=== PATIENT | male | born 1955 | race Caucasian/White ===

== ENCOUNTER 2016-07-23 15:21 | Emergency (ER) | payer SELFPAY ==
[~2016-07-23] VITALS: Ht 180.3 cm; Wt 75.0 kg
[~2016-07-23 15:21] MED LIST: AMIO200T PO; ASPI81CH CHEW; CARD2TAB PO; CEFT500T3 PO; ERGO1CAP30 PO; FERR325T PO; FOLI1TAB4 PO; FURO1TAB62 PO; HYDR-3366 PO; LISI10TA3 PO; LORA-392 PO; METO-309 PO; OYST250T4 PO; PRAV40TA PO; SENN1TAB PO; VITA100T2 PO; ZITH250T PO
[2016-07-23 15:29] VITALS: BP 158/97; PULSE 87; RESP 18; TEMP 97.7; O2SAT 94
--- NOTE | 2016-07-23 15:52 | PD ---
HPI Chief Complaint: Chest Pain Time Seen by Provider: 15:36 Travel History International Travel<30 days: No Contact w/Intl Traveler<30days: No Traveled to known affect area: No History of Present Illness HPI The patient is a 61-year-old male who presents emergency department for sternal and right sided rib pain after a fall. The patient states he fell Monday night, struck the right aspect of his chest wall. The patient has complained of pain located along the right sternal border and over the anterior aspect of the right rib cage since Monday night. The pain is worse with movement, coughing, and deep breaths. Patient states the pain is reproducible with palpation. He denies any chest pain or shortness of breath. The patient does have a history of previous CABG it was performed in February 2016. The patient has not been taking his medications, states he cannot afford all his medications for his CD and PVD. The patient does continue to smoke and drinks alcohol on the weekends. 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) Headaches: No Hiatal Hernia: No Hypertension: Yes Immune Disorder: No Implanted Vascular Access Dvce: Yes Musculoskeletal: Yes Neurologic: Yes Psychiatric: No Reproductive: No Respiratory: Yes Immunizations Current: Yes Migraines: No Seizures: No Sleep Apnea: No Thyroid Disease: No Ulcer: No Past Surgical History Body Medical Devices: LEFT RENAL STENT Cardiac Surgery: Yes (cabg x 3 vessels) Coronary Artery Bypass Graft: Yes Genitourinary Surgery: Yes (L RENAL STENT 2000) Neurologic Surgery: No Thoracic Surgery: Yes (l carotid Femoral bypass R and L 06/2015 dr Nunn) Other Surgery: Yes (pad R leg VEIN STRIPPING pvd surgery) Social History Alcohol Use: Yes (3 beers today) Tobacco Use: Yes (04/13 ppd) Substance Use: No (30 YEARS AGO) Allergies-Medications (Allergen,Severity, Reaction): Coded Allergies: No Known Allergies (Unverified , 12/13/16) Reported Meds & Prescriptions Reported Meds & Active Scripts Active Lopressor (Metoprolol Tartrate) 50 Mg Tab 50 Mg PO Q12HR 30 Days Lisinopril 10 Mg Tab 10 Mg PO DAILY Ferrous Sulfate 325 Mg Tab 325 Mg PO DAILY Ergocalciferol 50,000 Unit Cap 50,000 Units PO Q7D Lasix (Furosemide) 20 Mg Tab 20 Mg PO DAILY Aspirin 81 Mg Chew 81 Mg CHEW DAILY Folate (Folic Acid) 1 Mg Tab 1 Mg PO DAILY Cardura (Doxazosin Mesylate) 2 Mg Tab 2 Mg PO DAILY Amiodarone (Amiodarone HCl) 200 Mg Tab 200 Mg PO Q12HR Oyster Shell Calcium/Vitamin D (Calcium Carbonate-Cholecalciferol) 250-125 Mg- Unit Tab 250 Mg PO TID 30 Days Vitamin B-1 (Thiamine HCl) 100 Mg Tab 100 Mg PO DAILY 30 Days Pravachol (Pravastatin) 40 Mg Tab 40 Mg PO HS 30 Days Review of Systems Except as stated in HPI: all other systems reviewed are Neg General / Constitutional: No: Fever HENT: No: Headaches, Lightheadedness, Neck Pain Cardiovascular: Positive: Chest Pain or Discomfort (right sided chest pain and sternal pain after a fall) Respiratory: No: Cough, Shortness of Breath Gastrointestinal: No: Nausea, Vomiting, Abdominal Pain Musculoskeletal: No: Weakness Neurologic: No: Dizziness Physical Exam Narrative GENERAL: Awake, alert, 61-year-old male who appears his stated age and is in no acute respiratory distress. SKIN: Focused skin assessment warm/dry. HEAD: Atraumatic. Normocephalic. EYES: Pupils equal and round. No scleral icterus. No injection or drainage. ENT: No nasal bleeding or discharge. Mucous membranes pink and moist. NECK: Trachea midline. No JVD. CARDIOVASCULAR: Regular rate and rhythm. No murmur appreciated. Well-healed midline sternal scar. Tenderness along the lateral right aspect of the sternum and over the anterior right chest wall. Pain elicited with palpation as well as rotation and active extension of the shoulder and right upper extremity against resistance. RESPIRATORY: No accessory muscle use. Clear to auscultation. Breath sounds equal bilaterally. GASTROINTESTINAL: Abdomen soft, non-tender, nondistended. No rebound tenderness. MUSCULOSKELETAL: No obvious deformities. No clubbing. No cyanosis. No edema. NEUROLOGICAL: Awake and alert. No obvious cranial nerve deficits. Motor grossly within normal limits. Normal speech. PSYCHIATRIC: Appropriate mood and affect; insight and judgment normal. Data Data Last Documented VS Vital Signs Date Time Temp Pulse Resp B/P Pulse Ox O2 Delivery O2 Flow Rate FiO2 07/23/16 15:29 97.7 87 18 158/97 94 Orders Chest, Pa & Lat (07/23/16 ) Acetamin-Hydrocod 325-5 Mg ([place] 5-325 (07/23/16 16:00) [facility] Medical Decision Making Medical Screen Exam Complete: Yes Emergency Medical Condition: Yes Medical Record Reviewed: Yes Interpretation(s) EKG reveals normal sinus rhythm with a rate 88. Q wave noted in lead 3. Chest x-ray reveals minimal basal atelectasis or scarring. No acute findings compared with June 2015. Previous median sternotomy. Differential Diagnosis Differential diagnosis includes sternal fracture, rib fracture, rib contusion, pneumothorax, hemothorax, chest wall pain. Narrative Course Two-view chest x-ray was ordered to evaluate the sternum and lung maher. The patient was administered [place] 5 mg/325 mg orally. X-rays unremarkable, no obvious rib fractures, pneumothorax, hemothorax, or dehiscence of the previous sternotomy. The patient is stable for outpatient follow-up. He is advised to take Tylenol and or Motrin as needed for pain. Return if symptoms worsen or progress. Diagnosis Primary Impression: Chest wall pain Patient Instructions: General Instructions Additional Instructions: Tylenol and or Motrin as needed for pain. Activity as tolerated. Follow-up with her primary physician. Med/Other Pt SpecificInfo: No Change to Meds Disposition: 01 DISCHARGE HOME Condition: Stable Troy Newman MD Jul 23, 2016 15:51
[2016-07-23] MEDS ORDERED: ACETAMINOPHEN/HYDROcodone 325 MG/5 MG TAB PO ONE (16:00)
--- NOTE | 2016-07-23 16:31 | RADHPO ---
EXAM DATE/TIME: 07/23/2016 16:01 [facility] COMPARISON: CHEST PA & LAT, June 16, 2015, 18:15. INDICATIONS : Right side chest and rib pain for four days post fall. MEDICAL HISTORY : Hypertension. SURGICAL HISTORY : CABG. Right shoulder. ENCOUNTER: Initial ACUITY: 4 - 6 days PAIN SCORE: 9/10 LOCATION: Right chest FINDINGS: PA and lateral views of the chest demonstrate plate and screw fixation distal clavicle. Mild basilar atelectasis or scarring. Mildly tortuous aorta. Previous median sternotomy. CONCLUSION: 1. Minimal basilar atelectasis or scarring. No acute findings compared with June 2015. Evelio Camejo MD on July 23, 2016 at 16:29 Board Certified Radiologist. This report was verified electronically.
--- NOTE | 2016-07-24 14:02 | EKG ---
Date Performed: 07/23/2016 Time Performed: 15:23:54 PTAGE: 61 years EKG: Sinus rhythm Poor R wave progression across the precordium which may be normal variant Since previous tracing, no significant change noted BorderlineECG PREVIOUS TRACING : 03/22/2016 19.14 DOCTOR: Darrel Cuellar Interpretating Date/Time 07/24/2016 14:00:53
== END 2016-07-23 17:10 | disposition home or self-care (01) ==
LOC: PHED 15:21
DX: R07.89 Other chest pain (principal); R07.81 Pleurodynia; R94.31 Abnormal electrocardiogram [ECG] [EKG]; I10 Essential (primary) hypertension; E78.00 Pure hypercholesterolemia, unspecified; W19.XXXA Unspecified fall, initial encounter; Z72.0 Tobacco use; Z87.39 Personal history of other diseases of the musculoskeletal system and connective tissue; Z87.09 Personal history of other diseases of the respiratory system; Z86.79 Personal history of other diseases of the circulatory system; Z87.19 Personal history of other diseases of the digestive system; Z87.448 Personal history of other diseases of urinary system; Z86.69 Personal history of other diseases of the nervous system and sense organs
CPT/HCPCS: 71020; 93005; 99283

== ENCOUNTER 2016-08-09 20:50 | Observation (INO) | payer SELFPAY ==
[~2016-08-09] VITALS: Ht 180.3 cm; Wt 70.0 kg
[~2016-08-09 20:50] MED LIST changes: -CEFT500T3 PO; -HYDR-3366 PO; -LORA-392 PO; -SENN1TAB PO; -ZITH250T PO
[2016-08-09 20:53] VITALS: BP 188/116; PULSE 85; RESP 20; TEMP 97.6
[2016-08-09 21:07] VITALS: BP 180/110; PULSE 75; RESP 22; O2SAT 97; O2SAT 98
--- NOTE | 2016-08-09 21:08 | PD ---
HPI Chief Complaint: Chest Pain Time Seen by Provider: 21:05 Travel History International Travel<30 days: No Contact w/Intl Traveler<30days: No Traveled to known affect area: No History of Present Illness HPI Patient comes in for evaluation of chest pain that he woke with this morning. Patient denies anything making it better or worse. Patient has been sharp stabbing like in nature substernally radiates to the right. Patient denies any nausea, vomiting, worsening shortness of breath, diaphoresis, trauma, back pain , numbness or tingling anywhere. Patient states he is suppose to be taking multiple medications but does not take any of them secondary to not being able to afford them. Patient denies taking anything for this states someone else called ambulance for him. Patient did receive 4 baby aspirin and nitroglycerin en route by EMS with minimal relief of symptoms. Patient reports pain feels different than the chest wall pain that he had seen here for 2 weeks ago. 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) Headaches: No Hiatal Hernia: No Hypertension: Yes Immune Disorder: No Implanted Vascular Access Dvce: Yes Musculoskeletal: Yes Neurologic: Yes Psychiatric: No Reproductive: No Respiratory: Yes Immunizations Current: Yes Migraines: No Seizures: No Sleep Apnea: No Thyroid Disease: No Ulcer: No Past Surgical History Body Medical Devices: LEFT RENAL STENT Cardiac Surgery: Yes (cabg x 3 vessels) Coronary Artery Bypass Graft: Yes Genitourinary Surgery: Yes (L RENAL STENT 2000) Neurologic Surgery: No Thoracic Surgery: Yes (l carotid Femoral bypass R and L 06/2015 dr Nunn) Other Surgery: Yes (pad R leg VEIN STRIPPING pvd surgery) Social History Alcohol Use: Yes (3 beers today) Tobacco Use: Yes (04/13 ppd) Substance Use: No (30 YEARS AGO) Allergies-Medications (Allergen,Severity, Reaction): Coded Allergies: No Known Allergies (Unverified , 03/22/16) Reported Meds & Prescriptions Reported Meds & Active Scripts Active Lopressor (Metoprolol Tartrate) 50 Mg Tab 50 Mg PO Q12HR 30 Days Lisinopril 10 Mg Tab 10 Mg PO DAILY Ferrous Sulfate 325 Mg Tab 325 Mg PO DAILY Ergocalciferol 50,000 Unit Cap 50,000 Units PO Q7D Lasix (Furosemide) 20 Mg Tab 20 Mg PO DAILY Aspirin 81 Mg Chew 81 Mg CHEW DAILY Folate (Folic Acid) 1 Mg Tab 1 Mg PO DAILY Cardura (Doxazosin Mesylate) 2 Mg Tab 2 Mg PO DAILY Amiodarone (Amiodarone HCl) 200 Mg Tab 200 Mg PO Q12HR Oyster Shell Calcium/Vitamin D (Calcium Carbonate-Cholecalciferol) 250-125 Mg- Unit Tab 250 Mg PO TID 30 Days Vitamin B-1 (Thiamine HCl) 100 Mg Tab 100 Mg PO DAILY 30 Days Pravachol (Pravastatin) 40 Mg Tab 40 Mg PO HS 30 Days Review of Systems Except as stated in HPI: all other systems reviewed are Neg Physical Exam Narrative GENERAL: Well-developed, well nourished, in no acute distress, and non-ill appearing. SKIN: Focused skin assessment warm and dry. HEAD: Atraumatic. Normocephalic. EYES: Pupils equal and round. EOMI. No scleral icterus. No injection or drainage. ENT: No nasal bleeding or discharge. Mucous membranes pink and moist. NECK: Trachea midline. Supple. No nuclear rigidity. CARDIOVASCULAR: Regular rate and rhythm. No murmur appreciated. RESPIRATORY: No accessory muscle use. No respiratory distress. Clear to auscultation. Breath sounds equal bilaterally. Patient reports to palpation throughout anterior chest wall GASTROINTESTINAL: Abdomen soft, non-tender, nondistended. Hepatic and splenic margins not palpable. No pulsatile mass. MUSCULOSKELETAL: No obvious deformities. No clubbing. No cyanosis. No edema. Full range of motion. NEUROLOGICAL: Awake and alert. No obvious cranial nerve deficits. Motor grossly within normal limits. Normal speech. PSYCHIATRIC: Appropriate mood and affect; insight and judgment normal. Data Data Last Documented VS Vital Signs Date Time Temp Pulse Resp B/P Pulse Ox O2 Delivery O2 Flow Rate FiO2 08/09/16 22:36 75 16 162/98 94 08/09/16 21:07 Room Air 08/09/16 20:53 97.6 Orders Electrocardiogram (08/09/16 21:03) Basic Metabolic Panel (Bmp) (08/09/16 21:03) Ckmb (Isoenzyme) Profile (08/09/16 21:03) Complete Blood Count With Diff (08/09/16 21:03) Magnesium (Mg) (08/09/16 21:03) Prothrombin Time / Inr (Pt) (08/09/16 21:03) Act Partial Throm Time (Ptt) (08/09/16 21:03) Troponin I (08/09/16 21:03) Chest, Single Ap (08/09/16 21:03) Ecg Monitoring (08/09/16 21:03) Bilateral Bp Monitoring (08/09/16 21:03) Iv Access Insert/Monitor (08/09/16 21:03) Oximetry (08/09/16 21:03) Oxygen Administration (08/09/16 21:) Nitroglycerin 2% Oint (Nitroglycerin 2% (08/09/16 21:15) Sodium Chloride 0.9% Flush (Ns Flush) (08/09/16 21:15) Alcohol (Ethanol) (08/09/16 21:13) Clonidine (Catapres) (08/09/16 22:15) Place In Observation (08/09/16 ) Vital Signs (Adult) Q4H (08/09/16 22:48) Activity Oob With Assistance (08/09/16 22:48) Operating Room Tech / Telemetry .CONTINUOUS (08/09/16 22:48) Diet Heart Healthy (08/10/16 Breakfast) Basic Metabolic Panel (Bmp) (08/10/16 06:00) Complete Blood Count With Diff (08/10/16 06:00) Creatine Kinase (Cpk) (08/10/16 03:15) Creatine Kinase (Cpk) (08/10/16 09:15) Troponin I (08/10/16 03:15) Troponin I (08/10/16 09:15) Electrocardiogram (08/10/16 03:15) Electrocardiogram (08/10/16 09:15) Case Management Consult (08/09/16 22:48) Naloxone Inj (Narcan Inj) (08/09/16 23:00) Thiamine (Vit B1) (Vitamin B1) (08/09/16 23:00) Thiamine (Vit B1) (Vitamin B1) (08/10/16 09:00) Alcohol Withdrawal Asmt-Ciwa Q4HX18 (08/09/16 22:50) ^ Seizure Precautions (08/09/16 22:50) Sodium Chloride 0.9% Flush (Ns Flush) (08/09/16 23:00) Sodium Chloride 0.9% Flush (Ns Flush) (08/10/16 09:00) Consult Cm-Etoh Abuse Dc Plan (08/09/16 ) Flumazenil Inj (Romazicon Inj) (08/09/16 23:00) Lorazepam (Ativan) (08/09/16 23:00) Lorazepam Inj (Ativan Inj) (08/09/16 23:00) Lorazepam (Ativan) (08/09/16 23:00) Lorazepam Inj (Ativan Inj) (08/09/16 23:00) Lorazepam Inj (Ativan Inj) (08/09/16 23:00) Lorazepam Inj (Ativan Inj) (08/09/16 23:00) Admit Order (Ed Use Only) (08/09/16 22:54) Labs Laboratory Tests Test 08/09/16 21:20 White Blood Count 5.9 TH/MM3 Red Blood Count 4.12 MIL/MM3 Hemoglobin 15.0 GM/DL Hematocrit 43.3 % Mean Corpuscular Volume 105.2 FL Mean Corpuscular Hemoglobin 36.4 PG Mean Corpuscular Hemoglobin 34.6 % Concent Red Cell Distribution Width 14.4 % Platelet Count 143 TH/MM3 Mean Platelet Volume 7.7 FL Neutrophils (%) (Auto) 52.3 % Lymphocytes (%) (Auto) 35.8 % Monocytes (%) (Auto) 9.6 % Eosinophils (%) (Auto) 1.6 % Basophils (%) (Auto) 0.7 % Neutrophils # (Auto) 3.1 TH/MM3 Lymphocytes # (Auto) 2.1 TH/MM3 Monocytes # (Auto) 0.6 TH/MM3 Eosinophils # (Auto) 0.1 TH/MM3 Basophils # (Auto) 0.0 TH/MM3 CBC Comment DIFF FINAL Differential Comment Prothrombin Time 9.9 SEC Prothromb Time International 0.9 RATIO Ratio Activated Partial 28.2 SEC Thromboplast Time Sodium Level 140 MEQ/L Potassium Level 4.4 MEQ/L Chloride Level 101 MEQ/L Carbon Dioxide Level 28.0 MEQ/L Anion Gap 11 MEQ/L Blood Urea Nitrogen 7 MG/DL Creatinine 0.76 MG/DL Estimat Glomerular Filtration 105 ML/MIN Rate Random Glucose 103 MG/DL Calcium Level 8.5 MG/DL Magnesium Level 2.3 MG/DL Total Creatine Kinase 66 U/L Troponin I 0.02 NG/ML Ethyl Alcohol Level 370 MG/DL MDM Medical Decision Making Medical Screen Exam Complete: Yes Emergency Medical Condition: Yes Medical Record Reviewed: Yes Interpretation(s) EKG reviewed by Dr. Mckinney shows sinus showed ventricular 75. No STEMI. Differential Diagnosis Angina, acute coronary syndrome, alcohol intoxication, pneumonia, electrolyte abnormality, other Narrative Course Patient's medical records reviewed showing patient had a CABG February of last year performed here. Patient was seen and examined. Initial laboratory and radiological studies were obtained and reviewed. Discussed patient with Dr. Mckinney, who recommends having the patient placed in observation for chest pain rule out acute coronary syndrome. Discussed all findings and plan care of patient, who is agreeable for admission. All questions were answered. Patient remained stable throughout ER course. Physician Communication Physician Communication [phone] Williamson, who is agreeable to admit patient. Diagnosis Primary Impression: Chest pain Qualified Code: R07.9 - Chest pain, unspecified type Additional Impressions: Alcohol intoxication Qualified Code: F10.120 - Alcohol intoxication, uncomplicated Noncompliance with medication regimen Admitting Information Admitting Physician Requests: Observation Condition: Stable Kyree Matthews August 09, 2016 21:08
[2016-08-09] MEDS ORDERED: SODIUM CHLORIDE 0.9% FLUSH 10 ML FLUSH IVF PRN (21:15)
[2016-08-09] MEDS ORDERED: NITROGLYCERIN 2% OINT 1 GM PACKET TOP ONE (21:15)
[2016-08-09 21:41] LABS: AUTOMATED NEUTROPHIL # 3.1 TH/MM3 (1.8-7.7); BASOPHIL % 0.7 % (0.0-2.0); EOSINOPHIL # 0.1 TH/MM3 (0-0.4); EOSINOPHIL % 1.6 % (0.0-4.0); HEMATOCRIT 43.3 % (39.0-51.0); HEMO FLAGS DIFF FINAL; LYMPH % 35.8 % (9.0-44.0); LYMPHOCYTE # 2.1 TH/MM3 (1.0-4.8); MEAN CELL VOLUME 105.2 FL (80.0-100.0); MEAN CORPUSCULAR HEMOGLOBIN 36.4 PG (27.0-34.0); MEAN CORPUSCULAR HGB CONC 34.6 % (32.0-36.0); MONO % 9.6 % (0.0-8.0); NEUT % 52.3 % (16.0-70.0); PLATELET COUNT 143 TH/MM3 (150-450); RED BLOOD COUNT 4.12 MIL/MM3 (4.50-5.90); RED CELL DISTRIBUTION WIDTH 14.4 % (11.6-17.2); WHITE BLOOD COUNT 5.9 TH/MM3 (4.0-11.0)
[2016-08-09 21:55] LABS: MAGNESIUM 2.3 MG/DL (1.5-2.5); POTASSIUM 4.4 MEQ/L (3.5-5.1)
[2016-08-09 22:03] LABS: APTT (PATIENT) 28.2 SEC (24.3-30.1); INTERNATIONAL NORMALIZED RATIO 0.9 RATIO; PROTHROMBIN TIME - PATIENT 9.9 SEC (9.8-11.6)
--- NOTE | 2016-08-09 22:09 | RADRPT ---
EXAM DATE/TIME: 08/09/2016 21:26 [facility] COMPARISON: CHEST SINGLE AP, March 22, 2016, 20:43. INDICATIONS : Chest pain. MEDICAL HISTORY : Hypertension. Congestive heart failure. SURGICAL HISTORY : CABG. Right shoulder surgery. ENCOUNTER: Initial ACUITY: 3 days PAIN SCORE: 10/10 LOCATION: Bilateral chest FINDINGS: A single view of the chest demonstrates the lungs to be symmetrically aerated without evidence of mas s, infiltrate or effusion. The patient is status post sternotomy. The cardiomediastinal contours are unremarkable. There is no the plate at the lateral right clavicle. CONCLUSION: No acute disease. Hany Pérez MD on August 09, 2016 at 22:07 Board Certified Radiologist. This report was verified electronically.
[2016-08-09] MEDS ORDERED: cloNIDine HCL 0.1 MG TAB PO ONE (22:15)
[2016-08-09 22:36] VITALS: BP 162/98; PULSE 75; RESP 16; O2SAT 94
[2016-08-09] MEDS ORDERED: THIAMINE HCL 100 MG TAB PO ONE (23:00)
[2016-08-09] MEDS ORDERED: LORazepam 2 MG/ML VIAL IV PUSH PRN ×4 (23:00)
[2016-08-09] MEDS ORDERED: FLUMAZENIL 0.5 MG/5 ML VIAL IV PUSH PRN (23:00)
[2016-08-09] MEDS ORDERED: SODIUM CHLORIDE 0.9% FLUSH 10 ML FLUSH IV FLUSH PRN ×2 (23:00)
[2016-08-09] MEDS ORDERED: NALOXONE HCL 0.4 MG/ML AMP IV PRN (23:00)
[2016-08-09] MEDS ORDERED: LORazepam 1 MG TAB PO PRN (23:00)
[2016-08-09] MEDS ORDERED: LORazepam 2 MG TAB PO PRN (23:00)
--- NOTE | 2016-08-09 23:40 | HHI.HP ---
[facility] Service [facility] Primary Care Physician No Primary Care Physician Admission Diagnosis chest pain, alcohol intoxication Diagnoses: (1) Chest pain (2) Red stool (3) Tobacco abuse (4) Alcohol abuse Chief Complaint: chest pain Travel History International Travel<30 Days: No Contact w/Intl Traveler <30 Da: No Traveled to Known Affected Are: No History of Present Illness Mr. Carbajal is a 61 year-old male with a history of hypertension, severe peripheral vascular disease, coronary artery disease status post CABG 3 2015, alcohol abuse, hyperlipidemia, and tobacco abuse who presented to the emergency room on 08/09/2016 for evaluation of severe chest pain. The patient is seen in the ER. He states he has been having severe chest pain accompanied by shortness of breath and lightheadedness for about 4-5 days but it got significantly worse today. He felt like he was going to and even called his brother whom he has not spoken with for 4-5 years to tell him that he thinks he is dying and to say goodbye. He reports orthopnea and states he uses "as many pillows as I can get" to sleep. He says he was seen at [facility] about a week ago after falling at home and experiencing chest pain after striking his postsurgical sternum upon falling ; records indicate this visit was on 07/23/2016. He states that he has had pain in his chest ever since that fall. He also reports feeling intermittently warm and cold with nausea, intermittent red stool, and abdominal pain. He denies any vomiting or hemoptysis. He admits that he has not been taking his blood pressure medications. Denies diabetes mellitus; liver/kidney problems; problems with blood clots such as DVT, PE, or CVA; cancers Reports that he has been off medications since March. . Review of Systems Except as stated in HPI: all other systems reviewed are Neg Past Family Social History Past Medical History Severe peripheral vascular disease Coronary artery disease Hypertension Hyperlipidemia Alcohol abuse Tobacco abuse . Past Surgical History CABG x 3 03/01/2016 Aorto bifemoral bypass Left carotid endarterectomy and bovine patch angioplasty Left renal stent Right clavicle surgery . Reported Medications says he's been off meds Reported Meds & Active Scripts Active Lopressor (Metoprolol Tartrate) 50 Mg Tab 50 Mg PO Q12HR 30 Days Lisinopril 10 Mg Tab 10 Mg PO DAILY Ferrous Sulfate 325 Mg Tab 325 Mg PO DAILY Ergocalciferol 50,000 Unit Cap 50,000 Units PO Q7D Lasix (Furosemide) 20 Mg Tab 20 Mg PO DAILY Aspirin 81 Mg Chew 81 Mg CHEW DAILY Folate (Folic Acid) 1 Mg Tab 1 Mg PO DAILY Cardura (Doxazosin Mesylate) 2 Mg Tab 2 Mg PO DAILY Amiodarone (Amiodarone HCl) 200 Mg Tab 200 Mg PO Q12HR Oyster Shell Calcium/Vitamin D (Calcium Carbonate-Cholecalciferol) 250-125 Mg- Unit Tab 250 Mg PO TID 30 Days Vitamin B-1 (Thiamine HCl) 100 Mg Tab 100 Mg PO DAILY 30 Days Pravachol (Pravastatin) 40 Mg Tab 40 Mg PO HS 30 Days . Allergies: Coded Allergies: No Known Allergies (Unverified , 08/26/16) Active Ordered Medications Current Medications Nitroglycerin (Nitroglycerin 2% Oint) 1 inch ONCE ONCE TOP Last administered on 08/09/16 22:04; Start 08/09/16 at 21:15; Stop 08/09/16 at 21:16; Status DC Sodium Chloride (NS Flush) 2 ml UNSCH PRN IVF FLUSH AFTER USING IV ACCESS; Start 08/09/16 at 21:15; Stop 08/09/16 at 22:52; Status DC Clonidine (Catapres) 0.1 mg ONCE ONCE PO Last administered on 08/09/16 22:36; Start 08/09/16 at 22:15; Stop 08/09/16 at 22:16; Status DC Sodium Chloride (NS Flush) 2 ml UNSCH PRN IV FLUSH FLUSH AFTER USING IV ACCESS ; Start 08/09/16 at 23:00; Status UNV Sodium Chloride (NS Flush) 2 ml BID IV FLUSH ; Start 08/10/16 at 09:00; Status UNV Naloxone HCl (Narcan Inj) 0.4 mg UNSCH PRN IV SEE LABEL COMMENTS; Start at 23:00 Thiamine HCl (Vitamin B1) 100 mg ONCE ONCE PO ; Start 08/09/16 at 23:00; Stop at 23:01; Status DC Thiamine HCl (Vitamin B1) 100 mg DAILY PO ; Start 08/10/16 at 09:00 Sodium Chloride (NS Flush) 2 ml UNSCH PRN IV FLUSH FLUSH AFTER USING IV ACCESS ; Start 08/09/16 at 23:00 Sodium Chloride (NS Flush) 2 ml BID IV FLUSH ; Start 08/10/16 at 09:00 Flumazenil (Romazicon Inj) 0.2 mg Q1M PRN IV PUSH SEE LABEL COMMENTS; Start 08/09/16 at 23:00 Lorazepam (Ativan) 1 mg Q4H PRN PO CIWA 8 - 10; Start 08/09/16 at 23:00 Lorazepam (Ativan Inj) 1 mg Q4H PRN IV PUSH CIWA 8 - 10; Start 08/09/16 at 23:00 Lorazepam (Ativan) 2 mg Q2H PRN PO CIWA 11-14; Start 08/09/16 at 23:00 Lorazepam (Ativan Inj) 2 mg Q2H PRN IV PUSH CIWA 11-14; Start 08/09/16 at 23:00 Lorazepam (Ativan Inj) 2 mg Q1H PRN IV PUSH CIWA 15-20; Start 08/09/16 at 23:00 Lorazepam (Ativan Inj) 2 mg Q15M PRN IV PUSH CIWA > 20; Start 08/09/16 at 23:00 . Family History Brother with arthritis All family members with hypertension . Social History Tobacco: smokes ETOH: drinks alcohol once a weekend Illicit drugs: rare marijuana use . Physical Exam Vital Signs Vital Signs Date Time Temp Pulse Resp B/P Pulse Ox O2 Delivery O2 Flow Rate FiO2 08/09/16 22:36 75 16 162/98 94 08/09/16 21:07 98 Room Air 08/09/16 21:07 98 Room Air 08/09/16 21:07 75 22 180/110 97 Room Air 08/09/16 20:58 98 Room Air 08/09/16 20:53 97.6 85 20 188/116 Physical Exam GENERAL: This is a thin, chronically ill-appearing male patient, who appears older than stated age. SKIN: Cool and dry. HEAD: Atraumatic. Normocephalic. EYES: No scleral icterus. No injection or drainage. ENT: Nose without bleeding, purulent drainage. NECK: Trachea midline. No JVD or lymphadenopathy. CARDIOVASCULAR: Regular rate and rhythm without murmurs, gallops, or rubs. RESPIRATORY: Clear to auscultation. Breath sounds equal bilaterally. No wheezes , rales, or rhonchi. GASTROINTESTINAL: Abdomen soft, non-tender, nondistended. No guarding. MUSCULOSKELETAL: Extremities without clubbing, cyanosis, or edema. No calf tenderness. NEUROLOGICAL: Awake and alert. Motor and sensory grossly within normal limits. Normal speech. . Laboratory Laboratory Tests Test 08/09/16 21:20 White Blood Count 5.9 Red Blood Count 4.12 Hemoglobin 15.0 Hematocrit 43.3 Mean Corpuscular Volume 105.2 Mean Corpuscular Hemoglobin 36.4 Mean Corpuscular Hemoglobin 34.6 Concent Red Cell Distribution Width 14.4 Platelet Count 143 Mean Platelet Volume 7.7 Neutrophils (%) (Auto) 52.3 Lymphocytes (%) (Auto) 35.8 Monocytes (%) (Auto) 9.6 Eosinophils (%) (Auto) 1.6 Basophils (%) (Auto) 0.7 Neutrophils # (Auto) 3.1 Lymphocytes # (Auto) 2.1 Monocytes # (Auto) 0.6 Eosinophils # (Auto) 0.1 Basophils # (Auto) 0.0 CBC Comment DIFF FINAL Differential Comment Prothrombin Time 9.9 Prothromb Time International 0.9 Ratio Activated Partial 28.2 Thromboplast Time Sodium Level 140 Potassium Level 4.4 Chloride Level 101 Carbon Dioxide Level 28.0 Anion Gap 11 Blood Urea Nitrogen 7 Creatinine 0.76 Estimat Glomerular Filtration 105 Rate Random Glucose 103 Calcium Level 8.5 Magnesium Level 2.3 Total Creatine Kinase 66 Troponin I 0.02 Ethyl Alcohol Level 370 Result Diagram: 08/09/16211908/09/162119 Imaging Last Impressions Chest X-Ray 08/09/162102 Signed Impressions: Service Date/Time: Tuesday, August 09, 2016 21:26 - CONCLUSION: No acute disease. Hany Pérez MD . Assessment and Plan Problem List: (1) Chest pain ICD Code: R07.9 Status: Acute (2) Red stool ICD Code: R19.5 Status: Acute (3) Alcohol abuse ICD Code: F10.10 Status: Chronic (4) Tobacco abuse ICD Code: Z72.0 Status: Chronic Assessment and Plan Chest pain - Serial cardiac enzymes and EKGs to rule out ACS - CXR - negative for acute cardiopulmonary disease - CT pulmonary angiogram to r/o PE - Continuous cardiac telemetry to monitor for cardiac arrhythmias - Heart healthy diet Possible blood in stool - Check stool Hemoccult History of alcohol abuse and concern for alcohol withdrawal - ETOH on admission is 370 - WA protocol ordered - Seizure precautions - Thiamine 100 mg p.o. daily Tobacco Abuse: cessation recommended DVT prophylaxis - SCDs - chemoprophylaxis contraindicated until stool Hemoccult testing resulted Written by Jeannie Tavrea, acting as scribe for Dr. Williamson on 08/09/16 at 23:38. .This note was transcribed by scribe [Jeannie Tavera]. I, Dr. Nano Williamson personally performed the history, physical exam, and medical decision making; and confirmed the accuracy of the information in the transcribed note. Authenticated by Dr. Nano Williamson on 08/09/16 at 23:38. Discussed Condition With ER physician and patient . Problem Qualifiers (1) Chest pain: Qualified Code: R07.9 - Chest pain, unspecified type Jeannie Tavera August 09, 2016 23:40 Nano Williamson MD Sep 19, 2016 11:52
[2016-08-10] VITALS (13 sets, daily range): BP systolic 170–197; BP diastolic 82–101; PULSE 58–81; RESP 18–21; TEMP 97.7–99; O2SAT 94–98
[2016-08-10] MEDS ORDERED: IOHEXOL 350 MG/ML 10 ML VIAL (for RAD DIAG) IV ONE (01:44)
--- NOTE | 2016-08-10 02:00 | RADRPT ---
EXAM DATE/TIME: 08/10/2016 01:40 [facility] COMPARISON: CT PULMONARY ANGIOGRAM, March 22, 2016, 21:29. INDICATIONS : Chest pain with shortness of breath. IV CONTRAST: 74 cc Omnipaque 350 (iohexol) IV RADIATION DOSE: 23.38 CTDIvol (mGy) MEDICAL HISTORY : Cardiovascular disease. Hypertension. Cirrhosis.DVT Diabetes SURGICAL HISTORY : CABG Carotid endarterectomy. ENCOUNTER: Initial ACUITY: 1 day PAIN SCALE: 5/10 LOCATION: Bilateral chest TECHNIQUE: Volumetric scanning of the chest was performed using a pulmonary embolism protocol MIP images were re constructed. Using automated exposure control and adjustment of the mA and/or kV according to patien t size, radiation dose was kept as low as reasonably achievable to obtain optimal diagnostic quality images. FINDINGS: There is subsegmental atelectasis in the right base. No pulmonary nodules are identified. No pleural effusions are identified.. Examination of the mediastinum demonstrates no abnormally enlarged lymph n odes by CT criteria. No axillary or hilar abnormalities are identified. Coronary artery calcification s are present. The visualized upper abdomen demonstrates no abnormality. Examination of the pulmonary vasculature demonstrates good filling of the main, lobar and segmental b ranches. There are no filling defects to suggest pulmonary embolism. Multiplanar reconstructions are also unremarkable. CONCLUSION: 1. No evidence of pulmonary embolism. Josiah Benavides MD on August 10, 2016 at 1:56 Board Certified Radiologist. This report was verified electronically.
[2016-08-10 04:07] LABS: AUTOMATED NEUTROPHIL # 2.9 TH/MM3 (1.8-7.7); BASOPHIL % 0.7 % (0.0-2.0); EOSINOPHIL # 0.1 TH/MM3 (0-0.4); EOSINOPHIL % 1.5 % (0.0-4.0); HEMATOCRIT 39.1 % (39.0-51.0); HEMO FLAGS DIFF FINAL; LYMPH % 37.1 % (9.0-44.0); LYMPHOCYTE # 2.1 TH/MM3 (1.0-4.8); MEAN CELL VOLUME 105.2 FL (80.0-100.0); MEAN CORPUSCULAR HEMOGLOBIN 36.6 PG (27.0-34.0); MEAN CORPUSCULAR HGB CONC 34.8 % (32.0-36.0); NEUT % 50.7 % (16.0-70.0); PLATELET COUNT 128 TH/MM3 (150-450); RED BLOOD COUNT 3.72 MIL/MM3 (4.50-5.90); RED CELL DISTRIBUTION WIDTH 14.1 % (11.6-17.2); WHITE BLOOD COUNT 5.6 TH/MM3 (4.0-11.0)
[2016-08-10 04:21] LABS: BICARBONATE 26.7 MEQ/L (21.0-32.0)
--- NOTE | 2016-08-10 08:32 | EKG ---
Date Performed: 08/10/2016 Time Performed: 04:21:07 PTAGE: 61 years EKG: Sinus rhythm MARKED LEFT AXIS DEVIATION ABNORMAL ECG PREVIOUS TRACING : 08/09/2016 20.55 DOCTOR: Alejandro Bates Interpretating Date/Time 08/10/2016 08:31:41
--- NOTE | 2016-08-10 08:45 | EKG ---
Date Performed: 08/09/2016 Time Performed: 20:55:39 PTAGE: 61 years EKG: Sinus rhythm NORMAL ECG PREVIOUS TRACING : 07/23/2016 15.23 DOCTOR: Alejandro Bates Interpretating Date/Time 08/10/2016 08:42:59
--- NOTE | 2016-08-10 08:49 | HHI.PR ---
Subjective Remarks Follow chest pain. Pt seen and examined today. Patient states his chest pain is constant and has been going on since his Cabg in 02/2016. He states the pain ranges from dull to sharp and does radiate to his left upper are, with associated dizziness, sob and nausea. He has been off his medications since March because he was unable to get to his follow up appointment due to financial difficulties. He also states he does fall a lot due to numbness in his left outer foot from a pervious arterial bypass in that leg. Objective Vitals Vital Signs Date Time Temp Pulse Resp B/P Pulse Ox O2 Delivery O2 Flow Rate FiO2 08/10/16 08:08 98.0 78 21 189/101 98 08/10/16 05:42 70 08/10/16 04:25 98.3 77 18 175/88 94 08/10/16 01:03 97.7 69 18 171/82 95 08/10/16 00:13 85 16 176/89 95 08/09/16 22:36 75 16 162/98 94 08/09/16 21:07 98 Room Air 08/09/16 21:07 98 Room Air 08/09/16 21:07 75 22 180/110 97 Room Air 08/09/16 20:58 98 Room Air 08/09/16 20:53 97.6 85 20 188/116 Result Diagram: 08/10/16 0332 08/10/[address] Angiography 08/10/16 0000 Signed Impressions: Service Date/Time: Wednesday, August 10, 2016 01:40 - CONCLUSION: 1. No evidence of pulmonary embolism. Josiah Benavides MD Chest X-Ray 08/09/162102 Signed Impressions: Service Date/Time: Tuesday, August 09, 2016 21:26 - CONCLUSION: No acute disease. Hany Pérez MD Objective Remarks GENERAL: well nourished patient in no active distress SKIN: Warm and dry. HEAD: Atraumatic. Normocephalic. EYES: Pupils equal and round. No scleral icterus. No injection or drainage. ENT: No nasal bleeding or discharge. Mucous membranes pink and moist. NECK: Trachea midline. No JVD. CARDIOVASCULAR: Regular rate and rhythm. No mummers or gallops. mid sternal incisional chest pain with palpation RESPIRATORY: No accessory muscle use. Clear to auscultation. Breath sounds equal bilaterally. GASTROINTESTINAL: Abdomen soft, non-tender, nondistended. Hepatic and splenic margins not palpable. MUSCULOSKELETAL: Extremities without clubbing, cyanosis, or edema. No obvious deformities. NEUROLOGICAL: Awake and alert Motor grossly within normal limits. Normal speech. PSYCHIATRIC: Appropriate mood and affect; insight and judgment normal. Medications and IVs Current Medications Medications (Trade) Dose Ordered Sig/Barbra Route Start Time Stop Time Status Last Admin (Narcan Inj) 0.4 mg UNSCH PRN IV 08/09/16 23:00 (Vitamin B1) 100 mg DAILY PO 08/10/16 09:00 (NS Flush) 2 ml UNSCH PRN IV FLUSH 08/09/16 23:00 (NS Flush) 2 ml BID IV FLUSH 08/10/16 09:00 (Romazicon Inj) 0.2 mg Q1M PRN IV PUSH 08/09/16 23:00 (Ativan) 1 mg Q4H PRN PO 08/09/16 23:00 (Ativan Inj) 1 mg Q4H PRN IV PUSH 08/09/16 23:00 (Ativan) 2 mg Q2H PRN PO 08/09/16 23:00 (Ativan Inj) 2 mg Q2H PRN IV PUSH 08/09/16 23:00 (Ativan Inj) 2 mg Q1H PRN IV PUSH 08/09/16 23:00 (Ativan Inj) 2 mg Q15M PRN IV PUSH 08/09/16 23:00 (Aspirin Chew) 81 mg DAILY CHEW 08/10/16 09:00 (Ferrous Sulfate) 325 mg DAILY PO 08/10/16 09:00 (Folate) 1 mg DAILY PO 08/10/16 09:00 (Lasix) 20 mg DAILY PO 08/10/16 09:00 (Prinivil) 10 mg DAILY PO 08/10/16 09:00 (Lopressor) 50 mg Q12HR PO 08/10/16 09:00 (Pravachol) 40 mg HS PO 08/10/16 21:00 (Flu (Quadrivalent) Vaccine Inj) 0.5 ml ONCE ONCE IM 08/11/16 10:00 08/11/16 10:01 Urinary Catheter: No Vascular Central Line Catheter: No A/P Problem List: (1) Chest pain ICD Code: R07.9 Status: Acute (2) Red stool ICD Code: R19.5 Status: Acute (3) Alcohol abuse ICD Code: F10.10 Status: Chronic (4) Tobacco abuse ICD Code: Z72.0 Status: Chronic Assessment and Plan Chest pain, atypical, suspected due to recent fall, and non compliance of medications. Labs: Trop .02 x 2 Images: CXR - negative for acute cardiopulmonary disease, CT pulmonary angiogram to r/o PE - 3rd troponin pending - Continuous cardiac telemetry to monitor for cardiac arrhythmias - Heart healthy diet -Npo at lunch for possible stress test -Case management for assistance with out patient clinic for medications and follow up. Patient has been non compliant with follow up medications and appointments due to financial difficulties. Unsteady gait, likely related to numbness in left outer foot. -PT eval and treat Possible blood in stool - Awaiting Hemoccult History of alcohol abuse and concern for alcohol withdrawal Labs: ETOH on admission is 370 - Cont CIWA protocol - Seizure precautions - Thiamine 100 mg p.o. daily Tobacco Abuse: cessation recommended DVT prophylaxis - SCDs - Hold chemical until Hemoccult stool results Discharge Planning Pending cardiac work up Problem Qualifiers (1) Chest pain: Qualified Code: R07.9 - Chest pain, unspecified type Nikole Moon August 10, 2016 08:49
[2016-08-10] MEDS ORDERED: SODIUM CHLORIDE 0.9% FLUSH 10 ML FLUSH IV FLUSH SCH (09:00)
[2016-08-10] MEDS ORDERED: LISINOPRIL 10 MG TAB PO SCH (09:00)
[2016-08-10] MEDS: METOPROLOL TARTRATE 50 MG TAB PO SCH ×2 (09:06→20:58)
[2016-08-10] MEDS: THIAMINE HCL 100 MG TAB PO SCH (09:06)
[2016-08-10] MEDS: FERROUS SULFATE 325 MG (65 MG ELEMENTAL IRON) TAB PO SCH (09:06)
[2016-08-10] MEDS: ASPIRIN 81 MG CHEW TAB CHEW SCH (09:06)
[2016-08-10] MEDS: SODIUM CHLORIDE 0.9% FLUSH 10 ML FLUSH IV FLUSH SCH ×2 (09:07→20:57)
[2016-08-10] MEDS: FOLIC ACID 1 MG TAB PO SCH (09:07)
[2016-08-10] MEDS: FUROSEMIDE 20 MG TAB PO SCH (09:07)
[2016-08-10 11:14] LABS: CREATINE KINASE 54 U/L (39-308)
[2016-08-10] MEDS: cloNIDine HCL 0.1 MG TAB PO PRN ×3 (12:04→23:48)
[2016-08-10] MEDS ORDERED: REGADENOSON INJ 0.4 MG/5 ML SYR ONE (14:50)
[2016-08-10] MEDS ORDERED: AMINOPHYLLINE INJ 250 MG/10 ML VIAL ONE (15:09)
--- NOTE | 2016-08-10 16:08 | RADRPT ---
EXAM DATE/TIME: 08/10/2016 14:09 [facility] COMPARISON: MYOCARDIAL PERF PHARM SPECT, GATED W/EF, June 10, 2015, 12:45. INDICATIONS : Substernal chest pain radiating to right chest. Angina. DOSE: 25.7 mCi Tc99m Myoview at stress. 8.7 mCi Tc99m Myoview at rest. 0.4 mg Lexiscan STRESS SYMPTOMS: Abdominal pain and dyspnea. MEDICATIONS: 1.) 100 mg Aminophylline IV EJECTION FRACTION: 58% MEDICAL HISTORY : Hypertension. Hypercholesterolemia. Asthma. SURGICAL HISTORY : CABG Left carotid femoral bypass. Left renal stent ENCOUNTER: Initial ACUITY: 1 day PAIN SCALE: 2/10 LOCATION: TECHNIQUE: The patient underwent pharmacologic stress with infusion of prescribed dose. Continuous ECG tracing was monitored during stress. Gated SPECT imaging was performed after stress and conventional SPECT i maging was performed at rest. The examination was performed on a SPECT/CT scanner, both attenuation and non-corrected datasets were reviewed. FINDINGS: DISTRIBUTION: The maximum perfused segment at stress is in the septal wall. PERFUSION STUDY: The pattern of perfusion at stress is within normal limits. GATED STUDY: There is intact wall motion and thickening without hypokinetic or dyskinetic segments. CONCLUSION: 1. No reversible perfusion defect to indicate stress-induced myocardial ischemia is identified. RISK CATEGORY: Low (<1% Annual Mortality Rate) Geoff Marshall MD on August 10, 2016 at 16:05 Board Certified Radiologist. This report was verified electronically.
[2016-08-10] MEDS ORDERED: LISINOPRIL 5 MG TAB PO ONE (16:15)
[2016-08-10] MEDS ORDERED: ACETAMINOPHEN 325 MG TAB PO PRN (17:15)
[2016-08-10] MEDS: LISINOPRIL 10 MG TAB PO SCH (20:58)
[2016-08-10] MEDS ORDERED: PRAVASTATIN SOD 40 MG TAB PO SCH (21:00)
[2016-08-11 02:46] VITALS: BP 180/92; PULSE 60; RESP 18; TEMP 98.6; O2SAT 96
[2016-08-11] MEDS ORDERED: LORazepam 2 MG/ML VIAL IV PUSH ONE (04:15)
[2016-08-11] MEDS ORDERED: chlordiazePOXIDE 25 MG CAP PO ONE (04:15)
[2016-08-11 06:43] VITALS: BP 201/86; PULSE 56; RESP 18; TEMP 97.9; O2SAT 95
[2016-08-11] MEDS ORDERED: hydrALAZINE HCL 10 MG TAB PO ONE (07:00)
[2016-08-11 07:21] VITALS: BP 194/95; PULSE 96; RESP 20; TEMP 98.4; O2SAT 97
[2016-08-11] MEDS: SODIUM CHLORIDE 0.9% FLUSH 10 ML FLUSH IV FLUSH SCH (09:29)
[2016-08-11] MEDS: LISINOPRIL 10 MG TAB PO SCH (09:30)
[2016-08-11] MEDS: ASPIRIN 81 MG CHEW TAB CHEW SCH (09:30)
[2016-08-11] MEDS: chlordiazePOXIDE 25 MG CAP PO SCH ×2 (09:30→14:25)
[2016-08-11] MEDS: FUROSEMIDE 20 MG TAB PO SCH (09:30)
[2016-08-11] MEDS: THIAMINE HCL 100 MG TAB PO SCH (09:30)
[2016-08-11] MEDS: FOLIC ACID 1 MG TAB PO SCH (09:30)
[2016-08-11] MEDS: METOPROLOL TARTRATE 50 MG TAB PO SCH (09:30)
[2016-08-11] MEDS: FERROUS SULFATE 325 MG (65 MG ELEMENTAL IRON) TAB PO SCH (09:30)
[2016-08-11] MEDS ORDERED: NIFEdipine 60 MG SUSTAINED RELEASE TAB PO SCH (09:45)
[2016-08-11] MEDS ORDERED: INFLUENZA VIRUS VACCINE (QUADRIVALENT) 0.5 ML SYR IM ONE (10:00)
--- NOTE | 2016-08-11 10:01 | HHI.PR ---
Subjective Remarks Follow up chest pain. Patient states he is just wanting to get some sleep, no tremors noted, just restless. Denies any chest pain, just discomfort when scar is palpated. Denies any nausea or vomiting, was able to tolerated dinner last night. Objective Vitals Vital Signs Date Time Temp Pulse Resp B/P Pulse Ox O2 Delivery O2 Flow Rate FiO2 08/11/16 07:21 98.4 96 20 194/95 97 08/11/16 06:43 97.9 56 18 201/86 95 08/11/16 02:46 98.6 60 18 180/92 96 08/10/16 23:37 98.6 58 18 96 08/10/16 21:00 66 08/10/16 20:19 99.0 61 18 183/87 96 08/10/16 17:05 170/90 08/10/16 15:56 98.4 69 18 189/90 95 08/10/16 15:28 61 08/10/16 11:43 98.4 74 18 197/93 97 08/10/16 10:20 81 Result Diagram: 08/10/16 0332 08/10/16 0332 Imaging Last Impressions Myocardial Perfusion Scan Nuc Med 08/10/16 0000 Signed Impressions: Service Date/Time: Wednesday, August 10, 2016 14:09 - CONCLUSION: 1. No reversible perfusion defect to indicate stress-induced myocardial ischemia is identified. RISK CATEGORY: Low (<1%% Annual Mortality Rate) Geoff Marshall MD CT Angiography 08/10/16 0000 Signed Impressions: Service Date/Time: Wednesday, August 10, 2016 01:40 - CONCLUSION: 1. No evidence of pulmonary embolism. Josiah Benavides MD Chest X-Ray 08/09/162102 Signed Impressions: Service Date/Time: Tuesday, August 09, 2016 21:26 - CONCLUSION: No acute disease. Hany Pérez MD Objective Remarks GENERAL: well nourished patient in no active distress SKIN: Warm and dry. HEAD: Atraumatic. Normocephalic. EYES: Pupils equal and round. No scleral icterus. No injection or drainage. ENT: No nasal bleeding or discharge. Mucous membranes pink and moist. NECK: Trachea midline. No JVD. CARDIOVASCULAR: Regular rate and rhythm. No mummers or gallops. mid sternal incisional chest pain with palpation RESPIRATORY: No accessory muscle use. Clear to auscultation. Breath sounds equal bilaterally. GASTROINTESTINAL: Abdomen soft, non-tender, nondistended. Hepatic and splenic margins not palpable. MUSCULOSKELETAL: Extremities without clubbing, cyanosis, or edema. No obvious deformities. NEUROLOGICAL: Awake and alert Motor grossly within normal limits. Normal speech. PSYCHIATRIC: Appropriate mood and affect; insight and judgment normal. Medications and IVs Current Medications Medications (Trade) Dose Ordered Sig/Barbra Route Start Time Stop Time Status Last Admin (Narcan Inj) 0.4 mg UNSCH PRN IV 08/09/16 23:00 (Vitamin B1) 100 mg DAILY PO 08/10/16 09:00 08/11/16 09:30 (NS Flush) 2 ml UNSCH PRN IV FLUSH 08/09/16 23:00 (NS Flush) 2 ml BID IV FLUSH 08/10/16 09:00 08/11/16 09:29 (Romazicon Inj) 0.2 mg Q1M PRN IV PUSH 08/09/16 23:00 (Ativan) 1 mg Q4H PRN PO 08/09/16 23:00 08/10/16 11:30 (Ativan Inj) 1 mg Q4H PRN IV PUSH 08/09/16 23:00 (Ativan) 2 mg Q2H PRN PO 08/09/16 23:00 08/10/16 23:53 (Ativan Inj) 2 mg Q2H PRN IV PUSH 08/09/16 23:00 (Ativan Inj) 2 mg Q1H PRN IV PUSH 08/09/16 23:00 (Ativan Inj) 2 mg Q15M PRN IV PUSH 08/09/16 23:00 (Aspirin Chew) 81 mg DAILY CHEW 08/10/16 09:00 08/11/16 09:30 (Ferrous Sulfate) 325 mg DAILY PO 08/10/16 09:00 08/11/16 09:30 (Folate) 1 mg DAILY PO 08/10/16 09:00 08/11/16 09:30 (Lasix) 20 mg DAILY PO 08/10/16 09:00 08/11/16 09:30 (Lopressor) 50 mg Q12HR PO 08/10/16 09:00 08/11/16 09:30 (Pravachol) 40 mg HS PO 08/10/16 21:00 08/10/16 20:58 (Flu (Quadrivalent) Vaccine Inj) 0.5 ml ONCE ONCE IM 08/11/16 10:00 08/11/16 10:01 (Catapres) 0.1 mg Q6H PRN PO 08/10/16 12:00 08/10/16 23:48 (Prinivil) 20 mg BID PO 08/10/16 21:00 08/11/16 09:30 (Tylenol) 650 mg Q4H PRN PO 08/10/16 17:15 (Librium) 25 mg TID PO 08/11/16 09:00 08/11/16 09:30 (Procardia Xl) 60 mg DAILY PO 08/11/16 09:45 A/P Problem List: (1) Chest pain ICD Code: R07.9 Status: Acute (2) Hematochezia ICD Code: K92.1 Status: Acute (3) HTN (hypertension) ICD Code: I10 Status: Chronic (4) Alcohol abuse ICD Code: F10.10 Status: Chronic (5) Tobacco abuse ICD Code: Z72.0 Status: Chronic Assessment and Plan Chest pain, atypical, suspected due to recent fall, and non compliance of medications, resolved Labs: Trop .02 x 3 Images: CXR - negative for acute cardiopulmonary disease, CT pulmonary angiogram to r/o PE Stress test: neg; No reversible perfusion defect to indicate stress-induced myocardial ischemia is identified. - Continuous cardiac telemetry to monitor for cardiac arrhythmias - Heart healthy diet -Case management for assistance with out patient clinic for medications and follow up. Patient has been non compliant with follow up medications and appointments due to financial difficulties. Unsteady gait, likely related to numbness in left outer foot. -PT daily Hematochezia, patient states he has seen blood Hgb stable - Awaiting Hemoccult, patient has had no BM, unable to obtain sample, recommended follow up outpatient GI HTN, currently unstable -Lisinopril increased to 20mg BID -Add procardia 60mg daily -Cont Metoprolol 50mg BID -Clonidine prn History of alcohol abuse and concern for alcohol withdrawal Labs: ETOH on admission is 370 - Cont WA protocol - Seizure precautions - Thiamine 100 mg p.o. daily -Librium will not be given at discharge because patient does not want to quit drinking Tobacco Abuse: cessation recommended DVT prophylaxis - SCDs - Hold chemical until Hemoccult stool results Discharge patient to home Condition on discharge: Stable Heart Healthy Diet as tolerated Ad Traci activity Rx written: Procardia 60mg daily, lisinopril 20 bid, lasix 20mg daily, metoprolol 50mg bid, pravastatin 40mh hs, Ferrous sulfate 325mg daily Follow-up with primary care physician at outpatient clinic, and GI Avoid alcohol Discharge Planning Once BP under control Problem Qualifiers (1) Chest pain: Qualified Code: R07.9 - Chest pain, unspecified type Nikole Moon August 11, 2016 10:01 Riaz Costa MD August 12, 2016 08:21
[2016-08-11 11:44] LABS: HEMATOCRIT 44.5 % (39.0-51.0); MEAN CELL VOLUME 105.1 FL (80.0-100.0); MEAN CORPUSCULAR HEMOGLOBIN 36.4 PG (27.0-34.0); MEAN CORPUSCULAR HGB CONC 34.7 % (32.0-36.0); PLATELET COUNT 144 TH/MM3 (150-450); RED BLOOD COUNT 4.23 MIL/MM3 (4.50-5.90); REVIEW FLAG FINAL; WHITE BLOOD COUNT 7.3 TH/MM3 (4.0-11.0)
[2016-08-11 11:53] VITALS: BP 135/82; PULSE 87; RESP 21; TEMP 98.4; O2SAT 97
[2016-08-11 12:06] LABS: BICARBONATE 31.6 MEQ/L (21.0-32.0); POTASSIUM 3.5 MEQ/L (3.5-5.1)
[2016-08-11] MEDS ORDERED: NIFE60TA8 PO (14:24)
[2016-08-11] MEDS ORDERED: FERR325T PO (14:24)
[2016-08-11] MEDS ORDERED: LISI10TA3 PO (14:24)
[2016-08-11] MEDS ORDERED: METO-309 PO (14:24)
[2016-08-11] MEDS ORDERED: FURO1TAB62 PO (14:24)
[2016-08-11] MEDS ORDERED: PRAV40TA PO (14:24)
--- NOTE | 2016-08-11 15:04 | HHI.DCPOC ---
Discharge Care Plan Diagnosis: (1) HTN (hypertension) (2) Chest wall pain (3) ETOH abuse Goals to Promote Your Health * To prevent worsening of your condition and complications * To maintain your health at the optimal level Directions to Meet Your Goals Take your medications as prescribed Follow your dietary instruction Follow activity as directed Keep your appointments as scheduled Take your immunizations and boosters as scheduled If your symptoms worsen call your PCP, if no PCP go to Urgent Care Center or Emergency Room Smoking is Dangerous to Your Health. Avoid second hand smoke Call the 24-hour hour crisis hotline for domestic abuse at Nikole Moon August 11, 2016 15:04
[2016-08-11 15:29] VITALS: PULSE 48
[2016-08-11 15:44] VITALS: BP 128/73; PULSE 56
--- NOTE | 2016-08-11 18:29 | EKG ---
Date Performed: 08/10/2016 Time Performed: 09:22:14 PTAGE: 61 years EKG: Sinus rhythm NORMAL ECG Compared to prior tracing no significant change PREVIOUS TRACING : 08/10/2016 04.21 DOCTOR: Josiah Hightower Interpretating Date/Time 08/11/2016 18:26:36
== END 2016-08-11 17:21 | disposition home or self-care (01) ==
LOC: NEPE 20:50 → NEDA 22:55 → NEPHCDU 08-10 00:25
PROVIDERS: ADMIT Internal Medicine; ATTEND Internal Medicine
DX: R07.89 Other chest pain (principal); R26.81 Unsteadiness on feet; K92.1 Melena; I11.0 Hypertensive heart disease with heart failure; I50.9 Heart failure, unspecified; I25.10 Atherosclerotic heart disease of native coronary artery without angina pectoris; F10.10 Alcohol abuse, uncomplicated; E11.51 Type 2 diabetes mellitus with diabetic peripheral angiopathy without gangrene; E78.5 Hyperlipidemia, unspecified; F17.200 Nicotine dependence, unspecified, uncomplicated; J45.909 Unspecified asthma, uncomplicated; M19.90 Unspecified osteoarthritis, unspecified site; E78.00 Pure hypercholesterolemia, unspecified; Z86.73 Personal history of transient ischemic attack (TIA), and cerebral infarction without residual deficits; Z79.82 Long term (current) use of aspirin; Z95.1 Presence of aortocoronary bypass graft; Z86.718 Personal history of other venous thrombosis and embolism
CPT/HCPCS: 71010; 71275; 78452; 80048; 80307; 82550; 83735; 84484; 85025; 85027; 85610; 85730; 93005; 93017; 97161; 97530; 99285; A9502; G0378; G8987; G8988; J0280; J2060; J2785; Q9967

== ENCOUNTER 2016-08-26 22:11 | Emergency (ER) | payer SELFPAY ==
[~2016-08-26] VITALS: Ht 172.7 cm; Wt 75.0 kg
[~2016-08-26 22:11] MED LIST changes: -AMIO200T PO; -CARD2TAB PO; +NIFE60TA8 PO
[2016-08-26] MEDS ORDERED: SODIUM CHLORIDE 0.9% FLUSH 10 ML FLUSH IVF PRN (22:30)
[2016-08-26] MEDS ORDERED: ASPIRIN 81 MG CHEW TAB PO ONE (22:30)
[2016-08-26 22:40] VITALS: BP 200/100; PULSE 79; RESP 18; TEMP 98.3; O2SAT 97
[2016-08-26 22:43] VITALS: RESP 18; O2SAT 97
[2016-08-26 23:00] VITALS: BP_SYST 200; BP_SYST 201; BP_DIAS 100; BP_DIAS 96
--- NOTE | 2016-08-26 23:00 | RADHPO ---
EXAM DATE/TIME: 08/26/2016 22:32 [facility] COMPARISON: CHEST SINGLE AP, August 09, 2016, 21:26. INDICATIONS : Chest pain. MEDICAL HISTORY : Cardiovascular disease. Hypertension. Cirrhosis.DVT Diabetes SURGICAL HISTORY : CABG. Carotid endarterectomy, ORIF right clavicle ENCOUNTER: Initial ACUITY: 1 day PAIN SCORE: 10/10 LOCATION: Bilateral chest FINDINGS: PA and lateral views of the chest demonstrate the lungs to be symmetrically aerated without evidence of mass, infiltrate or effusion. The cardiomediastinal contours are unremarkable. Osseous structure s are intact. Previous median sternotomy. CONCLUSION: No evidence of acute cardiopulmonary disease. Hany Holley MD on August 26, 2016 at 22:59 Board Certified Radiologist. This report was verified electronically.
[2016-08-26 23:04] LABS: AUTOMATED NEUTROPHIL # 4.1 TH/MM3 (1.8-7.7); BASOPHIL # 0.1 TH/MM3 (0-0.2); BASOPHIL % 0.9 % (0.0-2.0); EOSINOPHIL # 0.1 TH/MM3 (0-0.4); EOSINOPHIL % 1.5 % (0.0-4.0); HEMATOCRIT 41.1 % (39.0-51.0); HEMO FLAGS DIFF FINAL; LYMPH % 35.8 % (9.0-44.0); LYMPHOCYTE # 2.7 TH/MM3 (1.0-4.8); MEAN CORPUSCULAR HGB CONC 35.3 % (32.0-36.0); MONO % 7.5 % (0.0-8.0); NEUT % 54.3 % (16.0-70.0); PLATELET COUNT 139 TH/MM3 (150-450); RED BLOOD COUNT 3.92 MIL/MM3 (4.50-5.90); RED CELL DISTRIBUTION WIDTH 13.4 % (11.6-17.2); WHITE BLOOD COUNT 7.6 TH/MM3 (4.0-11.0)
--- NOTE | 2016-08-26 23:04 | PD ---
HPI Chief Complaint: Pain: Acute or Chronic Time Seen by Provider: 22:24 Travel History International Travel<30 days: No Contact w/Intl Traveler<30days: No Traveled to known affect area: No History of Present Illness HPI The patient is a 61-year-old male who has been drinking beer heavily tonight. The patient complains of pain in every bone in his body now. Specifically, he complains of chest pain. 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) Headaches: No Hiatal Hernia: No Hypertension: Yes Immune Disorder: No Implanted Vascular Access Dvce: Yes Musculoskeletal: Yes Neurologic: Yes Psychiatric: No Reproductive: No Respiratory: Yes Immunizations Current: Yes Migraines: No Seizures: No Sleep Apnea: No Thyroid Disease: No Triglycerides - High: Yes Ulcer: No Tetanus Vaccination: < 5 Years Influenza Vaccination: Yes Past Surgical History Body Medical Devices: LEFT RENAL STENT Cardiac Surgery: Yes (cabg x 3 vessels) Coronary Artery Bypass Graft: Yes (x3) Genitourinary Surgery: Yes (L RENAL STENT 2000) Neurologic Surgery: No Thoracic Surgery: Yes (l carotid Femoral bypass R and L 06/2015 dr Nunn) Other Surgery: Yes (BLE arterial bybass, Carotid surgery) Social History Alcohol Use: Yes Tobacco Use: Yes Substance Use: No Allergies-Medications (Allergen,Severity, Reaction): Coded Allergies: No Known Allergies (Unverified , 08/26/16) Reported Meds & Prescriptions Reported Meds & Active Scripts Active Nifedipine ER 24 HR (Nifedipine) 60 Mg Tab 60 Mg PO DAILY Lisinopril 10 Mg Tab 20 Mg PO BID Lopressor (Metoprolol Tartrate) 50 Mg Tab 50 Mg PO Q12HR Ferrous Sulfate 325 Mg Tab 325 Mg PO DAILY Lasix (Furosemide) 20 Mg Tab 20 Mg PO DAILY Pravachol (Pravastatin) 40 Mg Tab 40 Mg PO HS Ergocalciferol 50,000 Unit Cap 50,000 Units PO Q7D Aspirin 81 Mg Chew 81 Mg CHEW DAILY Folate (Folic Acid) 1 Mg Tab 1 Mg PO DAILY Oyster Shell Calcium/Vitamin D (Calcium Carbonate-Cholecalciferol) 250-125 Mg- Unit Tab 250 Mg PO TID 30 Days Vitamin B-1 (Thiamine HCl) 100 Mg Tab 100 Mg PO DAILY 30 Days Review of Systems ROS Limitations: Intoxication, Uncooperative Except as stated in HPI: all other systems reviewed are Neg Physical Exam Exam Limitations: Intoxication, Uncooperative Narrative GENERAL: The patient smells of beer and appears clinically intoxicated. His vital signs show blood pressure 200/100 but otherwise normal. SKIN: Focused skin assessment warm/dry. HEAD: Atraumatic. Normocephalic. EYES: Pupils equal and round. No scleral icterus. No injection or drainage. ENT: No nasal bleeding or discharge. Mucous membranes pink and moist. NECK: Trachea midline. No JVD. CARDIOVASCULAR: Regular rate and rhythm. No murmur appreciated. I can completely reproduce the patient's pain by pressing on the chest wall. RESPIRATORY: No accessory muscle use. Clear to auscultation. Breath sounds equal bilaterally. GASTROINTESTINAL: Abdomen soft, non-tender, nondistended. Hepatic and splenic margins not palpable. MUSCULOSKELETAL: No obvious deformities. No clubbing. No cyanosis. No edema. NEUROLOGICAL: Awake and alert. No obvious cranial nerve deficits. Motor grossly within normal limits. Normal speech. PSYCHIATRIC: Appropriate mood and affect; insight and judgment normal. Data Data Last Documented VS Vital Signs Date Time Temp Pulse Resp B/P Pulse Ox O2 Delivery O2 Flow Rate FiO2 08/26/16 23:30 84 18 136/80 98 Room Air 08/26/16 22:40 98.3 Orders Electrocardiogram (08/26/16 22:24) B-Type Natriuretic Peptide (08/26/16 22:24) Complete Blood Count With Diff (08/26/16 22:24) Comprehensive Metabolic Panel (08/26/16 22:24) Magnesium (Mg) (08/26/16 22:24) Prothrombin Time / Inr (Pt) (08/26/16 22:24) Act Partial Throm Time (Ptt) (08/26/16 22:24) Troponin I (08/26/16 22:24) Ecg Monitoring (08/26/16 22:24) Bilateral Bp Monitoring (08/26/16 22:24) Iv Access Insert/Monitor (08/26/16 22:24) Oximetry (08/26/16 22:24) Oxygen Administration (08/26/16 22:24) Aspirin Chew (Aspirin Chew) (08/26/16 22:30) Sodium Chloride 0.9% Flush (Ns Flush) (08/26/16 22:30) Nitroglycerin Sl (Nitrostat Sl) (08/26/16 22:30) Chest, Pa & Lat (08/26/16 22:24) Alcohol (Ethanol) (08/26/16 22:24) Labs Laboratory Tests Test 08/26/16 22:55 White Blood Count 7.6 TH/MM3 Red Blood Count 3.92 MIL/MM3 Hemoglobin 14.5 GM/DL Hematocrit 41.1 % Mean Corpuscular Volume 105.0 FL Mean Corpuscular Hemoglobin 37.0 PG Mean Corpuscular Hemoglobin 35.3 % Concent Red Cell Distribution Width 13.4 % Platelet Count 139 TH/MM3 Mean Platelet Volume 7.8 FL Neutrophils (%) (Auto) 54.3 % Lymphocytes (%) (Auto) 35.8 % Monocytes (%) (Auto) 7.5 % Eosinophils (%) (Auto) 1.5 % Basophils (%) (Auto) 0.9 % Neutrophils # (Auto) 4.1 TH/MM3 Lymphocytes # (Auto) 2.7 TH/MM3 Monocytes # (Auto) 0.6 TH/MM3 Eosinophils # (Auto) 0.1 TH/MM3 Basophils # (Auto) 0.1 TH/MM3 CBC Comment DIFF FINAL Differential Comment Prothrombin Time 9.8 SEC Prothromb Time International 0.9 RATIO Ratio Activated Partial 28.7 SEC Thromboplast Time Sodium Level 136 MEQ/L Potassium Level 4.2 MEQ/L Chloride Level 100 MEQ/L Carbon Dioxide Level 27.7 MEQ/L Anion Gap 8 MEQ/L Blood Urea Nitrogen 6 MG/DL Creatinine 0.49 MG/DL Estimat Glomerular Filtration 174 ML/MIN Rate Random Glucose 89 MG/DL Calcium Level 8.2 MG/DL Magnesium Level 2.3 MG/DL Total Bilirubin 0.3 MG/DL Aspartate Amino Transf 168 U/L (AST/SGOT) Alanine Aminotransferase 82 U/L (ALT/SGPT) Alkaline Phosphatase 92 U/L Troponin I LESS THAN 0.02 NG/ML B-Type Natriuretic Peptide 38 PG/ML Total Protein 7.5 GM/DL Albumin 3.4 GM/DL Ethyl Alcohol Level 360 MG/DL MDM Medical Decision Making Medical Screen Exam Complete: Yes Emergency Medical Condition: Yes Medical Record Reviewed: Yes Interpretation(s) EKG shows sinus rhythm with a rate of 75 and no acute change. Differential Diagnosis Alcohol intoxication/abuse, Narrative Course The patient was overheard talking to a friend that he was taping the emergency department conversations. He also told his friend he has a lawsuit now. He was informed that this was illegal. The coagulation profile is normal and the complete metabolic profile shows a calcium of 8.2, AST of 168 and ALT of 82 but is otherwise normal. The alcohol level is 360. The CBC shows an MCV of 105 and MCH of 37 which is consistent with chronic alcohol abuse. The patient is cursing and threatening. The patient walks fairly normally and does not appear to be a danger to himself if he signs out AGAINST MEDICAL ADVICE. Diagnosis Primary Impression: Alcohol intoxication Disposition: 07 AGAINST MEDICAL ADVICE Condition: Stable Domingo Fernandez MD August 26, 2016 23:04
[2016-08-26] MEDS: NITROGLYCERIN 0.4 MG SL 25 TABS/BTL SL SCH ×3 (23:09→23:32)
[2016-08-26 23:10] VITALS: BP 200/100; PULSE 75; RESP 18; O2SAT 98
[2016-08-26 23:10] LABS: CHLORIDE 100 MEQ/L (98-107); POTASSIUM 4.2 MEQ/L (3.5-5.1); SODIUM (NA) 136 MEQ/L (136-145)
[2016-08-26 23:14] LABS: ANION GAP 8 MEQ/L (5-15); BICARBONATE 27.7 MEQ/L (21.0-32.0); BLOOD UREA NITROGEN 6 MG/DL (7-18); MAGNESIUM 2.3 MG/DL (1.5-2.5)
[2016-08-26 23:15] LABS: APTT (PATIENT) 28.7 SEC (24.3-30.1); INTERNATIONAL NORMALIZED RATIO 0.9 RATIO; PROTHROMBIN TIME - PATIENT 9.8 SEC (9.8-11.6)
[2016-08-26 23:16] LABS: ALT (GPT) 82 U/L (12-78); AST (GOT) 168 U/L (15-37)
[2016-08-26 23:17] LABS: GLOMERULAR FILTRATION RATE 174 ML/MIN (>89)
[2016-08-26 23:18] LABS: TOTAL BILIRUBIN ADULT 0.3 MG/DL (0.2-1.0)
[2016-08-26 23:19] LABS: ALKALINE PHOSPHATASE 92 U/L (45-117)
[2016-08-26 23:20] VITALS: BP 177/100; PULSE 78; RESP 18; O2SAT 98
[2016-08-26 23:30] VITALS: BP 136/80; PULSE 84; RESP 18; O2SAT 98
--- NOTE | 2016-08-27 00:52 | PD ---
HPI Chief Complaint: Pain: Acute or Chronic Time Seen by Provider: 22:24 Travel History International Travel<30 days: No Contact w/Intl Traveler<30days: No Traveled to known affect area: No History of Present Illness HPI The police came and found the patient to have 19 video's on his cell phone taking pictures inside of myself at the desk. The police erased all his video' s. The patient left AMA. 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) Headaches: No Hiatal Hernia: No Hypertension: Yes Immune Disorder: No Implanted Vascular Access Dvce: Yes Musculoskeletal: Yes Neurologic: Yes Psychiatric: No Reproductive: No Respiratory: Yes Immunizations Current: Yes Migraines: No Seizures: No Sleep Apnea: No Thyroid Disease: No Triglycerides - High: Yes Ulcer: No Tetanus Vaccination: < 5 Years Influenza Vaccination: Yes Past Surgical History Body Medical Devices: LEFT RENAL STENT Cardiac Surgery: Yes (cabg x 3 vessels) Coronary Artery Bypass Graft: Yes (x3) Genitourinary Surgery: Yes (L RENAL STENT 2000) Neurologic Surgery: No Thoracic Surgery: Yes (l carotid Femoral bypass R and L 06/2015 dr Nunn) Other Surgery: Yes (BLE arterial bybass, Carotid surgery) Social History Alcohol Use: Yes Tobacco Use: Yes Substance Use: No Allergies-Medications (Allergen,Severity, Reaction): Coded Allergies: No Known Allergies (Unverified , 08/26/16) Reported Meds & Prescriptions Reported Meds & Active Scripts Active Nifedipine ER 24 HR (Nifedipine) 60 Mg Tab 60 Mg PO DAILY Lisinopril 10 Mg Tab 20 Mg PO BID Lopressor (Metoprolol Tartrate) 50 Mg Tab 50 Mg PO Q12HR Ferrous Sulfate 325 Mg Tab 325 Mg PO DAILY Lasix (Furosemide) 20 Mg Tab 20 Mg PO DAILY Pravachol (Pravastatin) 40 Mg Tab 40 Mg PO HS Ergocalciferol 50,000 Unit Cap 50,000 Units PO Q7D Aspirin 81 Mg Chew 81 Mg CHEW DAILY Folate (Folic Acid) 1 Mg Tab 1 Mg PO DAILY Oyster Shell Calcium/Vitamin D (Calcium Carbonate-Cholecalciferol) 250-125 Mg- Unit Tab 250 Mg PO TID 30 Days Vitamin B-1 (Thiamine HCl) 100 Mg Tab 100 Mg PO DAILY 30 Days Review of Systems Except as stated in HPI: all other systems reviewed are Neg Physical Exam Narrative GENERAL: The patient is alert, intoxicated appearing, smells of beer, threatening and uncooperative. His blood pressure is 200/100 but the rest the vital signs are normal. SKIN: Focused skin assessment warm/dry. HEAD: Atraumatic. Normocephalic. EYES: Pupils equal and round. No scleral icterus. No injection or drainage. ENT: No nasal bleeding or discharge. Mucous membranes pink and moist. NECK: Trachea midline. No JVD. CARDIOVASCULAR: Regular rate and rhythm. No murmur appreciated. RESPIRATORY: No accessory muscle use. Clear to auscultation. Breath sounds equal bilaterally. GASTROINTESTINAL: Abdomen soft, non-tender, nondistended. Hepatic and splenic margins not palpable. MUSCULOSKELETAL: No obvious deformities. No clubbing. No cyanosis. No edema. NEUROLOGICAL: Awake and alert. No obvious cranial nerve deficits. Motor grossly within normal limits. Normal speech. PSYCHIATRIC: The patient appears intoxicated with alcohol; insight and judgment fair. Data Data Last Documented VS Vital Signs Date Time Temp Pulse Resp B/P Pulse Ox O2 Delivery O2 Flow Rate FiO2 08/26/16 23:30 84 18 136/80 98 Room Air 08/26/16 22:40 98.3 Orders Electrocardiogram (08/26/16 22:24) B-Type Natriuretic Peptide (08/26/16 22:24) Complete Blood Count With Diff (08/26/16 22:24) Comprehensive Metabolic Panel (08/26/16 22:24) Magnesium (Mg) (08/26/16 22:24) Prothrombin Time / Inr (Pt) (08/26/16 22:24) Act Partial Throm Time (Ptt) (08/26/16 22:24) Troponin I (08/26/16 22:24) Ecg Monitoring (08/26/16 22:24) Bilateral Bp Monitoring (08/26/16 22:24) Iv Access Insert/Monitor (08/26/16 22:24) Oximetry (08/26/16 22:24) Oxygen Administration (08/26/16 22:24) Aspirin Chew (Aspirin Chew) (08/26/16 22:30) Sodium Chloride 0.9% Flush (Ns Flush) (08/26/16 22:30) Nitroglycerin Sl (Nitrostat Sl) (08/26/16 22:30) Chest, Pa & Lat (08/26/16 22:24) Alcohol (Ethanol) (08/26/16 22:24) Labs Laboratory Tests Test 08/26/16 22:55 White Blood Count 7.6 TH/MM3 Red Blood Count 3.92 MIL/MM3 Hemoglobin 14.5 GM/DL Hematocrit 41.1 % Mean Corpuscular Volume 105.0 FL Mean Corpuscular Hemoglobin 37.0 PG Mean Corpuscular Hemoglobin 35.3 % Concent Red Cell Distribution Width 13.4 % Platelet Count 139 TH/MM3 Mean Platelet Volume 7.8 FL Neutrophils (%) (Auto) 54.3 % Lymphocytes (%) (Auto) 35.8 % Monocytes (%) (Auto) 7.5 % Eosinophils (%) (Auto) 1.5 % Basophils (%) (Auto) 0.9 % Neutrophils # (Auto) 4.1 TH/MM3 Lymphocytes # (Auto) 2.7 TH/MM3 Monocytes # (Auto) 0.6 TH/MM3 Eosinophils # (Auto) 0.1 TH/MM3 Basophils # (Auto) 0.1 TH/MM3 CBC Comment DIFF FINAL Differential Comment Prothrombin Time 9.8 SEC Prothromb Time International 0.9 RATIO Ratio Activated Partial 28.7 SEC Thromboplast Time Sodium Level 136 MEQ/L Potassium Level 4.2 MEQ/L Chloride Level 100 MEQ/L Carbon Dioxide Level 27.7 MEQ/L Anion Gap 8 MEQ/L Blood Urea Nitrogen 6 MG/DL Creatinine 0.49 MG/DL Estimat Glomerular Filtration 174 ML/MIN Rate Random Glucose 89 MG/DL Calcium Level 8.2 MG/DL Magnesium Level 2.3 MG/DL Total Bilirubin 0.3 MG/DL Aspartate Amino Transf 168 U/L (AST/SGOT) Alanine Aminotransferase 82 U/L (ALT/SGPT) Alkaline Phosphatase 92 U/L Troponin I LESS THAN 0.02 NG/ML B-Type Natriuretic Peptide 38 PG/ML Total Protein 7.5 GM/DL Albumin 3.4 GM/DL Ethyl Alcohol Level 360 MG/DL [facility] Medical Decision Making Medical Screen Exam Complete: Yes Emergency Medical Condition: Yes Medical Record Reviewed: Yes Differential Diagnosis Alcohol intoxication, chronic alcohol abuse, other substances abuse, malingering to obtain pain/insulin days a pain medication Narrative Course The patient has alcohol intoxication/abuse. 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 The patient left AGAINST MEDICAL ADVICE. He walked extremely well and should be safe for his one-mile home walk. Diagnosis Primary Impression: Alcohol intoxication Additional Instructions: The patient was told to discontinue alcohol. He simply cursed me. Disposition: AGAINST MEDICAL ADVICE Condition: Stable Domingo Fernandez MD August 27, 2016 00:52
--- NOTE | 2016-08-27 16:07 | EKG ---
Date Performed: 08/26/2016 Time Performed: 22:10:42 PTAGE: 61 years EKG: Sinus rhythm . Poor R wave progression - probable normal variant Borderline ECG PREVIOUS TRACING 08/10/2016 @ 09.22.14 Compared to prior tracing no significant change DOCTOR: Zulay Baer Interpretating Date/Time 08/27/2016 16:32:27
== END 2016-08-27 00:35 | disposition left against medical advice (07) ==
LOC: PHED 22:11
DX: F10.129 Alcohol abuse with intoxication, unspecified (principal); R07.9 Chest pain, unspecified; M79.1 Myalgia; R94.31 Abnormal electrocardiogram [ECG] [EKG]; R46.89 Other symptoms and signs involving appearance and behavior; E11.9 Type 2 diabetes mellitus without complications; I10 Essential (primary) hypertension; E78.1 Pure hyperglyceridemia; E78.00 Pure hypercholesterolemia, unspecified; Z72.0 Tobacco use; Z53.29 Procedure and treatment not carried out because of patient's decision for other reasons; Z87.39 Personal history of other diseases of the musculoskeletal system and connective tissue; Z87.09 Personal history of other diseases of the respiratory system; Z86.59 Personal history of other mental and behavioral disorders; Z86.79 Personal history of other diseases of the circulatory system; Z86.718 Personal history of other venous thrombosis and embolism; Z87.19 Personal history of other diseases of the digestive system; Z87.448 Personal history of other diseases of urinary system
CPT/HCPCS: 71020; 80053; 80307; 83735; 83880; 84484; 85025; 85610; 85730; 93005

== ENCOUNTER 2017-06-04 14:11 | Emergency (ER) | payer SELFPAY ==
[~2017-06-04] VITALS: Ht 180.3 cm; Wt 73.6 kg
[~2017-06-04 14:11] MED LIST changes: +AMLO5TAB2 PO; +ASPI-516 CHEW; -ASPI81CH CHEW; +CEPH500T PO; +CLIN300C5 PO; -ERGO1CAP30 PO; -FERR325T PO; -FOLI1TAB4 PO; -FURO1TAB62 PO; +HYDR-3516 PO; +LACTCHW3 CHEW; -OYST250T4 PO; +SILV1CRE20 TOPICAL; -VITA100T2 PO
[2017-06-04 14:16] VITALS: BP_SYST 161; BP_DIAS 11; BP_DIAS 111; PULSE 100; RESP 18; TEMP 98.1; O2SAT 97
--- NOTE | 2017-06-04 16:00 | RADRPT ---
EXAM DATE/TIME: 06/04/2017 15:27 [facility] COMPARISON: SHOULDER RIGHT COMPLETE (>2VWS), February 28, 2016, 22:20. INDICATIONS : Tripped with an extendion cord and landed on right shoulder. MEDICAL HISTORY : Cardiovascular disease. Hypertension. Cirrhosis.DVT Diabetes SURGICAL HISTORY : CABG. Carotid endarterectomy, ORIF right clavicle ENCOUNTER: Initial ACUITY: 3 weeks PAIN SCORE: 5/10 LOCATION: Right upper extremity top of shoulder FINDINGS: Multiple view examination of the right shoulder demonstrates no evidence of fracture or dislocation. There is evidence of previous internal fixation involving the clavicle. The hardware is intact. No si gnificant change compared to the prior examination. CONCLUSION: No acute fracture or joint dislocation. Stable exam compared to the prior study. Emiliano Oshea MD on June 04, 2017 at 15:58 Board Certified Radiologist. This report was verified electronically.
[2017-06-04] MEDS ORDERED: IBUPROFEN 800 MG TAB PO ONE (16:15)
--- NOTE | 2017-06-04 16:15 | PD ---
HPI Chief Complaint: Musculoskeletal Complaint Time Seen by Provider: 14:51 Travel History International Travel<30 days: No Contact w/Intl Traveler<30days: No Traveled to known affect area: No History of Present Illness HPI 61-year-old male here with right shoulder pain after trip and fall 3 weeks ago. He denies paresthesias or weakness of the extremity. He has pain in the right shoulder which is worse with movement and slightly relieved with rest. Symptom severity is mild to moderate. 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) Headaches: No Hiatal Hernia: No Hypertension: Yes Immune Disorder: No Implanted Vascular Access Dvce: Yes Musculoskeletal: Yes Neurologic: Yes Psychiatric: No Reproductive: No Respiratory: Yes Immunizations Current: Yes Migraines: No Seizures: No Sleep Apnea: No Thyroid Disease: No Triglycerides - High: Yes Ulcer: No Influenza Vaccination: No Past Surgical History Body Medical Devices: LEFT RENAL STENT Cardiac Surgery: Yes (cabg x 3 vessels) Coronary Artery Bypass Graft: Yes (x3) Ear Surgery: No Eye Surgery: No Genitourinary Surgery: Yes (L RENAL STENT 2000) Neurologic Surgery: No Thoracic Surgery: Yes (l carotid, Femoral bypass R and L 06/2015 dr Nunn) Other Surgery: Yes (BLE arterial bybass, Carotid surgery) Social History Alcohol Use: Yes (OCC) Tobacco Use: Yes (OCC) Substance Use: No Allergies-Medications (Allergen,Severity, Reaction): Coded Allergies: No Known Allergies (Unverified Adverse Reaction, Unknown, 06/04/17) Reported Meds & Prescriptions Reported Meds & Active Scripts Active Review of Systems Except as stated in HPI: all other systems reviewed are Neg General / Constitutional: No: Fever Eyes: No: Visual changes HENT: No: Headaches Cardiovascular: No: Chest Pain or Discomfort Respiratory: No: Shortness of Breath Gastrointestinal: No: Abdominal Pain Genitourinary: No: Dysuria Physical Exam Narrative GENERAL: Alert and well-appearing 61-year-old male. No distress. SKIN: Warm and dry. HEAD: Normocephalic. EYES: No injection or drainage. NECK: Supple CARDIOVASCULAR: Regular rate and rhythm without murmurs, gallops, or rubs. RESPIRATORY: Breath sounds equal bilaterally. No accessory muscle use. GASTROINTESTINAL: Abdomen soft, non-tender, nondistended. MUSCULOSKELETAL: No cyanosis, or edema. Right upper extremity: +TTP right lateral shoulder. No deformity. Patient has limited external rotation and extension of the shoulder due to pain. 2+ distal pulses. Normal sensation. Brisk cap refill. BACK: Nontender without obvious deformity. No CVA tenderness. Data Data Last Documented VS Vital Signs Date Time Temp Pulse Resp B/P (MAP) Pulse Ox O2 Delivery O2 Flow Rate FiO2 06/04/17 14:16 98.1 100 18 161/111 (128) 97 Orders Orders Shoulder, Complete (>2vws) (06/04/17 ) Ibuprofen (Motrin) (06/04/17 16:15) Ed Discharge Order (06/04/17 16:15) MDM Medical Decision Making Medical Screen Exam Complete: Yes Emergency Medical Condition: Yes Differential Diagnosis Shoulder fracture, clavicle fracture, rotator cuff injury Narrative Course 61-year-old male here with right shoulder pain after trip and fall 3 weeks ago. He denies paresthesias or weakness of the extremity. The extremity is neurovascular intact. X-ray is negative for fracture. Diagnosis Primary Impression: Shoulder pain Qualified Codes: M25.511 - Pain in right shoulder Referrals: Primary Care Physician Additional Instructions: Tylenol and ibuprofen as needed for pain. Scripts No Active Prescriptions or Reported Meds Disposition: 01 DISCHARGE HOME Condition: Stable MaryJanet PINO Jun 04, 2017 16:15
== END 2017-06-04 16:27 | disposition home or self-care (01) ==
LOC: PHEFT 14:11
DX: M25.511 Pain in right shoulder (principal); M19.90 Unspecified osteoarthritis, unspecified site; J45.909 Unspecified asthma, uncomplicated; F41.9 Anxiety disorder, unspecified; I11.0 Hypertensive heart disease with heart failure; I50.9 Heart failure, unspecified; J44.9 Chronic obstructive pulmonary disease, unspecified; I25.10 Atherosclerotic heart disease of native coronary artery without angina pectoris; Z72.0 Tobacco use
CPT/HCPCS: 73030; 99283

== ENCOUNTER 2017-06-08 21:40 | Inpatient (IN) | payer SELFPAY ==
[~2017-06-08] VITALS: Ht 177.8 cm; Wt 74.7 kg
[2017-06-08 21:43] VITALS: BP 200/97; PULSE 85; RESP 18; TEMP 98.6; O2SAT 100
--- NOTE | 2017-06-08 21:52 | PD ---
HPI Chief Complaint: Fall Time Seen by Provider: 21:42 Travel History International Travel<30 days: No Contact w/Intl Traveler<30days: No Traveled to known affect area: No History of Present Illness HPI 61-year-old male complains of right knee pain. Patient states that he found this evening. Patient denies loss of consciousness. Patient denied headache or neck pain. Patient denies any chest pain or shortness of breath. Patient denies abdominal pain. Patient complained of severe pain localized to the right knee. Patient denies any pain radiation. Patient states that the pain is worse with movement of the right knee joint. On a scale of 1-10 the pain is a 10. Patient admits alcohol consumption today. Patient has a history of alcohol abuse. PFSH Past Medical History Arthritis: Yes Asthma: Yes Autoimmune Disease: No Anxiety: Yes Depression: No Heart Rhythm Problems: No Cancer: No Cardiac Catheterization: Yes Cardiovascular Problems: Yes High Cholesterol: Yes Chest Pain: Yes Congestive Heart Failure: Yes COPD: Yes Cerebrovascular Accident: Yes Coronary Artery Disease: Yes Diabetes: Yes Diminished Hearing: No Deep Vein Thrombosis: Yes Endocrine: No Gastrointestinal Disorders: Yes GERD: No Genitourinary: Yes (LEFT RENAL STENTS, CYSTS ON KIDNEY) Headaches: No Hiatal Hernia: No Hypertension: Yes Immune Disorder: No Implanted Vascular Access Dvce: Yes Musculoskeletal: Yes Neurologic: Yes Psychiatric: No Reproductive: No Respiratory: Yes Immunizations Current: Yes Migraines: No Seizures: No Sleep Apnea: No Thyroid Disease: No Triglycerides - High: Yes Ulcer: No Past Surgical History Body Medical Devices: LEFT RENAL STENT Cardiac Surgery: Yes (cabg x 3 vessels) Coronary Artery Bypass Graft: Yes (x3) Ear Surgery: No Eye Surgery: No Genitourinary Surgery: Yes (L RENAL STENT 2000) Neurologic Surgery: No Thoracic Surgery: Yes (l carotid, Femoral bypass R and L 06/2015 dr Nunn) Other Surgery: Yes (BLE arterial bybass, Carotid surgery) Social History Alcohol Use: Yes (OCC) Tobacco Use: Yes (OCC) Substance Use: No Allergies-Medications (Allergen,Severity, Reaction): Coded Allergies: No Known Allergies (Unverified Adverse Reaction, Unknown, 06/08/17) Reported Meds & Prescriptions Reported Meds & Active Scripts Active No Active Prescriptions or Reported Medications Review of Systems General / Constitutional: No: Fever Eyes: No: Visual changes HENT: No: Headaches Cardiovascular: No: Chest Pain or Discomfort Respiratory: No: Shortness of Breath Gastrointestinal: No: Abdominal Pain Genitourinary: No: Dysuria Musculoskeletal: Positive: Pain Skin: No Rash Neurologic: No: Weakness Psychiatric: No: Depression Endocrine: No: Polydipsia Hematologic/Lymphatic: No: Easy Bruising Physical Exam Narrative GENERAL: Well-nourished, well-developed patient. SKIN: Focused skin assessment warm/dry. HEAD: Normocephalic. EYES: No scleral icterus. No injection or drainage. NECK: Supple, trachea midline. No JVD or lymphadenopathy. CARDIOVASCULAR: Regular rate and rhythm without murmurs, gallops, or rubs. RESPIRATORY: Breath sounds equal bilaterally. No accessory muscle use. GASTROINTESTINAL: Abdomen soft, non-tender, nondistended. MUSCULOSKELETAL: No cyanosis, or edema. BACK: Nontender without obvious deformity. No CVA tenderness. Patient has diffuse soft tissue swelling with effusion at the right knee joint. Limited range of motion of the right knee joint secondary to pain. Right knee joint stable. Data Data Last Documented VS Vital Signs Date Time Temp Pulse Resp B/P (MAP) Pulse Ox O2 Delivery O2 Flow Rate FiO2 06/08/17 21:43 98.6 85 18 200/97 (131) 100 Orders Orders Knee, Complete (4vws) (06/08/17 21:47) Ct Knee W/O Contrast (06/08/17 ) Electrocardiogram (06/08/17 23:12) Complete Blood Count With Diff (06/08/17 23:12) Comprehensive Metabolic Panel (06/08/17 23:12) Prothrombin Time / Inr (Pt) (06/08/17 23:12) Act Partial Throm Time (Ptt) (06/08/17 23:12) Urinalysis - C+S If Indicated (06/08/17 23:12) Chest, Single Ap (06/08/17 23:12) Iv Access Insert/Monitor (06/08/17 23:12) Ecg Monitoring (06/08/17 23:12) Oximetry (06/08/17 23:12) Alcohol (Ethanol) (06/08/17 23:12) Splint Or Brace Apply/Monitor (06/08/17 23:12) MDM Medical Decision Making Medical Screen Exam Complete: Yes Emergency Medical Condition: Yes Interpretation(s) Last Impressions Knee X-Ray 06/08/17 2147 Signed Impressions: Service Date/Time: June 22:15 - CONCLUSION: Fractures of the lateral tibial metaphysis and proximal fibula. Rock Wells MD Differential Diagnosis Differential diagnosis including sprain, fracture, dislocation. Narrative Course 61-year-old male with right knee injury. Normal saline solution 1 25 cc an hour. Right knee immobilizer. Diagnosis Primary Impression: Fracture of right tibia and fibula Qualified Codes: S82.201A - Unspecified fracture of shaft of right tibia, initial encounter for closed fracture; S82.401A - Unspecified fracture of shaft of right fibula, initial encounter for closed fracture Admitting Information Admitting Physician Requests: Admit Scripts No Active Prescriptions or Reported Meds Eladio Crowley MD Jun 08, 2017 21:52
--- NOTE | 2017-06-08 23:08 | RADRPT ---
EXAM DATE/TIME: 06/08/2017 22:15 [facility] COMPARISON: No previous studies available for comparison. INDICATIONS : Pain post fall. MEDICAL HISTORY : None. SURGICAL HISTORY : None. ENCOUNTER: Initial ACUITY: 1 day PAIN SCORE: 10/10 LOCATION: Right Knee. FINDINGS: There is a comminuted fracture of the lateral tibial metaphysis which appears to extend intra-articul ar near the tibial spine. There is mild cortical displacement laterally. There is also a nondisplac ed fracture of the proximal metaphysis of the fibula. There is distention of the suprapatellar versu s characteristic of effusion. Possible fat fluid level in the effusion. The distal tibia and patell a appear intact. Vascular calcification in the distal thigh and popliteal region. CONCLUSION: Fractures of the lateral tibial metaphysis and proximal fibula. Rock Wells MD on June 08, 2017 at 23:04 Board Certified Radiologist. This report was verified electronically.
--- NOTE | 2017-06-08 23:39 | HHI.HP ---
[facility] Service [facility] Primary Care Physician No Primary Care Physician Admission Diagnosis Diagnoses: Chief Complaint: right knee pain Travel History International Travel<30 Days: No Contact w/Intl Traveler <30 Da: No Traveled to Known Affected Are: No History of Present Illness 61-year-old male with a history of CAD, PVD, hypertension, hyperlipidemia, COPD and hep C presented to the ED with complaints of Right knee pain. He states today he was at his niece's house when he was walking down some steps and fell, landing on his right knee. He does admit to drinking 3 16oz beers today. He describes the pain as a throbbing, 10/10, worse with movement, better without movement with no associated symptoms. Denies any Loc, or hitting his head. Denies any chest pain, shortness of breath , fever or chills Past Family Social History Past Medical History Coronary artery disease Peripheral vascular disease Hypertension Hyperlipidemia Questionable COPD Hepatitis C antibody positive 09/01/15 Past Surgical History CABG x 3 03/01/16 Aorto bifemoral bypass, aortic endarterectomy, and left and right common femoral and deep femoral endarterectomy 06/12/15 Left carotid endarterectomy and bovine patch angioplasty 06/08/15 Left renal stents Right clavicle surgery Reported Medications Reported Meds & Active Scripts Active No Active Prescriptions or Reported Medications Allergies: Coded Allergies: No Known Allergies (Unverified Adverse Reaction, Unknown, 06/08/17) Active Ordered Medications Current Medications Medications (Trade) Dose Ordered Sig/Barbra Route Start Time Stop Time Status Last Admin (NS Flush) 2 ml UNSCH PRN IV FLUSH 06/08/17 23:45 (NS Flush) 2 ml BID IV FLUSH 06/09/17 09:00 (Tylenol) 650 mg Q4H PRN PO 06/08/17 23:45 (Zofran Inj) 4 mg Q6H PRN IVP 06/08/17 23:45 06/09/17 00:06 (Narcan Inj) 0.4 mg UNSCH PRN IV PUSH 06/08/17 23:45 Sodium Chloride 1,000 ml @ 125 mls/hr Q8H IV 06/08/17 23:45 06/09/17 00:05 Thiamine HCl 100 mg/Sodium Chloride 101 ml @ 101 mls/hr ONCE ONCE IV 06/08/17 23:45 06/09/17 00:44 06/09/17 00:06 (Morphine Inj) 4 mg Q3H PRN IV PUSH 06/09/17 00:00 06/09/17 00:07 (Morphine Inj) 2 mg Q3H PRN IV PUSH 06/09/17 00:00 Family History Father of IN at age 67 Social History Tobacco use: Cigars occasionally Alcohol use: 3 16 oz beers daily on the weekends Physical Exam Vital Signs Vital Signs Date Time Temp Pulse Resp B/P (MAP) Pulse Ox O2 Delivery O2 Flow Rate FiO2 06/08/17 21:43 98.6 85 18 200/97 (131) 100 Physical Exam GENERAL: This is a well-nourished, well-developed patient, who appears in pain SKIN: Right knee is edematous HEAD: Atraumatic. Normocephalic. EYES: Pupils equal round and reactive. ENT: Nose without bleeding, purulent drainage or septal hematoma. Airway patent. NECK: Trachea midline. No JVD or lymphadenopathy. Supple, nontender, no meningeal signs. CARDIOVASCULAR: Regular rate and rhythm without murmurs, gallops, or rubs. RESPIRATORY: Clear to auscultation. Breath sounds equal bilaterally. No wheezes , rales, or rhonchi. GASTROINTESTINAL: Abdomen soft, non-tender, nondistended. MUSCULOSKELETAL: Right knee tender and edematous. No calf tenderness. ROM limited to right knee. NEUROLOGICAL: Awake and alert. Motor and sensory grossly within normal limits. Normal speech. Imaging Last Impressions Chest X-Ray 06/08/17 2312 Signed Impressions: Service Date/Time: June 23:34 - CONCLUSION: The lungs are clear. Rock Wells MD Knee X-Ray 06/08/173 Signed Impressions: Service Date/Time: June 22:15 - CONCLUSION: Fractures of the lateral tibial metaphysis and proximal fibula. Rock Wells MD Lower Extremity CT 06/08/17 0000 Signed Impressions: Service Date/Time: June 23:28 - CONCLUSION: Comminuted intra-articular fractures of the lateral tibial plateau and comminuted fractures of the proximal fibula. Rock Wells MD Caprini VTE Risk Assessment Caprini VTE Risk Assessment: No/Low Risk (score <= 1) Caprini Risk Assessment Model Point Value = 1 Point Value = 2 Point Value = 3 Point Value = 5 Age 41-60 Minor surgery BMI > 25 kg/m2 Swollen legs Varicose veins or History of unexplained or recurrent spontaneous Oral contraceptives or hormone replacement Sepsis (< 1 month) Serious lung disease, including pneumonia (< 1 month) Abnormal pulmonary function Acute myocardial infarction Congestive heart failure (< 1 month) History of inflammatory bowel disease Medical patient at bed rest Age 61-74 Arthroscopic surgery Major open surgery (> 45 min) Laparoscopic surgery (> 45 min) Malignancy Confined to bed (> 72 hours) Immobilizing plaster cast Central venous access Age >= 75 History of VTE Family history of VTE Factor V Leiden Prothrombin [id number] Lupus anticoagulant Anticardiolipin antibodies Elevated serum homocysteine Heparin-induced thrombocytopenia Other congenital or acquired thrombophilia Stroke (< 1 month) Elective arthroplasty Hip, pelvis, or leg fracture Acute spinal cord injury (< 1 month) Prophylaxis Regimen Total Risk Factor Score Risk Level Prophylaxis Regimen 0-1 Low Early ambulation 2 Moderate Order ONE of the following: *Sequential Compression Device (SCD) *Heparin 5000 units SQ BID 3-4 Higher Order ONE of the following medications: *Heparin 5000 units SQ TID *Enoxaparin/Lovenox 40 mg SQ daily (WT < 150 kg, CrCl > 30 mL/min) *Enoxaparin/Lovenox 30 mg SQ daily (WT < 150 kg, CrCl > 10-29 mL/min) *Enoxaparin/Lovenox 30 mg SQ BID (WT < 150 kg, CrCl > 30 mL/min) AND/OR *Sequential Compression Device (SCD) 5 or more Highest Order ONE of the following medications: *Heparin 5000 units SQ TID (Preferred with Epidurals) *Enoxaparin/Lovenox 40 mg SQ daily (WT < 150 kg, CrCl > 30 mL/min) *Enoxaparin/Lovenox 30 mg SQ daily (WT < 150 kg, CrCl > 10-29 mL/min) *Enoxaparin/Lovenox 30 mg SQ BID (WT < 150 kg, CrCl > 30 mL/min) AND *Sequential Compression Device (SCD) Assessment and Plan Problem List: (1) Fracture of right tibia and fibula ICD Code: S82.201A - Unspecified fracture of shaft of right tibia, initial encounter for closed fracture; S82.401A - Unspecified fracture of shaft of right fibula, initial encounter for closed fracture Status: Acute (2) Alcohol abuse ICD Code: F10.10 - Alcohol abuse, uncomplicated Status: Chronic (3) Hypertension ICD Code: I10 - Essential (primary) hypertension Status: Chronic Assessment and Plan 61-year-old male with a history of CAD, PVD, hypertension, hyperlipidemia, COPD and hep C presented to the ED with complaints of Right knee pain. Fracture right tibia and fibula Knee x-ray reviewed and shows fracture of the lateral tibial metaphysis and proximal fibula -Consult orthopedics -Nothing by mouth -Pain management with IV morphine Hypertension, chronic, currently not on any medications due to lack of insurance and money -Start amlodipine 10 mg daily -Clonidine when necessary -Consult case management for assistance Alcohol abuse, chronic -CIWA protocol -Thiamine by mouth -Seizure and withdrawal precautions -Encouraged to quit DVT prophylaxis: SCDs Discussed Condition With Patient, ED physician and RN Physician Certification 2 Midnight Certification Type: Admission for Inpatient Services Order for Inpatient Services The services are ordered in accordance with Medicare regulations or non- Medicare payer requirements, as applicable. In the case of services not specified as inpatient-only, they are appropriately provided as inpatient services in accordance with the 2-midnight benchmark. Estimated LOS (days): 2 days is the estimated time the patient will need to remain in the hospital, assuming treatment plan goals are met and no additional complications. Post-Hospital Plan: Home Problem Qualifiers (1) Fracture of right tibia and fibula: Qualified Codes: S82.201A - Unspecified fracture of shaft of right tibia, initial encounter for closed fracture; S82.401A - Unspecified fracture of shaft of right fibula, initial encounter for closed fracture (2) Hypertension: Qualified Codes: I10 - Essential (primary) hypertension Nikole Moon Jun 08, 2017 23:39
[2017-06-08] MEDS ORDERED: SODIUM CHLORIDE 0.9% FLUSH 10 ML FLUSH IV FLUSH PRN (23:45)
[2017-06-08] MEDS ORDERED: ACETAMINOPHEN 325 MG TAB PO PRN (23:45)
[2017-06-08] MEDS ORDERED: NALOXONE HCL 0.4 MG/ML AMP IV PUSH PRN (23:45)
[2017-06-08] MEDS ORDERED: THIAMINE INJ 100 MG in SODIUM CHLORIDE 0.9% INJ 100 ML IV ONE (23:45)
[2017-06-08] MEDS ORDERED: ONDANSETRON HCL 4 MG/2 ML VIAL IVP PRN (23:45)
--- NOTE | 2017-06-08 23:47 | RADRPT ---
EXAM DATE/TIME: 06/08/2017 23:28 [facility] COMPARISON: No previous studies available for comparison. INDICATIONS : Trauma, fall. Pain. RADIATION DOSE: 7.29 CTDIvol (mGy) MEDICAL HISTORY : None SURGICAL HISTORY : Femoral bypass. ENCOUNTER: Initial ACUITY: 1 day PAIN SCALE: 10/10 LOCATION: Right knee TECHNIQUE: Volumetric scanning of the knee was performed. Using automated exposure control and adjustment of th e mA and/or kV according to patient size, radiation dose was kept as low as reasonably achievable to obtain optimal diagnostic quality images. DICOM format image data is available electronically for re view and comparison. FINDINGS: There is a comminuted fracture of the lateral tibial metaphysis with multiple fracture lines extendin g intra-articular. The largest fracture line travels obliquely from the lateral metaphyseal cortex i n between the tibial spines. There is an impacted fragment located laterally below the articular cor steven. There is also a comminuted fracture of the proximal fibula with separation between the largest fragments measuring up to 7 mm. There is evidence of hemarthrosis with a fat fluid level in the supr apatellar bursa. The distal femur and patella are intact. Chronic corticated ossification is presen t lateral to the distal femoral metaphysis. CONCLUSION: Comminuted intra-articular fractures of the lateral tibial plateau and comminuted fractures of the pr oximal fibula. Rock Wells MD on June 08, 2017 at 23:43 Board Certified Radiologist. This report was verified electronically.
--- NOTE | 2017-06-08 23:48 | RADRPT ---
EXAM DATE/TIME: 06/08/2017 23:34 [facility] COMPARISON: CHEST SINGLE AP, August 09, 2016, 21:26. INDICATIONS : Evaluate for pnemothorax, pneumonia, or communicable diseases. MEDICAL HISTORY : Cardiovascular disease. Hypertension. Cirrhosis.DVT. Diabetes. SURGICAL HISTORY : CABG. Rt clavicle ORIF. Carotid endarterectomy. ENCOUNTER: Initial ACUITY: 1 day PAIN SCORE: 0/10 LOCATION: chest FINDINGS: A single view of the chest demonstrates the lungs to be symmetrically aerated without evidence of mas s, infiltrate or effusion. The cardiomediastinal contours are unremarkable. Osseous structures are intact. Evidence of prior median sternotomy. Lateral clavicular plate. CONCLUSION: The lungs are clear. Rock Wells MD on June 08, 2017 at 23:46 Board Certified Radiologist. This report was verified electronically.
[2017-06-09] VITALS (19 sets, daily range): BP systolic 153–219; BP diastolic 79–114; PULSE 67–98; RESP 17–21; TEMP 97.5–99.5; O2SAT 94–100
[2017-06-09] MEDS: SODIUM CHLOR 0.9% 1000 ML INJ 1,000 ML IV SCH ×4 (00:05→23:45)
[2017-06-09] MEDS: MORPHINE SULFATE 4 MG/ML INJ IV PUSH PRN ×8 (00:07→20:42)
[2017-06-09 00:54] LABS: BILIRUBIN, URINE NEG (NEG); BLOOD, URINE NEG (NEG); GLUCOSE,URINE NEG (NEG); KETONE, URINE NEG (NEG); NITRITE,URINE NEG (NEG); PH, URINE 5.5 (5.0-8.5); URINE COLOR LIGHT-YELLOW (YELLW/STRAW); URINE LEUKOCYTE ESTERASE NEG (NEG)
[2017-06-09] MEDS ORDERED: LORazepam 2 MG TAB PO PRN (01:00)
[2017-06-09] MEDS ORDERED: LORazepam 1 MG TAB PO PRN (01:00)
[2017-06-09] MEDS ORDERED: FLUMAZENIL 0.5 MG/5 ML VIAL IV PUSH PRN (01:00)
[2017-06-09] MEDS ORDERED: LORazepam 2 MG/ML VIAL IV PUSH PRN ×4 (01:00)
[2017-06-09] MEDS ORDERED: SODIUM CHLORIDE 0.9% FLUSH 10 ML FLUSH IV FLUSH PRN (01:00)
[2017-06-09 01:01] LABS: PROTHROMBIN TIME - PATIENT 9.8 SEC (9.8-11.6)
[2017-06-09 01:05] LABS: ALT (GPT) 83 U/L (12-78)
[2017-06-09 01:07] LABS: ALKALINE PHOSPHATASE 84 U/L (45-117); TOTAL BILIRUBIN ADULT 0.7 MG/DL (0.2-1.0); TOTAL PROTEIN 8.2 GM/DL (6.4-8.2)
[2017-06-09 01:12] LABS: ALBUMIN 3.8 GM/DL (3.4-5.0); AST (GOT) 102 U/L (15-37); BICARBONATE 21.3 MEQ/L (21.0-32.0); BLOOD UREA NITROGEN 6 MG/DL (7-18); CALCIUM 9.2 MG/DL (8.5-10.1); CHLORIDE 101 MEQ/L (98-107); GLOMERULAR FILTRATION RATE 99 ML/MIN (>89); GLUCOSE,RANDOM 83 MG/DL (74-106); SODIUM (NA) 137 MEQ/L (136-145)
[2017-06-09 01:13] LABS: AUTOMATED NEUTROPHIL # 5.9 TH/MM3 (1.8-7.7); BASOPHIL # 0.1 TH/MM3 (0-0.2); EOSINOPHIL # 0.1 TH/MM3 (0-0.4); EOSINOPHIL % 0.6 % (0.0-4.0); HEMATOCRIT 43.8 % (39.0-51.0); HEMOGLOBIN 15.5 GM/DL (13.0-17.0); LYMPH % 27.3 % (9.0-44.0); LYMPHOCYTE # 2.5 TH/MM3 (1.0-4.8); MEAN CORPUSCULAR HEMOGLOBIN 36.8 PG (27.0-34.0); MEAN CORPUSCULAR HGB CONC 35.4 % (32.0-36.0); MEAN PLATELET VOLUME 8.3 FL (7.0-11.0); MONO % 6.8 % (0.0-8.0); MONOCYTE # 0.6 TH/MM3 (0-0.9); NEUT % 64.3 % (16.0-70.0); PLATELET COUNT 232 TH/MM3 (150-450); RED BLOOD COUNT 4.22 MIL/MM3 (4.50-5.90); RED CELL DISTRIBUTION WIDTH 14.6 % (11.6-17.2); WHITE BLOOD COUNT 9.2 TH/MM3 (4.0-11.0)
[2017-06-09] MEDS: cloNIDine HCL 0.1 MG TAB PO PRN ×3 (02:01→15:01)
[2017-06-09] MEDS ORDERED: METOPROLOL TARTRATE 25 MG TAB PO PRN (03:30)
[2017-06-09] MEDS ORDERED: SODIUM CHLORID 0.9% 500 ML IV PRN (03:30)
[2017-06-09] MEDS ORDERED: POVIDONE IODINE 5% (ANTISEPSIS KIT) 4 APPLICATIONS EACH NARE PRN (03:30)
[2017-06-09] MEDS ORDERED: CHLORHEXIDINE GLUCONATE 2 % 1 PACK (2 CLOTHS) TOPICAL PRN (03:30)
[2017-06-09] MEDS ORDERED: LACTATED RINGER'S 1000 ML IV PRN (03:30)
[2017-06-09 07:34] LABS: AUTOMATED NEUTROPHIL # 5.3 TH/MM3 (1.8-7.7); BASOPHIL # 0.1 TH/MM3 (0-0.2); BASOPHIL % 0.6 % (0.0-2.0); EOSINOPHIL # 0.1 TH/MM3 (0-0.4); HEMOGLOBIN 14.2 GM/DL (13.0-17.0); LYMPH % 25.9 % (9.0-44.0); LYMPHOCYTE # 2.2 TH/MM3 (1.0-4.8); MEAN CELL VOLUME 104.6 FL (80.0-100.0); MEAN CORPUSCULAR HEMOGLOBIN 37.2 PG (27.0-34.0); MEAN CORPUSCULAR HGB CONC 35.5 % (32.0-36.0); MEAN PLATELET VOLUME 7.7 FL (7.0-11.0); MONO % 10.3 % (0.0-8.0); MONOCYTE # 0.9 TH/MM3 (0-0.9); NEUT % 62.2 % (16.0-70.0); PLATELET COUNT 199 TH/MM3 (150-450); RED BLOOD COUNT 3.82 MIL/MM3 (4.50-5.90); RED CELL DISTRIBUTION WIDTH 14.6 % (11.6-17.2); WHITE BLOOD COUNT 8.5 TH/MM3 (4.0-11.0)
[2017-06-09 08:13] LABS: BICARBONATE 22.4 MEQ/L (21.0-32.0); CALCIUM 8.4 MG/DL (8.5-10.1); CREATININE 0.67 MG/DL (0.60-1.30)
[2017-06-09] MEDS: SODIUM CHLORIDE 0.9% FLUSH 10 ML FLUSH IV FLUSH SCH ×2 (08:34→20:54)
[2017-06-09] MEDS: THIAMINE HCL 100 MG TAB PO SCH (08:35)
[2017-06-09] MEDS ORDERED: SODIUM CHLORIDE 0.9% FLUSH 10 ML FLUSH IV FLUSH SCH (09:00)
--- NOTE | 2017-06-09 09:00 | EKG ---
Date Performed: 06/09/2017 Time Performed: 00:17:15 PTAGE: 61 years EKG: Sinus rhythm POSSIBLE LEFT ATRIAL ENLARGEMENT NONSPECIFIC T-WAVE ABNORMALITY BORDERLINE ECG PREVIOUS TRACING : 10/21/2016 13.40 Since the prior tracing, there has been no significant cameron DOCTOR: Zulay Baer Interpretating Date/Time 06/09/2017 08:59:12
[2017-06-09] MEDS ORDERED: METOPROLOL TARTRATE 25 MG TAB PO ONE (16:45)
--- NOTE | 2017-06-09 17:08 | HHI.PR ---
Subjective Remarks c/o R knee pain. Denies cp/sob Objective Vitals Vital Signs Date Time Temp Pulse Resp B/P (MAP) Pulse Ox O2 Delivery O2 Flow Rate FiO2 06/09/17 16:24 77 06/09/17 16:00 99.5 98 17 212/114 (146) 94 06/09/17 15:43 80 06/09/17 14:02 82 06/09/17 13:08 86 06/09/17 12:00 98.5 80 17 199/99 (132) 95 06/09/17 09:55 77 06/09/17 08:00 98.1 86 17 202/97 (132) 94 06/09/17 07:49 91 06/09/17 03:10 97.5 85 18 166/92 (116) 97 06/09/17 03:01 06/09/17 02:58 18 06/09/17 02:46 86 18 153/83 (106) 99 Room Air 06/09/17 01:58 78 206/99 (134) 06/09/17 01:31 81 200/93 (128) 06/09/17 01:16 86 21 205/100 (135) 100 Room Air 06/09/17 00:03 82 18 219/98 (138) 100 Room Air 06/08/17 21:43 98.6 85 18 200/97 (131) 100 I/O 06/08/17 06/08/17 06/08/17 06/09/17 06/09/17 06/09/17 07:00 15:00 23:00 07:00 15:00 23:00 Intake Total 850 ml Output Total 1700 ml Balance -850 ml Intake Oral 0 ml IV Total 850 ml Output Urine Total 1700 ml # Bowel Movements 0 Result Diagram: 06/09/17 0715 06/09/17 0715 Imaging Last Impressions Chest X-Ray 06/08/17 2312 Signed Impressions: Service Date/Time: June 23:34 - CONCLUSION: The lungs are clear. Rock Wells MD Knee X-Ray 06/08/172146 Signed Impressions: Service Date/Time: June 22:15 - CONCLUSION: Fractures of the lateral tibial metaphysis and proximal fibula. Rock Wells MD Lower Extremity CT 06/08/17 0000 Signed Impressions: Service Date/Time: June 23:28 - CONCLUSION: Comminuted intra-articular fractures of the lateral tibial plateau and comminuted fractures of the proximal fibula. Rock Wells MD Objective Remarks GENERAL: This is a well-nourished, well-developed patient, who appears in pain SKIN: Right knee is edematous HEAD: Atraumatic. Normocephalic. EYES: Pupils equal round and reactive. ENT: Nose without bleeding, purulent drainage or septal hematoma. Airway patent. NECK: Trachea midline. No JVD or lymphadenopathy. Supple, nontender, no meningeal signs. CARDIOVASCULAR: Regular rate and rhythm without murmurs, gallops, or rubs. RESPIRATORY: Clear to auscultation. Breath sounds equal bilaterally. No wheezes , rales, or rhonchi. GASTROINTESTINAL: Abdomen soft, non-tender, nondistended. MUSCULOSKELETAL: Right knee tender and edematous. No calf tenderness. ROM limited to right knee. NEUROLOGICAL: Awake and alert. Motor and sensory grossly within normal limits. Normal speech. Medications and IVs Current Medications Medications (Trade) Dose Ordered Sig/Barbra Route Start Time Stop Time Status Last Admin (Tylenol) 650 mg Q4H PRN PO 06/08/17 23:45 (Zofran Inj) 4 mg Q6H PRN IVP 06/08/17 23:45 06/09/17 00:06 (Narcan Inj) 0.4 mg UNSCH PRN IV PUSH 06/08/17 23:45 Sodium Chloride 1,000 ml @ 125 mls/hr Q8H IV 06/08/17 23:45 06/09/17 13:22 (Morphine Inj) 4 mg Q3H PRN IV PUSH 06/09/17 00:00 06/09/17 16:43 (Morphine Inj) 2 mg Q3H PRN IV PUSH 06/09/17 00:00 (Norvasc) 10 mg DAILY PO 06/09/17 01:00 06/09/17 08:35 (Catapres) 0.1 mg Q6H PRN PO 06/09/17 01:00 06/09/17 15:01 (NS Flush) 2 ml UNSCH PRN IV FLUSH 06/09/17 01:00 06/09/17 14:52 (NS Flush) 2 ml BID IV FLUSH 06/09/17 09:00 (Vitamin B1) 100 mg DAILY PO 06/09/17 09:00 06/09/17 08:35 (Romazicon Inj) 0.2 mg Q1M PRN IV PUSH 06/09/17 01:00 (Ativan) 1 mg Q4H PRN PO 06/09/17 01:00 (Ativan Inj) 1 mg Q4H PRN IV PUSH 06/09/17 01:00 (Ativan) 2 mg Q2H PRN PO 06/09/17 01:00 (Ativan Inj) 2 mg Q2H PRN IV PUSH 06/09/17 01:00 (Ativan Inj) 2 mg Q1H PRN IV PUSH 06/09/17 01:00 (Ativan Inj) 2 mg Q15M PRN IV PUSH 06/09/17 01:00 Lactated Ringer's 1,000 ml @ 30 mls/hr Q24H PRN IV 06/09/17 03:30 06/12/17 03:29 Sodium Chloride 500 ml @ 30 mls/hr [id number] PRN IV 06/09/17 03:30 06/12/17 03:29 (Lopressor) 25 mg WHITE KID BUFFER PRN PO 06/09/17 03:30 06/12/17 03:29 (Betadine 5% Antisepsis Kit) 1 applic WHITE KID BUFFER PRN EACH NARE 06/09/17 03:30 06/12/17 03:29 (Chlorhexidine 2% Cloth) 3 pack WHITE KID BUFFER PRN TOPICAL 06/09/17 03:30 06/12/17 03:29 (Flu (Quadrivalent) Vaccine Inj) 0.5 ml ONCE ONCE IM 06/10/17 10:00 06/10/17 10:01 (Lopressor) 25 mg Q12HR PO 06/09/17 21:00 (Vasotec Inj) 1.25 mg Q6H PRN IV PUSH 06/09/17 16:45 A/P Problem List: (1) Fracture of right tibia and fibula ICD Code: S82.201A - Unspecified fracture of shaft of right tibia, initial encounter for closed fracture; S82.401A - Unspecified fracture of shaft of right fibula, initial encounter for closed fracture Status: Acute (2) Alcohol abuse ICD Code: F10.10 - Alcohol abuse, uncomplicated Status: Chronic (3) Hypertension ICD Code: I10 - Essential (primary) hypertension Status: Chronic Assessment and Plan 61-year-old male with a history of CAD, PVD, hypertension, hyperlipidemia, COPD and hep C presented to the ED with complaints of Right knee pain. Fracture right tibia and fibula Knee x-ray reviewed and shows fracture of the lateral tibial metaphysis and proximal fibula -Consult orthopedics -Nothing by mouth -Pain management with IV morphine Hypertension, chronic, currently not on any medications due to lack of insurance and money -Start amlodipine 10 mg daily -Clonidine when necessary -Consult case management for assistance 3/2 Patient severely elevated and uncontrolled. Add metoprolol 25 mg Q 12 hrs, add clonidine and Vasotec as needed. Monitor vital signs. Alcohol abuse/withdrawal -CIWA protocol -Thiamine by mouth -Seizure and withdrawal precautions -Encouraged to quit 3/2 Patient has hand tremors, uncontrolled bp likely due to etoh withdrawal. DVT prophylaxis: SCDs Problem Qualifiers (1) Fracture of right tibia and fibula: Qualified Codes: S82.201A - Unspecified fracture of shaft of right tibia, initial encounter for closed fracture; S82.401A - Unspecified fracture of shaft of right fibula, initial encounter for closed fracture (2) Hypertension: Qualified Codes: I10 - Essential (primary) hypertension Jaren Gage MD Jun 09, 2017 17:08
--- NOTE | 2017-06-09 20:34 | MB ---
cc: Riaz John MD DATE OF CONSULT: REASON FOR CONSULTATION: Right tibial plateau fracture. HISTORY: This patient is a 61-year-old male, past history of heart disease, peripheral vascular disease, hypertension, hyperlipidemia, COPD, hepatitis C, who presents to [facility] Emergency Room with chief complaints of right knee pain. He was walking down some steps. He tripped and fell landing on the right knee. He developed the onset of severe pain in regard to the right knee after his fall, was unable to stand or ambulate. He does drink alcohol on a daily basis and did have elevated blood alcohol level upon arrival to the [facility] Emergency Room. He complains of a throbbing pain, which is moderate to severe and worse with any movement. He denies loss of consciousness, denies hitting his head, denies chest pain or shortness of breath. Orthopedic service has been consulted for further evaluation and management. He has been admitted to the medical service. PAST HISTORY: Heart disease, peripheral vascular disease, hypertension, hyperlipidemia, COPD, hepatitis C. SURGERIES: He has had a CABG x 302/2016. He has had aortobifemoral bypass, aortic endarterectomy, left and right common femoral and deep femoral endarterectomy, left carotid endarterectomy, left renal stent, right clavicle fracture surgery. He takes no medications. HE HAS NO KNOWN DRUG ALLERGIES. FAMILY HISTORY: Father of heart disease at 67. SOCIAL HISTORY: He does smoke cigars and drinks on a daily basis, beer. REVIEW OF SYSTEMS: Negative for 10 systems other than HPI. PHYSICAL EXAMINATION: Temperature 98, pulse 85, respiration 18, blood pressure 200/97. Patient is a well-nourished male, awake, alert, lying in bed. He appears in no acute distress upon examination currently. HEENT: Normocephalic, atraumatic. Pupils equal, round and reactive to light. Extraocular muscle intact. NECK: Supple. LUNGS: Clear. HEART: Regular rate and rhythm. ABDOMEN: Soft, nontender. His right knee does have swelling and also swelling of his leg. His compartments are soft. Brisk capillary refill. Sensation intact. He can flex his toes distally. He has no significant pain on passive stretch of his toes. He does have brisk capillary refill distally. X-ray of the right knee shows a comminuted tibial plateau fracture with lateral translation of the lateral cortex. IMPRESSION: A 61-year-old male, status post fall down a flight of stairs, right tibial plateau fracture with some translation seen on x-ray. He has multiple past medical history including heart disease, peripheral vascular disease, chronic obstructive pulmonary disease, hepatitis C. PLAN: I discussed the diagnosis with the patient and treatment options. We spoke about the option of nonoperative treatment with strict immobilization and nonweightbearing status. We spoke about the option of surgery with surgical open reduction and internal fixation. Risks of surgery were discussed, which include but are not limited to anesthesia, bleeding, infection, damage to nerves and blood vessels, blood clots, embolism. Patient has asked appropriate questions. These have been answered. At this point, the patient is in favor of proceeding with surgical intervention. We will maintain his leg immobilized and also will place an ice machine on his leg to help decrease some of the inflammation and swelling. We will schedule surgery accordingly. MD WING Rush/PRAMOD , 04:19 PM , 08:34 PM
[2017-06-09] MEDS: METOPROLOL TARTRATE 25 MG TAB PO SCH (20:53)
[2017-06-10] VITALS (8 sets, daily range): BP systolic 117–196; BP diastolic 58–97; PULSE 57–108; RESP 15–17; TEMP 97.2–99.5; O2SAT 95–98
[2017-06-10] MEDS: MORPHINE SULFATE 4 MG/ML INJ IV PUSH PRN ×5 (00:25→21:00)
[2017-06-10] MEDS: SODIUM CHLOR 0.9% 1000 ML INJ 1,000 ML IV SCH ×2 (03:31→14:47)
[2017-06-10] MEDS: ENALAPRILAT 1.25 MG/ML VIAL IV PUSH PRN ×2 (04:51→13:17)
[2017-06-10] MEDS: METOPROLOL TARTRATE 25 MG TAB PO SCH ×2 (09:01→21:01)
[2017-06-10] MEDS: SODIUM CHLORIDE 0.9% FLUSH 10 ML FLUSH IV FLUSH SCH ×2 (09:01→21:01)
[2017-06-10] MEDS: THIAMINE HCL 100 MG TAB PO SCH (09:01)
[2017-06-10] MEDS ORDERED: XARE10TA PO (09:51)
[2017-06-10] MEDS ORDERED: PERC5TAB12 PO (09:51)
[2017-06-10] MEDS ORDERED: INFLUENZA VIRUS VACCINE (QUADRIVALENT) 0.5 ML SYR IM ONE (10:00)
--- NOTE | 2017-06-10 12:44 | HHI.PR ---
Subjective Remarks The patient denies any hallucinations. Pain control. Patient denies fevers or chills. BP is still severely elevated. Objective Vitals Vital Signs Date Time Temp Pulse Resp B/P (MAP) Pulse Ox O2 Delivery O2 Flow Rate FiO2 06/10/17 12:00 97.2 70 17 187/95 (125) 97 06/10/17 08:00 97.6 68 17 194/91 (125) 96 06/10/17 05:52 158/74 (102) 06/10/17 04:05 97.7 63 17 189/89 (122) 95 06/10/17 01:15 97.8 68 17 196/97 (130) 96 06/09/17 19:40 98.5 75 18 184/79 (114) 97 06/09/17 19:00 67 06/09/17 18:30 85 06/09/17 17:57 72 06/09/17 16:24 77 06/09/17 16:00 99.5 98 17 212/114 (146) 94 06/09/17 15:43 80 06/09/17 14:02 82 06/09/17 13:08 86 I/O 06/09/17 06/09/17 06/09/17 06/10/17 06/10/17 06/10/17 07:00 15:00 23:00 07:00 15:00 23:00 Intake Total 850 ml 640 ml Output Total 1700 ml 850 ml Balance -850 ml -210 ml Intake Oral 0 ml 640 ml IV Total 850 ml Output Urine Total 1700 ml 850 ml # Bowel Movements 0 0 Result Diagram: 06/09/17 0715 06/09/17 0715 Imaging Last Impressions Chest X-Ray 06/08/17 2312 Signed Impressions: Service Date/Time: June 23:34 - CONCLUSION: The lungs are clear. Rock Wells MD Knee X-Ray 06/08/177 Signed Impressions: Service Date/Time: June 22:15 - CONCLUSION: Fractures of the lateral tibial metaphysis and proximal fibula. Rock Wells MD Lower Extremity CT 06/08/17 0000 Signed Impressions: Service Date/Time: June 23:28 - CONCLUSION: Comminuted intra-articular fractures of the lateral tibial plateau and comminuted fractures of the proximal fibula. Rock Wells MD Objective Remarks GENERAL: This is a well-nourished, well-developed patient, who appears in pain SKIN: Right knee is edematous HEAD: Atraumatic. Normocephalic. EYES: Pupils equal round and reactive. ENT: Nose without bleeding, purulent drainage or septal hematoma. Airway patent. NECK: Trachea midline. No JVD or lymphadenopathy. Supple, nontender, no meningeal signs. CARDIOVASCULAR: Regular rate and rhythm without murmurs, gallops, or rubs. RESPIRATORY: Clear to auscultation. Breath sounds equal bilaterally. No wheezes , rales, or rhonchi. GASTROINTESTINAL: Abdomen soft, non-tender, nondistended. MUSCULOSKELETAL: Right knee tender and edematous. No calf tenderness. ROM limited to right knee. NEUROLOGICAL: Awake and alert. Motor and sensory grossly within normal limits. Normal speech. Medications and IVs Current Medications Medications (Trade) Dose Ordered Sig/Barbra Route Start Time Stop Time Status Last Admin (Tylenol) 650 mg Q4H PRN PO 06/08/17 23:45 (Zofran Inj) 4 mg Q6H PRN IVP 06/08/17 23:45 06/09/17 00:06 (Narcan Inj) 0.4 mg UNSCH PRN IV PUSH 06/08/17 23:45 Sodium Chloride 1,000 ml @ 125 mls/hr Q8H IV 06/08/17 23:45 06/10/17 03:31 (Morphine Inj) 4 mg Q3H PRN IV PUSH 06/09/17 00:00 06/10/17 09:06 (Morphine Inj) 2 mg Q3H PRN IV PUSH 06/09/17 00:00 (Norvasc) 10 mg DAILY PO 06/09/17 01:00 06/10/17 09:01 (Catapres) 0.1 mg Q6H PRN PO 06/09/17 01:00 06/09/17 15:01 (NS Flush) 2 ml UNSCH PRN IV FLUSH 06/09/17 01:00 06/09/17 14:52 (NS Flush) 2 ml BID IV FLUSH 06/09/17 09:00 06/09/17 20:54 (Vitamin B1) 100 mg DAILY PO 06/09/17 09:00 06/10/17 09:01 (Romazicon Inj) 0.2 mg Q1M PRN IV PUSH 06/09/17 01:00 (Ativan) 1 mg Q4H PRN PO 06/09/17 01:00 (Ativan Inj) 1 mg Q4H PRN IV PUSH 06/09/17 01:00 (Ativan) 2 mg Q2H PRN PO 06/09/17 01:00 (Ativan Inj) 2 mg Q2H PRN IV PUSH 06/09/17 01:00 (Ativan Inj) 2 mg Q1H PRN IV PUSH 06/09/17 01:00 (Ativan Inj) 2 mg Q15M PRN IV PUSH 06/09/17 01:00 Lactated Ringer's 1,000 ml @ 30 mls/hr Q24H PRN IV 06/09/17 03:30 06/12/17 03:29 Sodium Chloride 500 ml @ 30 mls/hr [id number] PRN IV 06/09/17 03:30 06/12/17 03:29 (Lopressor) 25 mg ANGLESMITH HELPER PRN PO 06/09/17 03:30 06/12/17 03:29 (Betadine 5% Antisepsis Kit) 1 applic ANGLESMITH HELPER PRN EACH NARE 06/09/17 03:30 06/12/17 03:29 (Chlorhexidine 2% Cloth) 3 pack ANGLESMITH HELPER PRN TOPICAL 06/09/17 03:30 06/12/17 03:29 (Lopressor) 25 mg Q12HR PO 06/09/17 21:00 06/10/17 09:01 (Vasotec Inj) 1.25 mg Q6H PRN IV PUSH 06/09/17 16:45 06/10/17 04:51 (Cardura) 2 mg DAILY PO 06/10/17 10:00 A/P Problem List: (1) Fracture of right tibia and fibula ICD Code: S82.201A - Unspecified fracture of shaft of right tibia, initial encounter for closed fracture; S82.401A - Unspecified fracture of shaft of right fibula, initial encounter for closed fracture Status: Acute (2) Alcohol abuse ICD Code: F10.10 - Alcohol abuse, uncomplicated Status: Chronic (3) Hypertension ICD Code: I10 - Essential (primary) hypertension Status: Chronic Assessment and Plan 61-year-old male with a history of CAD, PVD, hypertension, hyperlipidemia, COPD and hep C presented to the ED with complaints of Right knee pain. Fracture right tibia and fibula Knee x-ray reviewed and shows fracture of the lateral tibial metaphysis and proximal fibula -Consult orthopedics -Nothing by mouth -Pain management with IV morphine 3/3 for OR today. Hypertension, chronic, currently not on any medications due to lack of insurance and money -Start amlodipine 10 mg daily -Clonidine when necessary -Consult case management for assistance 3/2 Patient severely elevated and uncontrolled. Add metoprolol 25 mg Q 12 hrs, add clonidine and Vasotec as needed. Monitor vital signs. 3/3 patient still with severely elevated blood pressure with a systolic blood pressure in the 170s-180s. Continue metoprolol at same dose, continue amlodipine 10 mg p.o. daily, start Cardura 2 mg p.o. daily. Continue clonidine and Vasotec as needed. Continue to monitor vital signs. Alcohol abuse/withdrawal -CIWA protocol -Thiamine by mouth -Seizure and withdrawal precautions -Encouraged to quit 3/2 Patient has hand tremors, uncontrolled bp likely due to etoh withdrawal. 3/3 alcohol withdrawal better controlled. Continue CIWA protocol. DVT prophylaxis: SCDs Discharge Planning For OR today. Continue to monitor the medical floor. Problem Qualifiers (1) Fracture of right tibia and fibula: Qualified Codes: S82.201A - Unspecified fracture of shaft of right tibia, initial encounter for closed fracture; S82.401A - Unspecified fracture of shaft of right fibula, initial encounter for closed fracture (2) Hypertension: Qualified Codes: I10 - Essential (primary) hypertension Jaren Gage MD Jun 10, 2017 12:44
[2017-06-10] MEDS: DOXAZOSIN MESYLATE 2 MG TAB PO SCH (13:15)
[2017-06-10] MEDS: MORPHINE SULFATE 2 MG/ML INJ IV PUSH PRN ×2 (13:23→17:43)
--- NOTE | 2017-06-10 18:04 | PD.ORT.PN ---
Subjective Subjective Remarks pain improved. leg swelling. no CP/SOB Objective Vitals Vital Signs Date Time Temp Pulse Resp B/P (MAP) Pulse Ox O2 Delivery O2 Flow Rate FiO2 06/10/17 15:58 99.0 70 17 127/65 (85) 96 06/10/17 12:00 97.2 70 17 187/95 (125) 97 06/10/17 08:00 97.6 68 17 194/91 (125) 96 06/10/17 05:52 158/74 (102) 06/10/17 04:05 97.7 63 17 189/89 (122) 95 06/10/17 01:15 97.8 68 17 196/97 (130) 96 06/09/17 19:40 98.5 75 18 184/79 (114) 97 06/09/17 19:00 67 06/09/17 18:30 85 I/O 06/09/17 06/09/17 06/09/17 06/10/17 06/10/17 06/10/17 07:00 15:00 23:00 07:00 15:00 23:00 Intake Total 850 ml 640 ml 0 ml Output Total 1700 ml 850 ml Balance -850 ml -210 ml 0 ml Intake Oral 0 ml 640 ml 0 ml IV Total 850 ml Output Urine Total 1700 ml 850 ml # Voids 4 # Bowel Movements 0 0 0 Result Diagram: 06/09/17 0715 06/09/17 0715 Objective Remarks [id number] RLE: swelling ankle, leg, knee, grossly nvi, +EHL/FHL soft compartments, CKS Assessment & Plan Assessment and Plan right plateau fx keep elevated NPO OR potentially tonight Nic Ritter Jr., MD Jun 10, 2017 18:04
[2017-06-11] VITALS: BP 118/60; PULSE 74; RESP 16; TEMP 96.6; O2SAT 96
[2017-06-11] MEDS: MORPHINE SULFATE 4 MG/ML INJ IV PUSH PRN ×2 (00:35→05:49)
[2017-06-11] MEDS: SODIUM CHLOR 0.9% 1000 ML INJ 1,000 ML IV SCH ×2 (00:36→15:45)
[2017-06-11 04:00] VITALS: BP 111/63; PULSE 69; RESP 15; TEMP 98.1; O2SAT 96
[2017-06-11] MEDS ORDERED: VANCOMYCIN HCL 1000 MG VIAL ONE (07:48)
[2017-06-11] MEDS ORDERED: GENTAMICIN SULFATE 80 MG/2 ML VIAL ONE (07:49)
[2017-06-11 08:00] VITALS: BP 178/92; PULSE 74; RESP 18; TEMP 97; O2SAT 97
[2017-06-11] MEDS ORDERED: ACETAMINOPHEN 1000 MG/100 ML 100 ML IV ONE (08:43)
[2017-06-11] MEDS: THIAMINE HCL 100 MG TAB PO SCH (08:44)
[2017-06-11] MEDS: METOPROLOL TARTRATE 25 MG TAB PO SCH ×2 (08:44→20:51)
[2017-06-11] MEDS: SODIUM CHLORIDE 0.9% FLUSH 10 ML FLUSH IV FLUSH SCH ×2 (08:46→20:52)
[2017-06-11] MEDS: DOXAZOSIN MESYLATE 2 MG TAB PO SCH (08:46)
[2017-06-11] MEDS ORDERED: ceFAZolin INJ 1,000 MG VIAL IV ONE ×2 (09:54→12:00)
[2017-06-11] MEDS ORDERED: BISACODYL 10 MG SUPP RECTAL PRN (10:00)
[2017-06-11] MEDS ORDERED: ENOXAPARIN SODIUM 30 MG/0.3 ML SYRINGE SQ SCH (10:00)
[2017-06-11] MEDS ORDERED: MORPHINE SULFATE 8 MG/ML INJ IV PUSH PRN (10:00)
[2017-06-11] MEDS ORDERED: LACTULOSE SYRUP 20 GM/30 ML CUP PO PRN (10:00)
[2017-06-11] MEDS ORDERED: SENNOSIDES 8.6 MG TAB PO PRN (10:00)
[2017-06-11] MEDS ORDERED: Post-op Orders (for Pharmacy) XX ONE (10:00)
[2017-06-11] MEDS ORDERED: MAGNESIUM HYDROXIDE SUSP 30 ML CUP PO PRN (10:00)
[2017-06-11] MEDS ORDERED: PROMETHAZINE HCL 25 MG TAB PO PRN (10:00)
[2017-06-11] MEDS ORDERED: SODIUM CHLORIDE 0.9% FLUSH 10 ML FLUSH IV FLUSH PRN (10:00)
[2017-06-11] MEDS: KETOROLAC TROMETHAMINE 30 MG/ML (IVP) VIAL IVP SCH ×2 (10:30→16:30)
--- NOTE | 2017-06-11 11:11 | RADRPT ---
EXAM DATE/TIME: 06/11/2017 10:38 [facility] COMPARISON: No previous studies available for comparison. INDICATIONS : Right tibia fracture. Post ORIF. MEDICAL HISTORY : Cardiovascular disease. Hypertension. Cirrhosis.DVT. Diabetes. SURGICAL HISTORY : CABG. Rt clavicle ORIF. Carotid endarterectomy. ENCOUNTER: Initial ACUITY: 1 day PAIN SCORE: Non-responsive. LOCATION: Right knee. FINDINGS: Plate with screws bridging plateau fracture. Alignment anatomic. CONCLUSION: Normal alignment. Patricio Marshall MD FACR on June 11, 2017 at 11:10 Board Certified Radiologist. This report was verified electronically.
[2017-06-11] MEDS ORDERED: DO NOT ADM ANY ANTICOAGULANT DRUGS PRN (11:14)
[2017-06-11] MEDS ORDERED: *ONDANSETRON 4 MG VIAL PERIprocedural Use ONLY ONE (11:18)
[2017-06-11] MEDS ORDERED: MIDAZOLAM HCL 2 MG/2 ML VIAL ONE (11:18)
[2017-06-11] MEDS ORDERED: *MEPERIDINE 25 MG INJ VIAL PERIprocedural Use ONLY ONE (11:18)
[2017-06-11] MEDS ORDERED: *LABETALOL HCL 100 MG/20 ML VIAL PERIprocedural Use ONLY ONE (11:31)
[2017-06-11] MEDS ORDERED: *ENALAPRILAT 1.25 MG/ML VIAL PERIprocedural Use ONLY ONE (11:37)
[2017-06-11] MEDS ORDERED: NEOSTIGMINE 5 MG/5 ML SYRINGE IV PUSH ONE (12:00)
[2017-06-11] MEDS ORDERED: GLYCOPYRROLATE 1 MG/5 ML SYRINGE IV PUSH ONE (12:00)
[2017-06-11] MEDS ORDERED: PROPOFOL 200 MG/20 ML AMP IV ONE (12:00)
[2017-06-11] MEDS ORDERED: ePHEDrine/NS 25 MG/5 ML SYRINGE IV ONE (12:00)
[2017-06-11] MEDS ORDERED: KETOROLAC TROMETHAMINE 30 MG/ML (IVP) VIAL IV PUSH ONE (12:00)
[2017-06-11] MEDS ORDERED: LACTATED RINGER'S 1000 ML INJ 1,000 ML IV ONE (12:00)
[2017-06-11] MEDS ORDERED: PHENYLEPH/NS 1000 MCG/10 ML SYR IV ONE (12:00)
[2017-06-11] MEDS ORDERED: SUCCINYLCHOLINE CHLORIDE 200 MG/10 ML VIAL IV ONE (12:00)
[2017-06-11] MEDS ORDERED: ROCURONIUM INJ 50 MG/5 ML SYRINGE IV PUSH ONE (12:00)
[2017-06-11] MEDS ORDERED: ONDANSETRON HCL 4 MG/2 ML VIAL IV ONE (12:00)
[2017-06-11] MEDS ORDERED: LIDOCAINE HCL 1% PF 5 ML SYRINGE OTHER ONE (12:00)
[2017-06-11] MEDS ORDERED: DEXAMETHASONE SOD PHOS 4 MG/ML VIAL IV ONE (12:00)
[2017-06-11 12:15] VITALS: BP 147/67; PULSE 60; RESP 18; TEMP 96.3; O2SAT 93
[2017-06-11] MEDS: MORPHINE SULFATE 2 MG/ML INJ IV PUSH PRN (13:26)
--- NOTE | 2017-06-11 14:23 | HHI.PR ---
Subjective Remarks c/o right knee pain sp ORIF R tib plateau fracture today. Denies cp/sob Tremors much improved Denies fevers or chills Objective Vitals Vital Signs Date Time Temp Pulse Resp B/P (MAP) Pulse Ox O2 Delivery O2 Flow Rate FiO2 06/11/17 12:15 96.3 60 18 147/67 (93) 93 06/11/17 11:45 97.8 67 12 167/69 (101) 97 Nasal Cannula 2 06/11/17 11:30 74 14 190/86 (120) 97 Nasal Cannula 2 06/11/17 11:15 79 20 168/76 (106) 97 Nasal Cannula 2 06/11/17 11:12 97.7 92 17 179/84 (115) 98 Nasal Cannula 2 06/11/17 08:00 97.0 74 18 178/92 (120) 97 06/11/17 04:00 98.1 69 15 111/63 (79) 96 06/11/17 00:00 96.6 74 16 118/60 (79) 96 06/10/17 20:00 97.2 65 16 174/77 (109) 97 06/10/17 16:00 64 06/10/17 15:58 99.0 70 17 127/65 (85) 96 I/O 06/10/17 06/10/17 06/10/17 06/11/17 06/11/17 06/11/17 07:00 15:00 23:00 07:00 15:00 23:00 Intake Total 640 ml 0 ml 576 ml 700 ml 1200 ml Output Total 850 ml 550 ml Balance -210 ml 0 ml 576 ml 700 ml 650 ml Intake Oral 640 ml 0 ml 700 ml IV Total 576 ml 1200 ml Output Urine Total 850 ml 500 ml Estimated Blood Loss 50 ml # Voids 4 1 # Bowel Movements 0 0 Result Diagram: 06/09/17 0715 06/09/17 0715 Imaging Last Impressions Knee X-Ray 06/11/17 0000 Signed Impressions: Service Date/Time: Sunday, June 11, 2017 10:38 - CONCLUSION: Normal alignment. Patricio Marshall MD FACR Chest X-Ray 06/08/17 2312 Signed Impressions: Service Date/Time: June 23:34 - CONCLUSION: The lungs are clear. Rock Wells MD Lower Extremity CT 06/08/17 0000 Signed Impressions: Service Date/Time: June 23:28 - CONCLUSION: Comminuted intra-articular fractures of the lateral tibial plateau and comminuted fractures of the proximal fibula. Rock Wells MD Objective Remarks GENERAL: This is a well-nourished, well-developed patient, who appears in pain SKIN: Right knee is edematous HEAD: Atraumatic. Normocephalic. EYES: Pupils equal round and reactive. ENT: Nose without bleeding, purulent drainage or septal hematoma. Airway patent. NECK: Trachea midline. No JVD or lymphadenopathy. Supple, nontender, no meningeal signs. CARDIOVASCULAR: Regular rate and rhythm without murmurs, gallops, or rubs. RESPIRATORY: Clear to auscultation. Breath sounds equal bilaterally. No wheezes , rales, or rhonchi. GASTROINTESTINAL: Abdomen soft, non-tender, nondistended. MUSCULOSKELETAL: Right knee tender and edematous. No calf tenderness. ROM limited to right knee. NEUROLOGICAL: Awake and alert. Motor and sensory grossly within normal limits. Normal speech. Medications and IVs Current Medications Medications (Trade) Dose Ordered Sig/Barbra Route Start Time Stop Time Status Last Admin (Tylenol) 650 mg Q4H PRN PO 06/08/17 23:45 (Zofran Inj) 4 mg Q6H PRN IVP 06/08/17 23:45 06/09/17 00:06 (Narcan Inj) 0.4 mg UNSCH PRN IV PUSH 06/08/17 23:45 Sodium Chloride 1,000 ml @ 125 mls/hr Q8H IV 06/08/17 23:45 06/11/17 00:36 (Morphine Inj) 2 mg Q3H PRN IV PUSH 06/09/17 00:00 06/11/17 13:26 (Norvasc) 10 mg DAILY PO 06/09/17 01:00 06/11/17 08:43 (Catapres) 0.1 mg Q6H PRN PO 06/09/17 01:00 06/09/17 15:01 (Vitamin B1) 100 mg DAILY PO 06/09/17 09:00 06/11/17 08:44 (Romazicon Inj) 0.2 mg Q1M PRN IV PUSH 06/09/17 01:00 (Ativan) 1 mg Q4H PRN PO 06/09/17 01:00 (Ativan Inj) 1 mg Q4H PRN IV PUSH 06/09/17 01:00 (Ativan) 2 mg Q2H PRN PO 06/09/17 01:00 (Ativan Inj) 2 mg Q2H PRN IV PUSH 06/09/17 01:00 (Ativan Inj) 2 mg Q1H PRN IV PUSH 06/09/17 01:00 (Ativan Inj) 2 mg Q15M PRN IV PUSH 06/09/17 01:00 Lactated Ringer's 1,000 ml @ 30 mls/hr Q24H PRN IV 06/09/17 03:30 06/12/17 03:29 Sodium Chloride 500 ml @ 30 mls/hr [id number] PRN IV 06/09/17 03:30 06/12/17 03:29 (Lopressor) 25 mg MACHINE II COREMAKER PRN PO 06/09/17 03:30 06/12/17 03:29 (Betadine 5% Antisepsis Kit) 1 applic MACHINE II COREMAKER PRN EACH NARE 06/09/17 03:30 06/12/17 03:29 (Chlorhexidine 2% Cloth) 3 pack MACHINE II COREMAKER PRN TOPICAL 06/09/17 03:30 06/12/17 03:29 (Lopressor) 25 mg Q12HR PO 06/09/17 21:00 06/11/17 08:44 (Vasotec Inj) 1.25 mg Q6H PRN IV PUSH 06/09/17 16:45 06/10/17 13:17 (Cardura) 2 mg DAILY PO 06/10/17 10:00 06/11/17 08:46 (NS Flush) 2 ml UNSCH PRN IV FLUSH 06/11/17 10:00 (NS Flush) 2 ml BID IV FLUSH 06/11/17 21:00 Cefazolin Sodium 1000 mg/Sodium Chloride 100 ml @ 200 mls/hr Q6H IV 06/11/17 16:00 06/12/17 04:29 (Morphine Inj) 5 mg Q3H PRN IV PUSH 06/11/17 10:00 (Percocet 5-325 Mg) 1 tab Q4H PRN PO 06/11/17 10:00 (Percocet 5-325 Mg) 2 tab Q4H PRN PO 06/11/17 10:00 (Toradol Inj) 15 mg Q6H IVP 06/11/17 10:30 06/13/17 04:31 (Phenergan) 25 mg Q4H PRN PO 06/11/17 10:00 (Ambien) 5 mg HS PRN PO 06/11/17 21:00 (Vi-Colace) 1 tab BID PO 06/11/17 21:00 (Milk Of Magnesia Liq) 30 ml Q12H PRN PO 06/11/17 10:00 (Senokot) 17.2 mg Q12H PRN PO 06/11/17 10:00 (Dulcolax Supp) 10 mg DAILY PRN RECTAL 06/11/17 10:00 (Lactulose Liq) 30 ml DAILY PRN PO 06/11/17 10:00 Miscellaneous Information ALL NURSING DEPARTME... UNSCH PRN .XX 06/11/17 11:14 06/12/17 11:13 (Lovenox Inj) 30 mg Q12H SQ 06/11/17 23:00 Urinary Catheter: No Vascular Central Line Catheter: No A/P Problem List: (1) Fracture of right tibia and fibula ICD Code: S82.201A - Unspecified fracture of shaft of right tibia, initial encounter for closed fracture; S82.401A - Unspecified fracture of shaft of right fibula, initial encounter for closed fracture Status: Acute (2) Alcohol abuse ICD Code: F10.10 - Alcohol abuse, uncomplicated Status: Chronic (3) Hypertension ICD Code: I10 - Essential (primary) hypertension Status: Chronic Assessment and Plan 61-year-old male with a history of CAD, PVD, hypertension, hyperlipidemia, COPD and hep C presented to the ED with complaints of Right knee pain. Fracture right tibia and fibula Knee x-ray reviewed and shows fracture of the lateral tibial metaphysis and proximal fibula Orthopedics following. 3/ status post ORIF of the right tibial plateau fracture. Pain control with Morphine IV. DC toradol. Hypertension, chronic, currently not on any medications due to lack of insurance and money -Start amlodipine 10 mg daily -Clonidine when necessary -Consult case management for assistance 3/2 Patient severely elevated and uncontrolled. Add metoprolol 25 mg Q 12 hrs, add clonidine and Vasotec as needed. Monitor vital signs. 3/3 patient still with severely elevated blood pressure with a systolic blood pressure in the 170s-180s. Continue metoprolol at same dose, continue amlodipine 10 mg p.o. daily, start Cardura 2 mg p.o. daily. Continue clonidine and Vasotec as needed. Continue to monitor vital signs. 3/4 blood pressure improving. Continue amlodipine 10 mg p.o. daily, Cardura 2 mg p.o. daily, metoprolol 25 mg p.o. every 12 hours. Continue clonidine and Vasotec as needed. Continue to monitor vital signs. Alcohol abuse/withdrawal -CIWA protocol -Thiamine by mouth -Seizure and withdrawal precautions -Encouraged to quit 3/2 Patient has hand tremors, uncontrolled bp likely due to etoh withdrawal. 3/3 alcohol withdrawal better controlled. Continue CIWA protocol. 3/4 resolved. Continue CIWA protocol. DVT prophylaxis: SCDs Discharge Planning DC pending orthopedic surgery clearance. Problem Qualifiers (1) Fracture of right tibia and fibula: Qualified Codes: S82.201A - Unspecified fracture of shaft of right tibia, initial encounter for closed fracture; S82.401A - Unspecified fracture of shaft of right fibula, initial encounter for closed fracture (2) Hypertension: Qualified Codes: I10 - Essential (primary) hypertension Jaren Gage MD Jun 11, 2017 14:23
[2017-06-11 16:00] VITALS: BP 147/74; PULSE 94; RESP 18; TEMP 96.5; O2SAT 97
[2017-06-11] MEDS: oxyCODONE/ACETAMINOPHEN 5 MG/325 MG TAB PO PRN ×2 (17:08→20:51)
[2017-06-11 20:00] VITALS: BP 152/82; PULSE 72; RESP 16; TEMP 96.5; O2SAT 96
[2017-06-11] MEDS: DOCUSATE SODIUM 50 MG/SENNA 8.6 MG TAB PO SCH (20:51)
[2017-06-11] MEDS ORDERED: ZOLPIDEM TARTRATE 5 MG TAB PO PRN (21:00)
[2017-06-11] MEDS: ENOXAPARIN SODIUM 30 MG/0.3 ML SYRINGE SQ SCH (23:59)
[2017-06-12] VITALS (7 sets, daily range): BP systolic 121–181; BP diastolic 63–86; PULSE 67–82; RESP 15–18; TEMP 96.2–98; O2SAT 92–97
[2017-06-12] MEDS: SODIUM CHLOR 0.9% 1000 ML INJ 1,000 ML IV SCH (00:02)
[2017-06-12] MEDS: oxyCODONE/ACETAMINOPHEN 5 MG/325 MG TAB PO PRN ×5 (00:46→22:30)
[2017-06-12] MEDS: KETOROLAC TROMETHAMINE 30 MG/ML (IVP) VIAL IVP SCH ×5 (05:00→20:36)
[2017-06-12] MEDS: SODIUM CHLORIDE 0.9% FLUSH 10 ML FLUSH IV FLUSH SCH ×2 (09:00→20:36)
[2017-06-12] MEDS: DOCUSATE SODIUM 50 MG/SENNA 8.6 MG TAB PO SCH ×2 (09:18→20:35)
[2017-06-12] MEDS: THIAMINE HCL 100 MG TAB PO SCH (09:18)
[2017-06-12] MEDS: METOPROLOL TARTRATE 25 MG TAB PO SCH ×3 (09:18→20:35)
[2017-06-12] MEDS: DOXAZOSIN MESYLATE 2 MG TAB PO SCH (09:18)
[2017-06-12 09:35] LABS: HEMATOCRIT 34.9 % (39.0-51.0); HEMOGLOBIN 12.1 GM/DL (13.0-17.0); MEAN CELL VOLUME 106.6 FL (80.0-100.0); MEAN CORPUSCULAR HEMOGLOBIN 37.1 PG (27.0-34.0); MEAN CORPUSCULAR HGB CONC 34.8 % (32.0-36.0); MEAN PLATELET VOLUME 8.5 FL (7.0-11.0); PLATELET COUNT 139 TH/MM3 (150-450); RED BLOOD COUNT 3.27 MIL/MM3 (4.50-5.90); RED CELL DISTRIBUTION WIDTH 14.1 % (11.6-17.2); WHITE BLOOD COUNT 9.8 TH/MM3 (4.0-11.0)
[2017-06-12 10:18] LABS: BICARBONATE 24.6 MEQ/L (21.0-32.0); CREATININE 0.72 MG/DL (0.60-1.30); MAGNESIUM 1.5 MG/DL (1.5-2.5); PHOSPHORUS 2.6 MG/DL (2.5-4.9)
--- NOTE | 2017-06-12 12:41 | HHI.PR ---
Subjective Remarks minimal pain - right knee no complains of diarrhea Objective Vitals Vital Signs Date Time Temp Pulse Resp B/P (MAP) Pulse Ox O2 Delivery O2 Flow Rate FiO2 06/12/17 12:00 98.0 74 17 177/74 (108) 94 06/12/17 08:00 96.2 73 15 181/86 (117) 97 06/12/17 00:00 96.7 67 16 155/77 (103) 92 06/11/17 20:00 96.5 72 16 152/82 (105) 96 06/11/17 16:00 96.5 94 18 147/74 (98) 97 I/O 06/11/17 06/11/17 06/11/17 06/12/17 06/12/17 06/12/17 07:00 15:00 23:00 07:00 15:00 23:00 Intake Total 700 ml 1680 ml 1200 ml Output Total 825 ml 900 ml 500 ml Balance 700 ml 855 ml 300 ml -500 ml Intake Oral 700 ml 480 ml 1200 ml IV Total 1200 ml Output Urine Total 775 ml 900 ml 500 ml Estimated Blood Loss 50 ml # Voids 1 # Bowel Movements 0 Result Diagram: 06/12/17 0900 06/12/17 0900 Imaging Last Impressions Knee X-Ray 06/11/17 0000 Signed Impressions: Service Date/Time: Sunday, June 11, 2017 10:38 - CONCLUSION: Normal alignment. Patricio Marshall MD FACR Chest X-Ray 06/08/17 2312 Signed Impressions: Service Date/Time: June 23:34 - CONCLUSION: The lungs are clear. Rock Wells MD Lower Extremity CT 06/08/17 0000 Signed Impressions: Service Date/Time: June 23:28 - CONCLUSION: Comminuted intra-articular fractures of the lateral tibial plateau and comminuted fractures of the proximal fibula. Rock Wells MD Objective Remarks awake and alert, oriented x 3, speech clear no acute distress anicteric lungs- no rales, no wheezes regular rhythm abdomen soft, nontender RLE- knee- post op elastic dressing in place, brace in place, moves toes freely LLE - no edema Procedures 06/11- ORIF right tibial fracture A/P Problem List: (1) Fracture of right tibia and fibula ICD Code: S82.201A - Unspecified fracture of shaft of right tibia, initial encounter for closed fracture; S82.401A - Unspecified fracture of shaft of right fibula, initial encounter for closed fracture Status: Acute (2) Alcohol abuse ICD Code: F10.10 - Alcohol abuse, uncomplicated Status: Chronic (3) Hypertension ICD Code: I10 - Essential (primary) hypertension Status: Chronic Assessment and Plan 61-year-old male with a history of CAD, PVD, hypertension, hyperlipidemia, COPD and hep C presented to the ED with complaints of Right knee pain. S/P ORIF right tibial fracture 3/4 -Orthopedics ff. PT daily - pain meds prn Hypertension, chronic. Uncontrolled on admission not on any medications due to lack of insurance and money- History of CAD S/P CABG -Amlodipine 10 mg daily. Metoprolol 25 mg po bid- increase to q 8 - CArdura 2 mg daily -Clonidine when necessary -Consult case management for assistance - continue to monitor and adjust Alcohol abuse/withdrawal -CIWA protocol -Thiamine by mouth -Seizure and withdrawal precautions -Encouraged to quit 3/2 Patient has hand tremors, uncontrolled bp likely due to etoh withdrawal. 3/3 alcohol withdrawal better controlled. Continue CIWA protocol. 3/4 resolved. Continue CIWA protocol. COPD. Smoker- cigar daily - counselled DC planning CM consult- home with home health care Problem Qualifiers (1) Fracture of right tibia and fibula: Qualified Codes: S82.201A - Unspecified fracture of shaft of right tibia, initial encounter for closed fracture; S82.401A - Unspecified fracture of shaft of right fibula, initial encounter for closed fracture (2) Hypertension: Qualified Codes: I10 - Essential (primary) hypertension Altagracia Martinez MD Jun 12, 2017 12:41
[2017-06-12] MEDS: ENOXAPARIN SODIUM 30 MG/0.3 ML SYRINGE SQ SCH ×2 (13:48→22:27)
[2017-06-13] VITALS (10 sets, daily range): BP systolic 115–187; BP diastolic 58–85; PULSE 65–85; RESP 18; TEMP 96.7–98.6; O2SAT 96–98
[2017-06-13] MEDS: cloNIDine HCL 0.1 MG TAB PO PRN (00:25)
[2017-06-13] MEDS: ENALAPRILAT 1.25 MG/ML VIAL IV PUSH PRN (05:37)
[2017-06-13] MEDS: oxyCODONE/ACETAMINOPHEN 5 MG/325 MG TAB PO PRN ×3 (05:37→19:49)
[2017-06-13] MEDS: METOPROLOL TARTRATE 25 MG TAB PO SCH ×3 (05:38→20:49)
[2017-06-13] MEDS: KETOROLAC TROMETHAMINE 30 MG/ML (IVP) VIAL IVP SCH (05:38)
--- NOTE | 2017-06-13 09:36 | PD.OP ---
cc: Nic Ritter Jr., MD Operative Report Date of Surgery: Jun 11, 2017 Preoperative Diagnosis: RIGHT lateral plateau fracture Postoperative Diagnosis: same Procedure: open reduction and fixation RIGHT tibia lateral plateau Anesthesia: Gen. Surgeon: Nic Ritter Saas Architect(s): ODETTE Rivero Resident Surgeon: none Operation and Findings: COLORED LEATHER SETTER: ODETTE Rivero The surgical procedure was assisted by my Advanced Registered Nurse Practitioner. My RE ETCHER presence was necessary throughout this case for the manipulation and positioning of the surgical extremity. My RE ETCHER was assisting me throughout the duration of this procedure. The skill set of an Advance Registered Nurse Practitioner was medically necessary to complete this procedure. During the surgical case, the surgical oncologist was working at the back table and the Advance Registered Nurse Practitioner was directly assisting me. ANESTHESIA: GETA EBL: 100 cc INDICATION FOR PROCEDURE: This a healthy male who sustained an injury to the right lower extremity. His extremity was neurovascular intact, had a large knee effusion and his compartments were firm. Careful examination of the xrays and CT revealed a lateral tibial plateau fracture that shows some articular comminution in the plateau and articular depression. This injury requires ORIF, however in order to allow the soft tissue to recover and be amenable to surgery , the procedure was delayed until the soft tissue swelling had decreased. I discussed with him at length the potential for substantial perioperative risks involving wound healing complications, infection, nonunion, implant-related complications, primarily as well as perioperative complications from anesthesia, blood loss, need for transfusion, infection, neurovascular injury, DVT and PE. The patient expressed verbal understanding and agreed with my recommendations. DESCRIPTION OF PROCEDURE: The operative site was marked and the planned procedure confirmed with the patient awake prior to administration of anesthesia. The Right lower extremity was prepped with Cloraprep and draped in the usual sterile manner. The limb was exsanguinated with Esmarch bandage and pneumatic tourniquet was inflated to 300 mmHg. Again, before making the incision , a timeout was done to verify the patients name, side, consent and the procedure with all members of the surgical team. With patient supine and his right knee flexed on a triangle, a 8cm lateral incision was made, through which we performed a lateral approach to the proximal tibia through. We carried the dissection to the level of the fascia of the IT band then subperiosteal dissection to elevate the proximal aspect of the tibialis anterior. Care was taken not to injure the common perineal nerve. There was significant comminution of lateral plateau. There was one large fragment of the lateral plateau which we rotated out of the fracture site in order to reveal the extent of articular impaction. We then elevated the impacted articular cartilage and the overlying lateral meniscus. A submeniscal arthrotomy was not performed. We used a large clamp to obtain compression at the articular surface then we used k-wires and guide pins to provisionally maintain our reduction. AP and lateral xrays were taken to ultrasonic hand solderer our reduction. Once we were satisfied that we had restored the articular surface and the condyles were aligned with each other appropriately, subchondral lag screws were used, then we secured an L-shape plate, as a buttress plate and distally to the medial shaft. Once we were satisfied with our plate position and reduction, we filled the proximal holes with subchondral locking screws to support the articular surface and placed cortical screws in the shaft. The final x-rays, AP and lateral, were checked to ensure that all implants were safely placed and that the alignment was good. The wound was copiously irrigated. The wounds were closed with 0-vicryl in the fascia, 2-0 vicryl in the subcutaneous tissue and radha in the skin. During closure, care was taken to cover the fascia over the hardware. The patients compartments were soft and the skin was closed without much tension. A sterile dressing was applied. The patient left the operating room with good pulses in the foot and stable vital signs. Nic Ritter Jr., MD Jun 13, 2017 09:36
[2017-06-13] MEDS: THIAMINE HCL 100 MG TAB PO SCH (11:31)
[2017-06-13] MEDS: DOXAZOSIN MESYLATE 2 MG TAB PO SCH (11:31)
[2017-06-13] MEDS: DOCUSATE SODIUM 50 MG/SENNA 8.6 MG TAB PO SCH ×2 (11:31→19:49)
[2017-06-13] MEDS: ENOXAPARIN SODIUM 30 MG/0.3 ML SYRINGE SQ SCH ×2 (11:33→22:57)
[2017-06-13] MEDS: SODIUM CHLORIDE 0.9% FLUSH 10 ML FLUSH IV FLUSH SCH ×2 (11:34→19:50)
--- NOTE | 2017-06-13 13:40 | HHI.PR ---
Subjective Remarks pain controlled up and ambulating with walker Objective Vitals Vital Signs Date Time Temp Pulse Resp B/P (MAP) Pulse Ox O2 Delivery O2 Flow Rate FiO2 06/13/17 11:39 98.1 72 18 126/66 (86) 97 06/13/17 07:37 98.6 76 18 136/75 (95) 97 06/13/17 05:18 97.0 78 18 187/85 (119) 96 06/13/17 04:04 66 06/13/17 00:03 96.7 68 18 166/78 (107) 96 06/13/17 00:03 65 06/12/17 22:12 97 06/12/17 20:44 77 06/12/17 20:10 97.8 77 18 162/78 (106) 97 06/12/17 16:00 96.3 82 16 121/63 (82) 97 I/O 06/12/17 06/12/17 06/12/17 06/13/17 06/13/17 06/13/17 06:59 14:59 22:59 06:59 14:59 22:59 Intake Total 860 ml 360 ml 480 ml Output Total 500 ml 1700 ml 1500 ml Balance -500 ml -840 ml 360 ml -1020 ml Intake Oral 860 ml 360 ml 480 ml Output Urine Total 500 ml 1700 ml 1500 ml # Voids 2 # Bowel Movements 0 0 0 Result Diagram: 06/12/17 0900 06/12/17 0900 Imaging Last Impressions Knee X-Ray 06/11/17 0000 Signed Impressions: Service Date/Time: Sunday, June 11, 2017 10:38 - CONCLUSION: Normal alignment. Patricio Marshall MD FACR Chest X-Ray 06/08/17 2312 Signed Impressions: Service Date/Time: June 23:34 - CONCLUSION: The lungs are clear. Rock Wells MD Lower Extremity CT 06/08/17 0000 Signed Impressions: Service Date/Time: June 23:28 - CONCLUSION: Comminuted intra-articular fractures of the lateral tibial plateau and comminuted fractures of the proximal fibula. Rock Wells MD Objective Remarks awake and alert, oriented x 3, speech clear no acute distress anicteric lungs- no rales, no wheezes regular rhythm abdomen soft, nontender RLE- knee- post op elastic dressing in place, brace in place, moves toes freely LLE - no edema Procedures 3/4- ORIF right tibial fracture A/P Problem List: (1) Fracture of right tibia and fibula ICD Code: S82.201A - Unspecified fracture of shaft of right tibia, initial encounter for closed fracture; S82.401A - Unspecified fracture of shaft of right fibula, initial encounter for closed fracture Status: Acute (2) Alcohol abuse ICD Code: F10.10 - Alcohol abuse, uncomplicated Status: Chronic (3) Hypertension ICD Code: I10 - Essential (primary) hypertension Status: Chronic Assessment and Plan 61-year-old male with a history of CAD, PVD, hypertension, hyperlipidemia, COPD and hep C presented to the ED with complaints of Right knee pain. S/P ORIF right tibial fracture 3/4 -Orthopedics ff. PT daily - pain meds prn Hypertension, chronic. improved History of CAD S/P CABG -Amlodipine 10 mg daily. Metoprolol 25 mg po q 8 - CArdura 2 mg daily -Clonidine when necessary -Consult case management for assistance - continue to monitor and adjust Alcohol abuse/withdrawal -CIWA protocol -Thiamine by mouth -Seizure and withdrawal precautions -Encouraged to quit 3/2 Patient has hand tremors, uncontrolled bp likely due to etoh withdrawal. 3/3 alcohol withdrawal better controlled. Continue CIWA protocol. 3/4 resolved. Continue CIWA protocol. COPD. Smoker- cigar daily - counselled DC planning CM consult- home with home health care Problem Qualifiers (1) Fracture of right tibia and fibula: Qualified Codes: S82.201A - Unspecified fracture of shaft of right tibia, initial encounter for closed fracture; S82.401A - Unspecified fracture of shaft of right fibula, initial encounter for closed fracture (2) Hypertension: Qualified Codes: I10 - Essential (primary) hypertension Altagracia Martinez MD Jun 13, 2017 13:40
[2017-06-13] MEDS ORDERED: AMLO10 PO (13:45)
[2017-06-13] MEDS ORDERED: METO25TA3 PO (13:45)
[2017-06-13] MEDS ORDERED: CARD2TAB PO (13:45)
--- NOTE | 2017-06-13 20:12 | PD.ORT.PN ---
Subjective Subjective Remarks pain improved. no CP/SOB Objective Vitals Vital Signs Date Time Temp Pulse Resp B/P (MAP) Pulse Ox O2 Delivery O2 Flow Rate FiO2 06/13/17 17:21 98 21 06/13/17 15:48 97.4 85 18 115/58 (77) 98 06/13/17 11:39 98.1 72 18 126/66 (86) 97 06/13/17 07:37 98.6 76 18 136/75 (95) 97 06/13/17 05:18 97.0 78 18 187/85 (119) 96 06/13/17 04:04 66 06/13/17 00:03 96.7 68 18 166/78 (107) 96 06/13/17 00:03 65 06/12/17 22:12 97 06/12/17 20:44 77 I/O 06/12/17 06/12/17 06/12/17 06/13/17 06/13/17 06/13/17 07:00 15:00 23:00 07:00 15:00 23:00 Intake Total 860 ml 360 ml 480 ml 720 ml Output Total 500 ml 1700 ml 1500 ml Balance -500 ml -840 ml 360 ml -1020 ml 720 ml Intake Oral 860 ml 360 ml 480 ml 720 ml Output Urine Total 500 ml 1700 ml 1500 ml # Voids 2 2 # Bowel Movements 0 0 0 1 Result Diagram: 06/12/17 0900 06/12/17 0900 Objective Remarks [id number] RLE: swelling ankle, leg, knee, grossly nvi, +EHL/FHL soft compartments, CKS Assessment & Plan Assessment and Plan POD 2- right plateau orif doing well with PT lovenox, SCD NWB RLE. CKS CKS for 2 weeks then start passive ROM dressing change qday starting today Nic Ritter Jr., MD Jun 13, 2017 20:12
--- NOTE | 2017-06-13 20:15 | PD.ORT.PN ---
Subjective Subjective Remarks pain improved. no CP/SOB Objective Vitals Vital Signs Date Time Temp Pulse Resp B/P (MAP) Pulse Ox O2 Delivery O2 Flow Rate FiO2 06/13/17 17:21 98 21 06/13/17 15:48 97.4 85 18 115/58 (77) 98 06/13/17 11:39 98.1 72 18 126/66 (86) 97 06/13/17 07:37 98.6 76 18 136/75 (95) 97 06/13/17 05:18 97.0 78 18 187/85 (119) 96 06/13/17 04:04 66 06/13/17 00:03 96.7 68 18 166/78 (107) 96 06/13/17 00:03 65 06/12/17 22:12 97 06/12/17 20:44 77 I/O 06/12/17 06/12/17 06/12/17 06/13/17 06/13/17 06/13/17 07:00 15:00 23:00 07:00 15:00 23:00 Intake Total 860 ml 360 ml 480 ml 720 ml Output Total 500 ml 1700 ml 1500 ml Balance -500 ml -840 ml 360 ml -1020 ml 720 ml Intake Oral 860 ml 360 ml 480 ml 720 ml Output Urine Total 500 ml 1700 ml 1500 ml # Voids 2 2 # Bowel Movements 0 0 0 1 Result Diagram: 06/12/17 0900 06/12/17 0900 Objective Remarks [id number] RLE: swelling ankle, leg, knee, grossly nvi, +EHL/FHL soft compartments, CKS Assessment & Plan Assessment and Plan POD 1- right plateau orif Doing well lovenox, SCD NWB RLE. CKS CKS for 2 weeks then start passive ROM dressing change qday starting today placement issues DATE OF SERVICE: June Nic Ritter Jr., MD Jun 13, 2017 20:15
[2017-06-13] MEDS ORDERED: POTASSIUM CHLORIDE 20 MEQ CONTROLLED RELEASE TAB PO ONE (22:45)
[2017-06-14] VITALS (9 sets, daily range): BP systolic 133–192; BP diastolic 65–94; PULSE 58–85; RESP 16–18; TEMP 96.1–97.9; O2SAT 96–99
[2017-06-14] MEDS: oxyCODONE/ACETAMINOPHEN 5 MG/325 MG TAB PO PRN ×5 (00:20→20:09)
[2017-06-14] MEDS: ENALAPRILAT 1.25 MG/ML VIAL IV PUSH PRN (04:12)
[2017-06-14] MEDS: METOPROLOL TARTRATE 25 MG TAB PO SCH ×3 (05:29→22:50)
[2017-06-14] MEDS: THIAMINE HCL 100 MG TAB PO SCH (08:58)
[2017-06-14] MEDS: DOXAZOSIN MESYLATE 2 MG TAB PO SCH (08:58)
[2017-06-14] MEDS: DOCUSATE SODIUM 50 MG/SENNA 8.6 MG TAB PO SCH ×2 (08:58→20:09)
[2017-06-14] MEDS: SODIUM CHLORIDE 0.9% FLUSH 10 ML FLUSH IV FLUSH SCH ×2 (09:01→20:09)
[2017-06-14 09:46] LABS: BICARBONATE 30.8 MEQ/L (21.0-32.0); CALCIUM 8.2 MG/DL (8.5-10.1); CREATININE 0.7 MG/DL (0.60-1.30)
[2017-06-14] MEDS ORDERED: POTASSIUM CHLORIDE 10 MEQ CONTROLLED RELEASE TAB PO ONE (11:40)
[2017-06-14] MEDS: ENOXAPARIN SODIUM 30 MG/0.3 ML SYRINGE SQ SCH ×2 (12:10→22:50)
[2017-06-14] MEDS: ENALAPRIL MALEATE 5 MG TAB PO SCH (12:10)
--- NOTE | 2017-06-14 13:25 | HHI.PR ---
Subjective Remarks doing well pain controlled Objective Vitals Vital Signs Date Time Temp Pulse Resp B/P (MAP) Pulse Ox O2 Delivery O2 Flow Rate FiO2 06/14/17 12:00 96.1 85 18 133/68 (89) 97 06/14/17 09:59 18 06/14/17 07:28 97.9 58 18 140/67 (91) 98 06/14/17 05:35 154/81 (105) 06/14/17 05:26 21 06/14/17 04:10 97.8 80 18 192/94 (126) 97 06/14/17 04:00 80 06/14/17 00:00 79 06/13/17 23:38 97.9 79 18 147/77 (100) 98 06/13/17 20:16 97.7 77 18 150/75 (100) 98 06/13/17 20:00 71 06/13/17 17:21 98 21 06/13/17 15:48 97.4 85 18 115/58 (77) 98 I/O 06/13/17 06/13/17 06/13/17 06/14/17 06/14/17 06/14/17 07:00 15:00 23:00 07:00 15:00 23:00 Intake Total 480 ml 720 ml 480 ml 720 ml Output Total 1500 ml 1275 ml Balance -1020 ml 720 ml 480 ml -555 ml Intake Oral 480 ml 720 ml 480 ml 720 ml Output Urine Total 1500 ml 1275 ml # Voids 2 2 # Bowel Movements 0 1 1 0 Result Diagram: 06/12/17 0900 06/14/17 0836 Imaging Last Impressions Knee X-Ray 06/11/17 0000 Signed Impressions: Service Date/Time: Sunday, June 11, 2017 10:38 - CONCLUSION: Normal alignment. Patricio Marshall MD FACR Chest X-Ray 06/08/17 0962 Signed Impressions: Service Date/Time: June 23:34 - CONCLUSION: The lungs are clear. Rock Wells MD Lower Extremity CT 06/08/17 0000 Signed Impressions: Service Date/Time: June 23:28 - CONCLUSION: Comminuted intra-articular fractures of the lateral tibial plateau and comminuted fractures of the proximal fibula. Rock Wells MD Objective Remarks awake and alert, oriented x 3, speech clear no acute distress anicteric lungs- no rales, no wheezes regular rhythm abdomen soft, nontender RLE- knee- post op elastic dressing in place, brace in place, moves toes freely LLE - no edema Procedures 3/4- ORIF right tibial fracture A/P Problem List: (1) Fracture of right tibia and fibula ICD Code: S82.201A - Unspecified fracture of shaft of right tibia, initial encounter for closed fracture; S82.401A - Unspecified fracture of shaft of right fibula, initial encounter for closed fracture Status: Acute (2) Alcohol abuse ICD Code: F10.10 - Alcohol abuse, uncomplicated Status: Chronic (3) Hypertension ICD Code: I10 - Essential (primary) hypertension Status: Chronic Assessment and Plan 61-year-old male with a history of CAD, PVD, hypertension, hyperlipidemia, COPD and hep C presented to the ED with complaints of Right knee pain. S/P ORIF right tibial fracture 3/4 -Orthopedics ff. PT daily - pain meds prn Hypertension, chronic. improved History of CAD S/P CABG -Amlodipine 10 mg daily. Metoprolol 25 mg po q 8. Add Enalapril - CArdura 2 mg daily -Clonidine when necessary -Consult case management for assistance - continue to monitor and adjust Alcohol abuse/withdrawal -CIWA protocol -Thiamine by mouth -Seizure and withdrawal precautions -Encouraged to quit 3/2 Patient has hand tremors, uncontrolled bp likely due to etoh withdrawal. 3/3 alcohol withdrawal better controlled. Continue CIWA protocol. 3/4 resolved. Continue CIWA protocol. COPD. Smoker- cigar daily - counselled Hypokalemia- replace and ff DC planning CM consult- home with home health care Problem Qualifiers (1) Fracture of right tibia and fibula: Qualified Codes: S82.201A - Unspecified fracture of shaft of right tibia, initial encounter for closed fracture; S82.401A - Unspecified fracture of shaft of right fibula, initial encounter for closed fracture (2) Hypertension: Qualified Codes: I10 - Essential (primary) hypertension Altagracia Martinez MD Jun 14, 2017 13:25
[2017-06-14] MEDS: cloNIDine HCL 0.1 MG TAB PO PRN (20:08)
[2017-06-15] MEDS: oxyCODONE/ACETAMINOPHEN 5 MG/325 MG TAB PO PRN ×4 (00:14→14:28)
[2017-06-15] MEDS: cloNIDine HCL 0.1 MG TAB PO PRN (04:27)
[2017-06-15 04:45] VITALS: BP 192/90; PULSE 78; RESP 18; TEMP 96.7; O2SAT 98
[2017-06-15] MEDS: METOPROLOL TARTRATE 25 MG TAB PO SCH ×2 (06:20→14:22)
[2017-06-15 07:38] VITALS: BP 168/83; PULSE 61; RESP 18; TEMP 96; O2SAT 96
--- NOTE | 2017-06-15 08:09 | HHI.PR ---
Subjective Remarks very motivated with more therapy pain controlled on po prn pain meds + BM voiding well no chest pain or shortness of breath Objective Vitals Vital Signs Date Time Temp Pulse Resp B/P (MAP) Pulse Ox O2 Delivery O2 Flow Rate FiO2 06/15/17 07:38 96.0 61 18 168/83 (111) 96 06/15/17 04:45 96.7 78 18 192/90 (124) 98 06/14/17 23:40 97.6 74 18 182/77 (112) 99 06/14/17 19:40 97.7 76 16 179/78 (111) 99 06/14/17 16:00 97.4 84 18 137/65 (89) 96 06/14/17 15:27 18 06/14/17 12:00 96.1 85 18 133/68 (89) 97 I/O 06/14/17 06/14/17 06/14/17 06/15/17 06/15/17 06/15/17 07:00 15:00 23:00 07:00 15:00 23:00 Intake Total 720 ml 960 ml 480 ml 480 ml Output Total 1275 ml 1000 ml Balance -555 ml 960 ml 480 ml -520 ml Intake Oral 720 ml 960 ml 480 ml 480 ml Output Urine Total 1275 ml 1000 ml # Voids 4 3 # Bowel Movements 0 1 1 0 Result Diagram: 06/12/17 0900 06/14/17 0836 Imaging Last Impressions Knee X-Ray 06/11/17 0000 Signed Impressions: Service Date/Time: Sunday, June 11, 2017 10:38 - CONCLUSION: Normal alignment. Patricio Marshall MD FACR Chest X-Ray 06/08/17 2312 Signed Impressions: Service Date/Time: June 23:34 - CONCLUSION: The lungs are clear. Rock Wells MD Lower Extremity CT 06/08/17 0000 Signed Impressions: Service Date/Time: June 23:28 - CONCLUSION: Comminuted intra-articular fractures of the lateral tibial plateau and comminuted fractures of the proximal fibula. Rock Wells MD Objective Remarks awake and alert, oriented x 3, speech clear no acute distress anicteric lungs- no rales, no wheezes regular rhythm abdomen soft, nontender RLE- knee- post op elastic dressing in place, brace in place, moves toes freely LLE - no edema Procedures 3/4- ORIF right tibial fracture A/P Problem List: (1) Fracture of right tibia and fibula ICD Code: S82.201A - Unspecified fracture of shaft of right tibia, initial encounter for closed fracture; S82.401A - Unspecified fracture of shaft of right fibula, initial encounter for closed fracture Status: Acute (2) Alcohol abuse ICD Code: F10.10 - Alcohol abuse, uncomplicated Status: Chronic (3) Hypertension ICD Code: I10 - Essential (primary) hypertension Status: Chronic Assessment and Plan 61-year-old male with a history of CAD, PVD, hypertension, hyperlipidemia, COPD and hep C presented to the ED with complaints of Right knee pain. S/P ORIF right tibial fracture 3/4 -Orthopedics ff. PT daily - pain meds prn Hypertension, some elevated readings History of CAD S/P CABG -Amlodipine 10 mg daily. Metoprolol 25 mg po q 8. - Added Enalapril 5 mg daily - CArdura 2 mg daily - consider increasing BB dose for BP control -Clonidine when necessary -Consult case management for assistance - continue to monitor and adjust Alcohol abuse/withdrawal- resolved COPD. Smoker- cigar daily - counselled Hypokalemia- corrected DC planning CM consult- home with home health care and for DME needs Problem Qualifiers (1) Fracture of right tibia and fibula: Qualified Codes: S82.201A - Unspecified fracture of shaft of right tibia, initial encounter for closed fracture; S82.401A - Unspecified fracture of shaft of right fibula, initial encounter for closed fracture (2) Hypertension: Qualified Codes: I10 - Essential (primary) hypertension Altagracia Martinez MD Jun 15, 2017 08:09
[2017-06-15 08:38] LABS: BICARBONATE 27.8 MEQ/L (21.0-32.0); CALCIUM 8.9 MG/DL (8.5-10.1); CREATININE 0.69 MG/DL (0.60-1.30)
[2017-06-15] MEDS: DOCUSATE SODIUM 50 MG/SENNA 8.6 MG TAB PO SCH (09:00)
[2017-06-15] MEDS: THIAMINE HCL 100 MG TAB PO SCH (09:13)
[2017-06-15] MEDS: DOXAZOSIN MESYLATE 2 MG TAB PO SCH (09:14)
[2017-06-15] MEDS: ENALAPRIL MALEATE 5 MG TAB PO SCH (09:14)
[2017-06-15] MEDS: SODIUM CHLORIDE 0.9% FLUSH 10 ML FLUSH IV FLUSH SCH (09:21)
[2017-06-15 11:44] VITALS: BP 109/60; PULSE 64; RESP 18; TEMP 96; O2SAT 98
[2017-06-15] MEDS: ENOXAPARIN SODIUM 30 MG/0.3 ML SYRINGE SQ SCH (11:59)
[2017-06-15 14:11] VITALS: BP 137/79
[2017-06-15] MEDS ORDERED: ENAL5TAB PO (15:19)
[2017-06-15 16:00] VITALS: BP 124/64; PULSE 74; RESP 18; TEMP 97.1; O2SAT 97
--- NOTE | 2017-06-15 16:40 | HHI.DS ---
Discharge Summary Admission Date Jun 08, 2017 at 23:41 Discharge Date: Jun 15, 2017 Admitting Diagnosis (1) Fracture of right tibia and fibula ICD Code: S82.201A - Unspecified fracture of shaft of right tibia, initial encounter for closed fracture; S82.401A - Unspecified fracture of shaft of right fibula, initial encounter for closed fracture Status: Acute (2) Alcohol abuse ICD Code: F10.10 - Alcohol abuse, uncomplicated Diagnosis: Secondary Status: Chronic (3) Hypertension ICD Code: I10 - Essential (primary) hypertension Diagnosis: Secondary Status: Chronic Procedures 06/11- ORIF right tibial fracture Brief History - From Admission 61-year-old male with a history of CAD, PVD, hypertension, hyperlipidemia, COPD and hep C presented to the ED with complaints of Right knee pain. He states today he was at his niece's house when he was walking down some steps and fell, landing on his right knee. He does admit to drinking 3 16oz beers today. He describes the pain as a throbbing, 10/10, worse with movement, better without movement with no associated symptoms. Denies any Loc, or hitting his head. Denies any chest pain, shortness of breath , fever or chills CBC/BMP: 06/12/17 0900 06/15/17 0650 Significant Findings Laboratory Tests Test 06/13/17 19:32 06/14/17 08:36 06/15/17 06:50 Calcium Level 8.2 MG/DL (8.5-10.1) Potassium Level 3.4 MEQ/L (3.5-5.1) Imaging Last Impressions Knee X-Ray 06/11/17 0000 Signed Impressions: Service Date/Time: Sunday, June 11, 2017 10:38 - CONCLUSION: Normal alignment. Patricio Marshall MD FACR Chest X-Ray 06/08/17 8392 Signed Impressions: Service Date/Time: June 23:34 - CONCLUSION: The lungs are clear. Rock Wells MD Lower Extremity CT 06/08/17 0000 Signed Impressions: Service Date/Time: June 23:28 - CONCLUSION: Comminuted intra-articular fractures of the lateral tibial plateau and comminuted fractures of the proximal fibula. Rock Wells MD PE at Discharge awake and alert, oriented x 3, speech clear no acute distress anicteric lungs- no rales, no wheezes regular rhythm abdomen soft, nontender RLE- knee- post op elastic dressing in place, brace in place, moves toes freely LLE - no edema Pt update on day of discharge comfortable pain controlled advise ff up/set up with a PCP good support Hospital Course 61-year-old male with a history of CAD, PVD, hypertension, hyperlipidemia, COPD and hep C presented to the ED with complaints of Right knee pain. S/P ORIF right tibial fracture 3 -Orthopedics ff. PT daily - pain meds prn Hypertension, some elevated readings History of CAD S/P CABG -Amlodipine 10 mg daily. Metoprolol 25 mg po q 8. - Added Enalapril 5 mg daily - CArdura 2 mg daily - consider increasing BB dose for BP control -Clonidine when necessary -Consult case management for assistance - continue to monitor and adjust Alcohol abuse/withdrawal- resolved- motivated COPD. Smoker- cigar daily - counselled Hypokalemia- corrected DC planning CM consult- home with home health care and for DME needs Pt Condition on Discharge: Stable Discharge Disposition: Discharge Home Discharge Time: > 30 minutes Discharge Instructions DIET: Follow Instructions for: Heart Healthy Diet Speech Therapy-Diet Recommends: Regular Activities you can perform: Non Weight Bearing Other Activity Instructions: non weightbearing right LE for 8 weeks Follow up Referrals: Orthopedics - 2 Weeks @ [facility] with Nic Ritter Jr., MD PCP Follow-up - 3-5 Days with OP clinic New Medications: Oxycodone-Acetaminophen (Percocet) 5-325 mg Tab 1 TAB PO Q4H PRN for PAIN, #60 TAB 0 Refills Rivaroxaban (Xarelto) 10 Mg Tab 10 MG PO DAILY for Blood Clot Prevention, #30 TAB 0 Refills Amlodipine (Norvasc) 10 Mg Tab 10 MG PO DAILY for HTN for 30 Days, #30 TAB Doxazosin (Cardura) 2 Mg Tab 2 MG PO DAILY for HTN for 30 Days, #30 TAB Enalapril (Enalapril) 5 Mg Tab 5 MG PO DAILY for HTN for 30 Days, #30 TAB Metoprolol Tartrate (Metoprolol Tartrate) 25 Mg Tab 25 MG PO Q8HR for HTN for 30 Days, TAB Altagracia Martinez MD Jun 15, 2017 16:40
--- NOTE | 2017-06-15 18:08 | PD.ORT.PN ---
Subjective Subjective Remarks no CP/SOB Objective Vitals Vital Signs Date Time Temp Pulse Resp B/P (MAP) Pulse Ox O2 Delivery O2 Flow Rate FiO2 06/15/17 16:00 97.1 74 18 124/64 (84) 97 06/15/17 15:28 18 06/15/17 14:11 137/79 (98) 06/15/17 11:44 96.0 64 18 109/60 (76) 98 06/15/17 10:14 18 06/15/17 07:38 96.0 61 18 168/83 (111) 96 06/15/17 04:45 96.7 78 18 192/90 (124) 98 06/14/17 23:40 97.6 74 18 182/77 (112) 99 06/14/17 19:40 97.7 76 16 179/78 (111) 99 I/O 06/14/17 06/14/17 06/14/17 06/15/17 06/15/17 06/15/17 07:00 15:00 23:00 07:00 15:00 23:00 Intake Total 720 ml 960 ml 480 ml 480 ml 960 ml Output Total 1275 ml 1000 ml Balance -555 ml 960 ml 480 ml -520 ml 960 ml Intake Oral 720 ml 960 ml 480 ml 480 ml 960 ml Output Urine Total 1275 ml 1000 ml # Voids 4 3 4 # Bowel Movements 0 1 1 0 0 Result Diagram: 06/12/17 0900 06/15/17 0650 Objective Remarks [email or web address] RLE: swelling ankle, leg, knee, grossly nvi, +EHL/FHL soft compartments, CKS Assessment & Plan Assessment and Plan POD 4- right plateau orif Doing well lovenox, SCD NWB RLE until 5/4 dressing change qday starting today possible retirement placement issues dc sutures/radha, CKS 06/21 then start ROM ortho stable Nic Ritter Jr., MD Jun 15, 2017 18:08
== END 2017-06-15 18:13 | disposition home or self-care (01) | DRG 493 ==
LOC: NEPD 21:40 → NEDA 23:41 → N06B 06-09 03:07
PROVIDERS: ADMIT Internal Medicine; ATTEND Internal Medicine
PROC: 0QSG04Z Reposition Right Tibia with Internal Fixation Device, Open Approach (ICD-10-PCS; principal; 2017-06-11 09:14)
DX: S82.141A Displaced bicondylar fracture of right tibia, initial encounter for closed fracture (principal); S82.831A Other fracture of upper and lower end of right fibula, initial encounter for closed fracture; W10.9XXA Fall (on) (from) unspecified stairs and steps, initial encounter; F10.239 Alcohol dependence with withdrawal, unspecified; Y90.8 Blood alcohol level of 240 mg/100 ml or more; I10 Essential (primary) hypertension; J44.9 Chronic obstructive pulmonary disease, unspecified; I25.10 Atherosclerotic heart disease of native coronary artery without angina pectoris; Z95.1 Presence of aortocoronary bypass graft; E78.5 Hyperlipidemia, unspecified; B19.20 Unspecified viral hepatitis C without hepatic coma; F17.290 Nicotine dependence, other tobacco product, uncomplicated; I73.9 Peripheral vascular disease, unspecified; E87.6 Hypokalemia; Z23 Encounter for immunization
CPT/HCPCS: 71045; 73560; 73564; 73700; 76000; 80048; 80053; 80307; 81001; 83735; 84100; 84132; 85025; 85027; 85610; 85730; 90686; 93005; 94150; C1713; J0131; J0330; J0690; J1100; J1580; J1650; J1885; J2175; J2250; J2270; J2370; J2405; J2710; J3010; J3370; J3411; J7030; J7120; L1830; Q2038

== ENCOUNTER 2017-06-29 17:42 | Inpatient (IN) | payer SELFPAY ==
[~2017-06-29] VITALS: Ht 180.3 cm; Wt 71.5 kg
[~2017-06-29 17:42] MED LIST changes: +AMLO10 PO; -AMLO5TAB2 PO; -ASPI-516 CHEW; +CARD2TAB PO; -CEPH500T PO; -CLIN300C5 PO; +ENAL5TAB PO; -HYDR-3516 PO; -LACTCHW3 CHEW; -LISI10TA3 PO; -METO-309 PO; +METO25TA3 PO; -NIFE60TA8 PO; +PERC5TAB12 PO; -PRAV40TA PO; -SILV1CRE20 TOPICAL; +XARE10TA PO
[2017-06-29 18:09] VITALS: BP 177/84; PULSE 112; RESP 18; TEMP 98.4; O2SAT 98
[2017-06-29 22:49] VITALS: BP 199/108; PULSE 102; RESP 18; TEMP 98.9; O2SAT 99
--- NOTE | 2017-06-29 23:03 | PD ---
HPI Chief Complaint: Skin Problem Time Seen by Provider: 22:39 Travel History International Travel<30 days: No Contact w/Intl Traveler<30days: No Traveled to known affect area: No History of Present Illness HPI 61-year-old male complains of redness swelling and discharge from the right leg. Patient status post open reduction internal fixation right tibial plateau fracture on June 11, 2017. Patient's surgeon was Dr. Ritter. Patient was discharge on the hospital June 15, 2017. Patient was given instruction to follow-up with orthopedist in 2 weeks after discharge. Patient has not follow- up with orthopedist so far. Patient states that somebody fell on his right leg about 11 days ago. Patient states that was lying on the ground when that person fell on his right leg. Patient states that he has increasing had a small amount of bleeding and increasing pain in right leg since then. Patient started having increasing discharge and foul-smelling and redness on the right legs the past 4 days. Patient denies any fever chills. PFSH Past Medical History Arthritis: Yes Asthma: No Autoimmune Disease: No Anxiety: No Depression: No Heart Rhythm Problems: No Cancer: No Cardiac Catheterization: Yes Cardiovascular Problems: Yes High Cholesterol: Yes Chest Pain: Yes Congestive Heart Failure: Yes COPD: Yes Cerebrovascular Accident: Yes Coronary Artery Disease: Yes Diabetes: No Diminished Hearing: No Deep Vein Thrombosis: Yes Endocrine: No Gastrointestinal Disorders: Yes GERD: No Genitourinary: Yes (LEFT RENAL STENTS, CYSTS ON KIDNEY) Headaches: No Hiatal Hernia: No Hypertension: Yes Immune Disorder: No Implanted Vascular Access Dvce: Yes Kidney Stones: Yes Musculoskeletal: Yes Neurologic: Yes Psychiatric: No Reproductive: No Respiratory: Yes Immunizations Current: Yes Migraines: No Renal Failure: No Seizures: No Sleep Apnea: No Thyroid Disease: No Triglycerides - High: Yes Ulcer: No ?: Not Past Surgical History Abdominal Surgery: No Body Medical Devices: LEFT RENAL STENT Cardiac Surgery: Yes (l carotid, Femoral bypass R and L 06/2015 dr Nunn) Coronary Artery Bypass Graft: Yes (x3) Ear Surgery: No Endocrine Surgery: No Eye Surgery: No Genitourinary Surgery: Yes (L RENAL STENT 2000) Gynecologic Surgery: No Neurologic Surgery: No Oral Surgery: No Thoracic Surgery: Yes (l carotid, Femoral bypass R and L 06/2015 dr Jezarvik) Other Surgery: Yes (BLE arterial bybass, Carotid surgery) Social History Alcohol Use: Yes (1-2 times/week) Tobacco Use: Yes (2-3 cigars/day) Substance Use: No Allergies-Medications (Allergen,Severity, Reaction): Coded Allergies: No Known Allergies (Verified Adverse Reaction, Unknown, 06/29/17) Reported Meds & Prescriptions Reported Meds & Active Scripts Active Enalapril (Enalapril Maleate) 5 Mg Tab 5 Mg PO DAILY 30 Days Norvasc (Amlodipine Besylate) 10 Mg Tab 10 Mg PO DAILY 30 Days Metoprolol Tartrate 25 Mg Tab 25 Mg PO Q8HR 30 Days Cardura (Doxazosin Mesylate) 2 Mg Tab 2 Mg PO DAILY 30 Days Xarelto (Rivaroxaban) 10 Mg Tab 10 Mg PO DAILY Percocet (Oxycodone-Acetaminophen) 5-325 mg Tab 1 Tab PO Q4H PRN Review of Systems General / Constitutional: No: Fever Eyes: No: Visual changes HENT: No: Headaches Cardiovascular: No: Chest Pain or Discomfort Respiratory: No: Shortness of Breath Gastrointestinal: No: Abdominal Pain Genitourinary: No: Dysuria Musculoskeletal: Positive: Edema, Pain Skin: No Rash Neurologic: No: Weakness Psychiatric: No: Depression Endocrine: No: Polydipsia Hematologic/Lymphatic: No: Easy Bruising Physical Exam Narrative GENERAL: Well-nourished, well-developed patient. SKIN: Focused skin assessment warm/dry. HEAD: Normocephalic. EYES: No scleral icterus. No injection or drainage. NECK: Supple, trachea midline. No JVD or lymphadenopathy. CARDIOVASCULAR: Regular rate and rhythm without murmurs, gallops, or rubs. RESPIRATORY: Breath sounds equal bilaterally. No accessory muscle use. GASTROINTESTINAL: Abdomen soft, non-tender, nondistended. MUSCULOSKELETAL: No cyanosis, or edema. BACK: Nontender without obvious deformity. No CVA tenderness. Patient has surgical wound on anterior lateral aspect of leg involving distal right thigh, anterior aspect the right knee and anterior aspect of right tibia. Redness swelling discharge noted Associated with the wound. Aroldo in place. No induration noted. Foul-smelling discharge noted. Data Data Last Documented VS Vital Signs Date Time Temp Pulse Resp B/P (MAP) Pulse Ox O2 Delivery O2 Flow Rate FiO2 06/29/17 22:49 98.9 102 18 199/108 (138) 99 Room Air Orders Orders Complete Blood Count With Diff (06/29/17 22:59) Comprehensive Metabolic Panel (06/29/17 22:59) Prothrombin Time / Inr (Pt) (06/29/17 22:59) Act Partial Throm Time (Ptt) (06/29/17 22:59) Blood Culture (06/29/17 22:59) Wound Culture And Gram Stain (06/29/17 22:59) Iv Access Insert/Monitor (06/29/17 22:59) Ecg Monitoring (06/29/17 22:59) Oximetry (06/29/17 22:59) Knee, Ltd (1 Or 2vws) (06/29/17 23:02) Vancomycin Inj (Vancomycin Inj) (06/29/17 23:30) Piperacil-Tazo 3.375 Gm Premix (Zosyn 3. (06/30/17 00:15) Labs Laboratory Tests Test 06/29/17 23:10 White Blood Count 14.6 TH/MM3 Red Blood Count 3.97 MIL/MM3 Hemoglobin 14.1 GM/DL Hematocrit 41.4 % Mean Corpuscular Volume 104.3 FL Mean Corpuscular Hemoglobin 35.6 PG Mean Corpuscular Hemoglobin Concent 34.1 % Red Cell Distribution Width 13.0 % Platelet Count 339 TH/MM3 Mean Platelet Volume 7.8 FL Neutrophils (%) (Auto) 81.0 % Lymphocytes (%) (Auto) 9.7 % Monocytes (%) (Auto) 7.7 % Eosinophils (%) (Auto) 0.4 % Basophils (%) (Auto) 1.2 % Neutrophils # (Auto) 11.8 TH/MM3 Lymphocytes # (Auto) 1.4 TH/MM3 Monocytes # (Auto) 1.1 TH/MM3 Eosinophils # (Auto) 0.1 TH/MM3 Basophils # (Auto) 0.2 TH/MM3 CBC Comment DIFF FINAL Differential Comment Prothrombin Time 9.9 SEC Prothromb Time International Ratio 1.0 RATIO Activated Partial Thromboplast Time 28.3 SEC Blood Urea Nitrogen 8 MG/DL Creatinine 0.72 MG/DL Random Glucose 100 MG/DL Total Protein 8.9 GM/DL Albumin 3.5 GM/DL Calcium Level 9.5 MG/DL Alkaline Phosphatase 86 U/L Aspartate Amino Transf (AST/SGOT) 25 U/L Alanine Aminotransferase (ALT/SGPT) 21 U/L Total Bilirubin 0.9 MG/DL Sodium Level 130 MEQ/L Potassium Level 3.5 MEQ/L Chloride Level 94 MEQ/L Carbon Dioxide Level 27.2 MEQ/L Anion Gap 9 MEQ/L Estimat Glomerular Filtration Rate 112 ML/MIN MDM Medical Decision Making Medical Screen Exam Complete: Yes Emergency Medical Condition: Yes Differential Diagnosis Differential diagnosis including cellulitis, abscess. Narrative Course 61-year-old male with wound infection on the surgical wound of the right leg. Patient status post open reduction internal fixation right tibial plateau fracture. Normal saline solution 1 25 cc an hour. Vancomycin 1 g IV. Zosyn 3.375 g IV. Procedures Procedure Narrative Staple removal right leg using staple remover. Dressing applied. Diagnosis Primary Impression: Cellulitis of right leg Additional Impression: Status post fracture of right tibia Admitting Information Admitting Physician Requests: Admit Eladio Crowley MD Jun 29, 2017 23:03
[2017-06-29 23:21] LABS: AUTOMATED NEUTROPHIL # 11.8 TH/MM3 (1.8-7.7); BASOPHIL # 0.2 TH/MM3 (0-0.2); BASOPHIL % 1.2 % (0.0-2.0); EOSINOPHIL # 0.1 TH/MM3 (0-0.4); EOSINOPHIL % 0.4 % (0.0-4.0); HEMATOCRIT 41.4 % (39.0-51.0); HEMOGLOBIN 14.1 GM/DL (13.0-17.0); LYMPH % 9.7 % (9.0-44.0); LYMPHOCYTE # 1.4 TH/MM3 (1.0-4.8); MEAN CELL VOLUME 104.3 FL (80.0-100.0); MEAN CORPUSCULAR HEMOGLOBIN 35.6 PG (27.0-34.0); MEAN CORPUSCULAR HGB CONC 34.1 % (32.0-36.0); MEAN PLATELET VOLUME 7.8 FL (7.0-11.0); MONO % 7.7 % (0.0-8.0); MONOCYTE # 1.1 TH/MM3 (0-0.9); PLATELET COUNT 339 TH/MM3 (150-450); RED BLOOD COUNT 3.97 MIL/MM3 (4.50-5.90); WHITE BLOOD COUNT 14.6 TH/MM3 (4.0-11.0)
[2017-06-29 23:26] LABS: CHLORIDE 94 MEQ/L (98-107); SODIUM (NA) 130 MEQ/L (136-145)
--- NOTE | 2017-06-29 23:27 | RADRPT ---
EXAM DATE/TIME: 06/29/2017 23:12 [facility] COMPARISON: KNEE RIGHT LTD (1 OR 2 VWS), June 11, 2017, 10:38. INDICATIONS : Right knee pain post ORIF 2 weeks ago MEDICAL HISTORY : Cardiovascular disease. Hypertension. Cirrhosis.DVT. Diabetes SURGICAL HISTORY : CABG. Rt clavicle ORIF. Carotid endarterectomy. Right proximal tibia ORIF. ENCOUNTER: Initial ACUITY: 2 days PAIN SCORE: 10/10 LOCATION: Right proximal tibia FINDINGS: Postoperative changes are again noted status post open reduction internal fixation with screw-plate f ixation device along the proximal tibia. The fracture fragments remain in near-anatomic alignment. Th ere is mild osteopenia. The proximal fibular fracture is unchanged in appearance. The patella and dis venkat femur remain intact in appearance. There are vascular calcifications and mild osteopenia. CONCLUSION: Stable appearance status post open rigid internal fixation. Rivas Ledesma MD on June 29, 2017 at 23:24 Board Certified Radiologist. This report was verified electronically.
[2017-06-29 23:30] LABS: ALBUMIN 3.5 GM/DL (3.4-5.0); BICARBONATE 27.2 MEQ/L (21.0-32.0); BLOOD UREA NITROGEN 8 MG/DL (7-18); CALCIUM 9.5 MG/DL (8.5-10.1); GLUCOSE,RANDOM 100 MG/DL (74-106)
[2017-06-29] MEDS ORDERED: VANCOMYCIN INJ 1,000 MG in SODIUM CHLOR 0.9% 250 ML INJ 250 ML IV ONE (23:30)
[2017-06-29 23:32] LABS: PROTHROMBIN TIME - PATIENT 9.9 SEC (9.8-11.6)
[2017-06-29 23:33] LABS: ALT (GPT) 21 U/L (12-78); AST (GOT) 25 U/L (15-37); CREATININE 0.72 MG/DL (0.60-1.30); GLOMERULAR FILTRATION RATE 112 ML/MIN (>89)
[2017-06-29 23:35] LABS: TOTAL BILIRUBIN ADULT 0.9 MG/DL (0.2-1.0); TOTAL PROTEIN 8.9 GM/DL (6.4-8.2)
[2017-06-29 23:36] LABS: ALKALINE PHOSPHATASE 86 U/L (45-117)
[2017-06-30] VITALS (9 sets, daily range): BP systolic 125–199; BP diastolic 67–100; PULSE 74–102; RESP 14–20; TEMP 99.3–100.7; O2SAT 96–99
[2017-06-30] MEDS ORDERED: PIPERACIL-TAZO 3.375 GM PREMIX 50 ML IV ONE (00:15)
[2017-06-30] MEDS ORDERED: NALOXONE HCL 0.4 MG/ML AMP IV PUSH PRN (01:00)
[2017-06-30] MEDS ORDERED: Vancomycin Consult Pharmacy 1 EA OTHER SCH (01:00)
[2017-06-30] MEDS: MORPHINE SULFATE 2 MG/ML SYRINGE IV PUSH PRN ×6 (01:22→20:11)
[2017-06-30] MEDS: PIPERACIL-TAZO 4.5 GM PREMIX 100 ML IV SCH ×3 (08:18→20:29)
[2017-06-30] MEDS: SODIUM CHLORIDE 0.9% FLUSH 10 ML FLUSH IV FLUSH SCH ×2 (08:19→20:11)
[2017-06-30] MEDS: VANCOMYCIN INJ 1,250 MG in SODIUM CHLOR 0.9% 250 ML INJ 250 ML IV SCH (12:25)
--- NOTE | 2017-06-30 14:01 | HHI.HP ---
[facility] Service [facility] Primary Care Physician No Primary Care Physician Admission Diagnosis Right leg cellulitis. Status post open reduction internal fixation Diagnoses: (1) Status post fracture of right tibia Diagnosis: Principal Chief Complaint: Right knee pain status post Travel History International Travel<30 Days: No Contact w/Intl Traveler <30 Da: No Traveled to Known Affected Are: No Sepsis Criteria SIRS Criteria (2 or more): WBC > 29324, < 4000 or > 10% bands History of Present Illness Written by Leann Fink, acting as scribe for Dr. Sun on 06/30/17 at 13:50. This is a 61-year-old male patient with a known medical history of PAD, CAD and tobacco abuse who presented to the ED with complaints of right lower extremity pain and possible infection. He states he broke his right knee on June 08 and underwent left open rigid internal fixation on June 11 and then injured it and states it "got infected" shortly after. Does admit to unbearable right knee pain for roughly the past week. Denies any fever or chills. Denies any recent chest pain, shortness of breath, headache, abdominal pain, nausea, vomiting, diarrhea or dysuria. Does admit to good appetite. Denies following with a PCP. Leukocytosis upon presentation. Wound growing Staphylococcus aureus. Blood cultures ordered. Knee x-ray showing stable appearance. Review of Systems Constitutional: DENIES: Fever, Chills Eyes: DENIES: Blurred vision, Diplopia Respiratory: DENIES: Cough, Shortness of breath Cardiovascular: DENIES: Chest pain, Palpitations Gastrointestinal: DENIES: Abdominal pain, Black stools, Bloody stools, Constipation, Diarrhea, Nausea, Vomiting Musculoskeletal: COMPLAINS OF: Joint pain (rigth knee/leg) Neurologic: DENIES: Abnormal gait Psychiatric: DENIES: Anxiety Except as stated in HPI: all other systems reviewed are Neg Past Family Social History Past Medical History Coronary artery disease. Past Surgical History Arterial bypass in both legs 2016 Left carotid endarterectomy Triple bypass 2016 Right steel plate in shoulder Right clavicle repair Reported Medications Active Enalapril (Enalapril Maleate) 5 Mg Tab 5 Mg PO DAILY 30 Days Norvasc (Amlodipine Besylate) 10 Mg Tab 10 Mg PO DAILY 30 Days Metoprolol Tartrate 25 Mg Tab 25 Mg PO Q8HR 30 Days Cardura (Doxazosin Mesylate) 2 Mg Tab 2 Mg PO DAILY 30 Days Xarelto (Rivaroxaban) 10 Mg Tab 10 Mg PO DAILY Allergies: Coded Allergies: No Known Allergies (Verified Adverse Reaction, Unknown, 06/29/17) Active Ordered Medications Current Medications Medications (Trade) Dose Ordered Sig/Barbra Route Start Time Stop Time Status Last Admin (NS Flush) 2 ml UNSCH PRN IV FLUSH 06/30/17 01:00 (NS Flush) 2 ml BID IV FLUSH 06/30/17 09:00 06/30/17 08:19 (Narcan Inj) 0.4 mg UNSCH PRN IV PUSH 06/30/17 01:00 Pharmacy Profile Note 0 ml @ 0 mls/hr UNSCH OTHER 06/30/17 01:00 Piperacillin Sod/ Tazobactam Sod 100 ml @ 200 mls/hr Q6H IV 06/30/17 08:00 06/30/17 08:18 (Morphine Inj) 2 mg Q3H PRN IV PUSH 06/30/17 01:00 06/30/17 12:26 Vancomycin HCl 1250 mg/Sodium Chloride 262.5 ml @ 250 mls/hr Q12H IV 06/30/17 12:00 06/30/17 12:25 Miscellaneous Information SPECIFIC LAB TO BE DRAWN:VANCOMYCIN TROUGH DATE TO... ONCE ONCE .XX 07/01/17 11:45 07/01/17 11:46 Family History Father from an [place], age of 68. Mother from Alzheimer disease. Social History Admits to smoking 2 cigars a day. Used to smoke 1 ppd for 50 years. Physical Exam Vital Signs Vital Signs Date Time Temp Pulse Resp B/P (MAP) Pulse Ox O2 Delivery O2 Flow Rate FiO2 06/30/17 11:03 88 16 183/98 (126) 97 06/30/17 09:47 87 16 06/30/17 09:20 88 16 173/100 (124) 98 Room Air 06/30/17 09:05 16 06/30/17 08:00 91 16 199/83 (121) 98 Room Air 06/30/17 07:10 84 16 06/30/17 06:00 74 16 177/87 (117) 99 Room Air 06/30/17 05:01 89 16 197/100 (132) 99 Room Air 06/30/17 01:29 97 16 192/99 (130) 99 Room Air 06/29/17 22:49 98.9 102 18 199/108 (138) 99 Room Air 06/29/17 18:09 98.4 112 18 177/84 (115) 98 Physical Exam GENERAL: This is a well-nourished, well-developed patient, in no apparent distress. SKIN: No rashes, ecchymoses or lesions. Warm and dry. HEENT: Atraumatic. Normocephalic. Pupils equal round and reactive. Extraocular motions intact. No scleral icterus. No injection or drainage. Nose without bleeding, purulent drainage or septal hematoma. Throat without erythema, tonsillar hypertrophy or exudate. Uvula midline. Airway patent. NECK: Trachea midline. No JVD or lymphadenopathy. Supple, nontender, no meningeal signs. CARDIOVASCULAR: Regular rate and rhythm without murmurs, gallops, or rubs. RESPIRATORY: Clear to auscultation. Breath sounds equal bilaterally. No wheezes , rales, or rhonchi. GASTROINTESTINAL: Abdomen soft, non-tender, nondistended. No hepato-splenomegaly , or palpable masses. No guarding. MUSCULOSKELETAL: Extremities without clubbing, cyanosis. Right lower extremity edema 1+. No numbness or tingling. Sensation intact. NEUROLOGICAL: Awake and alert. Cranial nerves II through XII intact. Motor and sensory grossly within normal limits. Five out of 5 muscle strength in all muscle groups. Normal speech. Laboratory Laboratory Tests Test 06/29/17 23:10 White Blood Count 14.6 Red Blood Count 3.97 Hemoglobin 14.1 Hematocrit 41.4 Mean Corpuscular Volume 104.3 Mean Corpuscular Hemoglobin 35.6 Mean Corpuscular Hemoglobin Concent 34.1 Red Cell Distribution Width 13.0 Platelet Count 339 Mean Platelet Volume 7.8 Neutrophils (%) (Auto) 81.0 Lymphocytes (%) (Auto) 9.7 Monocytes (%) (Auto) 7.7 Eosinophils (%) (Auto) 0.4 Basophils (%) (Auto) 1.2 Neutrophils # (Auto) 11.8 Lymphocytes # (Auto) 1.4 Monocytes # (Auto) 1.1 Eosinophils # (Auto) 0.1 Basophils # (Auto) 0.2 CBC Comment DIFF FINAL Differential Comment Prothrombin Time 9.9 Prothromb Time International Ratio 1.0 Activated Partial Thromboplast Time 28.3 Blood Urea Nitrogen 8 Creatinine 0.72 Random Glucose 100 Total Protein 8.9 Albumin 3.5 Calcium Level 9.5 Alkaline Phosphatase 86 Aspartate Amino Transf (AST/SGOT) 25 Alanine Aminotransferase (ALT/SGPT) 21 Total Bilirubin 0.9 Sodium Level 130 Potassium Level 3.5 Chloride Level 94 Carbon Dioxide Level 27.2 Anion Gap 9 Estimat Glomerular Filtration Rate 112 Date/Time Source Procedure Growth Status 06/29/17 23:30 Blood Peripheral Aerobic Blood Culture Pending Received 06/29/17 23:30 Blood Peripheral Anaerobic Blood Culture Pending Received 06/29/17 23:00 Wound Leg Gram Stain - Final Resulted 06/29/17 23:00 Wound Leg Wound Culture Pending Resulted Result Diagram: 06/29/17230906/29/172309 Imaging Last Impressions Knee X-Ray 06/29/172301 Signed Impressions: Service Date/Time: June 23:12 - CONCLUSION: Stable appearance status post open rigid internal fixation. Rivas Ledesma MD Septic Shock Reassessment Septic shock perfusion: reassessment completed Caprini VTE Risk Assessment Caprini VTE Risk Assessment: No/Low Risk (score <= 1) Caprini Risk Assessment Model Point Value = 1 Point Value = 2 Point Value = 3 Point Value = 5 Age 41-60 Minor surgery BMI > 25 kg/m2 Swollen legs Varicose veins or History of unexplained or recurrent spontaneous Oral contraceptives or hormone replacement Sepsis (< 1 month) Serious lung disease, including pneumonia (< 1 month) Abnormal pulmonary function Acute myocardial infarction Congestive heart failure (< 1 month) History of inflammatory bowel disease Medical patient at bed rest Age 61-74 Arthroscopic surgery Major open surgery (> 45 min) Laparoscopic surgery (> 45 min) Malignancy Confined to bed (> 72 hours) Immobilizing plaster cast Central venous access Age >= 75 History of VTE Family history of VTE Factor V Leiden Prothrombin [id number] Lupus anticoagulant Anticardiolipin antibodies Elevated serum homocysteine Heparin-induced thrombocytopenia Other congenital or acquired thrombophilia Stroke (< 1 month) Elective arthroplasty Hip, pelvis, or leg fracture Acute spinal cord injury (< 1 month) Prophylaxis Regimen Total Risk Factor Score Risk Level Prophylaxis Regimen 0-1 Low Early ambulation 2 Moderate Order ONE of the following: *Sequential Compression Device (SCD) *Heparin 5000 units SQ BID 3-4 Higher Order ONE of the following medications: *Heparin 5000 units SQ TID *Enoxaparin/Lovenox 40 mg SQ daily (WT < 150 kg, CrCl > 30 mL/min) *Enoxaparin/Lovenox 30 mg SQ daily (WT < 150 kg, CrCl > 10-29 mL/min) *Enoxaparin/Lovenox 30 mg SQ BID (WT < 150 kg, CrCl > 30 mL/min) AND/OR *Sequential Compression Device (SCD) 5 or more Highest Order ONE of the following medications: *Heparin 5000 units SQ TID (Preferred with Epidurals) *Enoxaparin/Lovenox 40 mg SQ daily (WT < 150 kg, CrCl > 30 mL/min) *Enoxaparin/Lovenox 30 mg SQ daily (WT < 150 kg, CrCl > 10-29 mL/min) *Enoxaparin/Lovenox 30 mg SQ BID (WT < 150 kg, CrCl > 30 mL/min) AND *Sequential Compression Device (SCD) Assessment and Plan Assessment and Plan This is a 61-year-old male patient with a known medical history of PAD, CAD and tobacco abuse who presented to the ED with complaints of right lower extremity pain and possible infection postoperatively. He states he broke his right knee on June 08 and underwent left knee surgery on June 11 and then injured it and states it "got infected" shortly after. Cellulitis of right leg status post fracture of right tibia - Right knee x-ray reviewed showing stable appearance status post open rigid internal fixation. - Wound culture showing Staphylococcus aureus. Will await sensitivity and MAC. Started on vancomycin and Zosyn IV. Continue to monitor for infection. Patient has leukocytosis, follow CBC. - Consult placed to orthopedic surgeon for postop infection, appreciate input recommendations. Hypertension: May be secondary to pain. Will start amlodipine and enalapril and metoprolol. Monitor BP trends. DVT prophylaxis: SCDs. This note was transcribed by ODETTE Almanza. I, Dr. July Sun personally performed the history, physical exam, and medical decision making; and confirmed the accuracy of the information in the transcribed note. Authenticated by Dr. July Sun on 06/30/17 at 13:50. Leann Fink Jun 30, 2017 14:01 July Sun MD Jun 30, 2017 14:46
[2017-06-30] MEDS ORDERED: ENALAPRILAT 2.5 MG/2 ML VIAL IV PUSH PRN (16:15)
[2017-06-30] MEDS: METOPROLOL TARTRATE 25 MG TAB PO SCH ×2 (17:41→20:10)
[2017-06-30] MEDS: DOXAZOSIN MESYLATE 2 MG TAB PO SCH (17:42)
[2017-06-30] MEDS: ENALAPRIL MALEATE 5 MG TAB PO SCH (17:42)
[2017-06-30] MEDS: RIVAROXABAN 10 MG TAB PO SCH (17:48)
--- NOTE | 2017-06-30 19:51 | PD.CONS ---
cc: Nic Ritter Jr., MD HPI Service Orthopedic Surgeons Consult Requested By Primary Care Physician No Primary Care Physician Admission Diagnosis Right leg cellulitis. Status post open reduction internal fixation Diagnoses: (1) Status post fracture of right tibia Diagnosis: Principal Chief Complaint: right leg cellulitis History of Present Illness This is a 61-year-old male patient with a known medical history of PAD, CAD and tobacco abuse who presented to the ED with complaints of right lower extremity pain and swelling. He is status post right tibia open reduction internal fixation earlier this month. He has missed his postoperative outpatient visit. He presented with worsening pain and swelling in the right leg with some drainage. He reports having his roommate fell on his right knee while asleep. -Denies any head injuries. Denies loss of consciousness. -Currently is alert, pain localized at right leg, patient's is 5 out of 10, exacerbated by WB, touch, relieved at rest and with IV pain medicine, pain is sharp nonradiating, not associated with any paresthesia and numbness to the extremity.Denies any fever or chills. Denies any recent chest pain, shortness of breath, headache, abdominal pain, nausea, vomiting, diarrhea or dysuria. Does admit to good appetite. Denies following with a PCP. Leukocytosis upon presentation. superficial Wound growing Staphylococcus aureus. Blood cultures ordered. Knee x-ray showing stable appearance. ROS - General Review of Systems Constitutional: DENIES: Fever, Chills Eyes: DENIES: Blurred vision, Diplopia Respiratory: DENIES: Cough, Shortness of breath Cardiovascular: DENIES: Chest pain, Palpitations Gastrointestinal: DENIES: Abdominal pain, Black stools, Bloody stools, Constipation, Diarrhea, Nausea, Vomiting Musculoskeletal: COMPLAINS OF: Joint pain (rigth knee/leg) Neurologic: DENIES: Abnormal gait Psychiatric: DENIES: Anxiety Except as stated in HPI: all other systems reviewed are Neg PFSH Past Family Social History Past Medical History Coronary artery disease. Past Surgical History Arterial bypass in both legs 2016 Left carotid endarterectomy Triple bypass 2016 Right steel plate in shoulder Right clavicle repair Reported Medications Active Enalapril (Enalapril Maleate) 5 Mg Tab 5 Mg PO DAILY 30 Days Norvasc (Amlodipine Besylate) 10 Mg Tab 10 Mg PO DAILY 30 Days Metoprolol Tartrate 25 Mg Tab 25 Mg PO Q8HR 30 Days Cardura (Doxazosin Mesylate) 2 Mg Tab 2 Mg PO DAILY 30 Days Xarelto (Rivaroxaban) 10 Mg Tab 10 Mg PO DAILY Allergies: Coded Allergies: No Known Allergies (Verified Adverse Reaction, Unknown, 06/29/17) Review of Systems Constitutional: DENIES: Diaphoretic episodes, Fatigue, Fever, Weight gain, Weight loss, Chills, Dizziness, Change in appetite, Night Sweats Endocrine: DENIES: Heat/cold intolerance, Polydipsia, Polyuria, Polyphagia Eyes: DENIES: Blurred vision, Diplopia, Eye inflammation, Eye pain, Vision loss , Photosensitivity, Double Vision Ears, nose, mouth, throat: DENIES: Tinnitus, Hearing loss, Vertigo, Nasal discharge, Oral lesions, Throat pain, Hoarseness, Ear Pain, Running Nose, Epistaxis, Sinus Pain, Toothache, Odynophagia Respiratory: DENIES: Apneas, Cough, Snoring, Wheezing, Hemoptysis, Sputum production, Shortness of breath Past Family Social History Past Medical History Coronary artery disease. Past Surgical History Arterial bypass in both legs 2016 Left carotid endarterectomy Triple bypass 2016 Right steel plate in shoulder Right clavicle repair Allergies: Coded Allergies: No Known Allergies (Verified Adverse Reaction, Unknown, 06/29/17) Active Ordered Medications Current Medications Medications (Trade) Dose Ordered Sig/Barbra Route Start Time Stop Time Status Last Admin (NS Flush) 2 ml UNSCH PRN IV FLUSH 06/30/17 01:00 (NS Flush) 2 ml BID IV FLUSH 06/30/17 09:00 06/30/17 08:19 (Narcan Inj) 0.4 mg UNSCH PRN IV PUSH 06/30/17 01:00 Pharmacy Profile Note 0 ml @ 0 mls/hr UNSCH OTHER 06/30/17 01:00 Piperacillin Sod/ Tazobactam Sod 100 ml @ 200 mls/hr Q6H IV 06/30/17 08:00 06/30/17 14:13 (Morphine Inj) 2 mg Q3H PRN IV PUSH 06/30/17 01:00 3/23/18 15:45 Vancomycin HCl 1250 mg/Sodium Chloride 262.5 ml @ 250 mls/hr Q12H IV 06/30/17 12:00 06/30/17 12:25 Miscellaneous Information SPECIFIC LAB TO BE DRAWN:VANCOMYCIN TROUGH DATE TO... ONCE ONCE .XX 07/01/17 11:45 07/01/17 11:46 (Flu (Quadrivalent) Vaccine Inj) 0.5 ml ONCE ONCE IM 07/01/17 10:00 07/01/17 10:01 (Norvasc) 10 mg DAILY PO 06/30/17 16:15 06/30/17 17:42 (Cardura) 2 mg DAILY PO 06/30/17 16:15 06/30/17 17:42 (Vasotec) 5 mg DAILY PO 06/30/17 16:15 06/30/17 17:42 (Lopressor) 25 mg Q8HR PO 06/30/17 16:15 06/30/17 17:41 (Xarelto) 10 mg DAILY PO 06/30/17 16:15 06/30/17 17:48 (Vasotec Inj) 2.5 mg Q6H PRN IV PUSH 06/30/17 16:15 Reported Meds & Active Scripts Active Enalapril (Enalapril Maleate) 5 Mg Tab 5 Mg PO DAILY 30 Days Norvasc (Amlodipine Besylate) 10 Mg Tab 10 Mg PO DAILY 30 Days Metoprolol Tartrate 25 Mg Tab 25 Mg PO Q8HR 30 Days Cardura (Doxazosin Mesylate) 2 Mg Tab 2 Mg PO DAILY 30 Days Xarelto (Rivaroxaban) 10 Mg Tab 10 Mg PO DAILY Family History Father from an [place], age of 68. Mother from Alzheimer disease. Social History Admits to smoking 2 cigars a day. Used to smoke 1 ppd for 50 years. Physical Exam Vital Signs Vital Signs Date Time Temp Pulse Resp B/P (MAP) Pulse Ox O2 Delivery O2 Flow Rate FiO2 06/30/17 16:10 100.7 90 14 150/81 (104) 96 06/30/17 12:30 99.3 102 17 171/83 (112) 96 06/30/17 11:03 88 16 183/98 (126) 97 06/30/17 09:47 87 16 06/30/17 09:20 88 16 173/100 (124) 98 Room Air 3/23/18 09:05 16 06/30/17 08:00 91 16 199/83 (121) 98 Room Air 06/30/17 07:10 84 16 06/30/17 06:00 74 16 177/87 (117) 99 Room Air 06/30/17 05:01 89 16 197/100 (132) 99 Room Air 06/30/17 01:29 97 16 192/99 (130) 99 Room Air 06/29/17 22:49 98.9 102 18 199/108 (138) 99 Room Air Physical Exam Alert awake and oriented -3. No acute distress. Pulmonary: Normal respiratory effort. Right lower extremity: Neurovascularly intact, normal and painless passive range of motion of the right knee. Right proximal tibial plateau wound healing well with small areas of patchy erythema and small serous drainage. No fluctuance or olya pus. +EHL/FHL, + PT/DP pulses. Supple compartments. Negative Homans sign. Left lower extremity: neurovascularly intact Laboratory Laboratory Tests Test 06/29/17 23:10 White Blood Count 14.6 Red Blood Count 3.97 Hemoglobin 14.1 Hematocrit 41.4 Mean Corpuscular Volume 104.3 Mean Corpuscular Hemoglobin 35.6 Mean Corpuscular Hemoglobin Concent 34.1 Red Cell Distribution Width 13.0 Platelet Count 339 Mean Platelet Volume 7.8 Neutrophils (%) (Auto) 81.0 Lymphocytes (%) (Auto) 9.7 Monocytes (%) (Auto) 7.7 Eosinophils (%) (Auto) 0.4 Basophils (%) (Auto) 1.2 Neutrophils # (Auto) 11.8 Lymphocytes # (Auto) 1.4 Monocytes # (Auto) 1.1 Eosinophils # (Auto) 0.1 Basophils # (Auto) 0.2 CBC Comment DIFF FINAL Differential Comment Prothrombin Time 9.9 Prothromb Time International Ratio 1.0 Activated Partial Thromboplast Time 28.3 Blood Urea Nitrogen 8 Creatinine 0.72 Random Glucose 100 Total Protein 8.9 Albumin 3.5 Calcium Level 9.5 Alkaline Phosphatase 86 Aspartate Amino Transf (AST/SGOT) 25 Alanine Aminotransferase (ALT/SGPT) 21 Total Bilirubin 0.9 Sodium Level 130 Potassium Level 3.5 Chloride Level 94 Carbon Dioxide Level 27.2 Anion Gap 9 Estimat Glomerular Filtration Rate 112 Date/Time Source Procedure Growth Status 06/29/17 23:30 Blood Peripheral Aerobic Blood Culture Pending Received 06/29/17 23:30 Blood Peripheral Anaerobic Blood Culture Pending Received 06/29/17 23:00 Wound Leg Gram Stain - Final Resulted 06/29/17 23:00 Wound Culture - Preliminary Staphylococcus Aureus Resulted Result Diagram: 06/29/17 2310 06/29/17 2310 Imaging Last 72 hours Impressions Knee X-Ray 06/29/172 Signed Impressions: Service Date/Time: June 23:12 - CONCLUSION: Stable appearance status post open rigid internal fixation. Rivas Ledesma MD Assessment & Plan Assessment and Plan 61-year-old male with poor hygiene and history of homelessness. Presented to the emergency department after missing his follow-up visit. He is status post right plateau open reduction internal fixation June 13, 2017. He presented with increased pain and swelling in the right leg with some drainage from the wound. X-ray examination reveal fixation is stable with hardware that is in place and intact. He is grossly neurovascularly intact. There is mild drainage from the wound with surrounding erythema with no fluctuance. I recommended continued dressing changes daily with IV antibiotics to treat cellulitis. superficial skin cultures + for staph. I will see him and follow his clinical progress next week. Nic Ritter Jr., MD Jun 30, 2017 19:51
[2017-07-01] VITALS: BP 139/73; PULSE 79; RESP 20; TEMP 99.7; O2SAT 97
[2017-07-01] MEDS: VANCOMYCIN INJ 1,250 MG in SODIUM CHLOR 0.9% 250 ML INJ 250 ML IV SCH ×3 (00:03→23:27)
[2017-07-01] MEDS: SODIUM CHLORIDE 0.9% FLUSH 10 ML FLUSH IV FLUSH PRN (00:04)
[2017-07-01] MEDS: MORPHINE SULFATE 2 MG/ML SYRINGE IV PUSH PRN ×6 (00:04→20:57)
[2017-07-01] MEDS: PIPERACIL-TAZO 4.5 GM PREMIX 100 ML IV SCH ×4 (01:19→19:51)
[2017-07-01] MEDS: METOPROLOL TARTRATE 25 MG TAB PO SCH ×3 (03:54→20:56)
--- NOTE | 2017-07-01 07:40 | HHI.PR ---
Subjective Remarks Patient in nad. Says no fever or chills overnight. No n/v/d/c. Pain is fairly controlled. Redness and erythema not much imprpved. Objective Vitals Vital Signs Date Time Temp Pulse Resp B/P (MAP) Pulse Ox O2 Delivery O2 Flow Rate FiO2 07/01/17 04:55 18 07/01/17 00:00 99.7 79 20 139/73 (95) 97 06/30/17 20:00 99.3 78 20 125/67 (86) 96 06/30/17 16:10 100.7 90 14 150/81 (104) 96 06/30/17 12:30 99.3 102 17 171/83 (112) 96 06/30/17 11:03 88 16 183/98 (126) 97 06/30/17 09:47 87 16 06/30/17 09:20 88 16 173/100 (124) 98 Room Air 06/30/17 08:00 91 16 199/83 (121) 98 Room Air I/O 06/30/17 06/30/17 06/30/17 07/01/17 07/01/17 07/01/17 07:00 15:00 23:00 07:00 15:00 23:00 Intake Total 950 ml 662 ml 240 ml Output Total 800 ml 300 ml 700 ml Balance 150 ml 362 ml -460 ml Intake Oral 650 ml 200 ml 240 ml IV Total 300 ml 462 ml Output Urine Total 800 ml 300 ml 700 ml # Voids 2 Result Diagram: 06/29/17230906/29/172309 Imaging Last Impressions Knee X-Ray 06/29/172301 Signed Impressions: Service Date/Time: June 23:12 - CONCLUSION: Stable appearance status post open rigid internal fixation. Rivas Ledesma MD Objective Remarks GENERAL: This is a well-nourished, well-developed patient, in no apparent distress. CARDIOVASCULAR: Regular rate and rhythm without murmurs, gallops, or rubs. RESPIRATORY: Clear to auscultation. Breath sounds equal bilaterally. No wheezes , rales, or rhonchi. GASTROINTESTINAL: Abdomen soft, non-tender, nondistended. No hepato-splenomegaly , or palpable masses. No guarding. MUSCULOSKELETAL: Extremities without clubbing, cyanosis. Right lower extremity edema 1+. No numbness or tingling. Sensation intact. NEUROLOGICAL: Awake and alert. Cranial nerves II through XII intact. Motor and sensory grossly within normal limits. Five out of 5 muscle strength in all muscle groups. Normal speech. A/P Problem List: (1) Status post fracture of right tibia ICD Code: Z87.81 - Personal history of (healed) traumatic fracture Status: Acute Assessment and Plan This is a 61-year-old male patient with a known medical history of PAD, CAD and tobacco abuse who presented to the ED with complaints of right lower extremity pain and possible infection postoperatively. He states he broke his right knee on June 08 and underwent left knee surgery on June 11 and then injured it and states it "got infected" shortly after. Cellulitis of right leg status post fracture of right tibia Bacteremia Positive blood cx 05/14 . Repeat blood cx. Consult ID for further eval and management - Right knee x-ray reviewed showing stable appearance status post open rigid internal fixation. - Wound culture showing Staphylococcus aureus. Will await sensitivity and MAC. Started on vancomycin and Zosyn IV. Continue to monitor for infection. Patient has leukocytosis, follow CBC. - Consult placed to orthopedic surgeon for postop infection, appreciate input recommendations. Continue IV abx Hypertension: May be secondary to pain. Will start amlodipine and enalapril and metoprolol. Monitor BP trends. DVT prophylaxis: SCDs. DC when improved , now with bacteremia , ID consulted July Sun MD Jul 01, 2017 07:40
[2017-07-01 07:45] LABS: AUTOMATED NEUTROPHIL # 6.8 TH/MM3 (1.8-7.7); BASOPHIL % 0.4 % (0.0-2.0); EOSINOPHIL # 0.1 TH/MM3 (0-0.4); EOSINOPHIL % 1.1 % (0.0-4.0); HEMATOCRIT 34.8 % (39.0-51.0); HEMOGLOBIN 12.2 GM/DL (13.0-17.0); LYMPH % 15.1 % (9.0-44.0); LYMPHOCYTE # 1.4 TH/MM3 (1.0-4.8); MEAN CELL VOLUME 104.7 FL (80.0-100.0); MEAN CORPUSCULAR HEMOGLOBIN 36.8 PG (27.0-34.0); MEAN CORPUSCULAR HGB CONC 35.1 % (32.0-36.0); MONO % 12.7 % (0.0-8.0); MONOCYTE # 1.2 TH/MM3 (0-0.9); NEUT % 70.7 % (16.0-70.0); PLATELET COUNT 271 TH/MM3 (150-450); RED BLOOD COUNT 3.33 MIL/MM3 (4.50-5.90); RED CELL DISTRIBUTION WIDTH 13.1 % (11.6-17.2); WHITE BLOOD COUNT 9.5 TH/MM3 (4.0-11.0)
[2017-07-01 08:00] VITALS: BP 124/61; PULSE 85; RESP 14; TEMP 99; O2SAT 95
[2017-07-01 08:05] LABS: BICARBONATE 28.1 MEQ/L (21.0-32.0); CALCIUM 8.5 MG/DL (8.5-10.1); CREATININE 0.66 MG/DL (0.60-1.30)
[2017-07-01] MEDS: SODIUM CHLORIDE 0.9% FLUSH 10 ML FLUSH IV FLUSH SCH ×2 (09:52→19:56)
[2017-07-01] MEDS: RIVAROXABAN 10 MG TAB PO SCH (09:54)
[2017-07-01] MEDS: ENALAPRIL MALEATE 5 MG TAB PO SCH (09:54)
[2017-07-01] MEDS: DOXAZOSIN MESYLATE 2 MG TAB PO SCH (09:54)
[2017-07-01] MEDS ORDERED: INFLUENZA VIRUS VACCINE (QUADRIVALENT) 0.5 ML SYR IM ONE (10:00)
[2017-07-01] MEDS ORDERED: PHARMACY ORDERED LAB ONE (11:45)
[2017-07-01 12:00] VITALS: BP 137/63; PULSE 84; RESP 16; TEMP 97.7; O2SAT 98
[2017-07-01 16:00] VITALS: BP 156/77; PULSE 88; RESP 16; TEMP 97.8; O2SAT 95
[2017-07-01 20:00] VITALS: BP 137/65; PULSE 72; RESP 20; TEMP 96.9; O2SAT 96
[2017-07-02] VITALS: BP 167/80; PULSE 71; RESP 20; TEMP 97.3; O2SAT 95
[2017-07-02] MEDS: MORPHINE SULFATE 2 MG/ML SYRINGE IV PUSH PRN ×7 (00:50→23:57)
[2017-07-02] MEDS: PIPERACIL-TAZO 4.5 GM PREMIX 100 ML IV SCH ×2 (00:50→09:40)
[2017-07-02] MEDS: METOPROLOL TARTRATE 25 MG TAB PO SCH ×3 (06:00→20:39)
[2017-07-02 07:32] LABS: AUTOMATED NEUTROPHIL # 5.1 TH/MM3 (1.8-7.7); BASOPHIL # 0.1 TH/MM3 (0-0.2); BASOPHIL % 0.9 % (0.0-2.0); EOSINOPHIL # 0.1 TH/MM3 (0-0.4); EOSINOPHIL % 1.8 % (0.0-4.0); HEMATOCRIT 35.9 % (39.0-51.0); HEMOGLOBIN 11.9 GM/DL (13.0-17.0); LYMPHOCYTE # 1.7 TH/MM3 (1.0-4.8); MEAN CORPUSCULAR HEMOGLOBIN 34.8 PG (27.0-34.0); MEAN CORPUSCULAR HGB CONC 33.2 % (32.0-36.0); MEAN PLATELET VOLUME 8.4 FL (7.0-11.0); MONO % 12.3 % (0.0-8.0); PLATELET COUNT 252 TH/MM3 (150-450); RED BLOOD COUNT 3.42 MIL/MM3 (4.50-5.90); RED CELL DISTRIBUTION WIDTH 12.7 % (11.6-17.2)
[2017-07-02 07:41] LABS: CALCIUM 8.6 MG/DL (8.5-10.1)
[2017-07-02 07:42] LABS: BICARBONATE 26.4 MEQ/L (21.0-32.0)
[2017-07-02 07:45] LABS: CREATININE 0.61 MG/DL (0.60-1.30)
[2017-07-02 07:50] VITALS: BP 166/83; PULSE 75; RESP 20; TEMP 98.5; O2SAT 97
[2017-07-02] MEDS ORDERED: POTASSIUM CHLORIDE 10 MEQ CONTROLLED RELEASE TAB PO ONE (09:00)
--- NOTE | 2017-07-02 09:00 | HHI.PR ---
Subjective Remarks Patient is in bed he still has some pain in his right knee, no fever chills overnight. Swelling and redness improved but not much. No nausea or vomiting no diarrhea or constipation. Feels very tired. Eating fairly well. Objective Vitals Vital Signs Date Time Temp Pulse Resp B/P (MAP) Pulse Ox O2 Delivery O2 Flow Rate FiO2 07/02/17 00:00 97.3 71 20 167/80 (109) 95 07/01/17 20:00 96.9 72 20 137/65 (89) 96 07/01/17 16:00 97.8 88 16 156/77 (103) 95 07/01/17 12:00 97.7 84 16 137/63 (87) 98 I/O 07/01/17 07/01/17 07/01/17 07/02/17 07/02/17 07/02/17 07:00 15:00 23:00 07:00 15:00 23:00 Intake Total 240 ml 1304.5 ml 200 ml 1082.5 ml Output Total 700 ml 1250 ml Balance -460 ml 1304.5 ml 200 ml -167.5 ml Intake Oral 240 ml 942 ml 720 ml IV Total 362.5 ml 200 ml 362.5 ml Output Urine Total 700 ml 1250 ml # Voids 3 # Bowel Movements 1 Result Diagram: 07/02/1730 07/02/17629 Imaging Last Impressions Knee X-Ray 06/29/172301 Signed Impressions: Service Date/Time: June 23:12 - CONCLUSION: Stable appearance status post open rigid internal fixation. Rivas Ledesma MD Objective Remarks GENERAL: This is a well-nourished, well-developed patient, in no apparent distress. CARDIOVASCULAR: Regular rate and rhythm without murmurs, gallops, or rubs. RESPIRATORY: Clear to auscultation. Breath sounds equal bilaterally. No wheezes , rales, or rhonchi. GASTROINTESTINAL: Abdomen soft, non-tender, nondistended. No hepato-splenomegaly , or palpable masses. No guarding. MUSCULOSKELETAL: Extremities without clubbing, cyanosis. Right lower extremity edema 1+. No numbness or tingling. Sensation intact. NEUROLOGICAL: Awake and alert. Cranial nerves II through XII intact. Motor and sensory grossly within normal limits. Five out of 5 muscle strength in all muscle groups. Normal speech. A/P Problem List: (1) Status post fracture of right tibia ICD Code: Z87.81 - Personal history of (healed) traumatic fracture Status: Acute Assessment and Plan This is a 61-year-old male patient with a known medical history of PAD, CAD and tobacco abuse who presented to the ED with complaints of right lower extremity pain and possible infection postoperatively. He states he broke his right knee on June 08 and underwent left knee surgery on June 11 and then injured it and states it "got infected" shortly after. Cellulitis of right leg status post fracture of right tibia Bacteremia staph aureus and staph epi Positive blood cx 05/14 . Repeat blood cx. Consult ID for further eval and management. Discussed with Dr. Urias infectious disease specialist. Will change antibiotics to cefazolin 2 g every 8 hours. Infectious disease will come tomorrow 07/03/17. Please place a consult for tomorrow for infectious disease. - Right knee x-ray reviewed showing stable appearance status post open rigid internal fixation. - Wound culture showing Staphylococcus aureus. Will await sensitivity and MAC. Started on vancomycin and Zosyn IV. Continue to monitor for infection. Patient has leukocytosis, follow CBC. - Consult placed to orthopedic surgeon for postop infection, appreciate input recommendations. Continue IV abx Hypertension: May be secondary to pain. Will start amlodipine and enalapril and metoprolol. Monitor BP trends. DVT prophylaxis: SCDs. DC when improved, now with bacteremia, discussed with infectious disease, change antibiotics to cefazolin. Please consult for infection as tomorrow is . July Sun MD Jul 02, 2017 09:00
[2017-07-02] MEDS: ENALAPRIL MALEATE 5 MG TAB PO SCH (09:39)
[2017-07-02] MEDS: RIVAROXABAN 10 MG TAB PO SCH (09:39)
[2017-07-02] MEDS: DOXAZOSIN MESYLATE 2 MG TAB PO SCH (09:39)
[2017-07-02] MEDS: SODIUM CHLORIDE 0.9% FLUSH 10 ML FLUSH IV FLUSH SCH ×2 (09:40→20:39)
[2017-07-02] MEDS ORDERED: PHARMACY ORDERED LAB ONE (11:45)
[2017-07-02 11:50] VITALS: BP 134/71; PULSE 75; RESP 20; TEMP 96.8; O2SAT 97
[2017-07-02] MEDS ORDERED: ceFAZolin 2 GM PREMIX 50 ML IV SCH (12:00)
[2017-07-02] MEDS: ceFAZolin 2 GM PREMIX 50 ML IV SCH ×2 (13:34→20:39)
[2017-07-02 15:50] VITALS: BP 161/80; PULSE 77; RESP 20; TEMP 97.1; O2SAT 95
[2017-07-02] MEDS: ENALAPRILAT 2.5 MG/2 ML VIAL IV PUSH PRN (18:26)
[2017-07-02 20:00] VITALS: BP 134/74; PULSE 75; RESP 18; TEMP 98; O2SAT 97
[2017-07-03] MEDS: MORPHINE SULFATE 2 MG/ML SYRINGE IV PUSH PRN ×3 (03:20→10:45)
[2017-07-03 04:00] VITALS: PULSE 80; RESP 16; TEMP 97.1; O2SAT 98
[2017-07-03] MEDS: ceFAZolin 2 GM PREMIX 50 ML IV SCH ×3 (05:13→22:06)
[2017-07-03] MEDS: METOPROLOL TARTRATE 25 MG TAB PO SCH ×3 (06:47→22:06)
[2017-07-03 08:00] VITALS: BP 172/94; PULSE 68; TEMP 98.2; O2SAT 97
[2017-07-03] MEDS: DOXAZOSIN MESYLATE 2 MG TAB PO SCH (08:39)
[2017-07-03] MEDS: ENALAPRIL MALEATE 5 MG TAB PO SCH (08:39)
[2017-07-03] MEDS: RIVAROXABAN 10 MG TAB PO SCH (08:40)
[2017-07-03] MEDS: SODIUM CHLORIDE 0.9% FLUSH 10 ML FLUSH IV FLUSH SCH ×2 (08:52→22:07)
[2017-07-03 12:00] VITALS: BP 139/90; PULSE 76; RESP 16; TEMP 97.9; O2SAT 98
[2017-07-03] MEDS ORDERED: CLINDAMYCIN 300 MG/NS PREMIX 50 ML IV SCH (13:00)
--- NOTE | 2017-07-03 13:03 | HHI.PR ---
Subjective Remarks Patient seen and examined today for follow-up on postop wound infection due to noncompliance. Patient resting comfortably. States that the leg is still having significant drainage. Still having pain 7/10 on a pain scale. Patient denies any new complaints. Patient remains afebrile Objective Vital Signs Date Time Temp Pulse Resp B/P (MAP) Pulse Ox O2 Delivery O2 Flow Rate FiO2 07/03/17 12:00 97.9 76 16 139/90 (106) 98 07/03/17 08:00 98.2 68 172/94 (120) 97 07/03/17 06:53 18 07/03/17 04:00 97.1 80 16 98 07/02/17 20:00 98.0 75 18 134/74 (94) 97 07/02/17 15:50 97.1 77 20 161/80 (107) 95 I/O 07/02/17 07/02/17 07/02/17 07/03/17 07/03/17 07/03/17 07:00 15:00 23:00 07:00 15:00 23:00 Intake Total 1082.5 ml 200 ml 1481 ml Output Total 1250 ml 850 ml Balance -167.5 ml 200 ml 631 ml Intake Oral 720 ml 1481 ml IV Total 362.5 ml 200 ml Output Urine Total 1250 ml 850 ml # Bowel Movements 0 Result Diagram: 07/02/17 0630 07/02/17 0630 Other Results GENERAL: Well-developed, well-nourished, in no acute distress. alert and orientated HEENT: Head is normocephalic without any lesions or masses noted. Facial features are symmetric. Eyes: Extraocular muscles are intact. Conjunctivae were clear. NECK: Supple without any masses. Trachea midline no deviation. No JVD, CARDIAC: Regular rhythm, regular rate. S1/S2 are heard. No murmurs gallops or rubs. LUNGS: Clear to auscultation bilaterally. No wheeze, rhonchi or rales. No use of accessory muscles on inspiration or expiration. ABDOMEN: Soft, nontender. Nondistended. Bowel sounds heard in all 4 quadrants. No organomegaly or masses. Negative rebound, negative guarding EXTREMITIES: No edema, pulses are equal bilaterally. No cyanosis or clubbing NEUROLOGY: Mood and affect appear appropriate. Cranial nerves II through XII grossly intact. Moving all extremities, speech is clear SKIN: Right leg does have bandage on it lateral and distal to the tibia tuberosity. There is serosanguineous drainage. Wet eschar. Surgical site appears to be approximated. A/P Assessment and Plan Cellulitis of the right lower extremity, Right knee x-ray reviewed showing stable appearance status post open rigid internal fixation. Postsurgical wound infection secondary to noncompliance Consult placed to orthopedic surgeon for postop infection Wound culture with staph aureus Patient continued on cefazolin which is sensitive Continue wound care Continue pain control Bacteremic Blood cultures +3/4 with multiple bacteria staph epidermidis, pleomorphic gram positive rods, Follow-up blood cultures are negative for 2 days Patient on cefazolin and, will start clindamycin 300 mg IV every 6 hours Infectious disease consulted for recommendations Hypertension Lopressor, Vasotec as needed DVT prevention Sequential compression devices Xarelto Discharge Planning Discharge planning 24-48 hours depending on infectious disease recommendations for antibiotics. Luciano Fernandez Jul 03, 2017 13:03
[2017-07-03] MEDS: traMADol HCL 50 MG TAB PO PRN ×2 (13:35→19:17)
[2017-07-03 16:00] VITALS: BP 149/89; PULSE 69; RESP 17; TEMP 97.8; O2SAT 96
--- NOTE | 2017-07-03 18:18 | HHI.PR ---
Addendum to Inpatient Note Additional Information Pt seen fulln note to follow Diane Urias MD Jul 03, 2017 18:18
--- NOTE | 2017-07-03 18:19 | PD.ID.CON ---
History of Present Illness Service ID Consult Requested By Dr Leung Reason for Consult bacteremia Primary Care Physician No Primary Care Physician Diagnoses: History of Present Illness 61 yo male sp ORIF R tib/fib fx on june 11 presented with worseing swelling redness pain and drainage ans separation of incision Denies fecver, chills No anbibiotics prior to admission Inthe hospital started on BSA (broad spectrum abx): zosun, vanco MSSA fro R LE wound Blood clx growing corynobacterium in one set and Staph epi in another repeat BC negative Review of Systems Except as stated in HPI: all other systems reviewed are Neg Past Family Social History Allergies: Coded Allergies: No Known Allergies (Verified Adverse Reaction, Unknown, 06/29/17) Past Medical History CAD Past Surgical History CABG ORIF RLE Active Ordered Medications Medications where reviewed in EMR Antibiotics Include: ancef clindamycin Family History [facility] Social History tobacco + 1ppd + ETOH no IVDU Physical Exam Vital Signs Vital Signs Date Time Temp Pulse Resp B/P (MAP) Pulse Ox O2 Delivery O2 Flow Rate FiO2 07/03/17 16:00 97.8 69 17 149/89 (109) 96 07/03/17 12:00 97.9 76 16 139/90 (106) 98 07/03/17 08:00 98.2 68 172/94 (120) 97 07/03/17 06:53 18 07/03/17 04:00 97.1 80 16 98 07/02/17 20:00 98.0 75 18 134/74 (94) 97 Physical Exam CONSTITUTIONAL/GENERAL: This is an adequately nourished patient, in no apparent distress. TUBES/LINES/DRAINS: SKIN: No jaundice, rashes, or lesions. Ecchymoses on upper extremities. No wounds seen anteriorly. Skin temperature appropriate. Not diaphoretic. HEAD: Atraumatic. Normocephalic. EYES: Pupils equal and round and reactive. Extraocular motions intact. No scleral icterus. No injection or drainage. Fundi not examined. ENT: Hearing grossly normal. Nose without bleeding or purulent drainage. Throat without visible erythema, exudates, masses, or lesions. NECK: Trachea midline. Supple, nontender. No palpable thyroid enlargement or nodularity. CARDIOVASCULAR: Regular rate and rhythm without murmurs, gallops, or rubs. No JVD. Peripheral pulses symmetric. RESPIRATORY/CHEST: Symmetric, unlabored respirations. Clear to auscultation. Breath sounds equal bilaterally. No wheezes, rales, or rhonchi. GASTROINTESTINAL: Abdomen soft, non-tender, nondistended. No hepato-splenomegaly , or palpable masses. No guarding. Bowel sounds present. MUSCULOSKELETAL: Extremities without clubbing, cyanosis, or edema. No joint tenderness or effusion noted. No calf tenderness. No mottling or clubbing. Incision R downs partially dehisce, there is serous drainag and erythema '+ tender to palpation LYMPHATICS: No palpable cervical or supraclavicular adenopathy. NEUROLOGICAL: Awake and alert. Motor and sensory grossly within normal limits. Follows commands. Cognitively sharp. Moves all extremities. PSYCHIATRIC: No obvious anxiety/depression. no apparent hallucinations or other psychotic thought process. Laboratory Date/Time Source Procedure Growth Status 07/01/17 15:32 Blood Peripheral Aerobic Blood Culture - Preliminary NO GROWTH IN 2 DAYS Resulted 07/01/17 15:32 Blood Peripheral Anaerobic Blood Culture - Preliminary NO GROWTH IN 2 DAYS Resulted 06/29/17 23:00 Wound Leg Gram Stain - Final Complete 06/29/17 23:00 Wound Culture - Final Staphylococcus Aureus Complete Result Diagram: 07/02/17 0630 07/02/17 0630 Imaging Last Impressions Knee X-Ray 06/29/172 Signed Impressions: Service Date/Time: June 23:12 - CONCLUSION: Stable appearance status post open rigid internal fixation. 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
[2017-07-03 20:00] VITALS: BP 180/98; PULSE 74; RESP 20; TEMP 96.7; O2SAT 97
[2017-07-04] VITALS: BP 153/88; PULSE 65; RESP 18; TEMP 98; O2SAT 96
[2017-07-04] MEDS: traMADol HCL 50 MG TAB PO PRN ×4 (01:14→23:27)
[2017-07-04] MEDS: ceFAZolin 2 GM PREMIX 50 ML IV SCH ×3 (05:20→21:51)
[2017-07-04] MEDS: METOPROLOL TARTRATE 25 MG TAB PO SCH ×3 (05:20→21:51)
[2017-07-04 07:46] LABS: AUTOMATED NEUTROPHIL # 4.2 TH/MM3 (1.8-7.7); BASOPHIL % 0.4 % (0.0-2.0); EOSINOPHIL # 0.2 TH/MM3 (0-0.4); EOSINOPHIL % 2.2 % (0.0-4.0); HEMATOCRIT 37.2 % (39.0-51.0); HEMOGLOBIN 12.2 GM/DL (13.0-17.0); LYMPH % 22.5 % (9.0-44.0); LYMPHOCYTE # 1.5 TH/MM3 (1.0-4.8); MEAN CELL VOLUME 103.6 FL (80.0-100.0); MEAN CORPUSCULAR HEMOGLOBIN 34.1 PG (27.0-34.0); MEAN CORPUSCULAR HGB CONC 32.9 % (32.0-36.0); MEAN PLATELET VOLUME 7.5 FL (7.0-11.0); MONO % 13.3 % (0.0-8.0); MONOCYTE # 0.9 TH/MM3 (0-0.9); NEUT % 61.6 % (16.0-70.0); PLATELET COUNT 291 TH/MM3 (150-450); RED BLOOD COUNT 3.59 MIL/MM3 (4.50-5.90); RED CELL DISTRIBUTION WIDTH 12.6 % (11.6-17.2); WHITE BLOOD COUNT 6.8 TH/MM3 (4.0-11.0)
[2017-07-04] MEDS: ENALAPRIL MALEATE 5 MG TAB PO SCH (07:57)
[2017-07-04] MEDS: RIVAROXABAN 10 MG TAB PO SCH (07:57)
[2017-07-04] MEDS: DOXAZOSIN MESYLATE 2 MG TAB PO SCH (07:57)
[2017-07-04 08:00] VITALS: BP 180/94; PULSE 70; RESP 16; TEMP 96.7; O2SAT 97
[2017-07-04 08:02] LABS: CHLORIDE 101 MEQ/L (98-107); SODIUM (NA) 137 MEQ/L (136-145)
[2017-07-04 08:06] LABS: CALCIUM 9.2 MG/DL (8.5-10.1)
[2017-07-04 08:07] LABS: ALBUMIN 2.8 GM/DL (3.4-5.0); BICARBONATE 29.5 MEQ/L (21.0-32.0); BLOOD UREA NITROGEN 8 MG/DL (7-18); GLUCOSE,RANDOM 84 MG/DL (74-106)
[2017-07-04 08:10] LABS: ALT (GPT) 48 U/L (12-78); AST (GOT) 72 U/L (15-37); CREATININE 0.64 MG/DL (0.60-1.30); GLOMERULAR FILTRATION RATE 128 ML/MIN (>89)
[2017-07-04 08:12] LABS: TOTAL BILIRUBIN ADULT 0.5 MG/DL (0.2-1.0); TOTAL PROTEIN 7.6 GM/DL (6.4-8.2)
[2017-07-04 08:13] LABS: ALKALINE PHOSPHATASE 61 U/L (45-117)
--- NOTE | 2017-07-04 08:49 | HHI.PR ---
Subjective Remarks Patient seen and examined today for follow-up on postop wound infection. Patient resting comfortably in bed. Does not indicate any worsening pain. He states that the wound is still draining. Discussed with infectious disease yesterday that further studies will need to be performed to rule out infected hardware. Vital signs are stable, afebrile. Objective Vitals Vital Signs Date Time Temp Pulse Resp B/P (MAP) Pulse Ox O2 Delivery O2 Flow Rate FiO2 07/04/17 08:00 96.7 70 16 180/94 (122) 97 07/04/17 00:00 98.0 65 18 153/88 (109) 96 07/03/17 20:00 96.7 74 20 180/98 (125) 97 07/03/17 16:00 97.8 69 17 149/89 (109) 96 07/03/17 12:00 97.9 76 16 139/90 (106) 98 I/O 07/03/17 07/03/17 07/03/17 07/04/17 07/04/17 07/04/17 07:00 15:00 23:00 07:00 15:00 23:00 Intake Total 150 ml 1010 ml 415 ml Output Total 900 ml 1300 ml Balance 150 ml 110 ml -885 ml Intake Oral 960 ml 365 ml IV Total 150 ml 50 ml 50 ml Output Urine Total 900 ml 1300 ml # Bowel Movements 1 0 Result Diagram: 07/04/1718 07/04/17 0718 Objective Remarks GENERAL: Well-developed, well-nourished, in no acute distress. alert and orientated HEENT: Head is normocephalic without any lesions or masses noted. Facial features are symmetric. Eyes: Extraocular muscles are intact. Conjunctivae were clear. NECK: Supple without any masses. Trachea midline no deviation. No JVD, CARDIAC: Regular rhythm, regular rate. S1/S2 are heard. No murmurs gallops or rubs. LUNGS: Clear to auscultation bilaterally. No wheeze, rhonchi or rales. No use of accessory muscles on inspiration or expiration. ABDOMEN: Soft, nontender. Nondistended. Bowel sounds heard in all 4 quadrants. No organomegaly or masses. Negative rebound, negative guarding EXTREMITIES: No edema, pulses are equal bilaterally. No cyanosis or clubbing NEUROLOGY: Mood and affect appear appropriate. Cranial nerves II through XII grossly intact. Moving all extremities, speech is clear SKIN: Right leg does have bandage on it lateral and distal to the tibia tuberosity. There is serosanguineous drainage. Wet eschar. Surgical site appears to be approximated. Urinary Catheter: No Vascular Central Line Catheter: No A/P Assessment and Plan Cellulitis of the right lower extremity, Right knee x-ray reviewed showing stable appearance status post open rigid internal fixation. Postsurgical wound infection secondary to noncompliance Consult placed to orthopedic surgeon for postop infection Wound culture with staph aureus Patient continued on cefazolin which is sensitive Continue wound care Continue pain control Infectious disease recommending further imaging studies, CT with IV contrast , if negative will need to pursue WBC scan CT scan with IV contrast was unremarkable for any abnormality or signs of infection with hardware Awaiting WBC scan Bacteremic Blood cultures +3/4 with multiple bacteria staph epidermidis, staph coag negative, Corynebacterium, Follow-up blood cultures are negative for 2 days Infectious disease consulted for recommendations, Discussed with infectious disease who indicated that blood cultures are with contamination Hypertension Lopressor 25 mg every 8 hours, Amlodipine 10 mg daily Start lisinopril 10 mg daily Vasotec as needed DVT prevention Sequential compression devices Luciano Garcia Jul 04, 2017 08:49
[2017-07-04] MEDS: SODIUM CHLORIDE 0.9% FLUSH 10 ML FLUSH IV FLUSH SCH ×2 (09:00→21:51)
[2017-07-04] MEDS: LISINOPRIL 10 MG TAB PO SCH (09:00)
[2017-07-04] MEDS ORDERED: IOHEXOL 350 MG/ML 10 ML VIAL (for RAD DIAG) IVCONTRAST ONE (10:28)
--- NOTE | 2017-07-04 10:58 | RADRPT ---
EXAM DATE/TIME: 07/04/2017 09:42 [facility] COMPARISON: No previous studies available for comparison. INDICATIONS : Right knee pain. Post op wound infection. Evaluate for hardware infection. IV CONTRAST: 90 cc Omnipaque 350 (iohexol) IV RADIATION DOSE: 8.65 CTDIvol (mGy) MEDICAL HISTORY : Cardiovascular disease. Deep venous thrombosis. Hypertension.Diabetes. SURGICAL HISTORY : Carotid endarterectomy. CABGRight Tibia ORIF. Bilateral femoral bypass. ENCOUNTER: Initial ACUITY: 2 weeks PAIN SCALE: 7/10 LOCATION: Right lower extremity TECHNIQUE: Volumetric scanning of the knee was performed. Using automated exposure control and adjustment of th e mA and/or kV according to patient size, radiation dose was kept as low as reasonably achievable to obtain optimal diagnostic quality images. DICOM format image data is available electronically for re view and comparison. FINDINGS: BONES: A comminuted fracture involving the lateral tibial plateau is again noted. The fracture extends into the central articulating surface of the tibial plateau. An extra medullary plate with fixation screws has been placed for stabilization. There are no destructive bone changes the patella and distal femu r are intact. Comminuted fracture of the fibular head is noted. JOINTS: Small joint effusion is identified within the suprapatellar bursa. SOFT TISSUES: Soft tissue swelling is identified along the lateral aspect of the knee extending into the proximal c assisted. There are no discrete extra-articular loculated fluid collections. Muscles, tendons and neurovas cular structures are grossly unremarkable. CONCLUSION: 1. Small joint effusion and lateral knee soft tissue swelling. 2. Status post ORIF of a comminuted lateral tibial plateau fracture 3. No evidence of destructive bone lesions or extra articular fluid collections. 4. Postop wound infection and hardware infection cannot be excluded based on the above findings. Mina Dockery MD on July 04, 2017 at 10:47 Board Certified Radiologist. This report was verified electronically.
[2017-07-04 12:00] VITALS: BP 138/78; PULSE 78; RESP 16; TEMP 98.6; O2SAT 97
[2017-07-04 17:00] VITALS: BP 134/77; PULSE 64; RESP 16; TEMP 97.9; O2SAT 95
[2017-07-04 20:00] VITALS: BP 166/79; PULSE 69; RESP 20; TEMP 97.7; O2SAT 97
[2017-07-05] VITALS: BP 162/79; PULSE 64; RESP 20; TEMP 97.9; O2SAT 97
[2017-07-05] MEDS: ceFAZolin 2 GM PREMIX 50 ML IV SCH ×3 (05:46→22:09)
[2017-07-05] MEDS: traMADol HCL 50 MG TAB PO PRN ×4 (05:46→23:16)
[2017-07-05] MEDS: METOPROLOL TARTRATE 25 MG TAB PO SCH ×3 (05:46→22:09)
[2017-07-05 08:00] VITALS: BP 155/90; PULSE 59; RESP 15; TEMP 97.1; O2SAT 97
[2017-07-05] MEDS: ENALAPRIL MALEATE 5 MG TAB PO SCH (08:48)
[2017-07-05] MEDS: LISINOPRIL 10 MG TAB PO SCH (08:48)
[2017-07-05] MEDS: RIVAROXABAN 10 MG TAB PO SCH (08:48)
[2017-07-05] MEDS: DOXAZOSIN MESYLATE 2 MG TAB PO SCH (08:48)
[2017-07-05] MEDS: SODIUM CHLORIDE 0.9% FLUSH 10 ML FLUSH IV FLUSH SCH ×2 (08:50→22:09)
--- NOTE | 2017-07-05 09:59 | HHI.PR ---
Subjective Remarks Patient seen and examined today for follow-up on postop wound infection. Patient resting carefully. States that his knee is very stiff and difficult to move. Patient is undergoing WBC scan at this time. Patient remains afebrile Objective Vitals Vital Signs Date Time Temp Pulse Resp B/P (MAP) Pulse Ox O2 Delivery O2 Flow Rate FiO2 07/05/17 08:00 97.1 59 15 155/90 (111) 97 07/05/17 00:00 97.9 64 20 162/79 (106) 97 07/04/17 20:00 97.7 69 20 166/79 (108) 97 07/04/17 17:00 97.9 64 16 134/77 (96) 95 07/04/17 12:00 98.6 78 16 138/78 (98) 97 I/O 07/04/17 07/04/17 07/04/17 07/05/17 07/05/17 07/05/17 06:59 14:59 22:59 06:59 14:59 22:59 Intake Total 415 ml 530 ml 530 ml Output Total 1300 ml 400 ml 200 ml 1150 ml Balance -885 ml -400 ml 330 ml -620 ml Intake Oral 365 ml 480 ml 480 ml IV Total 50 ml 50 ml 50 ml Output Urine Total 1300 ml 400 ml 200 ml 1150 ml # Bowel Movements 0 Result Diagram: 07/04/1718 07/04/17717 Objective Remarks GENERAL: Well-developed, well-nourished, in no acute distress. alert and orientated HEENT: Head is normocephalic without any lesions or masses noted. Facial features are symmetric. Eyes: Extraocular muscles are intact. Conjunctivae were clear. NECK: Supple without any masses. Trachea midline no deviation. No JVD, CARDIAC: Regular rhythm, regular rate. S1/S2 are heard. No murmurs gallops or rubs. LUNGS: Clear to auscultation bilaterally. No wheeze, rhonchi or rales. No use of accessory muscles on inspiration or expiration. ABDOMEN: Soft, nontender. Nondistended. Bowel sounds heard in all 4 quadrants. No organomegaly or masses. Negative rebound, negative guarding EXTREMITIES: No edema, pulses are equal bilaterally. No cyanosis or clubbing NEUROLOGY: Mood and affect appear appropriate. Cranial nerves II through XII grossly intact. Moving all extremities, speech is clear SKIN: Right leg does have bandage on it lateral and distal to the tibia tuberosity. There is serosanguineous drainage. Wet eschar. Surgical site appears to be approximated. Urinary Catheter: No Vascular Central Line Catheter: No A/P Assessment and Plan Cellulitis of the right lower extremity, Right knee x-ray reviewed showing stable appearance status post open rigid internal fixation. Postsurgical wound infection secondary to noncompliance Consult placed to orthopedic surgeon for postop infection Wound culture with staph aureus Patient continued on cefazolin which is sensitive Continue wound care Continue pain control Infectious disease recommending further imaging studies, CT with IV contrast , if negative will need to pursue WBC scan CT scan with IV contrast was unremarkable for any abnormality or signs of infection with hardware Sedimentation rate and C-reactive protein are both elevated WBC scan does indicate accumulation in the soft tissues directly adjacent to the hardware along the top of the right tibia Reconsulted orthopedics for further recommendations Bacteremic Blood cultures +3/4 with multiple bacteria staph epidermidis, staph coag negative, Corynebacterium, contamination per infectious disease Follow-up blood cultures are negative for 3 days Infectious disease consulted for recommendations, Discussed with infectious disease who indicated that blood cultures are with contamination Hypertension Lopressor 25 mg every 8 hours, Amlodipine 10 mg daily Lisinopril 10 mg daily Vasotec as needed DVT prevention Sequential compression devices Luciano Garcia Jul 05, 2017 09:59
--- NOTE | 2017-07-05 11:59 | RADRPT ---
EXAM DATE/TIME: 07/04/2017 14:31 [facility] COMPARISON: No previous studies available for comparison. INDICATIONS : Post operation infection in right leg. DOSE: 20.1 mCi Tc99m Ceretec labeled white blood cells IV PLANAR IMAGIN min, 3 hrs, 20 hrs SPECT IMAGIN hrs, 20 hrs IMAGNG: SPECT/CT imaging with fusion was performed. RADIATION DOSE: 5.74 CTDIvol (mGy) MEDICAL HISTORY : Cardiovascular disease. SURGICAL HISTORY : CABG Right leg surgery. ENCOUNTER: Initial ACUITY: 1 week PAIN SCALE: 4/10 LOCATION: Right Leg. TECHNIQUE: Following the in vitro labeling of autologous white cells and reinjection, whole body scan was perfor med at the specified times. Imaging was performed at specified times in sagittal, axial and coronal planes. Attenuation correction was performed with computed tomography and both the attenuation corre ction and non-attenuation corrected data sets were reviewed. FINDINGS: Today's examination there is some mild increased tracer activity in the soft tissues which appears to be adjacent to the hardware along the top of the right tibia. There does not appear to be any defini te localization into the bone. The rest of the white cell scan is unremarkable. CONCLUSION: Mild tracer accumulation in the soft tissues directly adjacent to the hardware along the top of the r ight tibia. Emiliano Oshea MD on July 05, 2017 at 11:55 Board Certified Radiologist. This report was verified electronically.
[2017-07-05 12:00] VITALS: BP 100/64; PULSE 73; RESP 16; TEMP 96.3; O2SAT 96
[2017-07-05 16:00] VITALS: BP 134/81; PULSE 62; RESP 15; TEMP 96.7; O2SAT 98
[2017-07-05 20:00] VITALS: BP 138/76; PULSE 67; RESP 20; TEMP 96.6; O2SAT 98
[2017-07-06] VITALS: BP 145/77; PULSE 59; RESP 16; TEMP 98.1; O2SAT 94
[2017-07-06] MEDS: ceFAZolin 2 GM PREMIX 50 ML IV SCH ×2 (05:45→20:15)
[2017-07-06] MEDS: METOPROLOL TARTRATE 25 MG TAB PO SCH ×2 (05:46→20:15)
[2017-07-06] MEDS: traMADol HCL 50 MG TAB PO PRN ×2 (05:46→20:04)
--- NOTE | 2017-07-06 07:44 | HHI.PR ---
Subjective Remarks Patient seen and examined today for follow-up on postop wound infection. Patient is doing well. I was told today by charge nurse that orthopedic is transferring the patient the main hospital for surgery today at noon. Vital signs are stable, patient remains afebrile Objective Vitals Vital Signs Date Time Temp Pulse Resp B/P (MAP) Pulse Ox O2 Delivery O2 Flow Rate FiO2 07/06/17 00:00 98.1 59 16 145/77 (99) 94 07/05/17 20:00 96.6 67 20 138/76 (96) 98 07/05/17 16:00 96.7 62 15 134/81 (98) 98 07/05/17 12:00 96.3 73 16 100/64 (76) 96 07/05/17 08:00 97.1 59 15 155/90 (111) 97 I/O 07/05/17 07/05/17 07/05/17 07/06/17 07/06/17 07/06/17 07:00 15:00 23:00 07:00 15:00 23:00 Intake Total 530 ml 2235 ml 480 ml Output Total 1150 ml 200 ml 2050 ml Balance -620 ml 2035 ml -1570 ml Intake Oral 480 ml 2235 ml 480 ml IV Total 50 ml Output Urine Total 1150 ml 200 ml 2050 ml # Voids 2 # Bowel Movements 0 Result Diagram: 07/04/1771707/04/17717 Objective Remarks GENERAL: Well-developed, well-nourished, in no acute distress. alert and orientated HEENT: Head is normocephalic without any lesions or masses noted. Facial features are symmetric. Eyes: Extraocular muscles are intact. Conjunctivae were clear. NECK: Supple without any masses. Trachea midline no deviation. No JVD, CARDIAC: Regular rhythm, regular rate. S1/S2 are heard. No murmurs gallops or rubs. LUNGS: Clear to auscultation bilaterally. No wheeze, rhonchi or rales. No use of accessory muscles on inspiration or expiration. ABDOMEN: Soft, nontender. Nondistended. Bowel sounds heard in all 4 quadrants. No organomegaly or masses. Negative rebound, negative guarding EXTREMITIES: No edema, pulses are equal bilaterally. No cyanosis or clubbing NEUROLOGY: Mood and affect appear appropriate. Cranial nerves II through XII grossly intact. Moving all extremities, speech is clear SKIN: Right leg does have bandage on it lateral and distal to the tibia tuberosity. There is serosanguineous drainage. Wet eschar. Surgical site appears to be approximated. Urinary Catheter: No Vascular Central Line Catheter: No A/P Assessment and Plan Cellulitis of the right lower extremity, Right knee x-ray reviewed showing stable appearance status post open rigid internal fixation. Postsurgical wound infection secondary to noncompliance Consult placed to orthopedic surgeon for postop infection Wound culture with staph aureus Patient continued on cefazolin which is sensitive Continue wound care Continue pain control Infectious disease recommending further imaging studies, CT with IV contrast , if negative will need to pursue WBC scan CT scan with IV contrast was unremarkable for any abnormality or signs of infection with hardware Sedimentation rate and C-reactive protein are both elevated WBC scan does indicate accumulation in the soft tissues directly adjacent to the hardware along the top of the right tibia Reconsulted orthopedics for further recommendations, plans for transfer to OR for surgery today Will get CBC, BMP, PT, PTT, EKG for preop studies Hold Xarelmohamud today, resume when cleared by orthopedist Bacteremic Blood cultures +3/4 with multiple bacteria staph epidermidis, staph coag negative, Corynebacterium, contamination per infectious disease Follow-up blood cultures are negative for 4 days Infectious disease consulted for recommendations, Discussed with infectious disease who indicated that blood cultures are with contamination Hypertension Lopressor 25 mg every 8 hours, Amlodipine 10 mg daily Lisinopril 10 mg daily Vasotec as needed DVT prevention Sequential compression devices Luciano Garcia Jul 06, 2017 07:44
[2017-07-06 08:00] VITALS: BP 137/76; PULSE 66; RESP 16; TEMP 96.1; O2SAT 91
[2017-07-06] MEDS: DOXAZOSIN MESYLATE 2 MG TAB PO SCH (08:01)
[2017-07-06] MEDS: LISINOPRIL 10 MG TAB PO SCH (08:02)
[2017-07-06] MEDS: ENALAPRIL MALEATE 5 MG TAB PO SCH (08:02)
[2017-07-06] MEDS: SODIUM CHLORIDE 0.9% FLUSH 10 ML FLUSH IV FLUSH SCH (08:03)
[2017-07-06 08:10] LABS: AUTOMATED NEUTROPHIL # 4.9 TH/MM3 (1.8-7.7); BASOPHIL # 0.1 TH/MM3 (0-0.2); BASOPHIL % 1.2 % (0.0-2.0); EOSINOPHIL # 0.2 TH/MM3 (0-0.4); EOSINOPHIL % 2.8 % (0.0-4.0); HEMATOCRIT 37.9 % (39.0-51.0); HEMOGLOBIN 13.1 GM/DL (13.0-17.0); LYMPH % 19.6 % (9.0-44.0); LYMPHOCYTE # 1.5 TH/MM3 (1.0-4.8); MEAN CELL VOLUME 103.8 FL (80.0-100.0); MEAN CORPUSCULAR HEMOGLOBIN 35.8 PG (27.0-34.0); MEAN CORPUSCULAR HGB CONC 34.5 % (32.0-36.0); MEAN PLATELET VOLUME 7.6 FL (7.0-11.0); MONOCYTE # 0.8 TH/MM3 (0-0.9); NEUT % 65.4 % (16.0-70.0); PLATELET COUNT 294 TH/MM3 (150-450); RED BLOOD COUNT 3.65 MIL/MM3 (4.50-5.90); RED CELL DISTRIBUTION WIDTH 12.9 % (11.6-17.2); WHITE BLOOD COUNT 7.5 TH/MM3 (4.0-11.0)
[2017-07-06 08:25] LABS: CALCIUM 9.1 MG/DL (8.5-10.1)
[2017-07-06 08:26] LABS: BICARBONATE 28.1 MEQ/L (21.0-32.0)
[2017-07-06 08:27] LABS: PROTHROMBIN TIME - PATIENT 10.4 SEC (9.8-11.6)
[2017-07-06 08:29] LABS: CREATININE 0.77 MG/DL (0.60-1.30)
--- NOTE | 2017-07-06 13:39 | EKG ---
Date Performed: 07/06/2017 Time Performed: 08:00:52 PTAGE: 61 years EKG: SINUS BRADYCARDIA WITH FIRST DEGREE AV BLOCK ABNORMAL ECG Compared to PREVIOUS TRACING , the NM interval is slightly longer. ST abnormality has resolved. PREVI OUS TRACIN06/09/2017 00.17 DOCTOR: Blake Kaufman Interpretating Date/Time 07/06/2017 13:38:04
[2017-07-06] MEDS ORDERED: GENTAMICIN SULFATE 80 MG/2 ML VIAL ONE (14:55)
[2017-07-06 18:45] VITALS: PULSE 70
[2017-07-06] MEDS ORDERED: *morphine SULFATE 8 MG/ML PERIprocedure ONLY ONE (19:04)
[2017-07-06] MEDS: ENALAPRILAT 2.5 MG/2 ML VIAL IV PUSH PRN (19:58)
[2017-07-06] MEDS ORDERED: MORPHINE SULFATE 8 MG/ML INJ IV PUSH ONE (20:00)
[2017-07-06 20:10] VITALS: BP 135/66; PULSE 68; RESP 20; TEMP 96.2; O2SAT 97
[2017-07-06] MEDS ORDERED: MORPHINE SULFATE 8 MG/ML INJ IV PUSH PRN (20:15)
[2017-07-06] MEDS: VANCOMYCIN 1,000 MG/NS 250 ML IV SCH ×2 (20:30)
--- NOTE | 2017-07-06 21:09 | PD.ORT.PN ---
Subjective Subjective Remarks no fever/chills. pain controlled. Objective Vitals Vital Signs Date Time Temp Pulse Resp B/P (MAP) Pulse Ox O2 Delivery O2 Flow Rate FiO2 07/06/17 20:29 70 16 175/81 (112) 95 07/06/17 18:45 97 Room Air 07/06/17 18:45 98.8 70 25 160/76 (104) 96 07/06/17 18:45 70 07/06/17 08:00 96.1 66 16 137/76 (96) 91 07/06/17 00:00 98.1 59 16 145/77 (99) 94 I/O 07/05/17 07/05/17 07/05/17 07/06/17 07/06/17 07/06/17 07:00 15:00 23:00 07:00 15:00 23:00 Intake Total 530 ml 2235 ml 480 ml 2 ml Output Total 1150 ml 200 ml 2050 ml Balance -620 ml 2035 ml -1570 ml 2 ml Intake Oral 480 ml 2235 ml 480 ml IV Total 50 ml 2 ml Output Urine Total 1150 ml 200 ml 2050 ml # Voids 2 # Bowel Movements 0 Result Diagram: 07/06/17 0800 07/06/17 0800 Other Results Laboratory Tests Test 07/06/17 08:00 Prothromb Time International Ratio 1.0 RATIO Prothrombin Time 10.4 SEC (9.8-11.6) Objective Remarks AAOx3. NAD RLE: persistent mild-moderate drainage from right tibia superolateral wound. serosanguinous and cloudy. a few small areas of dehiscence. passive ROM tolerated but knee is stiff in general with AROM. soft compartments. neg homans. +EHL/FHL Assessment & Plan Assessment and Plan 61-year-old male with poor hygiene and history of homelessness. Presented to the emergency department after missing all his oupatient follow-up visits. He is status post right plateau open reduction internal fixation on June 13, 2017. Currently afebrile, normal WBC. Persistent wound drainage with + cultures and WBC scan suggestive of wound/ hardware infection without osteo. -OR for wound I&D -NPO -iv abx -NWB -plan for ID consult postop for filler leaf cutter long iv abx via picc line Nic Ritter Jr., MD Jul 06, 2017 21:09
[2017-07-07] VITALS: BP 161/78; PULSE 69; RESP 20; TEMP 97.1; O2SAT 96
[2017-07-07] MEDS: traMADol HCL 50 MG TAB PO PRN ×2 (02:00→16:39)
[2017-07-07] MEDS ORDERED: MORPHINE SULFATE 4 MG/ML INJ IV PUSH PRN (02:15)
[2017-07-07] MEDS: ceFAZolin 2 GM PREMIX 50 ML IV SCH (05:00)
[2017-07-07] MEDS: METOPROLOL TARTRATE 25 MG TAB PO SCH ×3 (06:00→22:17)
[2017-07-07] MEDS: MORPHINE SULFATE 8 MG/ML INJ IV PUSH PRN ×4 (06:00→22:16)
[2017-07-07 08:00] VITALS: BP 135/73; PULSE 60; RESP 20; TEMP 97.6; O2SAT 95
[2017-07-07] MEDS: LISINOPRIL 10 MG TAB PO SCH (08:05)
[2017-07-07] MEDS: ENALAPRIL MALEATE 5 MG TAB PO SCH (08:05)
[2017-07-07] MEDS: SODIUM CHLORIDE 0.9% FLUSH 10 ML FLUSH IV FLUSH SCH ×3 (08:07→21:00)
--- NOTE | 2017-07-07 08:10 | PD.ORT.PN ---
Subjective Subjective Remarks s/p right tibial plateau fx with infection Objective Vitals Vital Signs Date Time Temp Pulse Resp B/P (MAP) Pulse Ox O2 Delivery O2 Flow Rate FiO2 07/07/17 00:00 97.1 69 20 161/78 (105) 96 07/06/17 21:00 97.7 71 18 141/98 (112) 98 07/06/17 20:29 70 16 175/81 (112) 95 07/06/17 20:10 96.2 68 20 135/66 (89) 97 07/06/17 18:45 97 Room Air 07/06/17 18:45 98.8 70 25 160/76 (104) 96 07/06/17 18:45 70 I/O 07/06/17 07/06/17 07/06/17 07/07/17 07/07/17 07/07/17 07:00 15:00 23:00 07:00 15:00 23:00 Intake Total 480 ml 2 ml 240 ml Output Total 2050 ml Balance -1570 ml 2 ml 240 ml Intake Oral 480 ml 240 ml IV Total 2 ml Output Urine Total 2050 ml # Bowel Movements 0 1 Result Diagram: 07/06/17 0800 07/06/17 0800 Objective Remarks AAOx3. NAD RLE: persistent mild-moderate drainage from right tibia superolateral wound. serosanguinous and cloudy. a few small areas of dehiscence. passive ROM tolerated but knee is stiff in general with AROM. soft compartments. neg homans. +EHL/FHL Assessment & Plan Assessment and Plan 1) Right Tibial Plateau Fx s/p ORIF by Dr Ritter with wound dehiscence and infection -NPO -OR today with Aaron Chavez/Service Desk Agent АННА Jul 07, 2017 08:10
[2017-07-07] MEDS: VANCOMYCIN 1,000 MG/NS 250 ML IV SCH ×2 (08:30)
[2017-07-07] MEDS: DOXAZOSIN MESYLATE 2 MG TAB PO SCH (09:00)
[2017-07-07] MEDS ORDERED: TOBRAMYCIN 1200 MG VIAL (for ortho/sterile core) OTHER ONE (09:12)
[2017-07-07] MEDS ORDERED: GENTAMICIN SULFATE 80 MG/2 ML VIAL ONE (09:12)
[2017-07-07] MEDS ORDERED: ceFAZolin INJ 1,000 MG VIAL ONE (09:12)
[2017-07-07] MEDS ORDERED: VANCOMYCIN HCL 1000 MG VIAL ONE ×2 (09:12→10:00)
[2017-07-07] MEDS: LACTATED RINGER'S 1000 ML INJ 1,000 ML IV SCH ×2 (10:15→22:17)
--- NOTE | 2017-07-07 10:21 | PD.OP ---
cc: Jordan Talbot MD Operative Report Date of Surgery: Jul 07, 2017 Preoperative Diagnosis: Right proximal tibia wound infection Postoperative Diagnosis: Procedure: Irrigation and debridement of right proximal tibia, placement of antibiotic beads, application wound VAC dressing Anesthesia: Gen. Surgeon: Jordan Talbot [employer] Application Developer(s): KOURTNEY Rawls PA-C The surgical procedure was assisted by my physician community program assistant. My P.A. presence was necessary throughout this case for the manipulation and positioning of the surgical extremity. My P.A. was assisting me throughout the duration of this procedure. The skill set of a physician community program assistant was medically necessary to complete this procedure. During the surgical case the surgical training specialist was working at the back table and the physician community program assistant was directly assisting me. Operation and Findings: Aubrey is a 61-year-old male who sustained a right tibial plateau fracture treated with open reduction internal fixation by Dr. Ritter approximate 4 weeks ago. He presented to the emergency room approximate 5 days ago with increasing redness and drainage. He has been on IV antibiotics. I was asked by Dr. Ritter to see patient and evaluate for irrigation and debridement. Patient was seen and evaluated and found to have infection of his right leg. Informed consent was obtained and operative site was marked. His brought to operating room. He was given IV sedation and general anesthesia. Right leg was prepped with alcohol followed by Hibiclens and draped usual sterile fashion. The patient and on scheduled IV antibiotics. Procedure began with irrigation and debridement of the tibia. The previous incision was opened. Full-thickness skin was excised. All necrotic tissue was debrided. Cultures were obtained from deep tissue. Curettes were used to debride fascia and tibia. Areas of the iliotibial band were excised. After thorough debridement of the wound, pulsatile lavage was used to thoroughly irrigate soft tissue, hardware, and bone. Overall the wound appeared to be relatively clean at this time. Next attention was turned to antibiotic beads. 5 cc of stimulant bone cement was mixed with 2 g of vancomycin. Small beads were made. Once the beads were set the beads were packed around the hardware and bone. At this point the skin was closed with 3-0 PDS and 3-0 nylon. Next attention was turned towards VAC dressing. A small VAC dressing was placed over the surgical incision and previous wound. The surgical incision was completely covered. An incisional wound VAC was utilized. A VAC dressing was sealed appropriately. Sterile dressings were applied. Patient was transferred to recovery room in stable condition. Needle and sponge counts were correct. Jordan Talbot MD Jul 07, 2017 10:21
[2017-07-07] MEDS ORDERED: *morphine SULFATE 4 MG/ML PERIprocedure ONLY ONE ×2 (10:45→11:32)
[2017-07-07] MEDS ORDERED: MIDAZOLAM HCL 2 MG/2 ML VIAL ONE (10:47)
[2017-07-07] MEDS ORDERED: DO NOT ADM ANY ANTICOAGULANT DRUGS PRN (11:30)
[2017-07-07] MEDS ORDERED: DEXAMETHASONE SOD PHOS 4 MG/ML VIAL IV ONE (12:00)
[2017-07-07] MEDS ORDERED: LIDOCAINE HCL 1% PF 5 ML SYRINGE OTHER ONE (12:00)
[2017-07-07] MEDS ORDERED: PROPOFOL 200 MG/20 ML AMP IV ONE (12:00)
[2017-07-07] MEDS ORDERED: ePHEDrine/NS 25 MG/5 ML SYRINGE IV ONE (12:00)
[2017-07-07] MEDS ORDERED: ONDANSETRON HCL 4 MG/2 ML VIAL IV ONE (12:00)
[2017-07-07] MEDS ORDERED: VANCOMYCIN 1,000 MG/NS 250 ML IV SCH ×2 (12:45)
[2017-07-07 13:16] VITALS: BP 151/69; PULSE 82; RESP 18; TEMP 97.4; O2SAT 96
--- NOTE | 2017-07-07 13:46 | HHI.PR ---
Subjective Remarks Went for surgery. The patient was seen after the surgery today. Says he has a lot of pain at the surgical site. No fever or chills. No nausea or vomiting. No diarrhea constipation. Objective Vitals Vital Signs Date Time Temp Pulse Resp B/P (MAP) Pulse Ox O2 Delivery O2 Flow Rate FiO2 07/07/17 13:16 97.4 82 18 151/69 (96) 96 07/07/17 12:15 97.6 81 16 154/68 (96) 95 Room Air 07/07/17 11:15 77 16 178/88 (118) 94 Room Air 07/07/17 11:00 75 16 176/88 (117) 94 Room Air 07/07/17 10:45 109 16 179/83 (115) 97 Room Air 07/07/17 10:40 97.6 76 16 178/83 (114) 99 07/07/17 08:00 97.6 60 20 135/73 (93) 95 07/07/17 00:00 97.1 69 20 161/78 (105) 96 07/06/17 21:00 97.7 71 18 141/98 (112) 98 07/06/17 20:29 70 16 175/81 (112) 95 07/06/17 20:10 96.2 68 20 135/66 (89) 97 07/06/17 18:45 97 Room Air 07/06/17 18:45 98.8 70 25 160/76 (104) 96 07/06/17 18:45 70 I/O 07/06/17 07/06/17 07/06/17 07/07/17 07/07/17 07/07/17 07:00 15:00 23:00 07:00 15:00 23:00 Intake Total 480 ml 2 ml 240 ml 1532 ml Output Total 2050 ml 420 ml Balance -1570 ml 2 ml 240 ml 1112 ml Intake Oral 480 ml 240 ml 480 ml IV Total 2 ml 252 ml Other 800 ml Output Urine Total 2050 ml 400 ml Estimated Blood Loss 20 ml # Bowel Movements 0 1 Result Diagram: 07/06/17 0800 07/06/17 0800 Imaging Last Impressions Tumor Localization 07/04/17 0000 Signed Impressions: Service Date/Time: Tuesday, July 04, 2017 14:31 - CONCLUSION: Mild tracer accumulation in the soft tissues directly adjacent to the hardware along the top of the right tibia. Emiliano Oshea MD Lower Extremity CT 07/04/17 0000 Signed Impressions: Service Date/Time: Tuesday, July 04, 2017 09:42 - CONCLUSION: 1. Small joint effusion and lateral knee soft tissue swelling. 2. Status post ORIF of a comminuted lateral tibial plateau fracture 3. No evidence of destructive bone lesions or extra articular fluid collections. 4. Postop wound infection and hardware infection cannot be excluded based on the above findings. Mina Dockery MD Knee X-Ray 06/29/172301 Signed Impressions: Service Date/Time: June 23:12 - CONCLUSION: Stable appearance status post open rigid internal fixation. Rivas Ledesma MD Objective Remarks GENERAL: This is a well-nourished, well-developed patient, in no apparent distress. CARDIOVASCULAR: Regular rate and rhythm without murmurs, gallops, or rubs. RESPIRATORY: Clear to auscultation. Breath sounds equal bilaterally. No wheezes , rales, or rhonchi. GASTROINTESTINAL: Abdomen soft, non-tender, nondistended. No hepato-splenomegaly , or palpable masses. No guarding. MUSCULOSKELETAL: Right knee with wound vac, dressing n wrapped. Extremities without clubbing, cyanosis. Right lower extremity edema 1+. No numbness or tingling. Sensation intact. NEUROLOGICAL: Awake and alert. Cranial nerves II through XII intact. Motor and sensory grossly within normal limits. Five out of 5 muscle strength in all muscle groups. Normal speech. Procedures Right proximal tibia wound infection s/p Irrigation and debridement of right proximal tibia, placement of antibiotic beads, application wound VAC dressing on 07/07/[address] Smith A/P Problem List: (1) Status post fracture of right tibia ICD Code: Z87.81 - Personal history of (healed) traumatic fracture Status: Acute Assessment and Plan This is a 61-year-old male patient with a known medical history of PAD, CAD and tobacco abuse who presented to the ED with complaints of right lower extremity pain and possible infection postoperatively. He states he broke his right knee on June 08 and underwent left knee surgery on June 11 and then injured it and states it "got infected" shortly after. Cellulitis of right leg status post fracture of right tibia Right proximal tibia wound infection s/p Irrigation and debridement of right proximal tibia, placement of antibiotic beads, application wound VAC dressing on 07/07/[address] Smith Bacteremia staph aureus and staph epi Positive blood cx 05/14 . Repeat blood cx. Consult ID for further eval and management. Continue antibiotics cefazolin 2 g every 8 hours. - Right knee x-ray reviewed showing stable appearance status post open rigid internal fixation. - Wound culture showing Staphylococcus aureus. Will await sensitivity and MAC. Continue to monitor for infection. - Orthopedic surgeon ff for postop infection, appreciate input recommendations. Continue IV abx Hypertension: May be secondary to pain. Will start amlodipine and enalapril and metoprolol. Monitor BP trends. DVT prophylaxis: SCDs. DC when improved, and cleared by consultants July Sun MD Jul 07, 2017 13:46
[2017-07-07 16:00] VITALS: BP 130/67; PULSE 78; RESP 18; TEMP 97.7; O2SAT 97
[2017-07-07] MEDS: CEFAZOLIN INJ 2,000 MG in SODIUM CHLORIDE 0.9% INJ 100 ML IV SCH (18:12)
[2017-07-07 20:00] VITALS: BP 150/67; PULSE 70; RESP 18; TEMP 97.7; O2SAT 96
[2017-07-08] VITALS: BP 161/78; PULSE 66; RESP 18; TEMP 98.4; O2SAT 95
[2017-07-08] MEDS: traMADol HCL 50 MG TAB PO PRN ×4 (01:08→22:26)
[2017-07-08] MEDS: CEFAZOLIN INJ 2,000 MG in SODIUM CHLORIDE 0.9% INJ 100 ML IV SCH ×3 (01:08→15:55)
[2017-07-08] MEDS: MORPHINE SULFATE 8 MG/ML INJ IV PUSH PRN ×4 (02:50→18:18)
[2017-07-08 04:00] VITALS: BP 195/89; PULSE 74; RESP 18; TEMP 97.8; O2SAT 94
[2017-07-08] MEDS: ENALAPRILAT 2.5 MG/2 ML VIAL IV PUSH PRN (04:57)
[2017-07-08] MEDS: METOPROLOL TARTRATE 25 MG TAB PO SCH ×3 (04:57→20:22)
[2017-07-08] MEDS: LACTATED RINGER'S 1000 ML INJ 1,000 ML IV SCH ×2 (04:57→15:55)
[2017-07-08 08:00] VITALS: BP 188/90; PULSE 67; RESP 18; TEMP 98; O2SAT 97
[2017-07-08 08:18] LABS: BASOPHIL % 0.3 % (0.0-2.0); EOSINOPHIL % 0.5 % (0.0-4.0); HEMATOCRIT 35.4 % (39.0-51.0); HEMOGLOBIN 12.5 GM/DL (13.0-17.0); LYMPH % 17.6 % (9.0-44.0); LYMPHOCYTE # 1.7 TH/MM3 (1.0-4.8); MEAN CELL VOLUME 103.3 FL (80.0-100.0); MEAN CORPUSCULAR HEMOGLOBIN 36.4 PG (27.0-34.0); MEAN CORPUSCULAR HGB CONC 35.2 % (32.0-36.0); MEAN PLATELET VOLUME 8.1 FL (7.0-11.0); MONO % 9.6 % (0.0-8.0); MONOCYTE # 0.9 TH/MM3 (0-0.9); PLATELET COUNT 217 TH/MM3 (150-450); RED BLOOD COUNT 3.43 MIL/MM3 (4.50-5.90); RED CELL DISTRIBUTION WIDTH 13.4 % (11.6-17.2); WHITE BLOOD COUNT 9.7 TH/MM3 (4.0-11.0)
[2017-07-08] MEDS: SODIUM CHLORIDE 0.9% FLUSH 10 ML FLUSH IV FLUSH SCH ×2 (08:21→20:22)
[2017-07-08] MEDS: ENALAPRIL MALEATE 5 MG TAB PO SCH (08:22)
[2017-07-08] MEDS: LISINOPRIL 10 MG TAB PO SCH (08:22)
[2017-07-08 08:38] LABS: BICARBONATE 27.6 MEQ/L (21.0-32.0); CALCIUM 9.1 MG/DL (8.5-10.1); CREATININE 0.7 MG/DL (0.60-1.30)
--- NOTE | 2017-07-08 08:54 | HHI.PR ---
Subjective Remarks in no acute distress. pain is fairly controlled. no fever. no other complaints. Objective Vitals Vital Signs Date Time Temp Pulse Resp B/P (MAP) Pulse Ox O2 Delivery O2 Flow Rate FiO2 07/08/17 04:00 97.8 74 18 195/89 (124) 94 07/08/17 00:00 98.4 66 18 161/78 (105) 95 07/07/17 20:00 97.7 70 18 150/67 (94) 96 07/07/17 16:00 97.7 78 18 130/67 (88) 97 07/07/17 13:16 97.4 82 18 151/69 (96) 96 07/07/17 12:15 97.6 81 16 154/68 (96) 95 Room Air 07/07/17 11:15 77 16 178/88 (118) 94 Room Air 07/07/17 11:00 75 16 176/88 (117) 94 Room Air 07/07/17 10:45 109 16 179/83 (115) 97 Room Air 07/07/17 10:40 97.6 76 16 178/83 (114) 99 I/O 07/07/17 07/07/17 07/07/17 07/08/17 07/08/17 07/08/17 07:00 15:00 23:00 07:00 15:00 23:00 Intake Total 1532 ml 1840 ml 1200 ml Output Total 420 ml 900 ml 2400 ml Balance 1112 ml 940 ml -1200 ml Intake Oral 480 ml 720 ml 480 ml IV Total 252 ml 1120 ml 720 ml Other 800 ml Output Urine Total 400 ml 900 ml 2400 ml Drainage Total 0 ml Estimated Blood Loss 20 ml # Bowel Movements 1 0 Result Diagram: 07/08/17 0718 07/08/17 0757 Imaging Last Impressions Tumor Localization 07/04/17 0000 Signed Impressions: Service Date/Time: Tuesday, July 04, 2017 14:31 - CONCLUSION: Mild tracer accumulation in the soft tissues directly adjacent to the hardware along the top of the right tibia. Emiliano Oshea MD Lower Extremity CT 07/04/17 0000 Signed Impressions: Service Date/Time: Tuesday, July 04, 2017 09:42 - CONCLUSION: 1. Small joint effusion and lateral knee soft tissue swelling. 2. Status post ORIF of a comminuted lateral tibial plateau fracture 3. No evidence of destructive bone lesions or extra articular fluid collections. 4. Postop wound infection and hardware infection cannot be excluded based on the above findings. Mina Dockery MD Knee X-Ray 06/29/17 4658 Signed Impressions: Service Date/Time: June 23:12 - CONCLUSION: Stable appearance status post open rigid internal fixation. Rivas Ledesma MD Objective Remarks GENERAL: This is a well-nourished, well-developed patient, in no apparent distress. CARDIOVASCULAR: Regular rate and regular rhythm without murmurs, gallops, or rubs. RESPIRATORY: Clear to auscultation. Breath sounds equal bilaterally. No wheezes , rales, or rhonchi. GASTROINTESTINAL: Abdomen soft, non-tender, nondistended. Normal, active bowel sounds MUSCULOSKELETAL: right leg/knee covered with clean dressing with wound vac in place. NEURO: Alert & Oriented x4 to person, place, time, situation. Moves all ext x4 Procedures Right proximal tibia wound infection s/p Irrigation and debridement of right proximal tibia, placement of antibiotic beads, application wound VAC dressing on 07/07/[address] Smith Medications and IVs Inpatient Medications Amlodipine Besylate (Norvasc) 10 mg DAILY PO Last administered on 07/08/17at 08: 22; Start 06/30/17 at 16:15 Cefazolin Sodium 2000 mg/Sodium Chloride 120 ml @ 240 mls/hr Q8H IV Last administered on 07/08/17at 08:21; Start 07/07/17 at 17:00 Cefazolin Sodium/ Dextrose 50 ml @ 100 mls/hr Q8H IV Last administered on 07/07at 05:00; Start 07/02/17 at 13:00; Stop 07/07/17 at 17:13; Status DC Clindamycin/ Sodium Chloride 50 ml @ 100 mls/hr Q6H IV Last administered on at 13:34; Start 07/03/17 at 13:00; Stop 07/03/17 at 18:28; Status DC Doxazosin Mesylate (Cardura) 2 mg DAILY PO Last administered on 07/06/17at 08:01 ; Start 06/30/17 at 16:15 Enalapril Maleate (Vasotec) 5 mg DAILY PO Last administered on 07/08/17 08:22 ; Start 06/30/17 at 16:15 Enalaprilat (Vasotec Inj) 2.5 mg Q6H PRN IV PUSH SBP>160, DBP>90 Last administered on 07/08/17at 04:57; Start 07/02/17 at 13:30 Influenza Virus Vaccine (Flu (Quadrivalent) Vaccine Inj) 0.5 ml ONCE ONCE IM ; Start 07/01/17 at 10:00; Stop 07/01/17 at 10:01; Status DC Lactated Ringer's 1,000 ml @ 100 mls/hr Q10H IV Last administered on at 04:57; Start 07/07/17 at 10:15 Lisinopril (Prinivil) 10 mg DAILY PO Last administered on 07/08/17at 08:22; Start 07/04/17 at 09:00 Metoprolol Tartrate (Lopressor) 25 mg Q8HR PO Last administered on 07/08/17at 04 :57; Start 06/30/17 at 16:15 Miscellaneous Information ALL NURSING DEPARTME... UNSCH PRN .XX SEE LABEL COMMENTS; Start 07/07/17 at 11:30; Stop 07/08/17 at 11:29 Morphine Sulfate (Morphine Inj) 5 mg Q4H PRN IV PUSH PAIN SCALE 1 TO 5 Last administered on 07/08/17at 08:23; Start 07/07/17 at 02:15 Naloxone HCl (Narcan Inj) 0.4 mg UNSCH PRN IV PUSH SEE LABEL COMMENTS; Start at 01:00 Pharmacy Profile Note 0 ml @ 0 mls/hr UNSCH OTHER ; Start 06/30/17 at 01:00; Stop 07/02/17 at 11:38; Status DC Piperacillin Sod/ Tazobactam Sod 100 ml @ 200 mls/hr Q6H IV Last administered on 07/02/17at 09:40; Start 06/30/17 at 08:00; Stop 07/02/17 at 11:38; Status DC Potassium Chloride (KCl) 40 meq ONCE ONCE PO Last administered on 07/02/17at 09 :39; Start 07/02/17 at 09:00; Stop 07/02/17 at 09:13; Status DC Rivaroxaban (Xarelto) 10 mg DAILY PO Last administered on 07/05/17at 08:48; Start 06/30/17 at 16:15; Status Future Hold Sodium Chloride (NS Flush) 2 ml BID IV FLUSH Last administered on 07/08/17at 08: 21; Start 06/30/17 at 09:00 Tramadol HCl (Ultram) 50 mg Q6HR PRN PO PAIN SCALE 6 TO 10 Last administered on 07/08/17at 01:08; Start 07/03/17 at 13:00 Vancomycin HCl 1000 mg/Sodium Chloride 250 ml @ 250 mls/hr Q12H IV ; Start at 12:45; Stop 07/07/17 at 13:44; Status DC Vancomycin HCl 1250 mg/Sodium Chloride 262.5 ml @ 250 mls/hr Q12H IV Last administered on 07/01/17at 23:27; Start 06/30/17 at 12:00; Stop 07/02/17 at 11:38 ; Status DC A/P Problem List: (1) Status post fracture of right tibia ICD Code: Z87.81 - Personal history of (healed) traumatic fracture Status: Acute Assessment and Plan Cellulitis of right leg status post fracture of right tibia Right proximal tibia wound infection Bacteremia staph aureus and staph epi s/p Irrigation and debridement of right proximal tibia, placement of antibiotic beads, application wound VAC dressing on 07/07/[address] Smith Positive blood cx 2/4 . Repeated blood cultures negative. ID consulted; continue Ancef. ortho following. Hypertension: May be secondary to pain. continue lisinopril,metoprolol and amlodipine and continue to monitor. DVT prophylaxis: Vika Guzman MD Jul 08, 2017 08:54
[2017-07-08] MEDS: DOXAZOSIN MESYLATE 2 MG TAB PO SCH (09:00)
--- NOTE | 2017-07-08 11:07 | PD.ORT.PN ---
Subjective Subjective Remarks Patient comfortable. Pain controlled. NAD. Objective Vitals Vital Signs Date Time Temp Pulse Resp B/P (MAP) Pulse Ox O2 Delivery O2 Flow Rate FiO2 07/08/17 08:00 98.0 67 18 188/90 (122) 97 07/08/17 04:00 97.8 74 18 195/89 (124) 94 07/08/17 00:00 98.4 66 18 161/78 (105) 95 07/07/17 20:00 97.7 70 18 150/67 (94) 96 07/07/17 16:00 97.7 78 18 130/67 (88) 97 07/07/17 13:16 97.4 82 18 151/69 (96) 96 07/07/17 12:15 97.6 81 16 154/68 (96) 95 Room Air 07/07/17 11:15 77 16 178/88 (118) 94 Room Air I/O 07/07/17 07/07/17 07/07/17 07/08/17 07/08/17 07/08/17 07:00 15:00 23:00 07:00 15:00 23:00 Intake Total 1532 ml 1840 ml 1200 ml 100 ml Output Total 420 ml 900 ml 2400 ml Balance 1112 ml 940 ml -1200 ml 100 ml Intake Oral 480 ml 720 ml 480 ml IV Total 252 ml 1120 ml 720 ml 100 ml Other 800 ml Output Urine Total 400 ml 900 ml 2400 ml Drainage Total 0 ml Estimated Blood Loss 20 ml # Bowel Movements 1 0 Result Diagram: 07/08/17 0718 07/08/17 0757 Objective Remarks Right knee tyler wrap intact wound vac dressing intact calves soft distally motor, neuro, and sensory intact Assessment & Plan Assessment and Plan POD #1 Irrigation and debridement of right proximal tibia, placement of antibiotic beads, application wound VAC dressing Pain management Continue IV abx therapy per ID management Physical therapy - nonweight bearing RLE Do not change wound vac dressing D/C planning Monitor Boogie Medina Jul 08, 2017 11:07
[2017-07-08 12:00] VITALS: BP 141/71; PULSE 73; RESP 17; TEMP 97.9; O2SAT 99
[2017-07-08 16:00] VITALS: BP 155/70; PULSE 66; RESP 17; TEMP 97.5; O2SAT 97
--- NOTE | 2017-07-08 16:14 | HHI.IDPN ---
Subjective Subjective Remarks sp I+D dw Dr Talbot op report reviewed pt is afebile doing OK Antibiotics cefazoline Allergies: Coded Allergies: No Known Allergies (Verified Adverse Reaction, Unknown, 06/29/17) Objective . Vital Signs Date Time Temp Pulse Resp B/P (MAP) Pulse Ox O2 Delivery O2 Flow Rate FiO2 07/08/17 12:00 97.9 73 17 141/71 (94) 99 07/08/17 08:00 98.0 67 18 188/90 (122) 97 07/08/17 04:00 97.8 74 18 195/89 (124) 94 07/08/17 00:00 98.4 66 18 161/78 (105) 95 07/07/17 20:00 97.7 70 18 150/67 (94) 96 07/08/17 07/08/17 07/09/17 15:00 23:00 07:00 Intake Total 100 ml Balance 100 ml IV Total 100 ml . Laboratory Tests Test 07/08/17 07:18 White Blood Count 9.7 TH/MM3 Red Blood Count 3.43 MIL/MM3 Hemoglobin 12.5 GM/DL Hematocrit 35.4 % Mean Corpuscular Volume 103.3 FL Mean Corpuscular Hemoglobin 36.4 PG Mean Corpuscular Hemoglobin Concent 35.2 % Red Cell Distribution Width 13.4 % Platelet Count 217 TH/MM3 Mean Platelet Volume 8.1 FL Neutrophils (%) (Auto) 72.0 % Lymphocytes (%) (Auto) 17.6 % Monocytes (%) (Auto) 9.6 % Eosinophils (%) (Auto) 0.5 % Basophils (%) (Auto) 0.3 % Neutrophils # (Auto) 7.0 TH/MM3 Lymphocytes # (Auto) 1.7 TH/MM3 Monocytes # (Auto) 0.9 TH/MM3 Eosinophils # (Auto) 0.0 TH/MM3 Basophils # (Auto) 0.0 TH/MM3 CBC Comment DIFF FINAL Differential Comment Laboratory Tests Test 07/08/17 07:57 Blood Urea Nitrogen 8 MG/DL Creatinine 0.70 MG/DL Random Glucose 100 MG/DL Calcium Level 9.1 MG/DL Sodium Level 138 MEQ/L Potassium Level 4.0 MEQ/L Chloride Level 104 MEQ/L Carbon Dioxide Level 27.6 MEQ/L Anion Gap 6 MEQ/L Estimat Glomerular Filtration Rate 115 ML/MIN Microbiology Date/Time Source Procedure Growth Status 07/07/17 10:00 Wound Leg Fungal Smear - Final NO FUNGAL ELEMENTS SEEN. Resulted 07/07/17 10:00 Wound Leg Fungal Culture Pending Resulted 07/07/17 10:00 Wound Leg Acid Fast Stain Pending Worksheet 07/07/17 10:00 Wound Leg Mycobacterial Culture Pending Worksheet 07/07/17 10:00 Wound Leg Gram Stain - Final Resulted 07/07/17 10:00 Wound Culture - Preliminary Staphylococcus Species Resulted Imaging Last Impressions Tumor Localization 07/04/17 0000 Signed Impressions: Service Date/Time: Tuesday, July 04, 2017 14:31 - CONCLUSION: Mild tracer accumulation in the soft tissues directly adjacent to the hardware along the top of the right tibia. Emiliano Oshea MD Lower Extremity CT 07/04/17 0000 Signed Impressions: Service Date/Time: Tuesday, July 04, 2017 09:42 - CONCLUSION: 1. Small joint effusion and lateral knee soft tissue swelling. 2. Status post ORIF of a comminuted lateral tibial plateau fracture 3. No evidence of destructive bone lesions or extra articular fluid collections. 4. Postop wound infection and hardware infection cannot be excluded based on the above findings. Mina Dockery MD Knee X-Ray 06/29/17 2302 Signed Impressions: Service Date/Time: June 23:12 - CONCLUSION: Stable appearance status post open rigid internal fixation. Rivas Ledesma MD Physical Exam CONSTITUTIONAL/GENERAL: This is an adequately nourished patient, in no apparent distress. TUBES/LINES/DRAINS: SKIN: No jaundice, rashes, or lesions. Ecchymoses on upper extremities. No wounds seen anteriorly. Skin temperature appropriate. Not diaphoretic. HEAD: Atraumatic. Normocephalic. EYES: Pupils equal and round and reactive. Extraocular motions intact. No scleral icterus. No injection or drainage. Fundi not examined. RESPIRATORY/CHEST: Symmetric, unlabored respirations. GASTROINTESTINAL: Abdomen benign MUSCULOSKELETAL: Extremities without clubbing, cyanosis, or edema. RLE with VAC in place NEUROLOGICAL: Awake and alert. Motor and sensory grossly within normal limits. Follows commands. Cognitively sharp. Moves all extremities. PSYCHIATRIC: No obvious anxiety/depression. no apparent hallucinations or other psychotic thought process. 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
--- NOTE | 2017-07-08 16:16 | HHI.FF ---
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 [] May leave port accessed during therapy. [] May leave peripheral site accessed for duration of therapy. [x] If patient has SOB or respiratory distress, check oxygen saturation. If less than 90% or clinical signs of respiratory distress, administer oxygen at 2 L/min. via nasal cannula and notify physician. [x] Anaphylaxis/Reaction orders: * Stop infusion. * Keep IV line open with saline flush. * Notify physician. * Monitor vital signs every 15 minutes until symptoms resolve. * Check Oxygen saturation; Oxygen at 2 L/min. via nasal cannula if less than 90% or clinical signs of respiratory distress. * Administer diphenhydramine (Benadryl) 25 mg IV STAT, (unless patient has received as pre-med). May repeat once, if necessary. * Solu-Cortef 250 mg IVP over 30-60 seconds, use 100 mg vials for each dissolution. * Epinephrine (1mg/1 ml) 0.3 mg subcutaneously or IVP now with any signs of respiratory distress. * Check with physician for new additional pre-med orders if patient is re- challenged or re-treated. [x] May remove PICC line when treatment complete, after confirming with Physician. [x] If the patient is admitted to the hospital, the ED, or transferred via [facility] , complete transfer form including medication reconciliation order sheet. Laboratory Tests Weekly Labs: CBC w/diff, Creatinine, CRP, LFT's (Hepatic function test), SED Rate Diane Urias MD Jul 08, 2017 16:16
[2017-07-08 20:00] VITALS: BP 148/74; PULSE 64; RESP 20; TEMP 97.6; O2SAT 95
[2017-07-08] MEDS: RIFAMPIN 150 MG CAP PO SCH (20:22)
[2017-07-09] VITALS: BP 148/75; PULSE 56; RESP 20; TEMP 97.6; O2SAT 96
[2017-07-09] MEDS: MORPHINE SULFATE 8 MG/ML INJ IV PUSH PRN ×6 (01:24→21:40)
[2017-07-09] MEDS: CEFAZOLIN INJ 2,000 MG in SODIUM CHLORIDE 0.9% INJ 100 ML IV SCH ×3 (01:25→16:47)
[2017-07-09] MEDS: LACTATED RINGER'S 1000 ML INJ 1,000 ML IV SCH ×3 (02:15→21:37)
[2017-07-09 04:00] VITALS: BP 175/85; PULSE 63; RESP 20; TEMP 97.5; O2SAT 96
[2017-07-09] MEDS: METOPROLOL TARTRATE 25 MG TAB PO SCH ×3 (05:29→21:35)
[2017-07-09 08:00] VITALS: BP 178/84; PULSE 52; RESP 17; TEMP 97.8; O2SAT 97
[2017-07-09] MEDS: LISINOPRIL 10 MG TAB PO SCH (08:19)
[2017-07-09] MEDS: SODIUM CHLORIDE 0.9% FLUSH 10 ML FLUSH IV FLUSH SCH ×2 (08:19→21:00)
[2017-07-09] MEDS: RIFAMPIN 150 MG CAP PO SCH ×2 (08:19→21:36)
[2017-07-09] MEDS: DOXAZOSIN MESYLATE 2 MG TAB PO SCH (08:19)
--- NOTE | 2017-07-09 10:45 | HHI.PR ---
Subjective Remarks in no acute distress. no fever. pain is fairly controlled. d/w the RN. Objective Vitals Vital Signs Date Time Temp Pulse Resp B/P (MAP) Pulse Ox O2 Delivery O2 Flow Rate FiO2 07/09/17 08:00 97.8 52 17 178/84 (115) 97 07/09/17 05:47 20 07/09/17 04:00 97.5 63 20 175/85 (115) 96 07/09/17 00:00 97.6 56 20 148/75 (99) 96 07/09/17 00:00 18 07/08/17 20:00 97.6 64 20 148/74 (98) 95 07/08/17 16:00 97.5 66 17 155/70 (98) 97 07/08/17 12:00 97.9 73 17 141/71 (94) 99 I/O 07/08/17 07/08/17 07/08/17 07/09/17 07/09/17 07/09/17 07:00 15:00 23:00 07:00 15:00 23:00 Intake Total 1200 ml 100 ml 1660 ml 360 ml Output Total 2400 ml 1050 ml 1950 ml Balance -1200 ml 100 ml 610 ml -1590 ml Intake Oral 480 ml 1560 ml 360 ml IV Total 720 ml 100 ml 100 ml Output Urine Total 2400 ml 1050 ml 1950 ml Drainage Total 0 ml 0 ml # Bowel Movements 0 0 Result Diagram: 07/08/17 0718 07/08/17 0757 Imaging Last Impressions Tumor Localization 07/04/17 0000 Signed Impressions: Service Date/Time: Tuesday, July 04, 2017 14:31 - CONCLUSION: Mild tracer accumulation in the soft tissues directly adjacent to the hardware along the top of the right tibia. Emiliano Oshea MD Lower Extremity CT 07/04/17 0000 Signed Impressions: Service Date/Time: Tuesday, July 04, 2017 09:42 - CONCLUSION: 1. Small joint effusion and lateral knee soft tissue swelling. 2. Status post ORIF of a comminuted lateral tibial plateau fracture 3. No evidence of destructive bone lesions or extra articular fluid collections. 4. Postop wound infection and hardware infection cannot be excluded based on the above findings. Mina Dockery MD Knee X-Ray 06/29/17 2645 Signed Impressions: Service Date/Time: June 23:12 - CONCLUSION: Stable appearance status post open rigid internal fixation. Rivas Ledesma MD Objective Remarks GENERAL: This is a well-nourished, well-developed patient, in no apparent distress. CARDIOVASCULAR: Regular rate and regular rhythm without murmurs, gallops, or rubs. RESPIRATORY: Clear to auscultation. Breath sounds equal bilaterally. No wheezes , rales, or rhonchi. GASTROINTESTINAL: Abdomen soft, non-tender, nondistended. Normal, active bowel sounds MUSCULOSKELETAL: right leg/knee covered with clean dressing with wound vac in place. NEURO: Alert & Oriented x4 to person, place, time, situation. Moves all ext x4 Procedures Right proximal tibia wound infection s/p Irrigation and debridement of right proximal tibia, placement of antibiotic beads, application wound VAC dressing on 07/07/[address] Smith Medications and IVs Inpatient Medications Amlodipine Besylate (Norvasc) 10 mg DAILY PO Last administered on 07/09/17at 08: 19; Start 06/30/17 at 16:15 Cefazolin Sodium 2000 mg/Sodium Chloride 120 ml @ 240 mls/hr Q8H IV Last administered on 07/09/17at 08:18; Start 07/07/17 at 17:00 Cefazolin Sodium/ Dextrose 50 ml @ 100 mls/hr Q8H IV Last administered on 07/07at 05:00; Start 07/02/17 at 13:00; Stop 07/07/17 at 17:13; Status DC Clindamycin/ Sodium Chloride 50 ml @ 100 mls/hr Q6H IV Last administered on at 13:34; Start 07/03/17 at 13:00; Stop 07/03/17 at 18:28; Status DC Doxazosin Mesylate (Cardura) 2 mg DAILY PO Last administered on 07/09/17 08:19 ; Start 06/30/17 at 16:15 Enalapril Maleate (Vasotec) 5 mg DAILY PO Last administered on 07/08/17at 08:22 ; Start 06/30/17 at 16:15; Stop 07/08/17 at 08:54; Status DC Enalaprilat (Vasotec Inj) 2.5 mg Q6H PRN IV PUSH SBP>160, DBP>90 Last administered on 07/08/17at 04:57; Start 07/02/17 at 13:30 Influenza Virus Vaccine (Flu (Quadrivalent) Vaccine Inj) 0.5 ml ONCE ONCE IM ; Start 07/01/17 at 10:00; Stop 07/01/17 at 10:01; Status DC Lactated Ringer's 1,000 ml @ 100 mls/hr Q10H IV Last administered on at 15:55; Start 07/07/17 at 10:15 Lisinopril (Prinivil) 10 mg DAILY PO Last administered on 07/09/17at 08:19; Start 07/04/17 at 09:00 Metoprolol Tartrate (Lopressor) 25 mg Q8HR PO Last administered on 07/09/17at 05: 29; Start 06/30/17 at 16:15 Miscellaneous Information ALL NURSING DEPARTME... UNSCH PRN .XX SEE LABEL COMMENTS; Start 07/07/17 at 11:30; Stop 07/08/17 at 11:29; Status DC Morphine Sulfate (Morphine Inj) 5 mg Q4H PRN IV PUSH PAIN SCALE 6-10 Last administered on 07/09/17at 09:31; Start 07/07/17 at 02:15 Naloxone HCl (Narcan Inj) 0.4 mg UNSCH PRN IV PUSH SEE LABEL COMMENTS; Start at 01:00 Pharmacy Profile Note 0 ml @ 0 mls/hr UNSCH OTHER ; Start 06/30/17 at 01:00; Stop 07/02/17 at 11:38; Status DC Piperacillin Sod/ Tazobactam Sod 100 ml @ 200 mls/hr Q6H IV Last administered on 07/02/17at 09:40; Start 06/30/17 at 08:00; Stop 07/02/17 at 11:38; Status DC Potassium Chloride (KCl) 40 meq ONCE ONCE PO Last administered on 07/02/17at 09 :39; Start 07/02/17 at 09:00; Stop 07/02/17 at 09:13; Status DC Rifampin (Rifampin) 300 mg Q12HR PO Last administered on 07/09/17at 08:19; Start 07/08/17 at 21:00 Rivaroxaban (Xarelto) 10 mg DAILY PO Last administered on 07/05/17at 08:48; Start 06/30/17 at 16:15; Status Future Hold Sodium Chloride (NS Flush) 2 ml BID IV FLUSH Last administered on 07/08/17at 08: 21; Start 06/30/17 at 09:00 Tramadol HCl (Ultram) 50 mg Q6HR PRN PO PAIN SCALE 1-5 Last administered on at 22:26; Start 07/03/17 at 13:00 Vancomycin HCl 1000 mg/Sodium Chloride 250 ml @ 250 mls/hr Q12H IV ; Start at 12:45; Stop 07/07/17 at 13:44; Status DC Vancomycin HCl 1250 mg/Sodium Chloride 262.5 ml @ 250 mls/hr Q12H IV Last administered on 07/01/17at 23:27; Start 06/30/17 at 12:00; Stop 07/02/17 at 11:38 ; Status DC A/P Problem List: (1) Status post fracture of right tibia ICD Code: Z87.81 - Personal history of (healed) traumatic fracture Status: Acute Assessment and Plan Cellulitis of right leg status post fracture of right tibia Right proximal tibia wound infection Bacteremia staph aureus and staph epi s/p Irrigation and debridement of right proximal tibia, placement of antibiotic beads, application wound VAC dressing on 07/07/[address] Smith Positive blood cx 2/4 . Repeated blood cultures negative. ID f/u appreciated; recommended that cefazoline + rifampin to be continued until re-admitted for hardware removal and then another 4- 6 weeks of abx post- op ortho following. Hypertension: May be secondary to pain. continue lisinopril,metoprolol and amlodipine and continue to monitor. DVT prophylaxis: SCDs. Discharge Planning when cleared by ID and ortho. Vika Rosario MD Jul 09, 2017 10:45
[2017-07-09 11:42] VITALS: BP 122/63; PULSE 72; RESP 18; TEMP 97.9; O2SAT 96
--- NOTE | 2017-07-09 13:12 | PD.ORT.PN ---
Subjective Subjective Remarks Patient comfortable. Pain controlled. Denies any fevers, chills or sweats. Objective Vitals Vital Signs Date Time Temp Pulse Resp B/P (MAP) Pulse Ox O2 Delivery O2 Flow Rate FiO2 07/09/17 11:42 97.9 72 18 122/63 (82) 96 07/09/17 08:00 97.8 52 17 178/84 (115) 97 07/09/17 05:47 20 07/09/17 04:00 97.5 63 20 175/85 (115) 96 07/09/17 00:00 97.6 56 20 148/75 (99) 96 07/09/17 00:00 18 07/08/17 20:00 97.6 64 20 148/74 (98) 95 07/08/17 16:00 97.5 66 17 155/70 (98) 97 I/O 07/08/17 07/08/17 07/08/17 07/09/17 07/09/17 07/09/17 07:00 15:00 23:00 07:00 15:00 23:00 Intake Total 1200 ml 100 ml 1660 ml 360 ml Output Total 2400 ml 1050 ml 1950 ml Balance -1200 ml 100 ml 610 ml -1590 ml Intake Oral 480 ml 1560 ml 360 ml IV Total 720 ml 100 ml 100 ml Output Urine Total 2400 ml 1050 ml 1950 ml Drainage Total 0 ml 0 ml # Bowel Movements 0 0 Result Diagram: 07/08/17 0718 07/08/17 0757 Objective Remarks Right knee tyler wrap intact wound vac dressing intact calves soft distally motor, neuro, and sensory intact Assessment & Plan Assessment and Plan POD #2 Irrigation and debridement of right proximal tibia, placement of antibiotic beads, application wound VAC dressing Awaiting for PICC line placement Pain management Continue IV abx therapy per ID management Physical therapy - nonweight bearing RLE Do not change wound vac dressing D/C planning SNF vs Home with [facility] Monitor Boogie Medina Jul 09, 2017 13:12
[2017-07-09 16:00] VITALS: BP 146/84; PULSE 61; RESP 18; TEMP 98.2; O2SAT 96
[2017-07-09 20:00] VITALS: BP 142/67; PULSE 63; RESP 20; TEMP 98.3; O2SAT 95
[2017-07-10 00:01] VITALS: BP 151/72; PULSE 61; RESP 18; TEMP 98.4; O2SAT 96
[2017-07-10] MEDS: CEFAZOLIN INJ 2,000 MG in SODIUM CHLORIDE 0.9% INJ 100 ML IV SCH ×3 (02:22→16:10)
[2017-07-10] MEDS: MORPHINE SULFATE 8 MG/ML INJ IV PUSH PRN ×5 (02:22→20:14)
[2017-07-10] MEDS: METOPROLOL TARTRATE 25 MG TAB PO SCH ×3 (05:01→20:17)
[2017-07-10 08:00] VITALS: BP 155/70; PULSE 62; RESP 17; TEMP 97.7; O2SAT 97
[2017-07-10] MEDS: LACTATED RINGER'S 1000 ML INJ 1,000 ML IV SCH ×2 (08:15→17:30)
--- NOTE | 2017-07-10 08:33 | PD.ORT.PN ---
Subjective Subjective Remarks resting comfortably Objective Vitals Vital Signs Date Time Temp Pulse Resp B/P (MAP) Pulse Ox O2 Delivery O2 Flow Rate FiO2 07/10/17 04:40 20 07/10/17 00:01 98.4 61 18 151/72 (98) 96 07/09/17 20:00 98.3 63 20 142/67 (92) 95 07/09/17 16:00 98.2 61 18 146/84 (104) 96 07/09/17 11:42 97.9 72 18 122/63 (82) 96 I/O 07/09/17 07/09/17 07/09/17 07/10/17 07/10/17 07/10/17 07:00 15:00 23:00 07:00 15:00 23:00 Intake Total 360 ml 990 ml 720 ml Output Total 1950 ml 850 ml 2150 ml Balance -1590 ml 140 ml -1430 ml Intake Oral 360 ml 750 ml 720 ml IV Total 240 ml Output Urine Total 1950 ml 850 ml 2150 ml Drainage Total 0 ml 0 ml # Bowel Movements 0 0 Result Diagram: 07/08/17 0718 07/08/17 0757 Objective Remarks Right knee tyler wrap intact wound vac dressing intact calves soft distally motor, neuro, and sensory intact Assessment & Plan Assessment and Plan POD #3 Irrigation and debridement of right proximal tibia, placement of antibiotic beads, application wound VAC dressing Awaiting for PICC line placement Pain management Continue IV abx therapy per ID management Physical therapy - nonweight bearing RLE Do not change wound vac dressing - I will take down dressing tomorrow AM CKS right lower extremity D/C planning SNF vs Home with [facility] Monitor Rivas Donovan Jr. Jul 10, 2017 08:33
[2017-07-10] MEDS: SODIUM CHLORIDE 0.9% FLUSH 10 ML FLUSH IV FLUSH SCH ×2 (09:00→20:15)
[2017-07-10] MEDS: LISINOPRIL 10 MG TAB PO SCH (10:32)
[2017-07-10] MEDS: RIFAMPIN 150 MG CAP PO SCH ×2 (10:32→20:14)
[2017-07-10] MEDS: DOXAZOSIN MESYLATE 2 MG TAB PO SCH (10:32)
[2017-07-10 12:00] VITALS: BP 161/77; PULSE 62; RESP 17; TEMP 98.1; O2SAT 97
--- NOTE | 2017-07-10 12:31 | HHI.PR ---
Subjective Remarks in no acute distress. afebrile. pain seems to be controlled. no new complaints. Objective Vitals Vital Signs Date Time Temp Pulse Resp B/P (MAP) Pulse Ox O2 Delivery O2 Flow Rate FiO2 07/10/17 12:00 98.1 62 17 161/77 (105) 97 07/10/17 08:00 97.7 62 17 155/70 (98) 97 07/10/17 04:40 20 07/10/17 00:01 98.4 61 18 151/72 (98) 96 07/09/17 20:00 98.3 63 20 142/67 (92) 95 07/09/17 16:00 98.2 61 18 146/84 (104) 96 I/O 07/09/17 07/09/17 07/09/17 07/10/17 07/10/17 07/10/17 07:00 15:00 23:00 07:00 15:00 23:00 Intake Total 360 ml 990 ml 720 ml Output Total 1950 ml 850 ml 2150 ml Balance -1590 ml 140 ml -1430 ml Intake Oral 360 ml 750 ml 720 ml IV Total 240 ml Output Urine Total 1950 ml 850 ml 2150 ml Drainage Total 0 ml 0 ml # Bowel Movements 0 0 Result Diagram: 07/08/17 0718 07/08/17 0757 Imaging Last Impressions Tumor Localization 07/04/17 0000 Signed Impressions: Service Date/Time: Tuesday, July 04, 2017 14:31 - CONCLUSION: Mild tracer accumulation in the soft tissues directly adjacent to the hardware along the top of the right tibia. Emiliano Oshea MD Lower Extremity CT 07/04/17 0000 Signed Impressions: Service Date/Time: Tuesday, July 04, 2017 09:42 - CONCLUSION: 1. Small joint effusion and lateral knee soft tissue swelling. 2. Status post ORIF of a comminuted lateral tibial plateau fracture 3. No evidence of destructive bone lesions or extra articular fluid collections. 4. Postop wound infection and hardware infection cannot be excluded based on the above findings. Mina Dockery MD Knee X-Ray 06/29/17 6345 Signed Impressions: Service Date/Time: June 23:12 - CONCLUSION: Stable appearance status post open rigid internal fixation. Rivas Ledesma MD Objective Remarks GENERAL: This is a well-nourished, well-developed patient, in no apparent distress. CARDIOVASCULAR: Regular rate and regular rhythm without murmurs, gallops, or rubs. RESPIRATORY: Clear to auscultation. Breath sounds equal bilaterally. No wheezes , rales, or rhonchi. GASTROINTESTINAL: Abdomen soft, non-tender, nondistended. Normal, active bowel sounds MUSCULOSKELETAL: right leg/knee covered with clean dressing with wound vac in place. NEURO: Alert & Oriented x4 to person, place, time, situation. Moves all ext x4 Procedures Right proximal tibia wound infection s/p Irrigation and debridement of right proximal tibia, placement of antibiotic beads, application wound VAC dressing on 07/07/[address] Smith Medications and IVs Inpatient Medications Amlodipine Besylate (Norvasc) 10 mg DAILY PO Last administered on 07/10/17at 10: 31; Start 06/30/17 at 16:15 Cefazolin Sodium 2000 mg/Sodium Chloride 120 ml @ 240 mls/hr Q8H IV Last administered on 07/10/17at 10:50; Start 07/07/17 at 17:00 Cefazolin Sodium/ Dextrose 50 ml @ 100 mls/hr Q8H IV Last administered on 07/07at 05:00; Start 07/02/17 at 13:00; Stop 07/07/17 at 17:13; Status DC Clindamycin/ Sodium Chloride 50 ml @ 100 mls/hr Q6H IV Last administered on at 13:34; Start 07/03/17 at 13:00; Stop 07/03/17 at 18:28; Status DC Doxazosin Mesylate (Cardura) 2 mg DAILY PO Last administered on 07/10/17at 10:32 ; Start 06/30/17 at 16:15 Enalapril Maleate (Vasotec) 5 mg DAILY PO Last administered on 07/08/17at 08:22 ; Start 06/30/17 at 16:15; Stop 07/08/17 at 08:54; Status DC Enalaprilat (Vasotec Inj) 2.5 mg Q6H PRN IV PUSH SBP>160, DBP>90 Last administered on 07/08/17at 04:57; Start 07/02/17 at 13:30 Influenza Virus Vaccine (Flu (Quadrivalent) Vaccine Inj) 0.5 ml ONCE ONCE IM ; Start 07/01/17 at 10:00; Stop 07/01/17 at 10:01; Status DC Lactated Ringer's 1,000 ml @ 100 mls/hr Q10H IV Last administered on 07/10/17at 08:15; Start 07/07/17 at 10:15 Lisinopril (Prinivil) 10 mg DAILY PO Last administered on 07/10/17at 10:32; Start 07/04/17 at 09:00 Metoprolol Tartrate (Lopressor) 25 mg Q8HR PO Last administered on 07/10/17at 05: 01; Start 06/30/17 at 16:15 Miscellaneous Information ALL NURSING DEPARTME... UNSCH PRN .XX SEE LABEL COMMENTS; Start 07/07/17 at 11:30; Stop 07/08/17 at 11:29; Status DC Morphine Sulfate (Morphine Inj) 5 mg Q4H PRN IV PUSH PAIN SCALE 6-10 Last administered on 07/10/17at 10:51; Start 07/07/17 at 02:15 Naloxone HCl (Narcan Inj) 0.4 mg UNSCH PRN IV PUSH SEE LABEL COMMENTS; Start at 01:00 Pharmacy Profile Note 0 ml @ 0 mls/hr UNSCH OTHER ; Start 06/30/17 at 01:00; Stop 07/02/17 at 11:38; Status DC Piperacillin Sod/ Tazobactam Sod 100 ml @ 200 mls/hr Q6H IV Last administered on 07/02/17at 09:40; Start 06/30/17 at 08:00; Stop 07/02/17 at 11:38; Status DC Potassium Chloride (KCl) 40 meq ONCE ONCE PO Last administered on 07/02/17at 09 :39; Start 07/02/17 at 09:00; Stop 07/02/17 at 09:13; Status DC Rifampin (Rifampin) 300 mg Q12HR PO Last administered on 07/10/17at 10:32; Start 07/08/17 at 21:00 Rivaroxaban (Xarelto) 10 mg DAILY PO Last administered on 07/05/17at 08:48; Start 06/30/17 at 16:15; Status Future Hold Sodium Chloride (NS Flush) 2 ml BID IV FLUSH Last administered on 07/08/17at 08: 21; Start 06/30/17 at 09:00 Tramadol HCl (Ultram) 50 mg Q6HR PRN PO PAIN SCALE 1-5 Last administered on at 22:26; Start 07/03/17 at 13:00 Vancomycin HCl 1000 mg/Sodium Chloride 250 ml @ 250 mls/hr Q12H IV ; Start at 12:45; Stop 07/07/17 at 13:44; Status DC Vancomycin HCl 1250 mg/Sodium Chloride 262.5 ml @ 250 mls/hr Q12H IV Last administered on 07/01/17at 23:27; Start 06/30/17 at 12:00; Stop 07/02/17 at 11:38 ; Status DC A/P Problem List: (1) Status post fracture of right tibia ICD Code: Z87.81 - Personal history of (healed) traumatic fracture Status: Acute Assessment and Plan Cellulitis of right leg status post fracture of right tibia Right proximal tibia wound infection Bacteremia staph aureus and staph epi s/p Irrigation and debridement of right proximal tibia, placement of antibiotic beads, application wound VAC dressing on 07/07/[address] Smith Positive blood cx 05/14 . Repeated blood cultures negative. ID f/u appreciated; recommended that cefazoline + rifampin to be continued until re-admitted for hardware removal and then another 4- 6 weeks of abx post- op ortho following. wound vac management per ortho. Hypertension: May be secondary to pain. continue lisinopril,metoprolol and amlodipine and continue to monitor. DVT prophylaxis: SCDs. Discharge Planning when cleared by ID and ortho. Vika Rosario MD Jul 10, 2017 12:31
[2017-07-10 16:00] VITALS: BP 151/73; PULSE 72; RESP 17; TEMP 97.6; O2SAT 96
--- NOTE | 2017-07-10 17:06 | HHI.IDPN ---
Subjective Subjective Remarks pt is afebile doing OK tolerating abx OK Antibiotics cefazoline + rif Allergies: Coded Allergies: No Known Allergies (Verified Adverse Reaction, Unknown, 06/29/17) Objective . Vital Signs Date Time Temp Pulse Resp B/P (MAP) Pulse Ox O2 Delivery O2 Flow Rate FiO2 07/10/17 16:00 97.6 72 17 151/73 (99) 96 07/10/17 12:00 98.1 62 17 161/77 (105) 97 07/10/17 08:00 97.7 62 17 155/70 (98) 97 07/10/17 04:40 20 07/10/17 00:01 98.4 61 18 151/72 (98) 96 07/09/17 20:00 98.3 63 20 142/67 (92) 95 Imaging Last Impressions Tumor Localization 07/04/17 0000 Signed Impressions: Service Date/Time: Tuesday, July 04, 2017 14:31 - CONCLUSION: Mild tracer accumulation in the soft tissues directly adjacent to the hardware along the top of the right tibia. Emiliano Oshea MD Lower Extremity CT 07/04/17 0000 Signed Impressions: Service Date/Time: Tuesday, July 04, 2017 09:42 - CONCLUSION: 1. Small joint effusion and lateral knee soft tissue swelling. 2. Status post ORIF of a comminuted lateral tibial plateau fracture 3. No evidence of destructive bone lesions or extra articular fluid collections. 4. Postop wound infection and hardware infection cannot be excluded based on the above findings. Mina Dockery MD Knee X-Ray 06/29/17 230 Signed Impressions: Service Date/Time: June 23:12 - CONCLUSION: Stable appearance status post open rigid internal fixation. Rivas Ledesma MD Physical Exam CONSTITUTIONAL/GENERAL: This is an adequately nourished patient, in no apparent distress. TUBES/LINES/DRAINS: SKIN: No jaundice, rashes, or lesions. MUSCULOSKELETAL: Extremities without clubbing, cyanosis, or edema. RLE with VAC in place; no edema/erythma prox or distallly to the dressing NEUROLOGICAL: Awake and alert. PSYCHIATRIC: No obvious anxiety/depression. no apparent hallucinations or other psychotic thought process. 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
[2017-07-10 20:19] VITALS: BP 161/77; PULSE 68; RESP 18; TEMP 98.6; O2SAT 96
[2017-07-11] VITALS: BP 145/75; PULSE 60; RESP 16; TEMP 97.6; O2SAT 98
[2017-07-11] MEDS: MORPHINE SULFATE 8 MG/ML INJ IV PUSH PRN ×3 (00:49→09:59)
[2017-07-11] MEDS: CEFAZOLIN INJ 2,000 MG in SODIUM CHLORIDE 0.9% INJ 100 ML IV SCH ×3 (00:49→17:05)
[2017-07-11] MEDS: LACTATED RINGER'S 1000 ML INJ 1,000 ML IV SCH ×3 (04:15→22:23)
[2017-07-11] MEDS: METOPROLOL TARTRATE 25 MG TAB PO SCH ×3 (06:08→22:21)
[2017-07-11 08:00] VITALS: BP 203/84; PULSE 61; RESP 18; TEMP 98; O2SAT 98
--- NOTE | 2017-07-11 08:22 | PD.ORT.PN ---
Subjective Subjective Remarks resting comfortably Objective Vitals Vital Signs Date Time Temp Pulse Resp B/P (MAP) Pulse Ox O2 Delivery O2 Flow Rate FiO2 07/11/17 08:00 98.0 61 18 203/84 (123) 98 07/11/17 00:00 97.6 60 16 145/75 (98) 98 07/10/17 20:19 98.6 68 18 161/77 (105) 96 07/10/17 16:00 97.6 72 17 151/73 (99) 96 07/10/17 12:00 98.1 62 17 161/77 (105) 97 I/O 07/10/17 07/10/17 07/10/17 07/11/17 07/11/17 07/11/17 07:00 15:00 23:00 07:00 15:00 23:00 Intake Total 720 ml 1200 ml Output Total 2150 ml 900 ml 1850 ml Balance -1430 ml 300 ml -1850 ml Intake Oral 720 ml 1200 ml Output Urine Total 2150 ml 900 ml 1850 ml # Bowel Movements 0 2 Result Diagram: 07/08/17 0718 07/08/17 0757 Objective Remarks Right lower extremity: Shows no pain with hip range of motion. Wound VAC is removed from tibial plateau incision. Incision is well approximated but does have mild continued skin edge necrosis. Drainage from an antibiotic beads are noted. Dressing of Xeroform 4 x 4's ABDs and Bay wrap are applied. He will continue to stay in the immobilizer. Distally intact sensation with active dorsal flexion plantar flexion of foot Assessment & Plan Assessment and Plan POD #4 Irrigation and debridement of right proximal tibia, placement of antibiotic beads, application wound VAC dressing Awaiting for PICC line placement Pain management Continue IV abx therapy per ID management- staph aureus Physical therapy - nonweight bearing RLE Begin daily dressing changes with Xeroform, 4 x 4's, ABDs and Bay wrap CKS right lower extremity We will consider home discharge tomorrow if IV antibiotics are arranged Rivas Donovan Jr. Jul 11, 2017 08:22
[2017-07-11] MEDS: RIFAMPIN 150 MG CAP PO SCH ×2 (08:39→22:21)
[2017-07-11] MEDS: LISINOPRIL 10 MG TAB PO SCH (08:40)
[2017-07-11] MEDS: DOXAZOSIN MESYLATE 2 MG TAB PO SCH (08:40)
[2017-07-11] MEDS: SODIUM CHLORIDE 0.9% FLUSH 10 ML FLUSH IV FLUSH SCH ×2 (08:42→22:24)
--- NOTE | 2017-07-11 11:53 | HHI.PR ---
Subjective Remarks in no acute distress. wound vac has been removed. pain is fairly controlled. no fever. d/w the RN. Objective Vitals Vital Signs Date Time Temp Pulse Resp B/P (MAP) Pulse Ox O2 Delivery O2 Flow Rate FiO2 07/11/17 10:04 18 07/11/17 08:00 98.0 61 18 203/84 (123) 98 07/11/17 00:00 97.6 60 16 145/75 (98) 98 07/10/17 20:19 98.6 68 18 161/77 (105) 96 07/10/17 16:00 97.6 72 17 151/73 (99) 96 07/10/17 12:00 98.1 62 17 161/77 (105) 97 I/O 07/10/17 07/10/17 07/10/17 07/11/17 07/11/17 07/11/17 07:00 15:00 23:00 07:00 15:00 23:00 Intake Total 720 ml 1200 ml Output Total 2150 ml 900 ml 1850 ml Balance -1430 ml 300 ml -1850 ml Intake Oral 720 ml 1200 ml Output Urine Total 2150 ml 900 ml 1850 ml # Bowel Movements 0 2 Result Diagram: 07/08/17 0718 07/08/17 0757 Imaging Last Impressions Tumor Localization 07/04/17 0000 Signed Impressions: Service Date/Time: Tuesday, July 04, 2017 14:31 - CONCLUSION: Mild tracer accumulation in the soft tissues directly adjacent to the hardware along the top of the right tibia. Emiliano Oshea MD Lower Extremity CT 07/04/17 0000 Signed Impressions: Service Date/Time: Tuesday, July 04, 2017 09:42 - CONCLUSION: 1. Small joint effusion and lateral knee soft tissue swelling. 2. Status post ORIF of a comminuted lateral tibial plateau fracture 3. No evidence of destructive bone lesions or extra articular fluid collections. 4. Postop wound infection and hardware infection cannot be excluded based on the above findings. Mina Dockery MD Knee X-Ray 06/29/17 0404 Signed Impressions: Service Date/Time: June 23:12 - CONCLUSION: Stable appearance status post open rigid internal fixation. Rivas Ledesma MD Objective Remarks GENERAL: This is a well-nourished, well-developed patient, in no apparent distress. CARDIOVASCULAR: Regular rate and regular rhythm without murmurs, gallops, or rubs. RESPIRATORY: Clear to auscultation. Breath sounds equal bilaterally. No wheezes , rales, or rhonchi. GASTROINTESTINAL: Abdomen soft, non-tender, nondistended. Normal, active bowel sounds MUSCULOSKELETAL: right leg/knee covered with clean dressing with wound vac in place. NEURO: Alert & Oriented x4 to person, place, time, situation. Moves all ext x4 Procedures Right proximal tibia wound infection s/p Irrigation and debridement of right proximal tibia, placement of antibiotic beads, application wound VAC dressing on 07/07/[address] Smith Medications and IVs Inpatient Medications Amlodipine Besylate (Norvasc) 10 mg DAILY PO Last administered on 07/11/17at 08: 39; Start 06/30/17 at 16:15 Cefazolin Sodium 2000 mg/Sodium Chloride 120 ml @ 240 mls/hr Q8H IV Last administered on 07/11/17at 08:39; Start 07/07/17 at 17:00 Cefazolin Sodium/ Dextrose 50 ml @ 100 mls/hr Q8H IV Last administered on 07/07at 05:00; Start 07/02/17 at 13:00; Stop 07/07/17 at 17:13; Status DC Clindamycin/ Sodium Chloride 50 ml @ 100 mls/hr Q6H IV Last administered on at 13:34; Start 07/03/17 at 13:00; Stop 07/03/17 at 18:28; Status DC Doxazosin Mesylate (Cardura) 2 mg DAILY PO Last administered on 07/11/17at 08:40 ; Start 06/30/17 at 16:15 Enalapril Maleate (Vasotec) 5 mg DAILY PO Last administered on 07/08/17at 08:22 ; Start 06/30/17 at 16:15; Stop 07/08/17 at 08:54; Status DC Enalaprilat (Vasotec Inj) 2.5 mg Q6H PRN IV PUSH SBP>160, DBP>90 Last administered on 07/08/17at 04:57; Start 07/02/17 at 13:30 Influenza Virus Vaccine (Flu (Quadrivalent) Vaccine Inj) 0.5 ml ONCE ONCE IM ; Start 07/01/17 at 10:00; Stop 07/01/17 at 10:01; Status DC Lactated Ringer's 1,000 ml @ 100 mls/hr Q10H IV Last administered on 07/10/17 17:30; Start 07/07/17 at 10:15 Lisinopril (Prinivil) 10 mg DAILY PO Last administered on 07/11/17 08:40; Start 07/04/17 at 09:00 Metoprolol Tartrate (Lopressor) 25 mg Q8HR PO Last administered on 07/11/17 06: 08; Start 06/30/17 at 16:15 Miscellaneous Information ALL NURSING DEPARTME... UNSCH PRN .XX SEE LABEL COMMENTS; Start 07/07/17 at 11:30; Stop 07/08/17 at 11:29; Status DC Morphine Sulfate (Morphine Inj) 5 mg Q4H PRN IV PUSH PAIN SCALE 6-10 Last administered on 07/11/17at 09:59; Start 07/07/17 at 02:15 Naloxone HCl (Narcan Inj) 0.4 mg UNSCH PRN IV PUSH SEE LABEL COMMENTS; Start at 01:00 Pharmacy Profile Note 0 ml @ 0 mls/hr UNSCH OTHER ; Start 06/30/17 at 01:00; Stop 07/02/17 at 11:38; Status DC Piperacillin Sod/ Tazobactam Sod 100 ml @ 200 mls/hr Q6H IV Last administered on 07/02/17at 09:40; Start 06/30/17 at 08:00; Stop 07/02/17 at 11:38; Status DC Potassium Chloride (KCl) 40 meq ONCE ONCE PO Last administered on 07/02/17at 09 :39; Start 07/02/17 at 09:00; Stop 07/02/17 at 09:13; Status DC Rifampin (Rifampin) 300 mg Q12HR PO Last administered on 07/11/17 08:39; Start 07/08/17 at 21:00 Rivaroxaban (Xarelto) 10 mg DAILY PO Last administered on 07/05/17at 08:48; Start 06/30/17 at 16:15; Status Future Hold Sodium Chloride (NS Flush) 2 ml BID IV FLUSH Last administered on 4/2/18at 20: 15; Start 06/30/17 at 09:00 Tramadol HCl (Ultram) 50 mg Q6HR PRN PO PAIN SCALE 1-5 Last administered on at 22:26; Start 07/03/17 at 13:00 Vancomycin HCl 1000 mg/Sodium Chloride 250 ml @ 250 mls/hr Q12H IV ; Start at 12:45; Stop 07/07/17 at 13:44; Status DC Vancomycin HCl 1250 mg/Sodium Chloride 262.5 ml @ 250 mls/hr Q12H IV Last administered on 07/01/17at 23:27; Start 06/30/17 at 12:00; Stop 07/02/17 at 11:38 ; Status DC A/P Problem List: (1) Status post fracture of right tibia ICD Code: Z87.81 - Personal history of (healed) traumatic fracture Status: Acute Assessment and Plan Cellulitis of right leg status post fracture of right tibia Right proximal tibia wound infection Bacteremia staph aureus and staph epi s/p Irrigation and debridement of right proximal tibia, placement of antibiotic beads, application wound VAC dressing on 07/07/[address] Smith Positive blood cx 05/14 . Repeated blood cultures negative. ID f/u appreciated; recommended that cefazoline + rifampin to be continued until re-admitted for hardware removal and then another 4- 6 weeks of abx post- op wound vac has been removed. ortho following. Hypertension: May be secondary to pain. continue lisinopril,metoprolol and amlodipine; will give extra dose of lisinopril today- vasotec prn. will monitor and adjust the regimen as needed. DVT prophylaxis: SCDs. Discharge Planning when cleared by ID and ortho. possibly tomorrow. Vika Rosario MD Jul 11, 2017 11:53
[2017-07-11 12:00] VITALS: BP 125/67; PULSE 73; RESP 16; TEMP 98.2; O2SAT 97
[2017-07-11] MEDS ORDERED: LISINOPRIL 10 MG TAB PO ONE (13:00)
[2017-07-11] MEDS ORDERED: ACETAMINOPHEN/HYDROcodone 325 MG/5 MG TAB PO PRN (13:00)
[2017-07-11] MEDS: ACETAMINOPHEN/HYDROcodone 325 MG/5 MG TAB PO PRN ×3 (13:59→22:22)
[2017-07-11 16:00] VITALS: BP 142/65; PULSE 61; RESP 16; TEMP 98.1; O2SAT 96
[2017-07-11 20:00] VITALS: BP 186/91; PULSE 71; RESP 17; TEMP 97.8; O2SAT 99
[2017-07-12] VITALS (9 sets, daily range): BP systolic 151–205; BP diastolic 73–94; PULSE 61–85; RESP 17–18; TEMP 96.7–98.2; O2SAT 96–97
[2017-07-12] MEDS: CEFAZOLIN INJ 2,000 MG in SODIUM CHLORIDE 0.9% INJ 100 ML IV SCH ×3 (02:02→16:52)
[2017-07-12] MEDS: ENALAPRILAT 1.25 MG/ML VIAL IV PUSH PRN ×2 (02:03→16:20)
[2017-07-12] MEDS: ACETAMINOPHEN/HYDROcodone 325 MG/5 MG TAB PO PRN ×6 (02:09→21:53)
[2017-07-12] MEDS: METOPROLOL TARTRATE 25 MG TAB PO SCH ×3 (06:08→21:52)
[2017-07-12] MEDS ORDERED: PERC5TAB12 PO (07:18)
--- NOTE | 2017-07-12 07:21 | PD.ORT.PN ---
Subjective Subjective Remarks no fever/chills. pain controlled. Objective Vitals Vital Signs Date Time Temp Pulse Resp B/P (MAP) Pulse Ox O2 Delivery O2 Flow Rate FiO2 07/12/17 07:08 18 07/12/17 06:15 75 205/94 (131) 07/12/17 02:45 165/82 (109) 07/12/17 00:00 96.7 61 17 189/86 (120) 97 07/11/17 20:00 97.8 71 17 186/91 (122) 99 07/11/17 16:00 98.1 61 16 142/65 (90) 96 07/11/17 12:00 98.2 73 16 125/67 (86) 97 07/11/17 10:04 18 07/11/17 08:00 98.0 61 18 203/84 (123) 98 I/O 07/11/17 07/11/17 07/11/17 07/12/17 07/12/17 07/12/17 07:00 15:00 23:00 07:00 15:00 23:00 Intake Total 120 ml 900 ml 360 ml Output Total 1850 ml 700 ml 1950 ml Balance -1730 ml 200 ml -1590 ml Intake Oral 900 ml 240 ml IV Total 120 ml 120 ml Output Urine Total 1850 ml 700 ml 1950 ml # Bowel Movements 1 Result Diagram: 07/08/17 0718 07/08/17 0757 Objective Remarks AAOx3. NAD Right lower extremity: Shows no pain with hip range of motion. Incision is well approximated but does have mild continued skin edge necrosis. Drainage from an antibiotic beads are noted and normal. Dressing mildly saturated. CKS. +EHL/FHL , SILT distally, neg homans Assessment & Plan Assessment and Plan POD #5 Irrigation and debridement of right proximal tibia, placement of antibiotic beads, application wound VAC dressing Doing well Pain management Continue IV abx therapy per ID management- staph aureus. dc with iv abx via picc line Physical therapy - nonweight bearing RLE, CKS in place keep at all times Begin daily dressing changes with Xeroform, 4 x 4's, ABDs and Bay wrap ok to dc per ortho standpoint f/u 2 wks, Nic Deleon Jr., MD Jul 12, 2017 07:21
[2017-07-12] MEDS: LISINOPRIL 10 MG TAB PO SCH (07:53)
[2017-07-12] MEDS: RIFAMPIN 150 MG CAP PO SCH ×2 (07:53→20:10)
[2017-07-12] MEDS: DOXAZOSIN MESYLATE 2 MG TAB PO SCH (07:53)
[2017-07-12] MEDS: SODIUM CHLORIDE 0.9% FLUSH 10 ML FLUSH IV FLUSH SCH ×2 (07:53→20:10)
--- NOTE | 2017-07-12 10:17 | HHI.PR ---
Subjective Remarks in no acute distress. but he says that ' he's not feeling good. feels sick with nausea/ weakness'. afebrile. Objective Vitals Vital Signs Date Time Temp Pulse Resp B/P (MAP) Pulse Ox O2 Delivery O2 Flow Rate FiO2 07/12/17 09:45 151/73 (99) 07/12/17 08:00 97.5 85 18 186/90 (122) 96 07/12/17 07:08 18 07/12/17 06:45 182/86 (118) Automatic Cuff 07/12/17 06:15 75 205/94 (131) 07/12/17 02:45 165/82 (109) 07/12/17 00:00 96.7 61 17 189/86 (120) 97 07/11/17 20:00 97.8 71 17 186/91 (122) 99 07/11/17 16:00 98.1 61 16 142/65 (90) 96 07/11/17 12:00 98.2 73 16 125/67 (86) 97 I/O 07/11/17 07/11/17 07/11/17 07/12/17 07/12/17 07/12/17 07:00 15:00 23:00 07:00 15:00 23:00 Intake Total 120 ml 900 ml 360 ml Output Total 1850 ml 700 ml 1950 ml Balance -1730 ml 200 ml -1590 ml Intake Oral 900 ml 240 ml IV Total 120 ml 120 ml Output Urine Total 1850 ml 700 ml 1950 ml # Bowel Movements 1 Result Diagram: 07/08/17 0718 07/08/17 0757 Imaging Last Impressions Tumor Localization 07/04/17 0000 Signed Impressions: Service Date/Time: Tuesday, July 04, 2017 14:31 - CONCLUSION: Mild tracer accumulation in the soft tissues directly adjacent to the hardware along the top of the right tibia. Emiliano Oshea MD Lower Extremity CT 07/04/17 0000 Signed Impressions: Service Date/Time: Tuesday, July 04, 2017 09:42 - CONCLUSION: 1. Small joint effusion and lateral knee soft tissue swelling. 2. Status post ORIF of a comminuted lateral tibial plateau fracture 3. No evidence of destructive bone lesions or extra articular fluid collections. 4. Postop wound infection and hardware infection cannot be excluded based on the above findings. Mina Dockery MD Knee X-Ray 06/29/17 1549 Signed Impressions: Service Date/Time: June 23:12 - CONCLUSION: Stable appearance status post open rigid internal fixation. Rivas Ledesma MD Objective Remarks GENERAL: This is a well-nourished, well-developed patient, in no apparent distress. CARDIOVASCULAR: Regular rate and regular rhythm without murmurs, gallops, or rubs. RESPIRATORY: Clear to auscultation. Breath sounds equal bilaterally. No wheezes , rales, or rhonchi. GASTROINTESTINAL: Abdomen soft, non-tender, nondistended. Normal, active bowel sounds MUSCULOSKELETAL: right leg/knee covered with clean dressing . NEURO: Alert & Oriented x4 to person, place, time, situation. Moves all ext x4 Procedures Right proximal tibia wound infection s/p Irrigation and debridement of right proximal tibia, placement of antibiotic beads, application wound VAC dressing on 07/07/[address] Smith Medications and IVs Inpatient Medications Acetaminophen/ Hydrocodone Bitart (Mathews 5-325 Mg) 2 tab Q4H PRN PO PAIN 6-10 Last administered on 07/12/17 09:52; Start 07/11/17 at 13:00 Amlodipine Besylate (Norvasc) 10 mg DAILY PO Last administered on 07/12/17 07: 53; Start 06/30/17 at 16:15 Cefazolin Sodium 2000 mg/Sodium Chloride 120 ml @ 240 mls/hr Q8H IV Last administered on 07/12/17 08:42; Start 07/07/17 at 17:00 Cefazolin Sodium/ Dextrose 50 ml @ 100 mls/hr Q8H IV Last administered on 07/07at 05:00; Start 07/02/17 at 13:00; Stop 07/07/17 at 17:13; Status DC Clindamycin/ Sodium Chloride 50 ml @ 100 mls/hr Q6H IV Last administered on at 13:34; Start 07/03/17 at 13:00; Stop 07/03/17 at 18:28; Status DC Doxazosin Mesylate (Cardura) 2 mg DAILY PO Last administered on 07/12/17 07:53 ; Start 06/30/17 at 16:15 Enalapril Maleate (Vasotec) 5 mg DAILY PO Last administered on 07/08/17at 08:22 ; Start 06/30/17 at 16:15; Stop 07/08/17 at 08:54; Status DC Enalaprilat (Vasotec Inj) 1.25 mg Q8H PRN IV PUSH SBP> OR = 180, DBP> OR = 100 Last administered on 07/12/17at 02:03; Start 07/11/17 at 13:00 Influenza Virus Vaccine (Flu (Quadrivalent) Vaccine Inj) 0.5 ml ONCE ONCE IM ; Start 07/01/17 at 10:00; Stop 07/01/17 at 10:01; Status DC Lactated Ringer's 1,000 ml @ 100 mls/hr Q10H IV Last administered on 07/11/17at 14:15; Start 07/07/17 at 10:15 Lisinopril (Prinivil) 10 mg ONCE ONCE PO Last administered on 07/11/17at 13:00; Start 07/11/17 at 13:00; Stop 07/11/17 at 13:01; Status DC Metoprolol Tartrate (Lopressor) 25 mg Q8HR PO Last administered on 07/12/17at 06: 08; Start 06/30/17 at 16:15 Miscellaneous Information ALL NURSING DEPARTME... UNSCH PRN .XX SEE LABEL COMMENTS; Start 07/07/17 at 11:30; Stop 07/08/17 at 11:29; Status DC Morphine Sulfate (Morphine Inj) 2 mg Q4H PRN IV PUSH BREAKTHROUGH PAIN; Start 07/11/17 at 14:15 Naloxone HCl (Narcan Inj) 0.4 mg UNSCH PRN IV PUSH SEE LABEL COMMENTS; Start at 01:00 Pharmacy Profile Note 0 ml @ 0 mls/hr UNSCH OTHER ; Start 06/30/17 at 01:00; Stop 07/02/17 at 11:38; Status DC Piperacillin Sod/ Tazobactam Sod 100 ml @ 200 mls/hr Q6H IV Last administered on 07/02/17at 09:40; Start 06/30/17 at 08:00; Stop 07/02/17 at 11:38; Status DC Potassium Chloride (KCl) 40 meq ONCE ONCE PO Last administered on 07/02/17at 09 :39; Start 07/02/17 at 09:00; Stop 07/02/17 at 09:13; Status DC Rifampin (Rifampin) 300 mg Q12HR PO Last administered on 07/12/17at 07:53; Start 07/08/17 at 21:00 Rivaroxaban (Xarelto) 10 mg DAILY PO Last administered on 07/05/17at 08:48; Start 06/30/17 at 16:15; Status Future Hold Sodium Chloride (NS Flush) 2 ml BID IV FLUSH Last administered on 07/11/17at 22: 24; Start 06/30/17 at 09:00 Tramadol HCl (Ultram) 50 mg Q6HR PRN PO PAIN SCALE 1-5 Last administered on at 22:26; Start 07/03/17 at 13:00; Stop 07/11/17 at 11:50; Status DC Vancomycin HCl 1000 mg/Sodium Chloride 250 ml @ 250 mls/hr Q12H IV ; Start at 12:45; Stop 07/07/17 at 13:44; Status DC Vancomycin HCl 1250 mg/Sodium Chloride 262.5 ml @ 250 mls/hr Q12H IV Last administered on 07/01/17at 23:27; Start 06/30/17 at 12:00; Stop 07/02/17 at 11:38 ; Status DC A/P Problem List: (1) Status post fracture of right tibia ICD Code: Z87.81 - Personal history of (healed) traumatic fracture Status: Acute Assessment and Plan Cellulitis of right leg status post fracture of right tibia Right proximal tibia wound infection Bacteremia staph aureus and staph epi s/p Irrigation and debridement of right proximal tibia, placement of antibiotic beads, application wound VAC dressing on 07/07/[address] Smith Positive blood cx 2/ . Repeated blood cultures negative. ID f/u appreciated; recommended that cefazoline + rifampin to be continued until re-admitted for hardware removal and then another 4- 6 weeks of abx post- op wound vac has been removed. ortho following. Hypertension: May be secondary to pain. continue lisinopril,metoprolol and amlodipine; will give one dose of Procardia today if BP remains elevated- vasotec prn. will monitor and adjust the regimen as needed. DVT prophylaxis: SCDs. Discharge Planning cleared by ortho for discharge. case management to work on outpatient IV antibiotic therapy. d/w and case management today. Vika Rosario MD Jul 12, 2017 10:17
[2017-07-12] MEDS: LACTATED RINGER'S 1000 ML INJ 1,000 ML IV SCH ×2 (13:05→20:10)
[2017-07-12] MEDS: SODIUM CHLORIDE 0.9% FLUSH 10 ML FLUSH IV FLUSH PRN (16:21)
[2017-07-13] VITALS: BP 186/82; PULSE 66; RESP 17; TEMP 97.9; O2SAT 100
[2017-07-13] MEDS: CEFAZOLIN INJ 2,000 MG in SODIUM CHLORIDE 0.9% INJ 100 ML IV SCH ×3 (01:19→16:27)
[2017-07-13] MEDS: ACETAMINOPHEN/HYDROcodone 325 MG/5 MG TAB PO PRN ×5 (01:51→20:29)
[2017-07-13] MEDS: ENALAPRILAT 1.25 MG/ML VIAL IV PUSH PRN ×3 (03:34→20:24)
[2017-07-13] MEDS: METOPROLOL TARTRATE 25 MG TAB PO SCH ×3 (05:44→22:06)
[2017-07-13 05:45] VITALS: BP 194/88
[2017-07-13] MEDS: LACTATED RINGER'S 1000 ML INJ 1,000 ML IV SCH (06:15)
[2017-07-13 08:00] VITALS: BP 208/94; PULSE 63; RESP 18; TEMP 98.2; O2SAT 95
[2017-07-13] MEDS: SODIUM CHLORIDE 0.9% FLUSH 10 ML FLUSH IV FLUSH SCH ×2 (09:00→20:24)
[2017-07-13] MEDS: RIFAMPIN 150 MG CAP PO SCH ×2 (09:01→20:24)
[2017-07-13] MEDS: LISINOPRIL 10 MG TAB PO SCH (09:01)
[2017-07-13] MEDS: DOXAZOSIN MESYLATE 2 MG TAB PO SCH (09:07)
--- NOTE | 2017-07-13 10:12 | HHI.PR ---
Subjective Remarks in no acute distress. but he says that ' he's not feeling good with dizziness'. no fever. pain seems to be fairly controlled. Objective Vitals Vital Signs Date Time Temp Pulse Resp B/P (MAP) Pulse Ox O2 Delivery O2 Flow Rate FiO2 07/13/17 08:00 98.2 63 18 208/94 (132) 95 07/13/17 06:44 18 07/13/17 05:45 194/88 (123) 07/13/17 00:00 97.9 66 17 186/82 (116) 100 07/12/17 20:00 98.0 69 17 194/93 (126) 97 07/12/17 16:00 97.9 63 18 183/84 (117) 96 07/12/17 12:00 98.2 81 18 174/94 (120) 96 I/O 07/12/17 07/12/17 07/12/17 07/13/17 07/13/17 07/13/17 07:00 15:00 23:00 07:00 15:00 23:00 Intake Total 360 ml 1840 ml 1360 ml Output Total 1950 ml 1200 ml 1500 ml Balance -1590 ml 640 ml -140 ml Intake Oral 240 ml 720 ml 240 ml IV Total 120 ml 1120 ml 1120 ml Output Urine Total 1950 ml 1200 ml 1500 ml # Bowel Movements 0 Imaging Last Impressions Tumor Localization 07/04/17 0000 Signed Impressions: Service Date/Time: Tuesday, July 04, 2017 14:31 - CONCLUSION: Mild tracer accumulation in the soft tissues directly adjacent to the hardware along the top of the right tibia. Emiliano Oshea MD Lower Extremity CT 07/04/17 0000 Signed Impressions: Service Date/Time: Tuesday, July 04, 2017 09:42 - CONCLUSION: 1. Small joint effusion and lateral knee soft tissue swelling. 2. Status post ORIF of a comminuted lateral tibial plateau fracture 3. No evidence of destructive bone lesions or extra articular fluid collections. 4. Postop wound infection and hardware infection cannot be excluded based on the above findings. Mina Dockery MD Knee X-Ray 06/29/17 6787 Signed Impressions: Service Date/Time: June 23:12 - CONCLUSION: Stable appearance status post open rigid internal fixation. Rivas Ledesma MD Objective Remarks GENERAL: This is a well-nourished, well-developed patient, in no apparent distress. CARDIOVASCULAR: Regular rate and regular rhythm without murmurs, gallops, or rubs. RESPIRATORY: Clear to auscultation. Breath sounds equal bilaterally. No wheezes , rales, or rhonchi. GASTROINTESTINAL: Abdomen soft, non-tender, nondistended. Normal, active bowel sounds MUSCULOSKELETAL: right leg/knee covered with clean dressing . NEURO: Alert & Oriented x4 to person, place, time, situation. Moves all ext x4 Procedures Right proximal tibia wound infection s/p Irrigation and debridement of right proximal tibia, placement of antibiotic beads, application wound VAC dressing on 07/07/[address] Smith Medications and IVs Inpatient Medications Acetaminophen/ Hydrocodone Bitart (Coulters 5-325 Mg) 2 tab Q4H PRN PO PAIN 6-10 Last administered on 07/13/17 05:44; Start 07/11/17 at 13:00 Amlodipine Besylate (Norvasc) 10 mg DAILY PO Last administered on 07/13/17at 09: 01; Start 06/30/17 at 16:15 Cefazolin Sodium 2000 mg/Sodium Chloride 120 ml @ 240 mls/hr Q8H IV Last administered on 07/13/17at 09:00; Start 07/07/17 at 17:00 Cefazolin Sodium/ Dextrose 50 ml @ 100 mls/hr Q8H IV Last administered on 07/07at 05:00; Start 07/02/17 at 13:00; Stop 07/07/17 at 17:13; Status DC Clindamycin/ Sodium Chloride 50 ml @ 100 mls/hr Q6H IV Last administered on at 13:34; Start 07/03/17 at 13:00; Stop 07/03/17 at 18:28; Status DC Doxazosin Mesylate (Cardura) 2 mg DAILY PO Last administered on 07/13/17at 09:07 ; Start 06/30/17 at 16:15 Enalapril Maleate (Vasotec) 5 mg DAILY PO Last administered on 07/08/17at 08:22 ; Start 06/30/17 at 16:15; Stop 07/08/17 at 08:54; Status DC Enalaprilat (Vasotec Inj) 1.25 mg Q8H PRN IV PUSH SBP> OR = 180, DBP> OR = 100 Last administered on 07/13/17at 03:34; Start 07/11/17 at 13:00 Influenza Virus Vaccine (Flu (Quadrivalent) Vaccine Inj) 0.5 ml ONCE ONCE IM ; Start 07/01/17 at 10:00; Stop 07/01/17 at 10:01; Status DC Lactated Ringer's 1,000 ml @ 100 mls/hr Q10H IV Last administered on 07/13/17at 06:15; Start 07/07/17 at 10:15 Lisinopril (Prinivil) 10 mg ONCE ONCE PO Last administered on 07/11/17at 13:00; Start 07/11/17 at 13:00; Stop 07/11/17 at 13:01; Status DC Metoprolol Tartrate (Lopressor) 25 mg Q8HR PO Last administered on 07/13/17at 05: 44; Start 06/30/17 at 16:15 Miscellaneous Information ALL NURSING DEPARTME... UNSCH PRN .XX SEE LABEL COMMENTS; Start 07/07/17 at 11:30; Stop 07/08/17 at 11:29; Status DC Morphine Sulfate (Morphine Inj) 2 mg Q4H PRN IV PUSH BREAKTHROUGH PAIN; Start 07/11/17 at 14:15 Naloxone HCl (Narcan Inj) 0.4 mg UNSCH PRN IV PUSH SEE LABEL COMMENTS; Start at 01:00 Pharmacy Profile Note 0 ml @ 0 mls/hr UNSCH OTHER ; Start 06/30/17 at 01:00; Stop 07/02/17 at 11:38; Status DC Piperacillin Sod/ Tazobactam Sod 100 ml @ 200 mls/hr Q6H IV Last administered on 07/02/17at 09:40; Start 06/30/17 at 08:00; Stop 07/02/17 at 11:38; Status DC Potassium Chloride (KCl) 40 meq ONCE ONCE PO Last administered on 07/02/17at 09 :39; Start 07/02/17 at 09:00; Stop 07/02/17 at 09:13; Status DC Rifampin (Rifampin) 300 mg Q12HR PO Last administered on 07/13/17at 09:01; Start 07/08/17 at 21:00 Rivaroxaban (Xarelto) 10 mg DAILY PO Last administered on 07/05/17at 08:48; Start 06/30/17 at 16:15; Status Future Hold Sodium Chloride (NS Flush) 2 ml BID IV FLUSH Last administered on 07/11/17at 22: 24; Start 06/30/17 at 09:00 Tramadol HCl (Ultram) 50 mg Q6HR PRN PO PAIN SCALE 1-5 Last administered on at 22:26; Start 07/03/17 at 13:00; Stop 07/11/17 at 11:50; Status DC Vancomycin HCl 1000 mg/Sodium Chloride 250 ml @ 250 mls/hr Q12H IV ; Start at 12:45; Stop 07/07/17 at 13:44; Status DC Vancomycin HCl 1250 mg/Sodium Chloride 262.5 ml @ 250 mls/hr Q12H IV Last administered on 07/01/17at 23:27; Start 06/30/17 at 12:00; Stop 07/02/17 at 11:38 ; Status DC A/P Problem List: (1) Status post fracture of right tibia ICD Code: Z87.81 - Personal history of (healed) traumatic fracture Status: Acute Assessment and Plan Cellulitis of right leg status post fracture of right tibia Right proximal tibia wound infection Bacteremia staph aureus and staph epi s/p Irrigation and debridement of right proximal tibia, placement of antibiotic beads, application wound VAC dressing on 07/07/[address] Smith which has been removed. Positive blood cx 2/4 . Repeated blood cultures negative. ID f/u appreciated; recommended that cefazoline + rifampin to be continued until re-admitted for hardware removal and then another 4- 6 weeks of abx post- op wound vac has been removed. ortho following. Hypertension: BP still elevated- continue lisinopril,metoprolol and amlodipine ; will give one dose of Procardia today - will monitor and adjust the regimen as needed. DVT prophylaxis: SCDs. Discharge Planning cleared by ortho for discharge. case management to work on outpatient IV antibiotic therapy. d/w case management today. Vika Rosario MD Jul 13, 2017 10:12
[2017-07-13] MEDS ORDERED: NIFEdipine 30 MG SUSTAINED RELEASE TAB PO ONE (10:15)
[2017-07-13 11:30] VITALS: BP 216/97; PULSE 65; RESP 18; TEMP 97.8; O2SAT 98
[2017-07-13 15:37] VITALS: BP 202/93; PULSE 75; RESP 18; TEMP 97.6; O2SAT 98
[2017-07-13 16:07] LABS: ALBUMIN 2.9 GM/DL (3.4-5.0); ALT (GPT) 16 U/L (12-78); AST (GOT) 25 U/L (15-37); BLOOD UREA NITROGEN 6 MG/DL (7-18); C-REACTIVE PROTEIN LESS THAN 0.29 MG/DL (0.00-0.30); CALCIUM 8.9 MG/DL (8.5-10.1); CHLORIDE 101 MEQ/L (98-107); GLOMERULAR FILTRATION RATE 115 ML/MIN (>89); GLUCOSE,RANDOM 110 MG/DL (74-106); SODIUM (NA) 135 MEQ/L (136-145)
[2017-07-13 16:10] LABS: ALKALINE PHOSPHATASE 74 U/L (45-117); TOTAL BILIRUBIN ADULT 0.4 MG/DL (0.2-1.0); TOTAL PROTEIN 7.6 GM/DL (6.4-8.2)
[2017-07-13 16:18] LABS: AUTOMATED NEUTROPHIL # 7.1 TH/MM3 (1.8-7.7); BASOPHIL # 0.1 TH/MM3 (0-0.2); BASOPHIL % 0.9 % (0.0-2.0); EOSINOPHIL # 0.1 TH/MM3 (0-0.4); EOSINOPHIL % 0.9 % (0.0-4.0); HEMOGLOBIN 12.5 GM/DL (13.0-17.0); LYMPH % 13.9 % (9.0-44.0); LYMPHOCYTE # 1.3 TH/MM3 (1.0-4.8); MEAN CORPUSCULAR HGB CONC 34.7 % (32.0-36.0); MEAN PLATELET VOLUME 8.7 FL (7.0-11.0); MONO % 6.8 % (0.0-8.0); MONOCYTE # 0.6 TH/MM3 (0-0.9); NEUT % 77.5 % (16.0-70.0); PLATELET COUNT 231 TH/MM3 (150-450); RED BLOOD COUNT 3.57 MIL/MM3 (4.50-5.90); RED CELL DISTRIBUTION WIDTH 13.2 % (11.6-17.2); WHITE BLOOD COUNT 9.2 TH/MM3 (4.0-11.0)
[2017-07-13 17:03] LABS: WESTERGREN SEDIMENTATION RATE 52 mm/hr (0-20)
[2017-07-13 20:00] VITALS: BP 180/86; PULSE 76; RESP 18; TEMP 98.2; O2SAT 98
--- NOTE | 2017-07-13 21:51 | HHI.FF ---
Face to Face Verification Diagnosis: (1) Status post fracture of right tibia Physical Therapy Gait training, Wheelchair training Right LE Weight Bearing: Non WB Right LE Range of Motion: No ROM Nursing RN: 3 days/week x 2 weeks Nursing: Dressing changes Dressing Changes: Daily dressing change, 4x4s, Gauze, Xeroform Additional Instructions IV antiobiotics drug administration I have seen patient Aubrey Carbajal on 07/13/17. My clinical findings support the need for the requested home health care services because: Ltd mobility - disease progression Limited ability to care for self I certify that my clinical findings support that this patient is homebound because: Post-op weakness Unsteady gait/balance [id number] bed/chair Nic Ritter Jr., MD Jul 13, 2017 21:51
--- NOTE | 2017-07-13 21:55 | PD.ORT.PN ---
Subjective Subjective Remarks no fever/chills. pain controlled. Objective Vitals Vital Signs Date Time Temp Pulse Resp B/P (MAP) Pulse Ox O2 Delivery O2 Flow Rate FiO2 07/13/17 20:00 98.2 76 18 180/86 (117) 98 07/13/17 15:37 97.6 75 18 202/93 (129) 98 07/13/17 11:30 97.8 65 18 216/97 (136) 98 07/13/17 08:00 98.2 63 18 208/94 (132) 95 07/13/17 06:44 18 07/13/17 05:45 194/88 (123) 07/13/17 00:00 97.9 66 17 186/82 (116) 100 I/O 07/12/17 07/12/17 07/12/17 07/13/17 07/13/17 07/13/17 07:00 15:00 23:00 07:00 15:00 23:00 Intake Total 360 ml 1840 ml 1360 ml 950 ml 1080 ml Output Total 1950 ml 1200 ml 1500 ml 850 ml Balance -1590 ml 640 ml -140 ml 100 ml 1080 ml Intake Oral 240 ml 720 ml 240 ml 950 ml IV Total 120 ml 1120 ml 1120 ml 1080 ml Output Urine Total 1950 ml 1200 ml 1500 ml 850 ml # Bowel Movements 0 Result Diagram: 07/13/17 1533 07/13/17 1533 Objective Remarks AAOx3. NAD Right lower extremity: dressing CI, mild drainage fromo antibiotic beads are noted and normal. CKS. +EHL/FHL, SILT distally, neg homans Assessment & Plan Assessment and Plan POD #6 Irrigation and debridement of right proximal tibia, placement of antibiotic beads, application wound VAC dressing Doing well Pain management Continue IV abx therapy per ID management- staph aureus. dc with iv abx via picc line Physical therapy - nonweight bearing RLE, CKS in place keep at all times qday dressing changes with Xeroform, 4 x 4's, ABDs and Bay wrap ok to dc per ortho standpoint f/u 2 wks, Dr Ritter Rx, F2F in chart Nic Ritter Jr., MD Jul 13, 2017 21:55
[2017-07-14] VITALS (8 sets, daily range): BP systolic 121–205; BP diastolic 76–127; PULSE 62–87; RESP 18; TEMP 97.9–98.4; O2SAT 78–99
[2017-07-14] MEDS: CEFAZOLIN INJ 2,000 MG in SODIUM CHLORIDE 0.9% INJ 100 ML IV SCH ×3 (00:29→16:53)
[2017-07-14] MEDS: ACETAMINOPHEN/HYDROcodone 325 MG/5 MG TAB PO PRN ×6 (00:30→22:01)
[2017-07-14] MEDS: METOPROLOL TARTRATE 25 MG TAB PO SCH ×3 (05:29→22:00)
--- NOTE | 2017-07-14 09:21 | HHI.PR ---
Subjective Remarks in no acute distress. pain is moderate in intensity. afebrile. BP trend noted. Objective Vitals Vital Signs Date Time Temp Pulse Resp B/P (MAP) Pulse Ox O2 Delivery O2 Flow Rate FiO2 07/14/17 08:23 98.1 80 18 205/98 (133) 97 07/14/17 06:29 18 07/14/17 04:00 62 179/86 (117) 07/14/17 00:00 98.3 69 18 192/91 (124) 99 07/13/17 20:00 98.2 76 18 180/86 (117) 98 07/13/17 15:37 97.6 75 18 202/93 (129) 98 07/13/17 11:30 97.8 65 18 216/97 (136) 98 I/O 07/13/17 07/13/17 07/13/17 07/14/17 07/14/17 07/14/17 07:00 15:00 23:00 07:00 15:00 23:00 Intake Total 1360 ml 950 ml 1080 ml 600 ml Output Total 1500 ml 850 ml 850 ml Balance -140 ml 100 ml 1080 ml -250 ml Intake Oral 240 ml 950 ml 480 ml IV Total 1120 ml 1080 ml 120 ml Output Urine Total 1500 ml 850 ml 850 ml # Bowel Movements 0 Result Diagram: 07/13/17 1533 07/13/17 1533 Imaging Last Impressions Tumor Localization 07/04/17 0000 Signed Impressions: Service Date/Time: Tuesday, July 04, 2017 14:31 - CONCLUSION: Mild tracer accumulation in the soft tissues directly adjacent to the hardware along the top of the right tibia. Emiliano Oshea MD Lower Extremity CT 07/04/17 0000 Signed Impressions: Service Date/Time: Tuesday, July 04, 2017 09:42 - CONCLUSION: 1. Small joint effusion and lateral knee soft tissue swelling. 2. Status post ORIF of a comminuted lateral tibial plateau fracture 3. No evidence of destructive bone lesions or extra articular fluid collections. 4. Postop wound infection and hardware infection cannot be excluded based on the above findings. Mina Dockery MD Knee X-Ray 06/29/17 [id number] Signed Impressions: Service Date/Time: June 23:12 - CONCLUSION: Stable appearance status post open rigid internal fixation. Rivas Ledesma MD Objective Remarks GENERAL: This is a well-nourished, well-developed patient, in no apparent distress. CARDIOVASCULAR: Regular rate and regular rhythm without murmurs, gallops, or rubs. RESPIRATORY: Clear to auscultation. Breath sounds equal bilaterally. No wheezes , rales, or rhonchi. GASTROINTESTINAL: Abdomen soft, non-tender, nondistended. Normal, active bowel sounds MUSCULOSKELETAL: right leg/knee covered with clean dressing . NEURO: Alert & Oriented x4 to person, place, time, situation. Moves all ext x4 Procedures Right proximal tibia wound infection s/p Irrigation and debridement of right proximal tibia, placement of antibiotic beads, application wound VAC dressing on 07/07/[address] Smith Medications and IVs Inpatient Medications Acetaminophen/ Hydrocodone Bitart ([place] 5-325 Mg) 2 tab Q4H PRN PO PAIN 6-10 Last administered on 07/14/17at 05:29; Start 07/11/17 at 13:00 Amlodipine Besylate (Norvasc) 10 mg DAILY PO Last administered on 07/13/17at 09: 01; Start 06/30/17 at 16:15 Cefazolin Sodium 2000 mg/Sodium Chloride 120 ml @ 240 mls/hr Q8H IV Last administered on 07/14/17at 00:29; Start 07/07/17 at 17:00 Cefazolin Sodium/ Dextrose 50 ml @ 100 mls/hr Q8H IV Last administered on 07/07at 05:00; Start 07/02/17 at 13:00; Stop 07/07/17 at 17:13; Status DC Clindamycin/ Sodium Chloride 50 ml @ 100 mls/hr Q6H IV Last administered on at 13:34; Start 07/03/17 at 13:00; Stop 07/03/17 at 18:28; Status DC Doxazosin Mesylate (Cardura) 2 mg DAILY PO Last administered on 07/13/17at 09:07 ; Start 06/30/17 at 16:15 Enalapril Maleate (Vasotec) 5 mg DAILY PO Last administered on 07/08/17at 08:22 ; Start 06/30/17 at 16:15; Stop 07/08/17 at 08:54; Status DC Enalaprilat (Vasotec Inj) 1.25 mg Q8H PRN IV PUSH SBP> OR = 180, DBP> OR = 100 Last administered on 07/13/17at 20:24; Start 07/11/17 at 13:00 Influenza Virus Vaccine (Flu (Quadrivalent) Vaccine Inj) 0.5 ml ONCE ONCE IM ; Start 07/01/17 at 10:00; Stop 07/01/17 at 10:01; Status DC Lactated Ringer's 1,000 ml @ 100 mls/hr Q10H IV Last administered on 07/13/17at 06:15; Start 07/07/17 at 10:15; Stop 07/13/17 at 10:10; Status DC Lisinopril (Prinivil) 10 mg ONCE ONCE PO Last administered on 07/11/17at 13:00; Start 07/11/17 at 13:00; Stop 07/11/17 at 13:01; Status DC Metoprolol Tartrate (Lopressor) 25 mg Q8HR PO Last administered on 07/14/17at 05: 29; Start 06/30/17 at 16:15 Miscellaneous Information ALL NURSING DEPARTME... UNSCH PRN .XX SEE LABEL COMMENTS; Start 07/07/17 at 11:30; Stop 07/08/17 at 11:29; Status DC Morphine Sulfate (Morphine Inj) 2 mg Q4H PRN IV PUSH BREAKTHROUGH PAIN; Start 07/11/17 at 14:15 Naloxone HCl (Narcan Inj) 0.4 mg UNSCH PRN IV PUSH SEE LABEL COMMENTS; Start at 01:00 Nifedipine (Procardia Xl) 30 mg ONCE ONCE PO Last administered on 07/13/17at 10: 51; Start 07/13/17 at 10:15; Stop 07/13/17 at 10:28; Status DC Pharmacy Profile Note 0 ml @ 0 mls/hr UNSCH OTHER ; Start 06/30/17 at 01:00; Stop 07/02/17 at 11:38; Status DC Piperacillin Sod/ Tazobactam Sod 100 ml @ 200 mls/hr Q6H IV Last administered on 07/02/17at 09:40; Start 06/30/17 at 08:00; Stop 07/02/17 at 11:38; Status DC Potassium Chloride (KCl) 40 meq ONCE ONCE PO Last administered on 07/02/17at 09 :39; Start 07/02/17 at 09:00; Stop 07/02/17 at 09:13; Status DC Rifampin (Rifampin) 300 mg Q12HR PO Last administered on 07/13/17at 20:24; Start 07/08/17 at 21:00 Rivaroxaban (Xarelto) 10 mg DAILY PO Last administered on 07/05/17at 08:48; Start 06/30/17 at 16:15; Status Future Hold Sodium Chloride (NS Flush) 2 ml BID IV FLUSH Last administered on 07/13/17at 20: 24; Start 06/30/17 at 09:00 Tramadol HCl (Ultram) 50 mg Q6HR PRN PO PAIN SCALE 1-5 Last administered on at 22:26; Start 07/03/17 at 13:00; Stop 07/11/17 at 11:50; Status DC Vancomycin HCl 1000 mg/Sodium Chloride 250 ml @ 250 mls/hr Q12H IV ; Start at 12:45; Stop 07/07/17 at 13:44; Status DC Vancomycin HCl 1250 mg/Sodium Chloride 262.5 ml @ 250 mls/hr Q12H IV Last administered on 07/01/17at 23:27; Start 06/30/17 at 12:00; Stop 07/02/17 at 11:38 ; Status DC A/P Problem List: (1) Status post fracture of right tibia ICD Code: Z87.81 - Personal history of (healed) traumatic fracture Status: Acute Assessment and Plan A/P Cellulitis of right leg status post fracture of right tibia Right proximal tibia wound infection Bacteremia staph aureus and staph epi s/p Irrigation and debridement of right proximal tibia, placement of antibiotic beads, application wound VAC dressing on 07/07/[address] Smith which has been removed. Positive blood cx / . Repeated blood cultures negative. ID f/u appreciated; recommended that cefazoline + rifampin to be continued until re-admitted for hardware removal and then another 4- 6 weeks of abx post- op wound vac has been removed. ortho following; cleared for discharge per ortho. Hypertension: BP still elevated- continue lisinopril,metoprolol-stop Amlodipine and change to Procardia. continue with Vasotec prn- will monitor and adjust the regimen as needed. DVT prophylaxis: SCDs. Discharge Planning ready for discharge when BP is better controlled. Vika Rosario MD Jul 14, 2017 09:21
[2017-07-14] MEDS: SODIUM CHLORIDE 0.9% FLUSH 10 ML FLUSH IV FLUSH SCH ×2 (09:29→22:01)
[2017-07-14] MEDS: DOXAZOSIN MESYLATE 2 MG TAB PO SCH (09:29)
[2017-07-14] MEDS: ENALAPRILAT 1.25 MG/ML VIAL IV PUSH PRN (09:30)
[2017-07-14] MEDS: LISINOPRIL 10 MG TAB PO SCH (09:30)
[2017-07-14] MEDS: RIFAMPIN 150 MG CAP PO SCH ×2 (09:30→21:59)
[2017-07-14] MEDS: NIFEdipine 60 MG SUSTAINED RELEASE TAB PO SCH (10:47)
[2017-07-15 00:12] VITALS: BP 158/84; PULSE 63; RESP 18; TEMP 98; O2SAT 96
[2017-07-15] MEDS: CEFAZOLIN INJ 2,000 MG in SODIUM CHLORIDE 0.9% INJ 100 ML IV SCH ×3 (02:18→16:06)
[2017-07-15] MEDS: ACETAMINOPHEN/HYDROcodone 325 MG/5 MG TAB PO PRN ×5 (02:19→20:26)
[2017-07-15] MEDS: METOPROLOL TARTRATE 25 MG TAB PO SCH ×3 (06:06→20:25)
[2017-07-15 06:07] VITALS: PULSE 75
[2017-07-15 08:00] VITALS: BP 206/88; PULSE 64; RESP 16; TEMP 98.2; O2SAT 96
[2017-07-15] MEDS: RIFAMPIN 150 MG CAP PO SCH ×2 (09:09→20:26)
[2017-07-15] MEDS: DOXAZOSIN MESYLATE 2 MG TAB PO SCH (09:09)
[2017-07-15] MEDS: NIFEdipine 60 MG SUSTAINED RELEASE TAB PO SCH (09:09)
[2017-07-15] MEDS: LISINOPRIL 10 MG TAB PO SCH (09:09)
[2017-07-15] MEDS: SODIUM CHLORIDE 0.9% FLUSH 10 ML FLUSH IV FLUSH SCH ×2 (09:10→20:27)
--- NOTE | 2017-07-15 09:21 | HHI.PR ---
Subjective Remarks in no acute distress. pain seems to be fairly controlled. afebrile. BP trend noted. Objective Vitals Vital Signs Date Time Temp Pulse Resp B/P (MAP) Pulse Ox O2 Delivery O2 Flow Rate FiO2 07/15/17 08:00 98.2 64 16 206/88 (127) 96 07/15/17 06:07 75 07/15/17 00:12 98.0 63 18 158/84 (108) 96 07/14/17 20:00 98.4 80 18 139/76 (97) 97 07/14/17 16:00 98.0 73 18 160/105 (123) 98 07/14/17 12:26 87 147/87 (107) 07/14/17 12:00 97.9 76 18 155/127 (136) 97 07/14/17 11:05 121/77 (92) 78 I/O 07/14/17 07/14/17 07/14/17 07/15/17 07/15/17 07/15/17 07:00 15:00 23:00 07:00 15:00 23:00 Intake Total 600 ml 1080 ml 900 ml Output Total 850 ml 525 ml 300 ml 1500 ml Balance -250 ml -525 ml 780 ml -600 ml Intake Oral 480 ml 840 ml 780 ml IV Total 120 ml 240 ml 120 ml Output Urine Total 850 ml 525 ml 300 ml 1500 ml # Voids 2 # Bowel Movements 0 0 Result Diagram: 07/13/17 1533 07/13/17 1533 Imaging Last Impressions Tumor Localization 07/04/17 0000 Signed Impressions: Service Date/Time: Tuesday, July 04, 2017 14:31 - CONCLUSION: Mild tracer accumulation in the soft tissues directly adjacent to the hardware along the top of the right tibia. Emiliano Oshea MD Lower Extremity CT 07/04/17 0000 Signed Impressions: Service Date/Time: Tuesday, July 04, 2017 09:42 - CONCLUSION: 1. Small joint effusion and lateral knee soft tissue swelling. 2. Status post ORIF of a comminuted lateral tibial plateau fracture 3. No evidence of destructive bone lesions or extra articular fluid collections. 4. Postop wound infection and hardware infection cannot be excluded based on the above findings. Mina Dockery MD Knee X-Ray 06/29/17 [id number] Signed Impressions: Service Date/Time: June 23:12 - CONCLUSION: Stable appearance status post open rigid internal fixation. Rivas Ledesma MD Objective Remarks GENERAL: This is a well-nourished, well-developed patient, in no apparent distress. CARDIOVASCULAR: Regular rate and regular rhythm without murmurs, gallops, or rubs. RESPIRATORY: Clear to auscultation. Breath sounds equal bilaterally. No wheezes , rales, or rhonchi. GASTROINTESTINAL: Abdomen soft, non-tender, nondistended. Normal, active bowel sounds MUSCULOSKELETAL: right leg/knee covered with clean dressing . NEURO: Alert & Oriented x4 to person, place, time, situation. Moves all ext x4 Procedures Right proximal tibia wound infection s/p Irrigation and debridement of right proximal tibia, placement of antibiotic beads, application wound VAC dressing on 07/07/[address] Smith Medications and IVs Inpatient Medications Acetaminophen/ Hydrocodone Bitart ([place] 5-325 Mg) 2 tab Q4H PRN PO PAIN 6-10 Last administered on 07/15/17 06:06; Start 07/11/17 at 13:00 Amlodipine Besylate (Norvasc) 10 mg DAILY PO Last administered on 07/13/17at 09: 01; Start 06/30/17 at 16:15; Stop 07/14/17 at 09:19; Status DC Cefazolin Sodium 2000 mg/Sodium Chloride 120 ml @ 240 mls/hr Q8H IV Last administered on 07/15/17at 09:09; Start 07/07/17 at 17:00 Cefazolin Sodium/ Dextrose 50 ml @ 100 mls/hr Q8H IV Last administered on 07/07at 05:00; Start 07/02/17 at 13:00; Stop 07/07/17 at 17:13; Status DC Clindamycin/ Sodium Chloride 50 ml @ 100 mls/hr Q6H IV Last administered on at 13:34; Start 07/03/17 at 13:00; Stop 07/03/17 at 18:28; Status DC Doxazosin Mesylate (Cardura) 2 mg DAILY PO Last administered on 07/15/17at 09:09 ; Start 06/30/17 at 16:15 Enalapril Maleate (Vasotec) 5 mg DAILY PO Last administered on 07/08/17at 08:22 ; Start 06/30/17 at 16:15; Stop 07/08/17 at 08:54; Status DC Enalaprilat (Vasotec Inj) 1.25 mg Q8H PRN IV PUSH SBP> OR = 180, DBP> OR = 100 Last administered on 07/14/17at 09:30; Start 07/11/17 at 13:00 Influenza Virus Vaccine (Flu (Quadrivalent) Vaccine Inj) 0.5 ml ONCE ONCE IM ; Start 07/01/17 at 10:00; Stop 07/01/17 at 10:01; Status DC Lactated Ringer's 1,000 ml @ 100 mls/hr Q10H IV Last administered on 07/13/17at 06:15; Start 07/07/17 at 10:15; Stop 07/13/17 at 10:10; Status DC Lisinopril (Prinivil) 10 mg ONCE ONCE PO Last administered on 07/11/17at 13:00; Start 07/11/17 at 13:00; Stop 07/11/17 at 13:01; Status DC Metoprolol Tartrate (Lopressor) 25 mg Q8HR PO Last administered on 07/15/17at 06: 06; Start 06/30/17 at 16:15 Miscellaneous Information ALL NURSING DEPARTME... UNSCH PRN .XX SEE LABEL COMMENTS; Start 07/07/17 at 11:30; Stop 07/08/17 at 11:29; Status DC Morphine Sulfate (Morphine Inj) 2 mg Q4H PRN IV PUSH BREAKTHROUGH PAIN; Start 07/11/17 at 14:15 Naloxone HCl (Narcan Inj) 0.4 mg UNSCH PRN IV PUSH SEE LABEL COMMENTS; Start at 01:00 Nifedipine (Procardia Xl) 60 mg DAILY PO Last administered on 07/15/17at 09:09; Start 07/14/17 at 10:00 Pharmacy Profile Note 0 ml @ 0 mls/hr UNSCH OTHER ; Start 06/30/17 at 01:00; Stop 07/02/17 at 11:38; Status DC Piperacillin Sod/ Tazobactam Sod 100 ml @ 200 mls/hr Q6H IV Last administered on 07/02/17at 09:40; Start 06/30/17 at 08:00; Stop 07/02/17 at 11:38; Status DC Potassium Chloride (KCl) 40 meq ONCE ONCE PO Last administered on 07/02/17at 09 :39; Start 07/02/17 at 09:00; Stop 07/02/17 at 09:13; Status DC Rifampin (Rifampin) 300 mg Q12HR PO Last administered on 07/15/17at 09:09; Start 07/08/17 at 21:00 Rivaroxaban (Xarelto) 10 mg DAILY PO Last administered on 07/05/17at 08:48; Start 06/30/17 at 16:15; Status Future Hold Sodium Chloride (NS Flush) 2 ml BID IV FLUSH Last administered on 07/15/17at 09: 10; Start 06/30/17 at 09:00 Tramadol HCl (Ultram) 50 mg Q6HR PRN PO PAIN SCALE 1-5 Last administered on at 22:26; Start 07/03/17 at 13:00; Stop 07/11/17 at 11:50; Status DC Vancomycin HCl 1000 mg/Sodium Chloride 250 ml @ 250 mls/hr Q12H IV ; Start at 12:45; Stop 07/07/17 at 13:44; Status DC Vancomycin HCl 1250 mg/Sodium Chloride 262.5 ml @ 250 mls/hr Q12H IV Last administered on 07/01/17at 23:27; Start 06/30/17 at 12:00; Stop 07/02/17 at 11:38 ; Status DC A/P Problem List: (1) Status post fracture of right tibia ICD Code: Z87.81 - Personal history of (healed) traumatic fracture Status: Acute Assessment and Plan A/P Cellulitis of right leg status post fracture of right tibia Right proximal tibia wound infection Bacteremia staph aureus and staph epi s/p Irrigation and debridement of right proximal tibia, placement of antibiotic beads, application wound VAC dressing on 07/07/[address] Smith which has been removed. Positive blood cx 2/4 . Repeated blood cultures negative. ID f/u appreciated; recommended that cefazoline + rifampin to be continued until re-admitted for hardware removal and then another 4- 6 weeks of abx post- op wound vac has been removed. ortho following; cleared for discharge per ortho. Hypertension: BP overall improved but still elevated- continue lisinopril, metoprolol and Procardia- continue with Vasotec prn- will monitor and adjust the regimen as needed. DVT prophylaxis: SCDs. Discharge Planning ready for discharge when BP is better controlled; likely tomorrow. Vika Rosario MD Jul 15, 2017 09:21
[2017-07-15] MEDS ORDERED: WALKER WHEELS/F1 MIS (10:20)
[2017-07-15 12:00] VITALS: BP 198/88; PULSE 70; RESP 18; TEMP 98; O2SAT 96
[2017-07-15] MEDS: ENALAPRILAT 1.25 MG/ML VIAL IV PUSH PRN (15:55)
[2017-07-15 16:00] VITALS: BP 206/94; PULSE 75; RESP 18; TEMP 98.1; O2SAT 97
[2017-07-15] MEDS: cloNIDine HCL 0.1 MG TAB PO SCH (17:00)
[2017-07-15 20:00] VITALS: BP 167/76; PULSE 75; RESP 18; TEMP 98.1; O2SAT 97
[2017-07-16] VITALS (10 sets, daily range): BP systolic 124–211; BP diastolic 62–125; PULSE 60–82; RESP 18; TEMP 97.8–98.4; O2SAT 93–98
[2017-07-16] MEDS: CEFAZOLIN INJ 2,000 MG in SODIUM CHLORIDE 0.9% INJ 100 ML IV SCH ×4 (00:18→23:50)
[2017-07-16] MEDS: cloNIDine HCL 0.1 MG TAB PO SCH ×3 (00:19→16:36)
[2017-07-16] MEDS: ACETAMINOPHEN/HYDROcodone 325 MG/5 MG TAB PO PRN ×6 (00:19→20:58)
[2017-07-16] MEDS: METOPROLOL TARTRATE 25 MG TAB PO SCH ×3 (04:49→20:59)
[2017-07-16] MEDS: LISINOPRIL 10 MG TAB PO SCH (07:51)
[2017-07-16] MEDS: RIFAMPIN 150 MG CAP PO SCH ×2 (07:51→20:58)
[2017-07-16] MEDS: DOXAZOSIN MESYLATE 2 MG TAB PO SCH (07:51)
[2017-07-16] MEDS: NIFEdipine 60 MG SUSTAINED RELEASE TAB PO SCH (07:51)
[2017-07-16] MEDS: SODIUM CHLORIDE 0.9% FLUSH 10 ML FLUSH IV FLUSH SCH ×2 (07:52→20:58)
--- NOTE | 2017-07-16 10:26 | HHI.PR ---
Subjective Remarks in no acute distress. looks fairly comfortable. BP trend noted and d/w the RN. Objective Vitals Vital Signs Date Time Temp Pulse Resp B/P (MAP) Pulse Ox O2 Delivery O2 Flow Rate FiO2 07/16/17 09:30 124/64 (84) 07/16/17 08:00 97.8 70 18 211/125 (153) 98 207/99 (135) 07/16/17 05:47 60 18 172/96 (121) 97 07/16/17 04:00 98.2 67 18 208/97 (134) 93 07/16/17 00:00 97.8 70 18 194/93 (126) 98 07/15/17 20:00 98.1 75 18 167/76 (106) 97 07/15/17 16:00 98.1 75 18 206/94 (131) 97 07/15/17 12:00 98.0 70 18 198/88 (124) 96 I/O 07/15/17 07/15/17 07/15/17 07/16/17 07/16/17 07/16/17 07:00 15:00 23:00 07:00 15:00 23:00 Intake Total 900 ml 100 ml 1600 ml 120 ml Output Total 1500 ml 600 ml 1650 ml Balance -600 ml 100 ml 1000 ml -1530 ml Intake Oral 780 ml 1600 ml IV Total 120 ml 100 ml 120 ml Output Urine Total 1500 ml 600 ml 1650 ml # Bowel Movements 1 Result Diagram: 07/13/17 1533 07/13/17 1533 Imaging Last Impressions Tumor Localization 07/04/17 0000 Signed Impressions: Service Date/Time: Tuesday, July 04, 2017 14:31 - CONCLUSION: Mild tracer accumulation in the soft tissues directly adjacent to the hardware along the top of the right tibia. Emiliano Oshea MD Lower Extremity CT 07/04/17 0000 Signed Impressions: Service Date/Time: Tuesday, July 04, 2017 09:42 - CONCLUSION: 1. Small joint effusion and lateral knee soft tissue swelling. 2. Status post ORIF of a comminuted lateral tibial plateau fracture 3. No evidence of destructive bone lesions or extra articular fluid collections. 4. Postop wound infection and hardware infection cannot be excluded based on the above findings. Mina Dockery MD Knee X-Ray 3/2301 Signed Impressions: Service Date/Time: June 23:12 - CONCLUSION: Stable appearance status post open rigid internal fixation. Rivas Ledesma MD Objective Remarks GENERAL: This is a well-nourished, well-developed patient, in no apparent distress. CARDIOVASCULAR: Regular rate and regular rhythm without murmurs, gallops, or rubs. RESPIRATORY: Clear to auscultation. Breath sounds equal bilaterally. No wheezes , rales, or rhonchi. GASTROINTESTINAL: Abdomen soft, non-tender, nondistended. Normal, active bowel sounds MUSCULOSKELETAL: right leg/knee covered with clean dressing . NEURO: Alert & Oriented x4 to person, place, time, situation. Moves all ext x4 Procedures Right proximal tibia wound infection s/p Irrigation and debridement of right proximal tibia, placement of antibiotic beads, application wound VAC dressing on 07/07/[address] Smith Medications and IVs Inpatient Medications Acetaminophen/ Hydrocodone Bitart ([place] 5-325 Mg) 2 tab Q4H PRN PO PAIN 6-10 Last administered on 07/16/17at 08:41; Start 07/11/17 at 13:00 Amlodipine Besylate (Norvasc) 10 mg DAILY PO Last administered on 07/13/17at 09: 01; Start 06/30/17 at 16:15; Stop 07/14/17 at 09:19; Status DC Cefazolin Sodium 2000 mg/Sodium Chloride 120 ml @ 240 mls/hr Q8H IV Last administered on 07/16/17at 07:51; Start 07/07/17 at 17:00 Cefazolin Sodium/ Dextrose 50 ml @ 100 mls/hr Q8H IV Last administered on 07/07at 05:00; Start 07/02/17 at 13:00; Stop 07/07/17 at 17:13; Status DC Clindamycin/ Sodium Chloride 50 ml @ 100 mls/hr Q6H IV Last administered on at 13:34; Start 07/03/17 at 13:00; Stop 07/03/17 at 18:28; Status DC Clonidine ([place]) 0.1 mg Q8H PO Last administered on 07/16/17at 07:51; Start 07/15/17 at 17:00 Doxazosin Mesylate (Cardura) 2 mg DAILY PO Last administered on 07/16/17at 07:51 ; Start 06/30/17 at 16:15 Enalapril Maleate (Vasotec) 5 mg DAILY PO Last administered on 07/08/17at 08:22 ; Start 06/30/17 at 16:15; Stop 07/08/17 at 08:54; Status DC Enalaprilat (Vasotec Inj) 1.25 mg Q8H PRN IV PUSH SBP> OR = 180, DBP> OR = 100 Last administered on 07/15/17at 15:55; Start 07/11/17 at 13:00 Influenza Virus Vaccine (Flu (Quadrivalent) Vaccine Inj) 0.5 ml ONCE ONCE IM ; Start 07/01/17 at 10:00; Stop 07/01/17 at 10:01; Status DC Lactated Ringer's 1,000 ml @ 100 mls/hr Q10H IV Last administered on 07/13/17at 06:15; Start 07/07/17 at 10:15; Stop 07/13/17 at 10:10; Status DC Lisinopril (Prinivil) 10 mg ONCE ONCE PO Last administered on 07/11/17at 13:00; Start 07/11/17 at 13:00; Stop 07/11/17 at 13:01; Status DC Metoprolol Tartrate (Lopressor) 25 mg Q8HR PO Last administered on 07/16/17at 04: 49; Start 06/30/17 at 16:15 Miscellaneous Information ALL NURSING DEPARTME... UNSCH PRN .XX SEE LABEL COMMENTS; Start 07/07/17 at 11:30; Stop 07/08/17 at 11:29; Status DC Morphine Sulfate (Morphine Inj) 2 mg Q4H PRN IV PUSH BREAKTHROUGH PAIN; Start 07/11/17 at 14:15 Naloxone HCl (Narcan Inj) 0.4 mg UNSCH PRN IV PUSH SEE LABEL COMMENTS; Start at 01:00 Nifedipine (Procardia Xl) 60 mg DAILY PO Last administered on 07/16/17at 07:51; Start 07/14/17 at 10:00 Pharmacy Profile Note 0 ml @ 0 mls/hr UNSCH OTHER ; Start 06/30/17 at 01:00; Stop 07/02/17 at 11:38; Status DC Piperacillin Sod/ Tazobactam Sod 100 ml @ 200 mls/hr Q6H IV Last administered on 07/02/17at 09:40; Start 06/30/17 at 08:00; Stop 07/02/17 at 11:38; Status DC Potassium Chloride (KCl) 40 meq ONCE ONCE PO Last administered on 07/02/17at 09 :39; Start 07/02/17 at 09:00; Stop 07/02/17 at 09:13; Status DC Rifampin (Rifampin) 300 mg Q12HR PO Last administered on 07/16/17at 07:51; Start 07/08/17 at 21:00 Rivaroxaban (Xarelto) 10 mg DAILY PO Last administered on 07/05/17at 08:48; Start 06/30/17 at 16:15; Status Future Hold Sodium Chloride (NS Flush) 2 ml BID IV FLUSH Last administered on 07/16/17at 07: 52; Start 06/30/17 at 09:00 Tramadol HCl (Ultram) 50 mg Q6HR PRN PO PAIN SCALE 1-5 Last administered on at 22:26; Start 07/03/17 at 13:00; Stop 07/11/17 at 11:50; Status DC Vancomycin HCl 1000 mg/Sodium Chloride 250 ml @ 250 mls/hr Q12H IV ; Start at 12:45; Stop 07/07/17 at 13:44; Status DC Vancomycin HCl 1250 mg/Sodium Chloride 262.5 ml @ 250 mls/hr Q12H IV Last administered on 07/01/17at 23:27; Start 06/30/17 at 12:00; Stop 07/02/17 at 11:38 ; Status DC A/P Problem List: (1) Status post fracture of right tibia ICD Code: Z87.81 - Personal history of (healed) traumatic fracture Status: Acute Assessment and Plan A/P Cellulitis of right leg status post fracture of right tibia Right proximal tibia wound infection Bacteremia staph aureus and staph epi s/p Irrigation and debridement of right proximal tibia, placement of antibiotic beads, application wound VAC dressing on 07/07/[address] Smith which has been removed. Positive blood cx 2/4 . Repeated blood cultures negative. ID f/u appreciated; recommended that cefazoline + rifampin to be continued until re-admitted for hardware removal and then another 4- 6 weeks of abx post- op wound vac has been removed. ortho following; cleared for discharge per ortho. Hypertension: BP still elevated- continue lisinopril,metoprolol and Procardia- added Clonidine. continue with Vasotec prn- will monitor and adjust the regimen as needed. DVT prophylaxis: SCDs. Discharge Planning ready for discharge when BP is better controlled; likely tomorrow. Vika Rosario MD Jul 16, 2017 10:26
[2017-07-16] MEDS: ENALAPRILAT 1.25 MG/ML VIAL IV PUSH PRN ×2 (11:56→22:34)
[2017-07-16] MEDS: MORPHINE SULFATE 2 MG/ML SYRINGE IV PUSH PRN (23:50)
[2017-07-17] VITALS (8 sets, daily range): BP systolic 172–192; BP diastolic 74–92; PULSE 60–89; RESP 18; TEMP 97.4–98.3; O2SAT 97–98
[2017-07-17] MEDS: ACETAMINOPHEN/HYDROcodone 325 MG/5 MG TAB PO PRN ×6 (01:02→22:36)
[2017-07-17] MEDS: ZOLPIDEM TARTRATE 5 MG TAB PO PRN (01:02)
[2017-07-17] MEDS: cloNIDine HCL 0.1 MG TAB PO SCH ×3 (01:02→15:56)
[2017-07-17] MEDS ORDERED: cloNIDine HCL 0.1 MG TAB PO ONE (03:15)
[2017-07-17] MEDS: METOPROLOL TARTRATE 25 MG TAB PO SCH ×3 (05:31→20:57)
[2017-07-17] MEDS: LISINOPRIL 10 MG TAB PO SCH (08:48)
[2017-07-17] MEDS: RIFAMPIN 150 MG CAP PO SCH ×2 (08:48→20:57)
[2017-07-17] MEDS: DOXAZOSIN MESYLATE 2 MG TAB PO SCH (08:48)
[2017-07-17] MEDS: CEFAZOLIN INJ 2,000 MG in SODIUM CHLORIDE 0.9% INJ 100 ML IV SCH ×2 (08:48→15:57)
[2017-07-17] MEDS: NIFEdipine 60 MG SUSTAINED RELEASE TAB PO SCH (08:48)
[2017-07-17] MEDS: SODIUM CHLORIDE 0.9% FLUSH 10 ML FLUSH IV FLUSH SCH ×2 (08:49→20:57)
--- NOTE | 2017-07-17 12:06 | HHI.PR ---
Subjective Remarks in no acute distress. pain seems to be controlled. no fever. BP trend noted. Objective Vitals Vital Signs Date Time Temp Pulse Resp B/P (MAP) Pulse Ox O2 Delivery O2 Flow Rate FiO2 07/17/17 08:00 97.9 60 18 182/80 (114) 98 07/17/17 04:00 97.9 62 18 172/90 (117) 97 07/17/17 01:03 18 180/80 (113) 07/17/17 00:00 97.4 72 18 192/92 (125) 97 07/16/17 22:32 69 198/90 (126) 07/16/17 20:00 97.9 68 18 192/90 (124) 98 07/16/17 16:00 98.0 62 18 168/70 (102) 98 07/16/17 12:30 168/62 (97) I/O 07/16/17 07/16/17 07/16/17 07/17/17 07/17/17 07/17/17 07:00 15:00 23:00 07:00 15:00 23:00 Intake Total 120 ml 200 ml 120 ml 120 ml Output Total 1650 ml 1250 ml Balance -1530 ml 200 ml -1130 ml 120 ml IV Total 120 ml 200 ml 120 ml 120 ml Output Urine Total 1650 ml 1250 ml Result Diagram: 07/13/17 1533 07/13/17 1533 Imaging Last Impressions Tumor Localization 07/04/17 0000 Signed Impressions: Service Date/Time: Tuesday, July 04, 2017 14:31 - CONCLUSION: Mild tracer accumulation in the soft tissues directly adjacent to the hardware along the top of the right tibia. Emiliano Oshea MD Lower Extremity CT 07/04/17 0000 Signed Impressions: Service Date/Time: Tuesday, July 04, 2017 09:42 - CONCLUSION: 1. Small joint effusion and lateral knee soft tissue swelling. 2. Status post ORIF of a comminuted lateral tibial plateau fracture 3. No evidence of destructive bone lesions or extra articular fluid collections. 4. Postop wound infection and hardware infection cannot be excluded based on the above findings. Mina Dockery MD Knee X-Ray 06/29/17 [id number] Signed Impressions: Service Date/Time: June 23:12 - CONCLUSION: Stable appearance status post open rigid internal fixation. Rivas Ledesma MD Objective Remarks GENERAL: This is a well-nourished, well-developed patient, in no apparent distress. CARDIOVASCULAR: Regular rate and regular rhythm without murmurs, gallops, or rubs. RESPIRATORY: Clear to auscultation. Breath sounds equal bilaterally. No wheezes , rales, or rhonchi. GASTROINTESTINAL: Abdomen soft, non-tender, nondistended. Normal, active bowel sounds MUSCULOSKELETAL: right leg/knee covered with clean dressing . NEURO: Alert & Oriented x4 to person, place, time, situation. Moves all ext x4 Procedures Right proximal tibia wound infection s/p Irrigation and debridement of right proximal tibia, placement of antibiotic beads, application wound VAC dressing on 07/07/[address] Smith Medications and IVs Inpatient Medications Acetaminophen/ Hydrocodone Bitart ([place] 5-325 Mg) 2 tab Q4H PRN PO PAIN 6-10 Last administered on 07/17/17at 09:36; Start 07/11/17 at 13:00 Amlodipine Besylate (Norvasc) 10 mg DAILY PO Last administered on 07/13/17at 09: 01; Start 06/30/17 at 16:15; Stop 07/14/17 at 09:19; Status DC Cefazolin Sodium 2000 mg/Sodium Chloride 120 ml @ 240 mls/hr Q8H IV Last administered on 07/17/17at 08:48; Start 07/07/17 at 17:00 Cefazolin Sodium/ Dextrose 50 ml @ 100 mls/hr Q8H IV Last administered on 07/07at 05:00; Start 07/02/17 at 13:00; Stop 07/07/17 at 17:13; Status DC Clindamycin/ Sodium Chloride 50 ml @ 100 mls/hr Q6H IV Last administered on at 13:34; Start 07/03/17 at 13:00; Stop 07/03/17 at 18:28; Status DC Clonidine (Catapres) 0.1 mg ONCE ONCE PO Last administered on 07/17/17 03:08; Start 07/17/17 at 03:15; Stop 07/17/17 at 03:16; Status DC Doxazosin Mesylate (Cardura) 2 mg DAILY PO Last administered on 07/17/17at 08:48 ; Start 06/30/17 at 16:15 Enalapril Maleate (Vasotec) 5 mg DAILY PO Last administered on 07/08/17at 08:22 ; Start 06/30/17 at 16:15; Stop 07/08/17 at 08:54; Status DC Enalaprilat (Vasotec Inj) 1.25 mg Q8H PRN IV PUSH SBP> OR = 180, DBP> OR = 100 Last administered on 07/16/17at 22:34; Start 07/11/17 at 13:00 Influenza Virus Vaccine (Flu (Quadrivalent) Vaccine Inj) 0.5 ml ONCE ONCE IM ; Start 07/01/17 at 10:00; Stop 07/01/17 at 10:01; Status DC Lactated Ringer's 1,000 ml @ 100 mls/hr Q10H IV Last administered on 07/13/17at 06:15; Start 07/07/17 at 10:15; Stop 07/13/17 at 10:10; Status DC Lisinopril (Prinivil) 10 mg ONCE ONCE PO Last administered on 07/11/17at 13:00; Start 07/11/17 at 13:00; Stop 07/11/17 at 13:01; Status DC Metoprolol Tartrate (Lopressor) 25 mg Q8HR PO Last administered on 07/17/17at 05: 31; Start 06/30/17 at 16:15 Miscellaneous Information ALL NURSING DEPARTME... UNSCH PRN .XX SEE LABEL COMMENTS; Start 07/07/17 at 11:30; Stop 07/08/17 at 11:29; Status DC Morphine Sulfate (Morphine Inj) 2 mg Q4H PRN IV PUSH BREAKTHROUGH PAIN Last administered on 07/16/17at 23:50; Start 07/11/17 at 14:15 Naloxone HCl (Narcan Inj) 0.4 mg UNSCH PRN IV PUSH SEE LABEL COMMENTS; Start at 01:00 Nifedipine (Procardia Xl) 60 mg DAILY PO Last administered on 07/17/17at 08:48; Start 07/14/17 at 10:00 Pharmacy Profile Note 0 ml @ 0 mls/hr UNSCH OTHER ; Start 06/30/17 at 01:00; Stop 07/02/17 at 11:38; Status DC Piperacillin Sod/ Tazobactam Sod 100 ml @ 200 mls/hr Q6H IV Last administered on 07/02/17at 09:40; Start 06/30/17 at 08:00; Stop 07/02/17 at 11:38; Status DC Potassium Chloride (KCl) 40 meq ONCE ONCE PO Last administered on 07/02/17at 09 :39; Start 07/02/17 at 09:00; Stop 07/02/17 at 09:13; Status DC Rifampin (Rifampin) 300 mg Q12HR PO Last administered on 07/17/17at 08:48; Start 07/08/17 at 21:00 Rivaroxaban (Xarelto) 10 mg DAILY PO Last administered on 07/05/17at 08:48; Start 06/30/17 at 16:15; Status Future Hold Sodium Chloride (NS Flush) 2 ml BID IV FLUSH Last administered on 07/17/17at 08: 49; Start 06/30/17 at 09:00 Tramadol HCl (Ultram) 50 mg Q6HR PRN PO PAIN SCALE 1-5 Last administered on at 22:26; Start 07/03/17 at 13:00; Stop 07/11/17 at 11:50; Status DC Vancomycin HCl 1000 mg/Sodium Chloride 250 ml @ 250 mls/hr Q12H IV ; Start at 12:45; Stop 07/07/17 at 13:44; Status DC Vancomycin HCl 1250 mg/Sodium Chloride 262.5 ml @ 250 mls/hr Q12H IV Last administered on 07/01/17at 23:27; Start 06/30/17 at 12:00; Stop 07/02/17 at 11:38 ; Status DC Zolpidem Tartrate (Ambien) 5 mg HS PRN PO INSOMNIA Last administered on at 01:02; Start 07/16/17 at 18:00 A/P Problem List: (1) Status post fracture of right tibia ICD Code: Z87.81 - Personal history of (healed) traumatic fracture Status: Acute Assessment and Plan A/P Cellulitis of right leg status post fracture of right tibia Right proximal tibia wound infection Bacteremia staph aureus and staph epi s/p Irrigation and debridement of right proximal tibia, placement of antibiotic beads, application wound VAC dressing on 07/07/[address] Smith which has been removed. Positive blood cx 05/14 . Repeated blood cultures negative. ID f/u appreciated; recommended that cefazoline + rifampin to be continued until re-admitted for hardware removal and then another 4- 6 weeks of abx post- op wound vac has been removed. ortho following; cleared for discharge per ortho. Hypertension: BP still elevated- continue lisinopril,metoprolol and clonidine- will increase procardia. continue with Vasotec prn- will monitor and adjust the regimen as needed. DVT prophylaxis: SCDs. Discharge Planning ready for discharge when BP is better controlled; within the next one-two days. d/w the case management. Vika Rosario MD Jul 17, 2017 12:06
[2017-07-17] MEDS: MORPHINE SULFATE 2 MG/ML SYRINGE IV PUSH PRN ×2 (16:02→20:57)
[2017-07-17] MEDS: ENALAPRILAT 1.25 MG/ML VIAL IV PUSH PRN (16:48)
[2017-07-17] MEDS ORDERED: NIFEdipine 60 MG SUSTAINED RELEASE TAB PO ONE (19:00)
[2017-07-17] MEDS ORDERED: NIFEdipine 60 MG SUSTAINED RELEASE TAB PO SCH (21:00)
[2017-07-18] VITALS: BP 180/78; PULSE 68; RESP 18; TEMP 97.8; O2SAT 99
[2017-07-18] MEDS: cloNIDine HCL 0.1 MG TAB PO SCH ×4 (00:43→23:42)
[2017-07-18] MEDS: ZOLPIDEM TARTRATE 5 MG TAB PO PRN ×2 (00:43→21:23)
[2017-07-18] MEDS: CEFAZOLIN INJ 2,000 MG in SODIUM CHLORIDE 0.9% INJ 100 ML IV SCH ×4 (00:44→23:42)
[2017-07-18] MEDS: MORPHINE SULFATE 2 MG/ML SYRINGE IV PUSH PRN ×5 (00:49→23:43)
[2017-07-18 04:00] VITALS: BP 170/82; PULSE 65; RESP 17; TEMP 98.3; O2SAT 95
[2017-07-18] MEDS: METOPROLOL TARTRATE 25 MG TAB PO SCH ×3 (04:43→21:23)
[2017-07-18] MEDS: ACETAMINOPHEN/HYDROcodone 325 MG/5 MG TAB PO PRN ×5 (04:44→21:22)
[2017-07-18 08:00] VITALS: BP 225/99; PULSE 69; RESP 18; TEMP 98; O2SAT 98
[2017-07-18] MEDS: SODIUM CHLORIDE 0.9% FLUSH 10 ML FLUSH IV FLUSH SCH ×2 (09:05→21:00)
[2017-07-18] MEDS: RIFAMPIN 150 MG CAP PO SCH ×2 (09:05→21:23)
[2017-07-18] MEDS: DOXAZOSIN MESYLATE 2 MG TAB PO SCH (09:06)
[2017-07-18] MEDS: NIFEdipine 60 MG SUSTAINED RELEASE TAB PO SCH ×2 (09:06→21:24)
[2017-07-18] MEDS: LISINOPRIL 10 MG TAB PO SCH (09:07)
[2017-07-18] MEDS: ENALAPRILAT 1.25 MG/ML VIAL IV PUSH PRN (09:07)
[2017-07-18] MEDS ORDERED: LISINOPRIL 20 MG TAB PO ONE (10:15)
[2017-07-18 11:24] LABS: CALCIUM 8.8 MG/DL (8.5-10.1); CREATININE 0.78 MG/DL (0.60-1.30)
[2017-07-18 12:00] VITALS: BP 187/87; PULSE 78; RESP 18; TEMP 98.1; O2SAT 96
--- NOTE | 2017-07-18 15:34 | HHI.PR ---
Subjective Remarks The patient was worried about his blood pressure. He said that his pain control was better. Discussed with nursing. Objective Vitals Vital Signs Date Time Temp Pulse Resp B/P (MAP) Pulse Ox O2 Delivery O2 Flow Rate FiO2 07/18/17 12:00 98.1 78 18 187/87 (120) 96 07/18/17 08:00 98.0 69 18 225/99 (141) 98 07/18/17 05:30 16 07/18/17 04:00 98.3 65 17 170/82 (111) 95 07/18/17 00:54 16 07/18/17 00:00 97.8 68 18 180/78 (112) 99 07/17/17 20:00 98.3 89 18 188/82 (117) 97 07/17/17 17:54 184/82 (116) 07/17/17 16:00 97.5 78 18 190/84 (119) 97 I/O 07/17/17 07/17/17 07/17/17 07/18/17 07/18/17 07/18/17 07:00 15:00 23:00 07:00 15:00 23:00 Intake Total 120 ml 120 ml 2520 ml 780 ml 120 ml Output Total 1250 ml 1450 ml 1000 ml Balance -1130 ml 120 ml 1070 ml -220 ml 120 ml Intake Oral 2400 ml 780 ml IV Total 120 ml 120 ml 120 ml 120 ml Output Urine Total 1250 ml 1450 ml 1000 ml # Bowel Movements 1 0 Result Diagram: 07/18/17 1036 Imaging Last Impressions Tumor Localization 07/04/17 0000 Signed Impressions: Service Date/Time: Tuesday, July 04, 2017 14:31 - CONCLUSION: Mild tracer accumulation in the soft tissues directly adjacent to the hardware along the top of the right tibia. Emiliano Oshea MD Lower Extremity CT 07/04/17 0000 Signed Impressions: Service Date/Time: Tuesday, July 04, 2017 09:42 - CONCLUSION: 1. Small joint effusion and lateral knee soft tissue swelling. 2. Status post ORIF of a comminuted lateral tibial plateau fracture 3. No evidence of destructive bone lesions or extra articular fluid collections. 4. Postop wound infection and hardware infection cannot be excluded based on the above findings. Mina Dockery MD Knee X-Ray 06/29/17 7425 Signed Impressions: Service Date/Time: June 23:12 - CONCLUSION: Stable appearance status post open rigid internal fixation. Rivas Ledesma MD Objective Remarks GENERAL: This is a well-nourished, well-developed patient, in no apparent distress. CARDIOVASCULAR: Regular rate and regular rhythm without murmurs, gallops, or rubs. RESPIRATORY: Clear to auscultation. Breath sounds equal bilaterally. No wheezes , rales, or rhonchi. GASTROINTESTINAL: Abdomen soft, non-tender, nondistended. MUSCULOSKELETAL: right leg/knee covered with clean dressing . NEURO: Alert & Oriented x4 to person, place, time, situation. Moves all ext x4 Procedures Right proximal tibia wound infection s/p Irrigation and debridement of right proximal tibia, placement of antibiotic beads, application wound VAC dressing on 07/07/[address] Smith Medications and IVs Current Medications Medications (Trade) Dose Ordered Sig/Barbra Route Start Time Stop Time Status Last Admin (NS Flush) 2 ml UNSCH PRN IV FLUSH 06/30/17 01:00 07/12/17 16:21 (NS Flush) 2 ml BID IV FLUSH 06/30/17 09:00 07/18/17 09:05 (Narcan Inj) 0.4 mg UNSCH PRN IV PUSH 06/30/17 01:00 (Cardura) 2 mg DAILY PO 06/30/17 16:15 07/18/17 09:06 (Lopressor) 25 mg Q8HR PO 06/30/17 16:15 07/18/17 13:04 (Xarelto) 10 mg DAILY PO 06/30/17 16:15 Future Hold 07/05/17 08:48 Cefazolin Sodium 2000 mg/Sodium Chloride 120 ml @ 240 mls/hr Q8H IV 07/07/17 17:00 07/18/17 09:05 (Rifampin) 300 mg Q12HR PO 07/08/17 21:00 07/18/17 09:05 (Morphine Inj) 2 mg Q4H PRN IV PUSH 07/11/17 14:15 07/18/17 15:06 ([place] 5-325 Mg) 1 tab Q4H PRN PO 07/11/17 13:00 ([place] 5-325 Mg) 2 tab Q4H PRN PO 07/11/17 13:00 07/18/17 13:04 (Vasotec Inj) 1.25 mg Q8H PRN IV PUSH 07/11/17 13:00 07/18/17 09:07 (Catapres) 0.1 mg Q8H PO 07/15/17 17:00 07/18/17 09:06 (Ambien) 5 mg HS PRN PO 07/16/17 18:00 07/18/17 00:43 (Procardia Xl) 60 mg BID PO 07/18/17 09:00 07/18/17 09:06 (Prinivil) 40 mg DAILY PO 07/19/17 09:00 A/P Problem List: (1) Status post fracture of right tibia ICD Code: Z87.81 - Personal history of (healed) traumatic fracture Status: Acute Assessment and Plan Cellulitis of right leg status post fracture of right tibia/ Right proximal tibia wound infection/ Bacteremia staph aureus and staph epi S/p Irrigation and debridement of right proximal tibia, placement of antibiotic beads, application wound VAC dressing on 07/07/[address] Smith which has been removed. Positive blood cx 05/14 . Repeated blood cultures negative. ID f/u appreciated; recommended that cefazolin + rifampin to be continued until re- admitted for hardware removal and then another 4- 6 weeks of abx post-op. - continue antibiotics. - cleared for discharge per ortho. - pain control with a bowel regimen. - PT. Accelerated hypertension BP still elevated. - continue metoprolol and clonidine. Increased Procardia. Increase lisinopril. Start HCTZ if no improvement. - continue with Vasotec prn- will monitor and adjust the regimen as needed. DVT prophylaxis: SCDs. Discharge Planning Await improvement in blood pressure Rivas Figueroa DO Jul 18, 2017 15:33
[2017-07-18 16:00] VITALS: BP 174/101; PULSE 73; RESP 18; TEMP 97.7; O2SAT 97
[2017-07-18 20:00] VITALS: BP 176/74; PULSE 62; RESP 17; TEMP 97.5; O2SAT 96
[2017-07-19] VITALS (7 sets, daily range): BP systolic 164–201; BP diastolic 77–113; PULSE 68–80; RESP 17–18; TEMP 97.3–98; O2SAT 93–98
[2017-07-19] MEDS: ACETAMINOPHEN/HYDROcodone 325 MG/5 MG TAB PO PRN ×6 (02:00→22:19)
[2017-07-19] MEDS: METOPROLOL TARTRATE 25 MG TAB PO SCH ×3 (04:41→21:01)
[2017-07-19] MEDS: MORPHINE SULFATE 2 MG/ML SYRINGE IV PUSH PRN ×5 (04:42→21:02)
[2017-07-19] MEDS: ENALAPRILAT 1.25 MG/ML VIAL IV PUSH PRN (06:26)
[2017-07-19] MEDS: cloNIDine HCL 0.1 MG TAB PO SCH ×2 (08:24→21:01)
[2017-07-19] MEDS: DOXAZOSIN MESYLATE 2 MG TAB PO SCH (08:24)
[2017-07-19] MEDS: NIFEdipine 60 MG SUSTAINED RELEASE TAB PO SCH ×2 (08:24→21:00)
[2017-07-19] MEDS: CEFAZOLIN INJ 2,000 MG in SODIUM CHLORIDE 0.9% INJ 100 ML IV SCH ×2 (08:24→16:20)
[2017-07-19] MEDS: SODIUM CHLORIDE 0.9% FLUSH 10 ML FLUSH IV FLUSH SCH ×2 (08:25→21:00)
[2017-07-19] MEDS: RIFAMPIN 150 MG CAP PO SCH ×2 (08:25→21:01)
[2017-07-19] MEDS: LISINOPRIL 20 MG TAB PO SCH (08:25)
[2017-07-19] MEDS: HYDROCHLOROTHIAZIDE 25 MG TAB PO SCH (11:53)
--- NOTE | 2017-07-19 15:12 | HHI.PR ---
Subjective Remarks The patient was resting comfortably in bed. He said his blood pressure was getting a little bit better. He said the pain medication was helping. Discussed with nursing. Objective Vitals Vital Signs Date Time Temp Pulse Resp B/P (MAP) Pulse Ox O2 Delivery O2 Flow Rate FiO2 07/19/17 12:00 97.4 80 17 167/97 (120) 93 07/19/17 09:30 176/86 (116) 07/19/17 08:00 97.3 73 17 201/113 (142) 97 180/92 (121) 07/19/17 06:00 182/88 (119) 07/19/17 05:27 20 07/19/17 05:26 20 07/19/17 00:00 98.0 68 18 180/90 (120) 97 07/18/17 20:00 97.5 62 17 176/74 (108) 96 07/18/17 16:00 97.7 73 18 174/101 (125) 97 I/O 07/18/17 07/18/17 07/18/17 07/19/17 07/19/17 07/19/17 07:00 15:00 23:00 07:00 15:00 23:00 Intake Total 780 ml 120 ml 880 ml 780 ml 120 ml Output Total 1000 ml 1400 ml 1100 ml Balance -220 ml 120 ml 880 ml -620 ml -980 ml Intake Oral 780 ml 760 ml 780 ml IV Total 120 ml 120 ml 120 ml Output Urine Total 1000 ml 1400 ml 1100 ml # Voids 5 # Bowel Movements 0 Result Diagram: 07/18/17 1036 Imaging Last Impressions Tumor Localization 07/04/17 0000 Signed Impressions: Service Date/Time: Tuesday, July 04, 2017 14:31 - CONCLUSION: Mild tracer accumulation in the soft tissues directly adjacent to the hardware along the top of the right tibia. Emiliano Oshea MD Lower Extremity CT 07/04/17 0000 Signed Impressions: Service Date/Time: Tuesday, July 04, 2017 09:42 - CONCLUSION: 1. Small joint effusion and lateral knee soft tissue swelling. 2. Status post ORIF of a comminuted lateral tibial plateau fracture 3. No evidence of destructive bone lesions or extra articular fluid collections. 4. Postop wound infection and hardware infection cannot be excluded based on the above findings. Mina Dockery MD Knee X-Ray 06/29/17 [id number] Signed Impressions: Service Date/Time: June 23:12 - CONCLUSION: Stable appearance status post open rigid internal fixation. Rivas Ledesma MD Objective Remarks GENERAL: This is a well-nourished, well-developed patient, in no apparent distress. CARDIOVASCULAR: Regular rate and regular rhythm without murmurs, gallops, or rubs. RESPIRATORY: Clear to auscultation. Breath sounds equal bilaterally. No wheezes , rales, or rhonchi. GASTROINTESTINAL: Abdomen soft, non-tender, nondistended. MUSCULOSKELETAL: right leg/knee covered with clean dressing . NEURO: Alert & Oriented x4 to person, place, time, situation. Moves all ext x4. PSYCH: Mood and affect appropriate. Procedures Right proximal tibia wound infection s/p Irrigation and debridement of right proximal tibia, placement of antibiotic beads, application wound VAC dressing on 07/07/[address] Smith Medications and IVs Current Medications Medications (Trade) Dose Ordered Sig/Barbra Route Start Time Stop Time Status Last Admin (NS Flush) 2 ml UNSCH PRN IV FLUSH 06/30/17 01:00 07/12/17 16:21 (NS Flush) 2 ml BID IV FLUSH 06/30/17 09:00 07/19/17 08:25 (Narcan Inj) 0.4 mg UNSCH PRN IV PUSH 06/30/17 01:00 (Cardura) 2 mg DAILY PO 06/30/17 16:15 07/19/17 08:24 (Lopressor) 25 mg Q8HR PO 06/30/17 16:15 07/19/17 12:47 (Xarelto) 10 mg DAILY PO 06/30/17 16:15 Future Hold 07/05/17 08:48 Cefazolin Sodium 2000 mg/Sodium Chloride 120 ml @ 240 mls/hr Q8H IV 07/07/17 17:00 07/19/17 08:24 (Rifampin) 300 mg Q12HR PO 07/08/17 21:00 07/19/17 08:25 (Morphine Inj) 2 mg Q4H PRN IV PUSH 07/11/17 14:15 07/19/17 12:47 ([place] 5-325 Mg) 1 tab Q4H PRN PO 07/11/17 13:00 ([place] 5-325 Mg) 2 tab Q4H PRN PO 07/11/17 13:00 07/19/17 14:51 (Vasotec Inj) 1.25 mg Q8H PRN IV PUSH 07/11/17 13:00 07/19/17 06:26 (Ambien) 5 mg HS PRN PO 07/16/17 18:00 07/18/17 21:23 (Procardia Xl) 60 mg BID PO 07/18/17 09:00 07/19/17 08:24 (Prinivil) 40 mg DAILY PO 07/19/17 09:00 07/19/17 08:25 (Catapres) 0.1 mg HS PO 07/19/17 21:00 (Hydrodiuril) 25 mg DAILY PO 07/19/17 11:00 07/19/17 11:53 A/P Problem List: (1) Status post fracture of right tibia ICD Code: Z87.81 - Personal history of (healed) traumatic fracture Status: Acute Assessment and Plan Cellulitis of right leg status post fracture of right tibia/ Right proximal tibia wound infection/ Bacteremia staph aureus and staph epi S/p Irrigation and debridement of right proximal tibia, placement of antibiotic beads, application wound VAC dressing on 07/07/[address] Smith which has been removed. Positive blood cx 05/14 . Repeated blood cultures negative. ID f/u appreciated; recommended that cefazolin + rifampin to be continued until re- admitted for hardware removal and then another 4 - 6 weeks of abx post-op. - continue antibiotics. - cleared for discharge per ortho. - pain control with a bowel regimen. - PT. Accelerated hypertension BP still elevated. Somewhat improved. - continue metoprolol. Increased Procardia and lisinopril. Added HCTZ. Wean off hydralazine. - clonidine as needed. DVT prophylaxis: SCDs. Discharge Planning Await improvement in blood pressure Rivas Figueroa DO Jul 19, 2017 15:12
[2017-07-19] MEDS ORDERED: cloNIDine HCL 0.1 MG TAB PO PRN (15:15)
[2017-07-20] VITALS (8 sets, daily range): BP systolic 131–210; BP diastolic 62–98; PULSE 66–81; RESP 16–19; TEMP 97.6–98.7; O2SAT 92–97
[2017-07-20] MEDS: MORPHINE SULFATE 2 MG/ML SYRINGE IV PUSH PRN ×4 (01:27→22:17)
[2017-07-20] MEDS: CEFAZOLIN INJ 2,000 MG in SODIUM CHLORIDE 0.9% INJ 100 ML IV SCH ×3 (01:27→17:49)
[2017-07-20] MEDS: ZOLPIDEM TARTRATE 5 MG TAB PO PRN (01:34)
[2017-07-20] MEDS: METOPROLOL TARTRATE 25 MG TAB PO SCH ×3 (05:17→22:16)
[2017-07-20] MEDS: ACETAMINOPHEN/HYDROcodone 325 MG/5 MG TAB PO PRN ×4 (05:18→20:59)
[2017-07-20] MEDS: DOXAZOSIN MESYLATE 2 MG TAB PO SCH (09:14)
[2017-07-20] MEDS: HYDROCHLOROTHIAZIDE 25 MG TAB PO SCH ×2 (09:15→20:58)
[2017-07-20] MEDS: LISINOPRIL 20 MG TAB PO SCH (09:16)
[2017-07-20] MEDS: NIFEdipine 60 MG SUSTAINED RELEASE TAB PO SCH ×2 (09:16→20:58)
[2017-07-20] MEDS: RIFAMPIN 150 MG CAP PO SCH ×2 (09:17→20:58)
[2017-07-20] MEDS: SODIUM CHLORIDE 0.9% FLUSH 10 ML FLUSH IV FLUSH SCH ×2 (09:30→20:56)
--- NOTE | 2017-07-20 10:22 | HHI.PR ---
Subjective Remarks The patient says his blood pressure was over 200 this morning. He feels a little tired but otherwise has no acute complaints. Discussed with nursing. Objective Vitals Vital Signs Date Time Temp Pulse Resp B/P (MAP) Pulse Ox O2 Delivery O2 Flow Rate FiO2 07/20/17 09:52 98.3 76 18 210/98 (135) 95 07/20/17 04:00 98.6 72 18 155/80 (105) 92 07/20/17 02:55 20 07/20/17 00:05 20 07/20/17 00:00 98.7 66 18 157/81 (106) 97 07/19/17 20:00 98.0 71 18 164/77 (106) 95 07/19/17 16:00 97.8 77 17 190/96 (127) 98 07/19/17 12:00 97.4 80 17 167/97 (120) 93 I/O 07/19/17 07/19/17 07/19/17 07/20/17 07/20/17 07/20/17 07:00 15:00 23:00 07:00 15:00 23:00 Intake Total 780 ml 120 ml 2664 ml 240 ml 240 ml Output Total 1400 ml 1100 ml 850 ml 1000 ml Balance -620 ml -980 ml 1814 ml -760 ml 240 ml Intake Oral 780 ml 2544 ml 240 ml 240 ml IV Total 120 ml 120 ml Output Urine Total 1400 ml 1100 ml 850 ml 1000 ml # Bowel Movements 2 Result Diagram: 07/18/17 1036 Imaging Last Impressions Tumor Localization 07/04/17 0000 Signed Impressions: Service Date/Time: Tuesday, July 04, 2017 14:31 - CONCLUSION: Mild tracer accumulation in the soft tissues directly adjacent to the hardware along the top of the right tibia. Emiliano Oshea MD Lower Extremity CT 07/04/17 0000 Signed Impressions: Service Date/Time: Tuesday, July 04, 2017 09:42 - CONCLUSION: 1. Small joint effusion and lateral knee soft tissue swelling. 2. Status post ORIF of a comminuted lateral tibial plateau fracture 3. No evidence of destructive bone lesions or extra articular fluid collections. 4. Postop wound infection and hardware infection cannot be excluded based on the above findings. Mina Dockery MD Knee X-Ray 06/29/17 0418 Signed Impressions: Service Date/Time: June 23:12 - CONCLUSION: Stable appearance status post open rigid internal fixation. Rivas Ledesma MD Objective Remarks GENERAL: This is a well-nourished, well-developed patient, in no apparent distress. CARDIOVASCULAR: Regular rate and regular rhythm without murmurs, gallops, or rubs. RESPIRATORY: Clear to auscultation. Breath sounds equal bilaterally. No wheezes , rales, or rhonchi. GASTROINTESTINAL: Abdomen soft, non-tender, nondistended. MUSCULOSKELETAL: right leg/knee covered with clean dressing . NEURO: Alert & Oriented x4 to person, place, time, situation. Moves all ext x4. PSYCH: Mood and affect appropriate. Procedures Right proximal tibia wound infection s/p Irrigation and debridement of right proximal tibia, placement of antibiotic beads, application wound VAC dressing on 07/07/[address] Smith Medications and IVs Current Medications Medications (Trade) Dose Ordered Sig/Barbra Route Start Time Stop Time Status Last Admin (NS Flush) 2 ml UNSCH PRN IV FLUSH 06/30/17 01:00 07/12/17 16:21 (NS Flush) 2 ml BID IV FLUSH 06/30/17 09:00 07/20/17 09:30 (Narcan Inj) 0.4 mg UNSCH PRN IV PUSH 06/30/17 01:00 (Cardura) 2 mg DAILY PO 06/30/17 16:15 07/20/17 09:14 (Lopressor) 25 mg Q8HR PO 06/30/17 16:15 07/20/17 05:17 (Xarelto) 10 mg DAILY PO 06/30/17 16:15 Future Hold 07/05/17 08:48 Cefazolin Sodium 2000 mg/Sodium Chloride 120 ml @ 240 mls/hr Q8H IV 07/07/17 17:00 07/20/17 09:18 (Rifampin) 300 mg Q12HR PO 07/08/17 21:00 07/20/17 09:17 (Morphine Inj) 2 mg Q4H PRN IV PUSH 07/11/17 14:15 07/20/17 01:27 ([place] 5-325 Mg) 1 tab Q4H PRN PO 07/11/17 13:00 ([place] 5-325 Mg) 2 tab Q4H PRN PO 07/11/17 13:00 07/20/17 05:18 (Ambien) 5 mg HS PRN PO 07/16/17 18:00 07/20/17 01:34 (Procardia Xl) 60 mg BID PO 07/18/17 09:00 07/20/17 09:16 (Prinivil) 40 mg DAILY PO 07/19/17 09:00 07/20/17 09:16 (Catapres) 0.1 mg HS PO 07/19/17 21:00 07/19/17 21:01 (Catapres) 0.1 mg Q6H PRN PO 07/19/17 15:15 07/19/17 16:20 (Hydrodiuril) 25 mg BID PO 07/20/17 21:00 A/P Problem List: (1) Status post fracture of right tibia ICD Code: Z87.81 - Personal history of (healed) traumatic fracture Status: Acute Assessment and Plan Cellulitis of right leg status post fracture of right tibia/ Right proximal tibia wound infection/ Bacteremia staph aureus and staph epi S/p Irrigation and debridement of right proximal tibia, placement of antibiotic beads, application wound VAC dressing on 07/07/[address] Smith which has been removed. Positive blood cx 05/14 . Repeated blood cultures negative. ID f/u appreciated; recommended that cefazolin + rifampin to be continued until re- admitted for hardware removal and then another 4 - 6 weeks of abx post-op. - continue antibiotics. Will d/c to hotel with [facility]. - cleared for discharge per ortho. - pain control with a bowel regimen. - PT. Accelerated hypertension BP still elevated. - continue metoprolol. Increased Procardia and lisinopril. Added HCTZ, will increase to BID dosing. Wean off hydralazine. - clonidine as needed. CAD No chest pain at this time. - blood pressure control as above. DVT prophylaxis: SCDs Discharge Planning Await improvement in blood pressure then d/c to hot with [facility] Rivas Figueroa DO Jul 20, 2017 10:22
[2017-07-20] MEDS: cloNIDine HCL 0.1 MG TAB PO SCH (20:56)
[2017-07-21] VITALS: BP 133/63; PULSE 63; RESP 16; TEMP 97.8; O2SAT 95
[2017-07-21] MEDS: CEFAZOLIN INJ 2,000 MG in SODIUM CHLORIDE 0.9% INJ 100 ML IV SCH ×3 (01:14→16:46)
[2017-07-21] MEDS: ZOLPIDEM TARTRATE 5 MG TAB PO PRN (01:14)
[2017-07-21] MEDS: SODIUM CHLORIDE 0.9% FLUSH 10 ML FLUSH IV FLUSH PRN (01:15)
[2017-07-21] MEDS: ACETAMINOPHEN/HYDROcodone 325 MG/5 MG TAB PO PRN ×5 (01:15→20:37)
[2017-07-21] MEDS: MORPHINE SULFATE 2 MG/ML SYRINGE IV PUSH PRN ×3 (02:06→13:05)
[2017-07-21] MEDS: METOPROLOL TARTRATE 25 MG TAB PO SCH ×2 (06:19→12:26)
[2017-07-21 07:48] LABS: HEMATOCRIT 33.2 % (39.0-51.0); HEMOGLOBIN 12.1 GM/DL (13.0-17.0); MEAN CELL VOLUME 102.6 FL (80.0-100.0); MEAN CORPUSCULAR HEMOGLOBIN 37.5 PG (27.0-34.0); PLATELET COUNT 221 TH/MM3 (150-450); RED BLOOD COUNT 3.24 MIL/MM3 (4.50-5.90); RED CELL DISTRIBUTION WIDTH 13.2 % (11.6-17.2); WHITE BLOOD COUNT 7.8 TH/MM3 (4.0-11.0)
[2017-07-21 07:49] LABS: MEAN CORPUSCULAR HGB CONC 36.5 % (32.0-36.0)
[2017-07-21 08:00] VITALS: BP 205/93; PULSE 75; RESP 16; TEMP 98.1; O2SAT 95
[2017-07-21 08:02] LABS: BICARBONATE 29.4 MEQ/L (21.0-32.0); CALCIUM 8.9 MG/DL (8.5-10.1); CREATININE 0.65 MG/DL (0.60-1.30); MAGNESIUM 1.7 MG/DL (1.5-2.5)
[2017-07-21] MEDS: DOXAZOSIN MESYLATE 2 MG TAB PO SCH (08:46)
[2017-07-21] MEDS: HYDROCHLOROTHIAZIDE 25 MG TAB PO SCH ×2 (08:47→20:39)
[2017-07-21] MEDS: NIFEdipine 60 MG SUSTAINED RELEASE TAB PO SCH ×2 (08:48→20:39)
[2017-07-21] MEDS: LISINOPRIL 20 MG TAB PO SCH (08:48)
[2017-07-21] MEDS: RIFAMPIN 150 MG CAP PO SCH ×2 (08:48→20:41)
[2017-07-21] MEDS: SODIUM CHLORIDE 0.9% FLUSH 10 ML FLUSH IV FLUSH SCH ×2 (09:46→20:38)
[2017-07-21] MEDS: cloNIDine HCL 0.1 MG TAB PO SCH ×2 (09:57→20:39)
[2017-07-21 10:15] VITALS: BP 196/82; PULSE 71; RESP 16; TEMP 98.4; O2SAT 98
[2017-07-21] MEDS ORDERED: DOXAZOSIN MESYLATE 2 MG TAB PO ONE (15:00)
--- NOTE | 2017-07-21 15:02 | HHI.PR ---
Subjective Remarks Patient continues to complain pain control is working. He says he has a history of a stent placed in his left kidney for high blood pressure. He was wondering how his thyroid function was. Discussed with nursing. Objective Vitals Vital Signs Date Time Temp Pulse Resp B/P (MAP) Pulse Ox O2 Delivery O2 Flow Rate FiO2 07/21/17 10:15 98.4 71 16 196/82 (120) 98 07/21/17 08:00 98.1 75 16 205/93 (130) 95 07/21/17 00:00 97.8 63 16 133/63 (86) 95 07/20/17 22:13 67 16 134/62 (86) 97 07/20/17 20:00 98.2 81 18 131/63 (85) 95 07/20/17 16:00 97.7 67 19 145/67 (93) 95 I/O 07/20/17 07/20/17 07/20/17 07/21/17 07/21/17 07/21/17 06:59 14:59 22:59 06:59 14:59 22:59 Intake Total 240 ml 240 ml 800 ml 120 ml Output Total 1000 ml 900 ml 800 ml Balance -760 ml 240 ml -100 ml -800 ml 120 ml Intake Oral 240 ml 240 ml 800 ml 120 ml Output Urine Total 1000 ml 900 ml 800 ml # Bowel Movements 1 Result Diagram: 07/21/17 0630 07/21/17 0630 Imaging Last Impressions Tumor Localization 07/04/17 0000 Signed Impressions: Service Date/Time: Tuesday, July 04, 2017 14:31 - CONCLUSION: Mild tracer accumulation in the soft tissues directly adjacent to the hardware along the top of the right tibia. Emiliano Oshea MD Lower Extremity CT 07/04/17 0000 Signed Impressions: Service Date/Time: Tuesday, July 04, 2017 09:42 - CONCLUSION: 1. Small joint effusion and lateral knee soft tissue swelling. 2. Status post ORIF of a comminuted lateral tibial plateau fracture 3. No evidence of destructive bone lesions or extra articular fluid collections. 4. Postop wound infection and hardware infection cannot be excluded based on the above findings. Mina Dockery MD Knee X-Ray 06/29/17 [id number] Signed Impressions: Service Date/Time: June 23:12 - CONCLUSION: Stable appearance status post open rigid internal fixation. Rivas Ledesma MD Objective Remarks GENERAL: This is a well-nourished, well-developed patient, in no apparent distress. CARDIOVASCULAR: Regular rate and regular rhythm without murmurs, gallops, or rubs. RESPIRATORY: Clear to auscultation. Breath sounds equal bilaterally. No wheezes , rales, or rhonchi. GASTROINTESTINAL: Abdomen soft, non-tender, nondistended. MUSCULOSKELETAL: right leg/knee covered with clean dressing . NEURO: Alert & Oriented x4 to person, place, time, situation. Moves all ext x4. PSYCH: Mood and affect appropriate. Procedures Right proximal tibia wound infection s/p Irrigation and debridement of right proximal tibia, placement of antibiotic beads, application wound VAC dressing on 07/07/[address] Smith Medications and IVs Current Medications Medications (Trade) Dose Ordered Sig/Barbra Route Start Time Stop Time Status Last Admin (NS Flush) 2 ml UNSCH PRN IV FLUSH 06/30/17 01:00 07/21/17 01:15 (NS Flush) 2 ml BID IV FLUSH 06/30/17 09:00 07/21/17 09:46 (Narcan Inj) 0.4 mg UNSCH PRN IV PUSH 06/30/17 01:00 (Cardura) 2 mg DAILY PO 06/30/17 16:15 07/21/17 08:46 (Lopressor) 25 mg Q8HR PO 06/30/17 16:15 07/21/17 12:26 (Xarelto) 10 mg DAILY PO 06/30/17 16:15 Future Hold 07/05/17 08:48 Cefazolin Sodium 2000 mg/Sodium Chloride 120 ml @ 240 mls/hr Q8H IV 07/07/17 17:00 07/21/17 08:50 (Rifampin) 300 mg Q12HR PO 07/08/17 21:00 07/21/17 08:48 (Morphine Inj) 2 mg Q4H PRN IV PUSH 07/11/17 14:15 07/21/17 13:05 ([place] 5-325 Mg) 1 tab Q4H PRN PO 07/11/17 13:00 ([place] 5-325 Mg) 2 tab Q4H PRN PO 07/11/17 13:00 07/21/17 10:44 (Ambien) 5 mg HS PRN PO 07/16/17 18:00 07/21/17 01:14 (Procardia Xl) 60 mg BID PO 07/18/17 09:00 07/21/17 08:48 (Prinivil) 40 mg DAILY PO 07/19/17 09:00 07/21/17 08:48 (Hydrodiuril) 25 mg BID PO 07/20/17 21:00 07/21/17 08:47 (Catapres) 0.2 mg BID PO 07/21/17 09:00 07/21/17 09:57 (Vasotec Inj) 2.5 mg Q6H PRN IV PUSH 07/21/17 15:00 UNV A/P Problem List: (1) Status post fracture of right tibia ICD Code: Z87.81 - Personal history of (healed) traumatic fracture Status: Acute Assessment and Plan Cellulitis of right leg status post fracture of right tibia/ Right proximal tibia wound infection/ Bacteremia staph aureus and staph epi S/p Irrigation and debridement of right proximal tibia, placement of antibiotic beads, application wound VAC dressing on 07/07/[address] Smith which has been removed. Positive blood cx 05/14 . Repeated blood cultures negative. ID f/u appreciated; recommended that cefazolin + rifampin to be continued until re- admitted for hardware removal and then another 4 - 6 weeks of abx post-op. - continue antibiotics. Will d/c to hotel with [facility]. - cleared for discharge per ortho. - pain control with a bowel regimen. DC IV morphine. - PT. Accelerated hypertension BP still elevated. Apparently the patient has a history of renal artery stenosis with a stent on the left. - continue metoprolol. Increased Procardia and lisinopril. Added HCTZ twice daily. Increase doxazosin. - Vasotec as needed. - Consult nephrology if no improvement by tomorrow. CAD No chest pain at this time. - blood pressure control as above. DVT prophylaxis: Xarelto Discharge Planning Await improvement in blood pressure then d/c to hotel with [facility] Rivas Figueroa DO Jul 21, 2017 15:02
[2017-07-21 16:00] VITALS: BP 163/83; PULSE 63; RESP 20; TEMP 97.8; O2SAT 98
[2017-07-21 20:00] VITALS: BP 140/54; PULSE 66; RESP 18; TEMP 98.8; O2SAT 98
[2017-07-22] VITALS: BP 175/79; PULSE 64; RESP 18; TEMP 97.8; O2SAT 97
[2017-07-22] MEDS: METOPROLOL TARTRATE 25 MG TAB PO SCH ×4 (00:49→21:53)
[2017-07-22] MEDS: CEFAZOLIN INJ 2,000 MG in SODIUM CHLORIDE 0.9% INJ 100 ML IV SCH ×3 (00:49→17:19)
[2017-07-22] MEDS: ZOLPIDEM TARTRATE 5 MG TAB PO PRN (00:49)
[2017-07-22] MEDS: ACETAMINOPHEN/HYDROcodone 325 MG/5 MG TAB PO PRN ×6 (00:50→21:54)
[2017-07-22 06:27] LABS: BICARBONATE 29.3 MEQ/L (21.0-32.0); CALCIUM 9.1 MG/DL (8.5-10.1); CREATININE 0.66 MG/DL (0.60-1.30)
[2017-07-22 08:00] VITALS: BP_SYST 141; BP_SYST 237; BP_DIAS 110; BP_DIAS 79; PULSE 79; RESP 18; TEMP 97.8; O2SAT 98
[2017-07-22] MEDS: SODIUM CHLORIDE 0.9% FLUSH 10 ML FLUSH IV FLUSH SCH ×2 (08:10→20:16)
[2017-07-22] MEDS: HYDROCHLOROTHIAZIDE 25 MG TAB PO SCH (08:11)
[2017-07-22] MEDS: RIFAMPIN 150 MG CAP PO SCH ×2 (08:11→20:14)
[2017-07-22] MEDS: LISINOPRIL 20 MG TAB PO SCH (08:11)
[2017-07-22] MEDS: cloNIDine HCL 0.1 MG TAB PO SCH ×2 (08:12→20:15)
[2017-07-22] MEDS: NIFEdipine 60 MG SUSTAINED RELEASE TAB PO SCH ×2 (08:13→20:14)
[2017-07-22] MEDS ORDERED: DOXAZOSIN MESYLATE 2 MG TAB PO SCH (09:00)
[2017-07-22 09:50] VITALS: BP 141/90; PULSE 79
--- NOTE | 2017-07-22 11:16 | HHI.PR ---
Subjective Remarks The patient said that he felt like his blood pressure was high this morning because a blood pressure cuff was very tight. He also experienced ringing in his ears. No other acute complaints. Discussed with nursing. Objective Vitals Vital Signs Date Time Temp Pulse Resp B/P (MAP) Pulse Ox O2 Delivery O2 Flow Rate FiO2 07/22/17 09:50 79 141/90 (107) 07/22/17 08:00 97.8 79 18 237/110 (152) 98 07/22/17 00:00 97.8 64 18 175/79 (111) 97 07/21/17 20:00 98.8 66 18 140/54 (82) 98 07/21/17 16:00 97.8 63 20 163/83 (109) 98 I/O 07/21/17 07/21/17 07/21/17 07/22/17 07/22/17 07/22/17 07:00 15:00 23:00 07:00 15:00 23:00 Intake Total 100 ml 120 ml 1000 ml 100 ml Output Total 800 ml 900 ml 300 ml Balance -700 ml 120 ml 100 ml -200 ml Intake Oral 120 ml 1000 ml IV Total 100 ml 100 ml Output Urine Total 800 ml 900 ml 300 ml # Bowel Movements 1 Result Diagram: 07/21/17 0630 07/22/17 0525 Imaging Last Impressions Tumor Localization 07/04/17 0000 Signed Impressions: Service Date/Time: Tuesday, July 04, 2017 14:31 - CONCLUSION: Mild tracer accumulation in the soft tissues directly adjacent to the hardware along the top of the right tibia. Emiliano Oshea MD Lower Extremity CT 07/04/17 0000 Signed Impressions: Service Date/Time: Tuesday, July 04, 2017 09:42 - CONCLUSION: 1. Small joint effusion and lateral knee soft tissue swelling. 2. Status post ORIF of a comminuted lateral tibial plateau fracture 3. No evidence of destructive bone lesions or extra articular fluid collections. 4. Postop wound infection and hardware infection cannot be excluded based on the above findings. Mina Dockery MD Knee X-Ray 06/29/17 [id number] Signed Impressions: Service Date/Time: June 23:12 - CONCLUSION: Stable appearance status post open rigid internal fixation. Rivas Ledesma MD Objective Remarks GENERAL: This is a well-nourished, well-developed patient, in no apparent distress. CARDIOVASCULAR: Regular rate and regular rhythm without murmurs, gallops, or rubs. RESPIRATORY: Clear to auscultation. Breath sounds equal bilaterally. No wheezes , rales, or rhonchi. GASTROINTESTINAL: Abdomen soft, non-tender, nondistended. MUSCULOSKELETAL: right leg/knee covered with clean dressing . NEURO: Alert & Oriented x4 to person, place, time, situation. Moves all ext x4. PSYCH: Mood and affect appropriate. Procedures Right proximal tibia wound infection s/p Irrigation and debridement of right proximal tibia, placement of antibiotic beads, application wound VAC dressing on 07/07/[address] Smith Medications and IVs Current Medications Medications (Trade) Dose Ordered Sig/Barbra Route Start Time Stop Time Status Last Admin (NS Flush) 2 ml UNSCH PRN IV FLUSH 06/30/17 01:00 07/21/17 01:15 (NS Flush) 2 ml BID IV FLUSH 06/30/17 09:00 07/22/17 08:10 (Narcan Inj) 0.4 mg UNSCH PRN IV PUSH 06/30/17 01:00 (Lopressor) 25 mg Q8HR PO 06/30/17 16:15 07/22/17 05:16 (Xarelto) 10 mg DAILY PO 06/30/17 16:15 Future hold 07/05/17 08:48 Cefazolin Sodium 2000 mg/Sodium Chloride 120 ml @ 240 mls/hr Q8H IV 07/07/17 17:00 07/22/17 08:10 (Rifampin) 300 mg Q12HR PO 07/08/17 21:00 07/22/17 08:11 ([place] 5-325 Mg) 1 tab Q4H PRN PO 07/11/17 13:00 ([place] 5-325 Mg) 2 tab Q4H PRN PO 07/11/17 13:00 07/22/17 09:21 (Ambien) 5 mg HS PRN PO 07/16/17 18:00 07/22/17 00:49 (Procardia Xl) 60 mg BID PO 07/18/17 09:00 07/22/17 08:13 (Prinivil) 40 mg DAILY PO 07/19/17 09:00 07/22/17 08:11 (Hydrodiuril) 25 mg BID PO 07/20/17 21:00 07/22/17 08:11 (Catapres) 0.2 mg BID PO 07/21/17 09:00 07/22/17 08:12 (Vasotec Inj) 2.5 mg Q6H PRN IV PUSH 07/21/17 15:00 (Cardura) 4 mg DAILY PO 07/22/17 09:00 07/22/17 08:13 A/P Problem List: (1) Status post fracture of right tibia ICD Code: Z87.81 - Personal history of (healed) traumatic fracture Status: Acute Assessment and Plan Cellulitis of right leg status post fracture of right tibia/ Right proximal tibia wound infection/ Bacteremia staph aureus and staph epi S/p Irrigation and debridement of right proximal tibia, placement of antibiotic beads, application wound VAC dressing on 07/07/[address] Smith which has been removed. Positive blood cx 05/14 . Repeated blood cultures negative. ID f/u appreciated; recommended that cefazolin + rifampin to be continued until re- admitted for hardware removal and then another 4 - 6 weeks of abx post-op. - continue antibiotics. Will d/c to hotel with [facility]. - cleared for discharge per ortho. - pain control with a bowel regimen. DC IV morphine. - PT. Accelerated hypertension Apparently the patient has a history of renal artery stenosis with a stent on the left. - continue metoprolol. Increased Procardia and lisinopril. Added HCTZ twice daily. Increase doxazosin. - Vasotec as needed. - Consult nephrology as blood pressure remains poorly controlled. CAD No chest pain at this time. - blood pressure control as above. DVT prophylaxis: Xarelto Discharge Planning Await improvement in blood pressure then d/c to hotel with [facility] Rivas Figueroa DO Jul 22, 2017 11:16
[2017-07-22 12:00] VITALS: BP 203/86; PULSE 78; RESP 17; TEMP 97.3; O2SAT 99
[2017-07-22] MEDS: ENALAPRILAT 2.5 MG/2 ML VIAL IV PUSH PRN (12:20)
[2017-07-22] MEDS: RIVAROXABAN 10 MG TAB PO SCH (13:11)
--- NOTE | 2017-07-22 14:47 | PD.CONS ---
HPI Service nephrology Consult Requested By Reason for Consult Uncontrolled hypertension Primary Care Physician No Primary Care Physician History of Present Illness Mr. Carbajal was admitted on the 30 of June with history of swelling, pain and infection in the right leg. On June 11 he underwent ORIF for proximal tibia fracture. It appears he developed infection. He has been seen by ID and Orthopedics. On the 07 of July, he underwent I & D and placement of antibiotic beads. He is currently on Cefazolin and Rifampin. His BP has been high. He reports that either in 1999 or 2000, he had left renal artery stent placed. He does not check his BP at home. Review of Systems Constitutional: DENIES: Diaphoretic episodes, Fatigue, Fever Cardiovascular: DENIES: Chest pain, Palpitations Gastrointestinal: DENIES: Abdominal pain, Black stools Musculoskeletal: COMPLAINS OF: Joint pain, Muscle aches, Joint Swelling Past Family Social History Allergies: Coded Allergies: No Known Allergies (Verified Adverse Reaction, Unknown, 06/29/17) Past Medical History Arterial bypass in both legs 2016 Left carotid endarterectomy Triple bypass 2016 Right steel plate in shoulder Right clavicle repair Reported Medications Reported Medications Active Enalapril (Enalapril Maleate) 5 Mg Tab 5 Mg PO DAILY 30 Days Norvasc (Amlodipine Besylate) 10 Mg Tab 10 Mg PO DAILY 30 Days Metoprolol Tartrate 25 Mg Tab 25 Mg PO Q8HR 30 Days Cardura (Doxazosin Mesylate) 2 Mg Tab 2 Mg PO DAILY 30 Days Xarelto (Rivaroxaban) 10 Mg Tab 10 Mg PO DAILY Active Ordered Medications Current Medications Medications (Trade) Dose Ordered Sig/Barbra Route Start Time Stop Time Status Last Admin (NS Flush) 2 ml UNSCH PRN IV FLUSH 06/30/17 01:00 07/21/17 01:15 (NS Flush) 2 ml BID IV FLUSH 06/30/17 09:00 07/22/17 08:10 (Narcan Inj) 0.4 mg UNSCH PRN IV PUSH 06/30/17 01:00 (Lopressor) 25 mg Q8HR PO 06/30/17 16:15 07/22/17 14:00 (Xarelto) 10 mg DAILY PO 06/30/17 16:15 Future hold 07/22/17 13:11 Cefazolin Sodium 2000 mg/Sodium Chloride 120 ml @ 240 mls/hr Q8H IV 07/07/17 17:00 07/22/17 08:10 (Rifampin) 300 mg Q12HR PO 07/08/17 21:00 07/22/17 08:11 ([place] 5-325 Mg) 1 tab Q4H PRN PO 07/11/17 13:00 ([place] 5-325 Mg) 2 tab Q4H PRN PO 07/11/17 13:00 07/22/17 14:00 (Ambien) 5 mg HS PRN PO 07/16/17 18:00 07/22/17 00:49 (Procardia Xl) 60 mg BID PO 07/18/17 09:00 07/22/17 08:13 (Prinivil) 40 mg DAILY PO 07/19/17 09:00 07/22/17 08:11 (Hydrodiuril) 25 mg BID PO 07/20/17 21:00 07/22/17 08:11 (Catapres) 0.2 mg BID PO 07/21/17 09:00 07/22/17 08:12 (Vasotec Inj) 2.5 mg Q6H PRN IV PUSH 07/21/17 15:00 07/22/17 12:20 (Cardura) 4 mg DAILY PO 07/22/17 09:00 07/22/17 08:13 Family History reviewed, non contributory Social History smokes 1 ppd History of ETOH abuse. NO IV drug abuse. Lives alone. Physical Exam Vital Signs Vital Signs Date Time Temp Pulse Resp B/P (MAP) Pulse Ox O2 Delivery O2 Flow Rate FiO2 07/22/17 12:00 97.3 78 17 203/86 (125) 99 07/22/17 09:50 79 141/90 (107) 07/22/17 08:00 97.8 79 18 237/110 (152) 98 07/22/17 00:00 97.8 64 18 175/79 (111) 97 07/21/17 20:00 98.8 66 18 140/54 (82) 98 07/21/17 16:00 97.8 63 20 163/83 (109) 98 Physical Exam GENERAL: awake, alert. SKIN: Warm and dry. HEAD: Normocephalic. EYES: No scleral icterus. No injection or drainage. NECK: Supple, trachea midline. No JVD or lymphadenopathy. CARDIOVASCULAR: Regular rate and rhythm without murmurs, gallops, or rubs. RESPIRATORY: Breath sounds equal bilaterally. No accessory muscle use. GASTROINTESTINAL: Abdomen soft, non-tender, nondistended. MUSCULOSKELETAL: No cyanosis, or edema. BACK: Nontender without obvious deformity. No CVA tenderness. Laboratory Laboratory Tests Test 07/22/17 05:25 Blood Urea Nitrogen 7 Creatinine 0.66 Random Glucose 91 Calcium Level 9.1 Sodium Level 133 Potassium Level 4.3 Chloride Level 97 Carbon Dioxide Level 29.3 Anion Gap 7 Estimat Glomerular Filtration Rate 123 Date/Time Source Procedure Growth Status 07/01/17 15:32 Blood Peripheral Aerobic Blood Culture - Final NO GROWTH IN 5 DAYS Complete 07/01/17 15:32 Blood Peripheral Anaerobic Blood Culture - Final NO GROWTH IN 5 DAYS Complete 07/07/17 10:00 Wound Leg Fungal Smear - Final NO FUNGAL ELEMENTS SEEN. Resulted 07/07/17 10:00 Wound Leg Fungal Culture - Preliminary NO GROWTH IN 2 WEEKS Resulted Result Diagram: 07/21/17 0630 07/22/17 0525 Assessment and Plan Problem List: (1) Hypertension ICD Codes: I10 - Essential (primary) hypertension Status: Chronic Plan: patient has a remote history of renal artery stenosis, and stent placement in the left renal artery. He appears to have diffuse atherosclerotic disease, and it is certainly possible that he has renovascular hypertension. It is also possible that he has developed stent restenosis. At this time, I will change Lisinopril to Valsartan 320 mg PO daily, change HCTZ back to once daily, as higher doses will increase side effect with increasing the efficiency. Also increase Cardura to twice daily. Consider Clonidine if heart rate is acceptable. Hydralazine can be added if heart rate is low. If BP continues to be high, consider MRA of renal arteries. Low salt diet. Avoid IVF. Monitor. I will order Aldosterone to PRA ratio. (2) History of renal artery stenosis ICD Codes: Z86.79 - Personal history of other diseases of the circulatory system Status: Acute Plan: See above. (3) CAD (coronary artery disease) ICD Codes: I25.10 - Atherosclerotic heart disease of [place] coronary artery without angina pectoris Status: Acute Plan: s/p CABG. Continue risk factor modifications. (4) Peripheral vascular disease ICD Codes: I73.9 - Peripheral vascular disease, unspecified Status: Acute Plan: s/p peripheral revascularization. Assessment and Plan Thanks for the consult. Camilo Santiago MD Jul 22, 2017 14:47
[2017-07-22 16:00] VITALS: BP 182/87; PULSE 77; RESP 17; TEMP 98.4; O2SAT 96
[2017-07-22 20:00] VITALS: BP 150/70; PULSE 69; RESP 18; TEMP 98.6; O2SAT 98
[2017-07-22] MEDS: DOXAZOSIN MESYLATE 4 MG TAB PO SCH (20:15)
[2017-07-23] VITALS: BP 178/87; PULSE 63; RESP 20; TEMP 97.7; O2SAT 97
[2017-07-23] MEDS: CEFAZOLIN INJ 2,000 MG in SODIUM CHLORIDE 0.9% INJ 100 ML IV SCH (01:02)
[2017-07-23] MEDS: ZOLPIDEM TARTRATE 5 MG TAB PO PRN (01:02)
[2017-07-23] MEDS: METOPROLOL TARTRATE 25 MG TAB PO SCH ×3 (06:28→22:45)
[2017-07-23] MEDS: ACETAMINOPHEN/HYDROcodone 325 MG/5 MG TAB PO PRN ×5 (06:30→22:46)
[2017-07-23 08:00] VITALS: BP 222/101; PULSE 84; RESP 17; TEMP 97.5; O2SAT 88; O2SAT 98
[2017-07-23] MEDS: RIVAROXABAN 10 MG TAB PO SCH (09:02)
[2017-07-23] MEDS: VALSARTAN 160 MG TAB PO SCH (09:04)
[2017-07-23] MEDS: NIFEdipine 60 MG SUSTAINED RELEASE TAB PO SCH ×2 (09:04→20:44)
[2017-07-23] MEDS: cloNIDine HCL 0.1 MG TAB PO SCH ×2 (09:04→20:44)
[2017-07-23] MEDS: DOXAZOSIN MESYLATE 4 MG TAB PO SCH ×2 (09:04→20:44)
[2017-07-23] MEDS: HYDROCHLOROTHIAZIDE 25 MG TAB PO SCH (09:04)
[2017-07-23] MEDS: SODIUM CHLORIDE 0.9% FLUSH 10 ML FLUSH IV FLUSH SCH ×2 (09:05→20:48)
[2017-07-23] MEDS: ceFAZolin 2 GM/DEX PREMIX 50 ML IV SCH ×2 (09:05→16:24)
[2017-07-23] MEDS: RIFAMPIN 150 MG CAP PO SCH ×2 (10:44→20:43)
[2017-07-23 10:55] VITALS: BP 125/61; PULSE 72; RESP 18; TEMP 97.6; O2SAT 98
--- NOTE | 2017-07-23 12:01 | HHI.PR ---
Subjective Remarks The patient was upset that his blood pressure continued to be so high at times. He had questions about his pain medication. He understood that he was going for an MRI. Discussed with nursing. Objective Vitals Vital Signs Date Time Temp Pulse Resp B/P (MAP) Pulse Ox O2 Delivery O2 Flow Rate FiO2 07/23/17 10:55 97.6 72 18 125/61 (82) 98 07/23/17 08:00 98 07/23/17 08:00 97.5 84 17 222/101 (141) 88 07/23/17 00:00 97.7 63 20 178/87 (117) 97 07/22/17 20:00 98.6 69 18 150/70 (96) 98 07/22/17 16:00 98.4 77 17 182/87 (118) 96 07/22/17 12:00 97.3 78 17 203/86 (125) 99 I/O 07/22/17 07/22/17 07/22/17 07/23/17 07/23/17 07/23/17 07:00 15:00 23:00 07:00 15:00 23:00 Intake Total 100 ml 1200 ml 900 ml Output Total 300 ml 1200 ml Balance -200 ml 1200 ml -300 ml Intake Oral 1200 ml 780 ml IV Total 100 ml 120 ml Output Urine Total 300 ml 1200 ml # Voids 7 # Bowel Movements 0 Result Diagram: 07/21/17 0630 07/22/17 0525 Imaging Last Impressions Tumor Localization 07/04/17 0000 Signed Impressions: Service Date/Time: Tuesday, July 04, 2017 14:31 - CONCLUSION: Mild tracer accumulation in the soft tissues directly adjacent to the hardware along the top of the right tibia. Emiliano Oshea MD Lower Extremity CT 07/04/17 0000 Signed Impressions: Service Date/Time: Tuesday, July 04, 2017 09:42 - CONCLUSION: 1. Small joint effusion and lateral knee soft tissue swelling. 2. Status post ORIF of a comminuted lateral tibial plateau fracture 3. No evidence of destructive bone lesions or extra articular fluid collections. 4. Postop wound infection and hardware infection cannot be excluded based on the above findings. Mina Dockery MD Knee X-Ray 06/29/17 [id number] Signed Impressions: Service Date/Time: June 23:12 - CONCLUSION: Stable appearance status post open rigid internal fixation. Rivas Ledesma MD Objective Remarks GENERAL: This is a well-nourished, well-developed patient, in no apparent distress. CARDIOVASCULAR: Regular rate and regular rhythm without murmurs, gallops, or rubs. RESPIRATORY: Clear to auscultation. Breath sounds equal bilaterally. No wheezes , rales, or rhonchi. GASTROINTESTINAL: Abdomen soft, non-tender, nondistended. MUSCULOSKELETAL: right leg/knee covered with clean dressing . NEURO: Alert & Oriented x4 to person, place, time, situation. Moves all ext x4. PSYCH: Mood and affect appropriate. Procedures Right proximal tibia wound infection s/p Irrigation and debridement of right proximal tibia, placement of antibiotic beads, application wound VAC dressing on 07/07/[address] Smith Medications and IVs Current Medications Medications (Trade) Dose Ordered Sig/Barbra Route Start Time Stop Time Status Last Admin (NS Flush) 2 ml UNSCH PRN IV FLUSH 06/30/17 01:00 07/21/17 01:15 (NS Flush) 2 ml BID IV FLUSH 06/30/17 09:00 07/23/17 09:05 (Narcan Inj) 0.4 mg UNSCH PRN IV PUSH 06/30/17 01:00 (Lopressor) 25 mg Q8HR PO 06/30/17 16:15 07/23/17 06:28 (Xarelto) 10 mg DAILY PO 06/30/17 16:15 Future hold 07/23/17 09:02 (Rifampin) 300 mg Q12HR PO 07/08/17 21:00 07/23/17 10:44 ([place] 5-325 Mg) 1 tab Q4H PRN PO 07/11/17 13:00 ([place] 5-325 Mg) 2 tab Q4H PRN PO 07/11/17 13:00 07/23/17 10:43 (Ambien) 5 mg HS PRN PO 07/16/17 18:00 07/23/17 01:02 (Procardia Xl) 60 mg BID PO 07/18/17 09:00 07/23/17 09:04 (Catapres) 0.2 mg BID PO 07/21/17 09:00 07/23/17 09:04 (Vasotec Inj) 2.5 mg Q6H PRN IV PUSH 07/21/17 15:00 07/22/17 12:20 (Cardura) 4 mg BID PO 07/22/17 21:00 07/23/17 09:04 (Hydrodiuril) 25 mg DAILY PO 07/23/17 09:00 07/23/17 09:04 ([place]) 320 mg DAILY PO 07/23/17 09:00 07/23/17 09:04 Cefazolin Sodium/ Dextrose 50 ml @ 100 mls/hr Q8H IV 07/23/17 09:00 07/23/17 09:05 (Roxicodone) 5 mg Q4H PRN PO 07/23/17 11:15 07/23/17 11:50 A/P Problem List: (1) Status post fracture of right tibia ICD Code: Z87.81 - Personal history of (healed) traumatic fracture Status: Acute Assessment and Plan Cellulitis of right leg status post fracture of right tibia/ Right proximal tibia wound infection/ Bacteremia staph aureus and staph epi S/p Irrigation and debridement of right proximal tibia, placement of antibiotic beads, application wound VAC dressing on 07/07/[address] Smith which has been removed. Positive blood cx 05/14 . Repeated blood cultures negative. ID f/u appreciated; recommended that cefazolin + rifampin to be continued until re- admitted for hardware removal and then another 4 - 6 weeks of abx post-op. - continue antibiotics. Will d/c to hotel with [facility]. - cleared for discharge per ortho. - pain control with a bowel regimen. DC IV morphine. - PT. Accelerated hypertension Apparently the patient has a history of renal artery stenosis with a stent on the left. Nephrology consult appreciated. - continue metoprolol, Procardia, HCTZ, doxazosin and clonidine. Lisinopril has been changed to valsartan. - Vasotec as needed. - MRA renal arteries per nephrology. CAD No chest pain at this time. - blood pressure control as above. DVT prophylaxis: Xarelto Discharge Planning Await improvement in blood pressure then d/c to hotel with [facility] Rivas Figueroa DO Jul 23, 2017 12:01
--- NOTE | 2017-07-23 13:02 | HHI.NPPN ---
Subjective Interval History BP is high. Patient denies headache. Objective Data Data Vital Signs Date Time Temp Pulse Resp B/P (MAP) Pulse Ox O2 Delivery O2 Flow Rate FiO2 07/23/17 10:55 97.6 72 18 125/61 (82) 98 07/23/17 08:00 98 07/23/17 08:00 97.5 84 17 222/101 (141) 88 07/23/17 00:00 97.7 63 20 178/87 (117) 97 07/22/17 20:00 98.6 69 18 150/70 (96) 98 07/22/17 16:00 98.4 77 17 182/87 (118) 96 -: 07/21/17 0630 07/22/17 0525 Assessment/Plan Problem List: (1) Hypertension ICD Codes: I10 - Essential (primary) hypertension Status: Chronic Plan: patient has a remote history of renal artery stenosis, and stent placement in the left renal artery. He appears to have diffuse atherosclerotic disease, and it is certainly possible that he has renovascular hypertension. It is also possible that he has developed stent restenosis. Medications changed yesterday. Clonidine has been added. Hydralazine can be added if heart rate is low. Obtain MRA of renal arteries to rule out stent restenosis. Low salt diet. Avoid IVF. Monitor. I have ordered Aldosterone to PRA ratio. Order plasma fractionated metanephrine. (2) History of renal artery stenosis ICD Codes: Z86.79 - Personal history of other diseases of the circulatory system Status: Acute Plan: See above. (3) CAD (coronary artery disease) ICD Codes: I25.10 - Atherosclerotic heart disease of [place] coronary artery without angina pectoris Status: Acute Plan: s/p CABG. Continue risk factor modifications. (4) Peripheral vascular disease ICD Codes: I73.9 - Peripheral vascular disease, unspecified Status: Acute Plan: s/p peripheral revascularization. Camilo Santiago MD Jul 23, 2017 13:02
[2017-07-23] MEDS ORDERED: GADODIAMIDE PF 287 MG/ML 20 ML VIAL (for RAD MRI) IVCONTRAST ONE (13:31)
--- NOTE | 2017-07-23 15:32 | RADRPT ---
EXAM DATE/TIME: 07/23/2017 13:25 [place] COMPARISON: No previous studies available for comparison. INDICATIONS : Hypertension. CONTRAST: 20 cc Omniscan (gadodiamide) IV MEDICAL HISTORY : Hypertension. Cardiovascular disease SURGICAL HISTORY : Carotid endarterectomy. CABG Left renal artery stent. ENCOUNTER: Subsequent ACUITY: 3 weeks PAIN SCORE: 0/10 LOCATION: upper quadrant TECHNIQUE: Bolus infused MR angiography was performed. The data was postprocessed with a variety of visualizati on algorithms including full-volume maximum-intensity projection, multiplanar sliding thin slab refor mation, and curved planar reformation. FINDINGS: There has been previous aortobifemoral bypass. The graft limbs are patent bilaterally. The aortic vis ceral vessels are patent. The celiac and SMA are widely patent. A single renal artery on the right is widely patent. There is widely patent accessory renal artery to the lower pole of the left kidney. T he main left renal artery has been previously stented in the stented ostial segment is obscured by me tallic susceptibility. The vessel beyond the stent is patent and unremarkable. Elsewhere, note is made of a posterior upper pole right renal cyst. The adrenals appear benign. CONCLUSION: Left main renal artery is previously stented. Neointimal hyperplasia within the stent cannot be exclu ded. Catheter arteriography suggested for definitive evaluation if clinically appropriate. Hany Kaiser MD on July 23, 2017 at 15:26 Board Certified Radiologist. This report was verified electronically.
[2017-07-23 16:00] VITALS: BP 172/93; PULSE 68; RESP 17; TEMP 97.5; O2SAT 93
[2017-07-23 20:00] VITALS: BP 181/87; PULSE 71; RESP 18; TEMP 97.9; O2SAT 100
[2017-07-24] VITALS: BP 161/68; PULSE 58; RESP 18; TEMP 97.8; O2SAT 96
[2017-07-24] MEDS: ceFAZolin 2 GM/DEX PREMIX 50 ML IV SCH ×3 (01:11→17:10)
[2017-07-24] MEDS: ZOLPIDEM TARTRATE 5 MG TAB PO PRN ×2 (01:11→20:47)
[2017-07-24] MEDS: METOPROLOL TARTRATE 25 MG TAB PO SCH ×3 (06:08→23:09)
[2017-07-24] MEDS: ACETAMINOPHEN/HYDROcodone 325 MG/5 MG TAB PO PRN ×4 (06:09→20:47)
[2017-07-24 08:00] VITALS: BP 188/92; PULSE 77; RESP 19; TEMP 97.6; O2SAT 96
--- NOTE | 2017-07-24 08:18 | HHI.NPPN ---
Subjective Interval History BP is better. MRA results noted. Objective Data Data Vital Signs Date Time Temp Pulse Resp B/P (MAP) Pulse Ox O2 Delivery O2 Flow Rate FiO2 07/24/17 00:00 97.8 58 18 161/68 (99) 96 07/23/17 20:00 97.9 71 18 181/87 (118) 100 07/23/17 16:00 97.5 68 17 172/93 (119) 93 07/23/17 10:55 97.6 72 18 125/61 (82) 98 -: 07/21/17 0630 07/22/17 0525 Assessment/Plan Problem List: (1) Hypertension ICD Codes: I10 - Essential (primary) hypertension Status: Chronic Plan: MRA results noted. Continue current medications, and monitor. If BP control is still poor, renal angiogram can be considered. Hydralazine can be added if heart rate is low. Obtain MRA of renal arteries to rule out stent restenosis. Low salt diet. Avoid IVF. Monitor. I have ordered Aldosterone to PRA ratio. Order plasma fractionated metanephrine. (2) History of renal artery stenosis ICD Codes: Z86.79 - Personal history of other diseases of the circulatory system Status: Acute Plan: See above. (3) CAD (coronary artery disease) ICD Codes: I25.10 - Atherosclerotic heart disease of [place] coronary artery without angina pectoris Status: Acute Plan: s/p CABG. Continue risk factor modifications. (4) Peripheral vascular disease ICD Codes: I73.9 - Peripheral vascular disease, unspecified Status: Acute Plan: s/p peripheral revascularization. Camilo Santiago MD Jul 24, 2017 08:18
[2017-07-24] MEDS: NIFEdipine 60 MG SUSTAINED RELEASE TAB PO SCH ×2 (09:36→20:48)
[2017-07-24] MEDS: RIVAROXABAN 10 MG TAB PO SCH (09:36)
[2017-07-24] MEDS: cloNIDine HCL 0.1 MG TAB PO SCH ×2 (09:36→20:48)
[2017-07-24] MEDS: DOXAZOSIN MESYLATE 4 MG TAB PO SCH ×2 (09:36→20:48)
[2017-07-24] MEDS: VALSARTAN 160 MG TAB PO SCH (09:36)
[2017-07-24] MEDS: SODIUM CHLORIDE 0.9% FLUSH 10 ML FLUSH IV FLUSH SCH ×2 (09:37→20:49)
[2017-07-24] MEDS: HYDROCHLOROTHIAZIDE 25 MG TAB PO SCH (09:37)
[2017-07-24] MEDS: RIFAMPIN 150 MG CAP PO SCH ×2 (09:37→20:48)
[2017-07-24 12:00] VITALS: BP 120/77; PULSE 71; RESP 17; TEMP 97.5; O2SAT 96
--- NOTE | 2017-07-24 15:56 | HHI.PR ---
Subjective Remarks The patient was still frustrated with his fluctuations in blood pressure. Otherwise no acute complaints. Discussed with nursing. Objective Vitals Vital Signs Date Time Temp Pulse Resp B/P (MAP) Pulse Ox O2 Delivery O2 Flow Rate FiO2 07/24/17 12:00 97.5 71 17 120/77 (91) 96 07/24/17 08:00 97.6 77 19 188/92 (124) 96 07/24/17 00:00 97.8 58 18 161/68 (99) 96 07/23/17 20:00 97.9 71 18 181/87 (118) 100 07/23/17 16:00 97.5 68 17 172/93 (119) 93 I/O 07/23/17 07/23/17 07/23/17 07/24/17 07/24/17 07/24/17 07:00 15:00 23:00 07:00 15:00 23:00 Intake Total 900 ml 1746 ml 170 ml Output Total 1200 ml 650 ml Balance -300 ml 1096 ml 170 ml Intake Oral 780 ml 1746 ml 120 ml IV Total 120 ml 50 ml Output Urine Total 1200 ml 650 ml # Voids 3 # Bowel Movements 1 Result Diagram: 07/21/17 0630 07/22/17 0525 Imaging Last Impressions Abdomen Magnetic Resonance Angio 07/23/17 0000 Signed Impressions: Service Date/Time: Sunday, July 23, 2017 13:25 - CONCLUSION: Left main renal artery is previously stented. Neointimal hyperplasia within the stent cannot be excluded. Catheter arteriography suggested for definitive evaluation if clinically appropriate. Hany Kaiser MD Tumor Localization 07/04/17 0000 Signed Impressions: Service Date/Time: Tuesday, July 04, 2017 14:31 - CONCLUSION: Mild tracer accumulation in the soft tissues directly adjacent to the hardware along the top of the right tibia. Emiliano Oshea MD Lower Extremity CT 07/04/17 0000 Signed Impressions: Service Date/Time: Tuesday, July 04, 2017 09:42 - CONCLUSION: 1. Small joint effusion and lateral knee soft tissue swelling. 2. Status post ORIF of a comminuted lateral tibial plateau fracture 3. No evidence of destructive bone lesions or extra articular fluid collections. 4. Postop wound infection and hardware infection cannot be excluded based on the above findings. Mina Dockery MD Knee X-Ray 06/29/17 [id number] Signed Impressions: Service Date/Time: June 23:12 - CONCLUSION: Stable appearance status post open rigid internal fixation. Rivas Ledesma MD Objective Remarks GENERAL: This is a well-nourished, well-developed patient, in no apparent distress. HEENT: NC, AT. CARDIOVASCULAR: Regular rate and regular rhythm without murmurs, gallops, or rubs. RESPIRATORY: Clear to auscultation. Breath sounds equal bilaterally. No wheezes , rales, or rhonchi. GASTROINTESTINAL: Abdomen soft, non-tender, nondistended. MUSCULOSKELETAL: right leg/knee covered with clean dressing . NEURO: Alert & Oriented x4 to person, place, time, situation. Moves all ext x4. PSYCH: Mood and affect appropriate. Procedures Right proximal tibia wound infection s/p Irrigation and debridement of right proximal tibia, placement of antibiotic beads, application wound VAC dressing on 07/07/[address] Smith Medications and IVs Current Medications Medications (Trade) Dose Ordered Sig/Barbra Route Start Time Stop Time Status Last Admin (NS Flush) 2 ml UNSCH PRN IV FLUSH 06/30/17 01:00 07/21/17 01:15 (NS Flush) 2 ml BID IV FLUSH 06/30/17 09:00 07/24/17 09:37 (Narcan Inj) 0.4 mg UNSCH PRN IV PUSH 06/30/17 01:00 (Lopressor) 25 mg Q8HR PO 06/30/17 16:15 07/24/17 14:07 (Xarelto) 10 mg DAILY PO 06/30/17 16:15 Future hold 07/24/17 09:36 (Rifampin) 300 mg Q12HR PO 07/08/17 21:00 07/24/17 09:37 ([place] 5-325 Mg) 1 tab Q4H PRN PO 07/11/17 13:00 ([place] 5-325 Mg) 2 tab Q4H PRN PO 07/11/17 13:00 07/24/17 11:15 (Ambien) 5 mg HS PRN PO 07/16/17 18:00 07/24/17 01:11 (Procardia Xl) 60 mg BID PO 07/18/17 09:00 07/24/17 09:36 (Catapres) 0.2 mg BID PO 07/21/17 09:00 07/24/17 09:36 (Vasotec Inj) 2.5 mg Q6H PRN IV PUSH 07/21/17 15:00 07/22/17 12:20 (Cardura) 4 mg BID PO 07/22/17 21:00 07/24/17 09:36 (Hydrodiuril) 25 mg DAILY PO 07/23/17 09:00 07/24/17 09:37 (Diovan) 320 mg DAILY PO 07/23/17 09:00 07/24/17 09:36 Cefazolin Sodium/ Dextrose 50 ml @ 100 mls/hr Q8H IV 07/23/17 09:00 07/24/17 09:35 (Roxicodone) 5 mg Q4H PRN PO 07/23/17 11:15 07/24/17 14:07 A/P Problem List: (1) Status post fracture of right tibia ICD Code: Z87.81 - Personal history of (healed) traumatic fracture Status: Acute Assessment and Plan Cellulitis of right leg status post fracture of right tibia/ Right proximal tibia wound infection/ Bacteremia staph aureus and staph epi S/p Irrigation and debridement of right proximal tibia, placement of antibiotic beads, application wound VAC dressing on 07/07/[address] Smith which has been removed. Positive blood cx 05/14 . Repeated blood cultures negative. ID f/u appreciated; recommended that cefazolin + rifampin to be continued until re- admitted for hardware removal and then another 4 - 6 weeks of abx post-op. - continue antibiotics. Will d/c to hot with [facility] [place]. - cleared for discharge per ortho. - pain control with a bowel regimen. DC IV morphine. - PT. Accelerated hypertension Apparently the patient has a history of renal artery stenosis with a stent on the left. Nephrology consult appreciated. MRA noted. - continue metoprolol, Procardia, HCTZ, doxazosin and clonidine. Lisinopril has been changed to valsartan. - Vasotec as needed. - consider angiography per nephrology. CAD No chest pain at this time. - blood pressure control as above. DVT prophylaxis: Xarelto Discharge Planning Await improvement in blood pressure then d/c to hotel with [facility]. May need angiography. Rivas Figueroa DO Jul 24, 2017 15:56
[2017-07-24 16:00] VITALS: BP 181/109; PULSE 80; RESP 20; TEMP 97.5; O2SAT 96
[2017-07-24] MEDS: ENALAPRILAT 2.5 MG/2 ML VIAL IV PUSH PRN (17:09)
[2017-07-24 20:00] VITALS: BP 128/85; PULSE 74; RESP 19; TEMP 97.7; O2SAT 96
[2017-07-25] VITALS: BP 128/78; PULSE 76; RESP 19; TEMP 98.2; O2SAT 96
[2017-07-25] MEDS: ACETAMINOPHEN/HYDROcodone 325 MG/5 MG TAB PO PRN ×6 (01:14→22:38)
[2017-07-25] MEDS: ceFAZolin 2 GM/DEX PREMIX 50 ML IV SCH ×3 (01:14→16:48)
[2017-07-25] MEDS: METOPROLOL TARTRATE 25 MG TAB PO SCH ×3 (05:21→22:39)
[2017-07-25 06:06] LABS: BICARBONATE 28.5 MEQ/L (21.0-32.0); CALCIUM 9.1 MG/DL (8.5-10.1); CREATININE 0.63 MG/DL (0.60-1.30); MAGNESIUM 1.9 MG/DL (1.5-2.5)
[2017-07-25 08:00] VITALS: BP 202/101; PULSE 79; RESP 18; TEMP 97.7; O2SAT 95
[2017-07-25] MEDS: HYDROCHLOROTHIAZIDE 25 MG TAB PO SCH (08:14)
[2017-07-25] MEDS: cloNIDine HCL 0.1 MG TAB PO SCH ×2 (08:14→22:38)
[2017-07-25] MEDS: NIFEdipine 60 MG SUSTAINED RELEASE TAB PO SCH ×2 (08:14→22:39)
[2017-07-25] MEDS: RIFAMPIN 150 MG CAP PO SCH ×2 (08:14→22:39)
[2017-07-25] MEDS: VALSARTAN 160 MG TAB PO SCH (08:14)
[2017-07-25] MEDS: DOXAZOSIN MESYLATE 4 MG TAB PO SCH ×2 (08:14→22:39)
[2017-07-25] MEDS: SODIUM CHLORIDE 0.9% FLUSH 10 ML FLUSH IV FLUSH SCH ×2 (08:15→21:00)
[2017-07-25] MEDS: RIVAROXABAN 10 MG TAB PO SCH (08:15)
[2017-07-25 12:00] VITALS: BP 174/84; PULSE 76; RESP 16; TEMP 97.7; O2SAT 97
--- NOTE | 2017-07-25 12:08 | HHI.PR ---
Subjective Remarks Follow-up hypertension. The patient has no complaints at this time. Pain is well controlled. Denies chest pain or dyspnea. Objective Vitals Vital Signs Date Time Temp Pulse Resp B/P (MAP) Pulse Ox O2 Delivery O2 Flow Rate FiO2 07/25/17 08:00 97.7 79 18 202/101 (134) 95 07/25/17 00:00 98.2 76 19 128/78 (95) 96 07/24/17 20:00 97.7 74 19 128/85 (99) 96 07/24/17 16:00 97.5 80 20 181/109 (133) 96 I/O 07/24/17 07/24/17 07/24/17 07/25/17 07/25/17 07/25/17 07:00 15:00 23:00 07:00 15:00 23:00 Intake Total 170 ml 50 ml 1050 ml 340 ml Balance 170 ml 50 ml 1050 ml 340 ml Intake Oral 120 ml 1000 ml 240 ml IV Total 50 ml 50 ml 50 ml 100 ml # Voids 3 4 2 # Bowel Movements 1 Result Diagram: 07/21/17 0630 07/25/17 0520 Imaging Last Impressions Abdomen Magnetic Resonance Angio 07/23/17 0000 Signed Impressions: Service Date/Time: Sunday, July 23, 2017 13:25 - CONCLUSION: Left main renal artery is previously stented. Neointimal hyperplasia within the stent cannot be excluded. Catheter arteriography suggested for definitive evaluation if clinically appropriate. Hany Kaiser MD Tumor Localization 07/04/17 0000 Signed Impressions: Service Date/Time: Tuesday, July 04, 2017 14:31 - CONCLUSION: Mild tracer accumulation in the soft tissues directly adjacent to the hardware along the top of the right tibia. Emiliano Oshea MD Lower Extremity CT 07/04/17 0000 Signed Impressions: Service Date/Time: Tuesday, July 04, 2017 09:42 - CONCLUSION: 1. Small joint effusion and lateral knee soft tissue swelling. 2. Status post ORIF of a comminuted lateral tibial plateau fracture 3. No evidence of destructive bone lesions or extra articular fluid collections. 4. Postop wound infection and hardware infection cannot be excluded based on the above findings. Mina Dockery MD Knee X-Ray 06/29/17 [id number] Signed Impressions: Service Date/Time: June 23:12 - CONCLUSION: Stable appearance status post open rigid internal fixation. Rivas Ledesma MD Objective Remarks General: No acute distress. Heart: Regular rate and rhythm. No murmur. Lungs: Clear to auscultation bilaterally. No wheezes, rales, or rhonchi. Breathing is nonlabored. Abdomen: Soft, nontender, nondistended. Extremities: No lower extremity edema. Right lower extremity in a splint. Psych: Alert and oriented. Neuro: Normal speech. No focal deficits noted. Procedures Right proximal tibia wound infection s/p Irrigation and debridement of right proximal tibia, placement of antibiotic beads, application wound VAC dressing on 07/07/[address] Smith Urinary Catheter: No Vascular Central Line Catheter: No A/P Problem List: (1) Status post fracture of right tibia ICD Code: Z87.81 - Personal history of (healed) traumatic fracture Status: Acute Assessment and Plan 1. Cellulitis of the right lower extremity: Status post fracture right tibia. Right proximal tibia wound infection. Status post irrigation and debridement of right proximal tibia with placement of antibiotic beads. Wound VAC applied , has since been removed. Continue antibiotics per infectious disease recommendations. Rifampin and cefazolin and to be continued until the patient is readmitted for hardware removal and then another 4-6 weeks of antibiotics postoperatively. 2. Bacteremia: Appreciate infectious disease recommendations. Continue antibiotics. 3. Hypertension: Blood pressure has been fluctuating. Significantly elevated again this morning. Appreciate nephrology recommendations. Antihypertensive medications adjusted. Patient has history of renal artery stenosis and has a stent in the left renal artery. MRA report noted. May need renal angiogram. 4. Coronary artery disease: Asymptomatic. 5. DVT prophylaxis: Xarelto. Discharge Planning Anticipate discharge with home health care soon, once blood pressure control is improved. Luciano Crystal MD Jul 25, 2017 12:08
[2017-07-25] MEDS: hydrALAZINE HCL 25 MG TAB PO SCH ×2 (12:27→22:38)
--- NOTE | 2017-07-25 13:08 | HHI.NPPN ---
Subjective Interval History Blood pressure control is poor. No reports of pain or headache. (Angela Cruz) Objective Data Data Vital Signs Date Time Temp Pulse Resp B/P (MAP) Pulse Ox O2 Delivery O2 Flow Rate FiO2 07/25/17 12:00 97.7 76 16 174/84 (114) 97 07/25/17 08:00 97.7 79 18 202/101 (134) 95 07/25/17 00:00 98.2 76 19 128/78 (95) 96 07/24/17 20:00 97.7 74 19 128/85 (99) 96 07/24/17 16:00 97.5 80 20 181/109 (133) 96 (Angela Cruz) -: 07/21/17 0630 07/25/17 0520 Imaging Last Impressions Abdomen Magnetic Resonance Angio 07/23/17 0000 Signed Impressions: Service Date/Time: Sunday, July 23, 2017 13:25 - CONCLUSION: Left main renal artery is previously stented. Neointimal hyperplasia within the stent cannot be excluded. Catheter arteriography suggested for definitive evaluation if clinically appropriate. Hany Kaiser MD Tumor Localization 07/04/17 0000 Signed Impressions: Service Date/Time: Tuesday, July 04, 2017 14:31 - CONCLUSION: Mild tracer accumulation in the soft tissues directly adjacent to the hardware along the top of the right tibia. Emiliano Oshea MD Lower Extremity CT 07/04/17 0000 Signed Impressions: Service Date/Time: Tuesday, July 04, 2017 09:42 - CONCLUSION: 1. Small joint effusion and lateral knee soft tissue swelling. 2. Status post ORIF of a comminuted lateral tibial plateau fracture 3. No evidence of destructive bone lesions or extra articular fluid collections. 4. Postop wound infection and hardware infection cannot be excluded based on the above findings. Mina Dockery MD Knee X-Ray 06/29/17 079 Signed Impressions: Service Date/Time: June 23:12 - CONCLUSION: Stable appearance status post open rigid internal fixation. Rivas Ledesma MD (Angela Cruz) Physical Exam General Appearance: Well Developed, Comfortable (Angela Cruz) Ears & Nose Ears & Nose Exam: Nasal Mucosa [place] (Angela Cruz) Pulmonary Resp Exam: Clear Bilaterally, Breath Sounds Equal (Angela Cruz) Cardiology CV Exam: Regular, Normal Sinus Rhythm (Angela Cruz) Gastrointestinal/Abdomen GI Exam: Soft, Non-Tender, Bowel Sounds Present (Angela Cruz) Musculoskeletal MS Exam: Normal Gait, Normal Tone MS Remarks left leg immobilized (Angela Cruz) Integumentary Skin Exam: Warm, Dry, Intact (Angela Cruz) Extremeties Extremities Exam: No Edema, Pedal Pulses Palpable (Angela Cruz) Neurologic Neuro Exam: Alert, Awake, Oriented, Speech Clear, Moving All Extremities (Angela Cruz) Psychiatric Psych Exam: Appropriate Responses (Angela Cruz) Assessment/Plan Discussed Condition With: Patient Assessment Summary: Hypertension Problem List: (1) Hypertension ICD Codes: I10 - Essential (primary) hypertension Status: Chronic Plan: BP control is still not adequate He is on clonidine 0.2 BID Diovan 320 mg daily Metoprolol 25 mg TID (inc to 50 mg TID) Nifedipine 60 mg daily HCTZ 25 mg daily Add hydralazine 25 mg BID Monitor and titrate as needed. Low salt diet encouraged Advised to avoid caffeine Avoid IVF Aldosterone to PRA ratio and plasma fractionated metanephrine pending to evaluate other causes of HTN. (2) History of renal artery stenosis ICD Codes: Z86.79 - Personal history of other diseases of the circulatory system Status: Acute Plan: See above. (3) CAD (coronary artery disease) ICD Codes: I25.10 - Atherosclerotic heart disease of [place] coronary artery without angina pectoris Status: Acute Plan: s/p CABG. Continue risk factor modifications. (4) Peripheral vascular disease ICD Codes: I73.9 - Peripheral vascular disease, unspecified Status: Acute Plan: s/p peripheral revascularization. (Angela Cruz) Plan patient was seen and examined. Agree with above assessment and plan. May consider addition of Minoxidil. (Camilo Santiago MD) Angela Cruz Jul 25, 2017 13:08 Camilo Santiago MD Jul 26, 2017 09:17
[2017-07-25 14:19] VITALS: BP 162/90; PULSE 85
[2017-07-25 16:00] VITALS: BP 170/115; PULSE 79; RESP 19; TEMP 97.7; O2SAT 98
[2017-07-25] MEDS: ENALAPRILAT 2.5 MG/2 ML VIAL IV PUSH PRN (16:49)
[2017-07-25] MEDS ORDERED: cloNIDine HCL 0.1 MG TAB PO ONE (19:45)
[2017-07-25 20:00] VITALS: BP 157/75; PULSE 70; RESP 17; TEMP 97.9; O2SAT 97
[2017-07-26] VITALS: BP 148/77; PULSE 73; RESP 17; TEMP 98; O2SAT 96
[2017-07-26] MEDS: ZOLPIDEM TARTRATE 5 MG TAB PO PRN (01:20)
[2017-07-26] MEDS: ceFAZolin 2 GM/DEX PREMIX 50 ML IV SCH ×3 (01:21→17:29)
[2017-07-26] MEDS: ACETAMINOPHEN/HYDROcodone 325 MG/5 MG TAB PO PRN ×6 (02:28→23:32)
[2017-07-26 05:26] VITALS: BP 138/80; PULSE 70; RESP 17; TEMP 97.8; O2SAT 97
[2017-07-26] MEDS: METOPROLOL TARTRATE 25 MG TAB PO SCH ×3 (06:32→21:21)
[2017-07-26 08:00] VITALS: BP 166/125; PULSE 72; RESP 17; TEMP 97.4; O2SAT 95
[2017-07-26] MEDS: SODIUM CHLORIDE 0.9% FLUSH 10 ML FLUSH IV FLUSH SCH ×2 (08:01→21:26)
[2017-07-26] MEDS: RIFAMPIN 150 MG CAP PO SCH ×2 (08:03→21:20)
[2017-07-26] MEDS: cloNIDine HCL 0.1 MG TAB PO SCH ×2 (08:03→21:23)
[2017-07-26] MEDS: VALSARTAN 160 MG TAB PO SCH (08:03)
[2017-07-26] MEDS: DOXAZOSIN MESYLATE 4 MG TAB PO SCH ×2 (08:03→21:21)
[2017-07-26] MEDS: RIVAROXABAN 10 MG TAB PO SCH (08:03)
[2017-07-26] MEDS: hydrALAZINE HCL 25 MG TAB PO SCH (08:04)
[2017-07-26] MEDS: NIFEdipine 60 MG SUSTAINED RELEASE TAB PO SCH ×2 (08:04→21:23)
[2017-07-26] MEDS: HYDROCHLOROTHIAZIDE 25 MG TAB PO SCH (08:04)
--- NOTE | 2017-07-26 11:34 | HHI.NPPN ---
Subjective Interval History Some improvement in BP but not ideal. Medications were changed. (Angela Cruz) Objective Data Data Vital Signs Date Time Temp Pulse Resp B/P (MAP) Pulse Ox O2 Delivery O2 Flow Rate FiO2 07/26/17 08:00 97.4 72 17 166/125 (139) 95 07/26/17 05:26 97.8 70 17 138/80 (99) 97 07/26/17 00:00 98.0 73 17 148/77 (100) 96 07/25/17 20:00 97.9 70 17 157/75 (102) 97 07/25/17 16:00 97.7 79 19 170/115 (133) 98 07/25/17 14:19 85 162/90 (114) 07/25/17 12:00 97.7 76 16 174/84 (114) 97 (Angela Cruz) -: 07/25/17 0520 Physical Exam General Appearance: Well Developed, Comfortable (Angela Cruz) Ears & Nose Ears & Nose Exam: Nasal Mucosa [place] (Angela Cruz) Pulmonary Resp Exam: Clear Bilaterally, Breath Sounds Equal (Angela Cruz) Cardiology CV Exam: Regular, Normal Sinus Rhythm (Angela Cruz) Gastrointestinal/Abdomen GI Exam: Soft, Non-Tender, Bowel Sounds Present (Angela Cruz) Musculoskeletal MS Exam: Normal Gait, Normal Tone MS Remarks left leg immobilized (Angela Cruz) Integumentary Skin Exam: Warm, Dry, Intact (Angela Cruz) Extremeties Extremities Exam: No Edema, Pedal Pulses Palpable (Angela Cruz) Neurologic Neuro Exam: Alert, Awake, Oriented, Speech Clear, Moving All Extremities (Angela Cruz) Psychiatric Psych Exam: Appropriate Responses (Angela Cruz) Assessment/Plan Discussed Condition With: Patient Assessment Summary: Hypertension Problem List: (1) Hypertension ICD Codes: I10 - Essential (primary) hypertension Status: Chronic Plan: BP control is still not adequate ON: - clonidine 0.2 BID -Diovan 320 mg daily -Metoprolol 50 mg TID -Nifedipine 60 mg daily -HCTZ 25 mg daily ---STOP: hydralazine 25 mg BID ---ADD: minoxidil 2.5 mg BID Monitor and titrate as needed. Low salt diet encouraged Advised to avoid caffeine Avoid IVF Aldosterone to PRA ratio and plasma fractionated metanephrine pending to evaluate other causes of HTN. (2) History of renal artery stenosis ICD Codes: Z86.79 - Personal history of other diseases of the circulatory system Status: Acute Plan: See above. (3) CAD (coronary artery disease) ICD Codes: I25.10 - Atherosclerotic heart disease of [place] coronary artery without angina pectoris Status: Acute Plan: s/p CABG. Continue risk factor modifications. (4) Peripheral vascular disease ICD Codes: I73.9 - Peripheral vascular disease, unspecified Status: Acute Plan: s/p peripheral revascularization. (Angela Cruz) Plan patient was seen and examined. Agree with above assessment and plan. Changed Hydralazine to Minoxidil. (Camilo Santiago MD) Angela Cruz Jul 26, 2017 11:34 Camilo Santiago MD Jul 26, 2017 21:26
--- NOTE | 2017-07-26 11:36 | HHI.PR ---
Subjective Remarks Follow-up hypertension. Patient's blood pressure has remained difficult to control. He has no other complaints at this time. Denies chest pain or dyspnea. No nausea or vomiting. Objective Vitals Vital Signs Date Time Temp Pulse Resp B/P (MAP) Pulse Ox O2 Delivery O2 Flow Rate FiO2 07/26/17 08:00 97.4 72 17 166/125 (139) 95 07/26/17 05:26 97.8 70 17 138/80 (99) 97 07/26/17 00:00 98.0 73 17 148/77 (100) 96 07/25/17 20:00 97.9 70 17 157/75 (102) 97 07/25/17 16:00 97.7 79 19 170/115 (133) 98 07/25/17 14:19 85 162/90 (114) 07/25/17 12:00 97.7 76 16 174/84 (114) 97 I/O 07/25/17 07/25/17 07/25/17 07/26/17 07/26/17 07/26/17 07:00 15:00 23:00 07:00 15:00 23:00 Intake Total 340 ml 50 ml 730 ml 240 ml Output Total 900 ml Balance 340 ml 50 ml -170 ml 240 ml Intake Oral 240 ml 680 ml 240 ml IV Total 100 ml 50 ml 50 ml Output Urine Total 900 ml # Voids 2 1 2 # Bowel Movements 0 Result Diagram: 07/25/17 0520 Imaging Last Impressions Abdomen Magnetic Resonance Angio 07/23/17 0000 Signed Impressions: Service Date/Time: Sunday, July 23, 2017 13:25 - CONCLUSION: Left main renal artery is previously stented. Neointimal hyperplasia within the stent cannot be excluded. Catheter arteriography suggested for definitive evaluation if clinically appropriate. Hany Kaiser MD Tumor Localization 07/04/17 0000 Signed Impressions: Service Date/Time: Tuesday, July 04, 2017 14:31 - CONCLUSION: Mild tracer accumulation in the soft tissues directly adjacent to the hardware along the top of the right tibia. Emiliano Oshea MD Lower Extremity CT 07/04/17 0000 Signed Impressions: Service Date/Time: Tuesday, July 04, 2017 09:42 - CONCLUSION: 1. Small joint effusion and lateral knee soft tissue swelling. 2. Status post ORIF of a comminuted lateral tibial plateau fracture 3. No evidence of destructive bone lesions or extra articular fluid collections. 4. Postop wound infection and hardware infection cannot be excluded based on the above findings. Mina Dockery MD Knee X-Ray 06/29/17 [id number] Signed Impressions: Service Date/Time: June 23:12 - CONCLUSION: Stable appearance status post open rigid internal fixation. Rivas Ledesma MD Objective Remarks General: No acute distress. Heart: Regular rate and rhythm. No murmur. Lungs: Clear to auscultation bilaterally. No wheezes, rales, or rhonchi. Breathing is nonlabored. Abdomen: Soft, nontender, nondistended. Extremities: No lower extremity edema. Right lower extremity in a splint. Psych: Alert and oriented. Neuro: Normal speech. No focal deficits noted. Procedures Right proximal tibia wound infection s/p Irrigation and debridement of right proximal tibia, placement of antibiotic beads, application wound VAC dressing on 07/07/[address] Smith Urinary Catheter: No Vascular Central Line Catheter: No A/P Problem List: (1) Status post fracture of right tibia ICD Code: Z87.81 - Personal history of (healed) traumatic fracture Status: Acute (2) History of renal artery stenosis ICD Code: Z86.79 - Personal history of other diseases of the circulatory system Status: Acute (3) Hypertension ICD Code: I10 - Essential (primary) hypertension Status: Chronic (4) Hypertensive urgency ICD Code: I10 - Essential (primary) hypertension Status: Acute Assessment and Plan 1. Cellulitis of the right lower extremity: Status post fracture right tibia. Right proximal tibia wound infection. Status post irrigation and debridement of right proximal tibia with placement of antibiotic beads. Wound VAC applied , has since been removed. Continue antibiotics per infectious disease recommendations. Rifampin and cefazolin are to be continued until the patient is readmitted for hardware removal and then another 4-6 weeks of antibiotics postoperatively. 2. Bacteremia: Appreciate infectious disease recommendations. Continue antibiotics. 3. Hypertension: Blood pressure has been fluctuating with significant elevations. Appreciate nephrology recommendations. Antihypertensive medications adjusted. Patient has history of renal artery stenosis and has a stent in the left renal artery. MRA report noted. May need renal angiogram. Continue clonidine, hydralazine, Cardura, HCTZ, metoprolol, Procardia XL, valsartan. Minoxidil added by nephrology today. Labs are pending including metanephrines and renin/aldosterone. 4. Coronary artery disease: Asymptomatic. 5. DVT prophylaxis: Xarelto. Discharge Planning Anticipate discharge with home health care soon, once blood pressure control is improved. Luciano Crystal MD Jul 26, 2017 11:36
[2017-07-26 11:50] LABS: METANEPHRINES 0.41 nmol/L (<0.50); NORMETANEPHRINE 0.34 nmol/L (<0.90)
[2017-07-26 12:00] VITALS: BP 213/97; PULSE 71; RESP 19; TEMP 97.3; O2SAT 96
[2017-07-26] MEDS: ENALAPRILAT 2.5 MG/2 ML VIAL IV PUSH PRN (12:27)
[2017-07-26] MEDS: MINOXIDIL 2.5 MG TAB PO SCH ×2 (13:43→21:21)
[2017-07-26 16:00] VITALS: BP 172/82; PULSE 68; RESP 18; TEMP 97.5; O2SAT 97
[2017-07-26 20:00] VITALS: BP 182/83; PULSE 72; RESP 18; TEMP 97.5; O2SAT 95
[2017-07-27] VITALS: BP 117/56; PULSE 61; RESP 18; TEMP 97.3; O2SAT 95
[2017-07-27] MEDS: ZOLPIDEM TARTRATE 5 MG TAB PO PRN (01:22)
[2017-07-27] MEDS: ceFAZolin 2 GM/DEX PREMIX 50 ML IV SCH ×3 (01:22→16:39)
[2017-07-27] MEDS: ACETAMINOPHEN/HYDROcodone 325 MG/5 MG TAB PO PRN ×5 (03:25→21:17)
[2017-07-27 04:00] VITALS: BP 170/80; PULSE 70; RESP 18; TEMP 97.6; O2SAT 98
[2017-07-27] MEDS: METOPROLOL TARTRATE 25 MG TAB PO SCH ×3 (05:22→21:18)
[2017-07-27] MEDS: SODIUM CHLORIDE 0.9% FLUSH 10 ML FLUSH IV FLUSH SCH ×2 (08:16→21:23)
[2017-07-27] MEDS: RIFAMPIN 150 MG CAP PO SCH ×2 (08:16→21:17)
[2017-07-27] MEDS: VALSARTAN 160 MG TAB PO SCH (08:17)
[2017-07-27] MEDS: MINOXIDIL 2.5 MG TAB PO SCH ×3 (08:17→21:18)
[2017-07-27] MEDS: NIFEdipine 60 MG SUSTAINED RELEASE TAB PO SCH ×2 (08:17→21:19)
[2017-07-27] MEDS: HYDROCHLOROTHIAZIDE 25 MG TAB PO SCH (08:18)
[2017-07-27] MEDS: RIVAROXABAN 10 MG TAB PO SCH (08:18)
[2017-07-27] MEDS: cloNIDine HCL 0.1 MG TAB PO SCH ×2 (08:19→21:17)
[2017-07-27] MEDS: DOXAZOSIN MESYLATE 4 MG TAB PO SCH ×2 (08:19→21:21)
[2017-07-27 08:27] VITALS: BP 172/81; PULSE 72; RESP 20; TEMP 97.5; O2SAT 96
--- NOTE | 2017-07-27 08:32 | HHI.NPPN ---
Subjective Interval History BP control has improved, continues to have systolic hypertension. Objective Data Data Vital Signs Date Time Temp Pulse Resp B/P (MAP) Pulse Ox O2 Delivery O2 Flow Rate FiO2 07/27/17 08:27 97.5 72 20 172/81 (111) 96 07/27/17 04:00 97.6 70 18 170/80 (110) 98 07/27/17 00:00 97.3 61 18 117/56 (76) 95 07/26/17 20:00 97.5 72 18 182/83 (116) 95 07/26/17 16:00 97.5 68 18 172/82 (112) 97 07/26/17 12:00 97.3 71 19 213/97 (135) 96 -: 07/25/17 0520 Physical Exam General Appearance: Well Developed, Comfortable Ears & Nose Ears & Nose Exam: Nasal Mucosa [place] Pulmonary Resp Exam: Clear Bilaterally, Breath Sounds Equal Cardiology CV Exam: Regular, Normal Sinus Rhythm Gastrointestinal/Abdomen GI Exam: Soft, Non-Tender, Bowel Sounds Present Musculoskeletal MS Exam: Normal Gait, Normal Tone Integumentary Skin Exam: Warm, Dry, Intact Extremeties Extremities Exam: No Edema, Pedal Pulses Palpable Neurologic Neuro Exam: Alert, Awake, Oriented, Speech Clear, Moving All Extremities Psychiatric Psych Exam: Appropriate Responses Assessment/Plan Discussed Condition With: Patient Assessment Summary: Hypertension Problem List: (1) Hypertension ICD Codes: I10 - Essential (primary) hypertension Status: Chronic Plan: BP control has improved. ON: - clonidine 0.2 BID -Diovan 320 mg daily -Metoprolol 50 mg TID -Nifedipine 60 mg daily -HCTZ 25 mg daily Continue Minoxidil, the dose may be increased. Monitor and titrate as needed. Low salt diet encouraged Advised to avoid caffeine Avoid IVF Aldosterone level is low. Plasma metanephrine is not high. (2) History of renal artery stenosis ICD Codes: Z86.79 - Personal history of other diseases of the circulatory system Status: Acute Plan: See above. (3) CAD (coronary artery disease) ICD Codes: I25.10 - Atherosclerotic heart disease of [place] coronary artery without angina pectoris Status: Acute Plan: s/p CABG. Continue risk factor modifications. (4) Peripheral vascular disease ICD Codes: I73.9 - Peripheral vascular disease, unspecified Status: Acute Plan: s/p peripheral revascularization. Camilo Santiago MD Jul 27, 2017 08:32
[2017-07-27 12:23] LABS: RENIN <0.6 ng/mL/h
[2017-07-27 12:46] VITALS: BP 158/68; PULSE 97; RESP 20; TEMP 97.7; O2SAT 97
--- NOTE | 2017-07-27 13:33 | HHI.PR ---
Subjective Remarks Follow-up hypertension. The patient has no complaints at this time. He is requesting a stool softener because he is afraid of becoming constipated. Denies abdominal pain, nausea, vomiting, chest pain, dyspnea. Objective Vitals Vital Signs Date Time Temp Pulse Resp B/P (MAP) Pulse Ox O2 Delivery O2 Flow Rate FiO2 07/27/17 12:46 97.7 97 20 158/68 (98) 97 07/27/17 08:27 97.5 72 20 172/81 (111) 96 07/27/17 04:00 97.6 70 18 170/80 (110) 98 07/27/17 00:00 97.3 61 18 117/56 (76) 95 07/26/17 20:00 97.5 72 18 182/83 (116) 95 07/26/17 16:00 97.5 68 18 172/82 (112) 97 I/O 07/26/17 07/26/17 07/26/17 07/27/17 07/27/17 07/27/17 07:00 15:00 23:00 07:00 15:00 23:00 Intake Total 240 ml 1145 ml 410 ml 50 ml Output Total 475 ml Balance 240 ml 670 ml 410 ml 50 ml Intake Oral 240 ml 1095 ml 360 ml IV Total 50 ml 50 ml 50 ml Output Urine Total 475 ml # Voids 2 3 3 # Bowel Movements 1 0 Result Diagram: 07/25/17 0520 Imaging Last Impressions Abdomen Magnetic Resonance Angio 07/23/17 0000 Signed Impressions: Service Date/Time: Sunday, July 23, 2017 13:25 - CONCLUSION: Left main renal artery is previously stented. Neointimal hyperplasia within the stent cannot be excluded. Catheter arteriography suggested for definitive evaluation if clinically appropriate. Hany Kaiser MD Tumor Localization 07/04/17 0000 Signed Impressions: Service Date/Time: Tuesday, July 04, 2017 14:31 - CONCLUSION: Mild tracer accumulation in the soft tissues directly adjacent to the hardware along the top of the right tibia. Emiliano Oshea MD Lower Extremity CT 07/04/17 0000 Signed Impressions: Service Date/Time: Tuesday, July 04, 2017 09:42 - CONCLUSION: 1. Small joint effusion and lateral knee soft tissue swelling. 2. Status post ORIF of a comminuted lateral tibial plateau fracture 3. No evidence of destructive bone lesions or extra articular fluid collections. 4. Postop wound infection and hardware infection cannot be excluded based on the above findings. Mina Dockery MD Knee X-Ray 06/29/17 0261 Signed Impressions: Service Date/Time: June 23:12 - CONCLUSION: Stable appearance status post open rigid internal fixation. Rivas Ledesma MD Objective Remarks General: No acute distress. Heart: Regular rate and rhythm. No murmur. Lungs: Clear to auscultation bilaterally. No wheezes, rales, or rhonchi. Breathing is nonlabored. Abdomen: Soft, nontender, nondistended. Extremities: No lower extremity edema. Right lower extremity in a splint. Psych: Alert and oriented. Neuro: Normal speech. No focal deficits noted. Procedures Right proximal tibia wound infection s/p Irrigation and debridement of right proximal tibia, placement of antibiotic beads, application wound VAC dressing on 07/07/[address] Smith Urinary Catheter: No Vascular Central Line Catheter: No A/P Problem List: (1) Status post fracture of right tibia ICD Code: Z87.81 - Personal history of (healed) traumatic fracture Status: Acute (2) History of renal artery stenosis ICD Code: Z86.79 - Personal history of other diseases of the circulatory system Status: Acute (3) Hypertension ICD Code: I10 - Essential (primary) hypertension Status: Chronic (4) Hypertensive urgency ICD Code: I10 - Essential (primary) hypertension Status: Acute Assessment and Plan 1. Cellulitis of the right lower extremity: Status post fracture right tibia. Right proximal tibia wound infection. Status post irrigation and debridement of right proximal tibia with placement of antibiotic beads. Wound VAC applied , has since been removed. Continue antibiotics per infectious disease recommendations. Rifampin and cefazolin are to be continued until the patient is readmitted for hardware removal and then another 4-6 weeks of antibiotics postoperatively. 2. Bacteremia: Appreciate infectious disease recommendations. Continue antibiotics. 3. Hypertension: Blood pressure has been fluctuating with significant elevations, somewhat better today. Appreciate nephrology recommendations. Patient has history of renal artery stenosis and has a stent in the left renal artery. MRA report noted. May need renal angiogram. Continue clonidine, Cardura, HCTZ, metoprolol, Procardia XL, valsartan. Minoxidil increased by nephrology today. 4. Coronary artery disease: Asymptomatic. 5. DVT prophylaxis: Xarelto. Discharge Planning Anticipate discharge with home health care soon, once blood pressure control is improved. Luciano Crystal MD Jul 27, 2017 13:33
[2017-07-27] MEDS ORDERED: MAGNESIUM HYDROXIDE SUSP 30 ML CUP PO PRN (13:45)
[2017-07-27] MEDS ORDERED: BISACODYL 10 MG SUPP RECTAL PRN (13:45)
[2017-07-27] MEDS ORDERED: LACTULOSE SYRUP 20 GM/30 ML CUP PO PRN (13:45)
[2017-07-27] MEDS ORDERED: SENNOSIDES 8.6 MG TAB PO PRN (13:45)
[2017-07-27] MEDS: DOCUSATE SODIUM 50 MG/SENNA 8.6 MG TAB PO SCH ×2 (15:01→21:18)
[2017-07-27 20:00] VITALS: BP 174/88; PULSE 83; RESP 20; TEMP 97.6; O2SAT 96
[2017-07-28] VITALS: BP 175/85; PULSE 77; RESP 20; TEMP 97.7; O2SAT 96
[2017-07-28] MEDS: ceFAZolin 2 GM/DEX PREMIX 50 ML IV SCH ×3 (01:27→16:06)
[2017-07-28] MEDS: ZOLPIDEM TARTRATE 5 MG TAB PO PRN (01:30)
[2017-07-28] MEDS: ACETAMINOPHEN/HYDROcodone 325 MG/5 MG TAB PO PRN ×6 (01:30→23:21)
[2017-07-28 04:00] VITALS: BP 196/86; PULSE 72; RESP 20; TEMP 97.7; O2SAT 96
[2017-07-28] MEDS: METOPROLOL TARTRATE 25 MG TAB PO SCH ×3 (06:03→23:47)
[2017-07-28 07:55] VITALS: BP 190/84; PULSE 78; RESP 20; TEMP 98; O2SAT 98
[2017-07-28] MEDS: RIFAMPIN 150 MG CAP PO SCH ×2 (08:45→21:41)
[2017-07-28] MEDS: VALSARTAN 160 MG TAB PO SCH (08:45)
[2017-07-28] MEDS: DOCUSATE SODIUM 50 MG/SENNA 8.6 MG TAB PO SCH ×2 (08:46→21:42)
[2017-07-28] MEDS: NIFEdipine 60 MG SUSTAINED RELEASE TAB PO SCH ×2 (08:47→21:43)
[2017-07-28] MEDS: RIVAROXABAN 10 MG TAB PO SCH (08:47)
[2017-07-28] MEDS: cloNIDine HCL 0.1 MG TAB PO SCH ×2 (08:48→21:43)
[2017-07-28] MEDS: DOXAZOSIN MESYLATE 4 MG TAB PO SCH ×2 (08:50→21:41)
[2017-07-28] MEDS: HYDROCHLOROTHIAZIDE 25 MG TAB PO SCH (08:51)
[2017-07-28] MEDS: MINOXIDIL 2.5 MG TAB PO SCH ×2 (09:00→21:41)
[2017-07-28] MEDS: SODIUM CHLORIDE 0.9% FLUSH 10 ML FLUSH IV FLUSH SCH ×2 (09:00→21:45)
[2017-07-28 11:56] VITALS: BP 115/58; PULSE 59; RESP 18; TEMP 98.1; O2SAT 97
--- NOTE | 2017-07-28 13:44 | HHI.PR ---
Subjective Remarks Follow-up hypertension. Patient states that he feels good today. No chest pain , dyspnea. Objective Vitals Vital Signs Date Time Temp Pulse Resp B/P (MAP) Pulse Ox O2 Delivery O2 Flow Rate FiO2 07/28/17 11:56 98.1 59 18 115/58 (77) 97 07/28/17 07:55 98.0 78 20 190/84 (119) 98 07/28/17 04:00 97.7 72 20 196/86 (122) 96 07/28/17 03:30 20 07/28/17 01:26 20 07/28/17 00:00 97.7 77 20 175/85 (115) 96 07/27/17 20:00 97.6 83 20 174/88 (116) 96 I/O 07/27/17 07/27/17 07/27/17 07/28/17 07/28/17 07/28/17 07:00 15:00 23:00 07:00 15:00 23:00 Intake Total 410 ml 50 ml 50 ml 360 ml 50 ml Output Total 850 ml Balance 410 ml 50 ml 50 ml -490 ml 50 ml Intake Oral 360 ml 360 ml IV Total 50 ml 50 ml 50 ml 50 ml Output Urine Total 850 ml # Voids 3 1 # Bowel Movements 0 0 Result Diagram: 07/25/17 0520 Imaging Last Impressions Abdomen Magnetic Resonance Angio 07/23/17 0000 Signed Impressions: Service Date/Time: Sunday, July 23, 2017 13:25 - CONCLUSION: Left main renal artery is previously stented. Neointimal hyperplasia within the stent cannot be excluded. Catheter arteriography suggested for definitive evaluation if clinically appropriate. Hany Kaiser MD Tumor Localization 07/04/17 0000 Signed Impressions: Service Date/Time: Tuesday, July 04, 2017 14:31 - CONCLUSION: Mild tracer accumulation in the soft tissues directly adjacent to the hardware along the top of the right tibia. Emiliano Oshea MD Lower Extremity CT 07/04/17 0000 Signed Impressions: Service Date/Time: Tuesday, July 04, 2017 09:42 - CONCLUSION: 1. Small joint effusion and lateral knee soft tissue swelling. 2. Status post ORIF of a comminuted lateral tibial plateau fracture 3. No evidence of destructive bone lesions or extra articular fluid collections. 4. Postop wound infection and hardware infection cannot be excluded based on the above findings. Mina Dockery MD Knee X-Ray 06/29/17 1700 Signed Impressions: Service Date/Time: June 23:12 - CONCLUSION: Stable appearance status post open rigid internal fixation. Rivas Ledesma MD Objective Remarks General: No acute distress. Heart: Regular rate and rhythm. No murmur. Lungs: Clear to auscultation bilaterally. No wheezes, rales, or rhonchi. Breathing is nonlabored. Abdomen: Soft, nontender, nondistended. Extremities: No lower extremity edema. Right lower extremity in a splint. Psych: Alert and oriented. Neuro: Normal speech. No focal deficits noted. Procedures Right proximal tibia wound infection s/p Irrigation and debridement of right proximal tibia, placement of antibiotic beads, application wound VAC dressing on 07/07/[address] Smith Urinary Catheter: No Vascular Central Line Catheter: No A/P Problem List: (1) Status post fracture of right tibia ICD Code: Z87.81 - Personal history of (healed) traumatic fracture Status: Acute (2) History of renal artery stenosis ICD Code: Z86.79 - Personal history of other diseases of the circulatory system Status: Acute (3) Hypertension ICD Code: I10 - Essential (primary) hypertension Status: Chronic (4) Hypertensive urgency ICD Code: I10 - Essential (primary) hypertension Status: Acute Assessment and Plan 1. Cellulitis of the right lower extremity: Status post fracture right tibia. Right proximal tibia wound infection. Status post irrigation and debridement of right proximal tibia with placement of antibiotic beads. Wound VAC applied , has since been removed. Continue antibiotics per infectious disease recommendations. Rifampin and cefazolin are to be continued until the patient is readmitted for hardware removal and then another 4-6 weeks of antibiotics postoperatively. 2. Bacteremia: Appreciate infectious disease recommendations. Continue antibiotics. 3. Hypertension: Appreciate nephrology recommendations. Patient has history of renal artery stenosis and has a stent in the left renal artery. MRA report noted. May need renal angiogram. Continue clonidine, Cardura, HCTZ, metoprolol , Procardia XL, valsartan, Minoxidil. BP is improving. 4. Coronary artery disease: Asymptomatic. 5. DVT prophylaxis: Xarelto. Discharge Planning Anticipate discharge with home health care soon, when cleared by Nephrology. Luciano Crystal MD Jul 28, 2017 13:44
--- NOTE | 2017-07-28 13:59 | HHI.NPPN ---
Subjective Interval History His blood pressure control has improved. No new complaints. (Angela Cruz) Objective Data Data 07/28/17 07/29/17 19:00 07:00 Intake Total 50 ml Balance 50 ml IV Total 50 ml Vital Signs Date Time Temp Pulse Resp B/P (MAP) Pulse Ox O2 Delivery O2 Flow Rate FiO2 07/28/17 11:56 98.1 59 18 115/58 (77) 97 07/28/17 07:55 98.0 78 20 190/84 (119) 98 07/28/17 04:00 97.7 72 20 196/86 (122) 96 07/28/17 03:30 20 07/28/17 01:26 20 07/28/17 00:00 97.7 77 20 175/85 (115) 96 07/27/17 20:00 97.6 83 20 174/88 (116) 96 (Angela Cruz) -: 07/25/17 0520 Physical Exam General Appearance: Well Developed, No Acute Distress, Comfortable (Angela Cruz) Ears & Nose Ears & Nose Exam: Nasal Mucosa [place] (Angela Cruz) Pulmonary Resp Exam: Clear Bilaterally, Breath Sounds Equal (Angela Cruz) Cardiology CV Exam: Regular, Normal Sinus Rhythm (Angela Cruz) Gastrointestinal/Abdomen GI Exam: Soft, Non-Tender, Bowel Sounds Present (Angela Cruz) Musculoskeletal MS Exam: Normal Gait, Normal Tone MS Remarks left leg immobilized (Angela Cruz) Integumentary Skin Exam: Warm, Dry, Intact (Angela Cruz) Extremeties Extremities Exam: No Edema, Pedal Pulses Palpable (Angela Cruz) Neurologic Neuro Exam: Alert, Awake, Oriented, Speech Clear, Moving All Extremities (Angela Cruz) Psychiatric Psych Exam: Appropriate Responses (Angela Cruz) Assessment/Plan Discussed Condition With: Patient Assessment Summary: Hypertension Problem List: (1) Hypertension ICD Codes: I10 - Essential (primary) hypertension Status: Chronic Plan: BP control has improved. ON: - clonidine 0.2 BID -Diovan 320 mg daily -Metoprolol 50 mg TID -Nifedipine 60 mg daily -HCTZ 25 mg daily - Minoxidil 5 mg BID. Monitor and titrate as needed. Low salt diet encouraged Advised to avoid caffeine Avoid IVF Aldosterone level is low. Plasma metanephrine is not high. (2) History of renal artery stenosis ICD Codes: Z86.79 - Personal history of other diseases of the circulatory system Status: Acute Plan: See above. (3) CAD (coronary artery disease) ICD Codes: I25.10 - Atherosclerotic heart disease of [place] coronary artery without angina pectoris Status: Acute Plan: s/p CABG. Continue risk factor modifications. (4) Peripheral vascular disease ICD Codes: I73.9 - Peripheral vascular disease, unspecified Status: Acute Plan: s/p peripheral revascularization. (Angela Cruz) Plan patient was seen and examined on 07/28/17. Agree with above assessment and plan. (Camilo Santiago MD) Angela Cruz Jul 28, 2017 13:59 Camilo Santiago MD Jul 31, 2017 09:36
[2017-07-28 16:00] VITALS: BP 129/59; PULSE 69; RESP 19; TEMP 97.7; O2SAT 94
[2017-07-28 20:00] VITALS: BP 163/74; PULSE 84; RESP 17; TEMP 98; O2SAT 95
[2017-07-29] VITALS: BP 193/92; PULSE 84; RESP 17; TEMP 97.9; O2SAT 94
[2017-07-29] MEDS: ZOLPIDEM TARTRATE 5 MG TAB PO PRN (01:25)
[2017-07-29] MEDS: ceFAZolin 2 GM/DEX PREMIX 50 ML IV SCH ×4 (01:38→23:30)
[2017-07-29 04:00] VITALS: BP 212/98; PULSE 82; RESP 17; TEMP 98.1; O2SAT 95
[2017-07-29] MEDS: ENALAPRILAT 2.5 MG/2 ML VIAL IV PUSH PRN ×2 (04:50→17:17)
[2017-07-29] MEDS: METOPROLOL TARTRATE 25 MG TAB PO SCH ×3 (06:02→23:32)
[2017-07-29] MEDS: ACETAMINOPHEN/HYDROcodone 325 MG/5 MG TAB PO PRN ×5 (06:02→23:30)
[2017-07-29 08:00] VITALS: BP 168/77; PULSE 64; RESP 17; TEMP 97.3; O2SAT 96
[2017-07-29] MEDS: RIVAROXABAN 10 MG TAB PO SCH (08:48)
[2017-07-29] MEDS: HYDROCHLOROTHIAZIDE 25 MG TAB PO SCH (08:49)
[2017-07-29] MEDS: NIFEdipine 60 MG SUSTAINED RELEASE TAB PO SCH ×2 (08:49→21:35)
[2017-07-29] MEDS: MINOXIDIL 2.5 MG TAB PO SCH ×2 (08:49→21:34)
[2017-07-29] MEDS: SODIUM CHLORIDE 0.9% FLUSH 10 ML FLUSH IV FLUSH SCH ×2 (08:49→21:37)
[2017-07-29] MEDS: DOXAZOSIN MESYLATE 4 MG TAB PO SCH (08:49)
[2017-07-29] MEDS: cloNIDine HCL 0.1 MG TAB PO SCH ×2 (08:49→21:34)
[2017-07-29] MEDS: VALSARTAN 160 MG TAB PO SCH (08:49)
[2017-07-29] MEDS: RIFAMPIN 150 MG CAP PO SCH ×2 (08:49→21:35)
[2017-07-29] MEDS: DOCUSATE SODIUM 50 MG/SENNA 8.6 MG TAB PO SCH ×2 (08:52→21:00)
--- NOTE | 2017-07-29 10:41 | HHI.NPPN ---
Subjective Additional Remarks Patient is alert, no SOB, no headache or dizziness. Objective Data Data 07/29/17 07/30/17 19:00 07:00 Intake Total 50 ml Balance 50 ml IV Total 50 ml Vital Signs Date Time Temp Pulse Resp B/P (MAP) Pulse Ox O2 Delivery O2 Flow Rate FiO2 07/29/17 08:00 97.3 64 17 168/77 (107) 96 07/29/17 04:00 98.1 82 17 212/98 (136) 95 07/29/17 02:38 20 07/29/17 01:38 20 07/29/17 00:00 97.9 84 17 193/92 (125) 94 07/28/17 20:00 98.0 84 17 163/74 (103) 95 07/28/17 16:00 97.7 69 19 129/59 (82) 94 07/28/17 11:56 98.1 59 18 115/58 (77) 97 -: 07/25/17 0520 Physical Exam General Appearance: Well Developed, No Acute Distress, Comfortable Ears & Nose Ears & Nose Exam: Nasal Mucosa [place] Pulmonary Resp Exam: Clear Bilaterally, Breath Sounds Equal Cardiology CV Exam: Regular, Normal Sinus Rhythm Gastrointestinal/Abdomen GI Exam: Soft, Non-Tender, Bowel Sounds Present Musculoskeletal MS Exam: Normal Gait, Normal Tone Integumentary Skin Exam: Warm, Dry, Intact Extremeties Extremities Exam: No Edema, Pedal Pulses Palpable Neurologic Neuro Exam: Alert, Awake, Oriented, Speech Clear, Moving All Extremities Psychiatric Psych Exam: Appropriate Responses Assessment/Plan Discussed Condition With: Patient Assessment Summary: Hypertension Problem List: (1) Hypertension ICD Codes: I10 - Essential (primary) hypertension Status: Chronic Plan: BP is off and on elevated. ON: - clonidine 0.2 BID -Diovan 320 mg daily -Metoprolol 50 mg TID -Nifedipine 60 mg daily -HCTZ 25 mg daily - Minoxidil 5 mg BID. Monitor and titrate as needed. Low salt diet encouraged Advised to avoid caffeine Avoid IVF Aldosterone level is low. Plasma metanephrine is not high. Increase HCTZ to 50 mg daily. (2) History of renal artery stenosis ICD Codes: Z86.79 - Personal history of other diseases of the circulatory system Status: Acute Plan: See above. (3) CAD (coronary artery disease) ICD Codes: I25.10 - Atherosclerotic heart disease of [place] coronary artery without angina pectoris Status: Acute Plan: s/p CABG. Continue risk factor modifications. (4) Peripheral vascular disease ICD Codes: I73.9 - Peripheral vascular disease, unspecified Status: Acute Plan: s/p peripheral revascularization. Chrissie Angulo MD Jul 29, 2017 10:41
[2017-07-29 12:00] VITALS: BP 174/73; PULSE 65; RESP 17; TEMP 97.7; O2SAT 95
--- NOTE | 2017-07-29 13:52 | HHI.PR ---
Subjective Remarks Follow-up hypertension. Patient has no complaints at this time. Denies chest pain, dyspnea. Objective Vitals Vital Signs Date Time Temp Pulse Resp B/P (MAP) Pulse Ox O2 Delivery O2 Flow Rate FiO2 07/29/17 12:00 97.7 65 17 174/73 (106) 95 07/29/17 08:00 97.3 64 17 168/77 (107) 96 07/29/17 04:00 98.1 82 17 212/98 (136) 95 07/29/17 02:38 20 07/29/17 01:38 20 07/29/17 00:00 97.9 84 17 193/92 (125) 94 07/28/17 20:00 98.0 84 17 163/74 (103) 95 07/28/17 16:00 97.7 69 19 129/59 (82) 94 I/O 07/28/17 07/28/17 07/28/17 07/29/17 07/29/17 07/29/17 07:00 15:00 23:00 07:00 15:00 23:00 Intake Total 360 ml 50 ml 1010 ml 240 ml 50 ml Output Total 850 ml 400 ml 500 ml Balance -490 ml 50 ml 610 ml -260 ml 50 ml Intake Oral 360 ml 960 ml 240 ml IV Total 50 ml 50 ml 50 ml Output Urine Total 850 ml 400 ml 500 ml # Voids 1 4 2 # Bowel Movements 0 0 Result Diagram: 07/25/17 0520 Imaging Last Impressions Abdomen Magnetic Resonance Angio 07/23/17 0000 Signed Impressions: Service Date/Time: Sunday, July 23, 2017 13:25 - CONCLUSION: Left main renal artery is previously stented. Neointimal hyperplasia within the stent cannot be excluded. Catheter arteriography suggested for definitive evaluation if clinically appropriate. Hany Kaiser MD Tumor Localization 07/04/17 0000 Signed Impressions: Service Date/Time: Tuesday, July 04, 2017 14:31 - CONCLUSION: Mild tracer accumulation in the soft tissues directly adjacent to the hardware along the top of the right tibia. Emiliano Oshea MD Lower Extremity CT 07/04/17 0000 Signed Impressions: Service Date/Time: Tuesday, July 04, 2017 09:42 - CONCLUSION: 1. Small joint effusion and lateral knee soft tissue swelling. 2. Status post ORIF of a comminuted lateral tibial plateau fracture 3. No evidence of destructive bone lesions or extra articular fluid collections. 4. Postop wound infection and hardware infection cannot be excluded based on the above findings. Mina Dockery MD Knee X-Ray 06/29/17 6217 Signed Impressions: Service Date/Time: June 23:12 - CONCLUSION: Stable appearance status post open rigid internal fixation. Rivas Ledesma MD Objective Remarks General: No acute distress. Heart: Regular rate and rhythm. No murmur. Lungs: Clear to auscultation bilaterally. No wheezes, rales, or rhonchi. Breathing is nonlabored. Abdomen: Soft, nontender, nondistended. Extremities: No lower extremity edema. Right lower extremity in a splint. Psych: Alert and oriented. Neuro: Normal speech. No focal deficits noted. Procedures Right proximal tibia wound infection s/p Irrigation and debridement of right proximal tibia, placement of antibiotic beads, application wound VAC dressing on 07/07/[address] Smith Urinary Catheter: No Vascular Central Line Catheter: No A/P Problem List: (1) Status post fracture of right tibia ICD Code: Z87.81 - Personal history of (healed) traumatic fracture Status: Acute (2) History of renal artery stenosis ICD Code: Z86.79 - Personal history of other diseases of the circulatory system Status: Acute (3) Hypertension ICD Code: I10 - Essential (primary) hypertension Status: Chronic (4) Hypertensive urgency ICD Code: I10 - Essential (primary) hypertension Status: Acute Assessment and Plan 1. Cellulitis of the right lower extremity: Status post fracture right tibia. Right proximal tibia wound infection. Status post irrigation and debridement of right proximal tibia with placement of antibiotic beads. Wound VAC applied , has since been removed. Continue antibiotics per infectious disease recommendations. Rifampin and cefazolin are to be continued until the patient is readmitted for hardware removal and then another 4-6 weeks of antibiotics postoperatively. 2. Bacteremia: Appreciate infectious disease recommendations. Continue antibiotics. 3. Hypertension: Appreciate nephrology recommendations. Patient has history of renal artery stenosis and has a stent in the left renal artery. MRA report noted. May need renal angiogram. Continue clonidine, Cardura, HCTZ, metoprolol , Procardia XL, valsartan, Minoxidil. BP is elevated again today. HCTZ increased by nephrology. 4. Coronary artery disease: Asymptomatic. 5. DVT prophylaxis: Xarelto. Discharge Planning Anticipate discharge with home health care soon, when cleared by Nephrology. Luciano Crystal MD Jul 29, 2017 13:52
[2017-07-29 16:00] VITALS: BP 188/74; PULSE 73; RESP 17; TEMP 97.5; O2SAT 98
[2017-07-29 20:00] VITALS: BP 194/87; PULSE 70; RESP 21; TEMP 97.7; O2SAT 95
--- NOTE | 2017-07-29 20:35 | PD.ORT.PN ---
Subjective Subjective Remarks no issues. pain controlled. Objective Vitals Vital Signs Date Time Temp Pulse Resp B/P (MAP) Pulse Ox O2 Delivery O2 Flow Rate FiO2 07/29/17 16:00 97.5 73 17 188/74 (112) 98 07/29/17 12:00 97.7 65 17 174/73 (106) 95 07/29/17 08:00 97.3 64 17 168/77 (107) 96 07/29/17 04:00 98.1 82 17 212/98 (136) 95 07/29/17 02:38 20 07/29/17 01:38 20 07/29/17 00:00 97.9 84 17 193/92 (125) 94 I/O 07/28/17 07/28/17 07/28/17 07/29/17 07/29/17 07/29/17 07:00 15:00 23:00 07:00 15:00 23:00 Intake Total 360 ml 50 ml 1010 ml 240 ml 50 ml 950 ml Output Total 850 ml 400 ml 500 ml 1000 ml Balance -490 ml 50 ml 610 ml -260 ml 50 ml -50 ml Intake Oral 360 ml 960 ml 240 ml 900 ml IV Total 50 ml 50 ml 50 ml 50 ml Output Urine Total 850 ml 400 ml 500 ml 1000 ml # Voids 1 4 2 # Bowel Movements 0 0 2 Result Diagram: 07/25/17 0520 Objective Remarks AAOx3. NAD Right lower extremity: wound healing well. sutures in place, mild drainage. CKS. +EHL/FHL, SILT distally, neg homans Assessment & Plan Assessment and Plan Date of Surgery: Jul 07, 2017 Preoperative Diagnosis: Right proximal tibia wound infection Procedure: Irrigation and debridement of right proximal tibia, placement of antibiotic beads, application wound VAC dressingg Doing well Continue IV abx therapy per ID management- staph aureus Physical therapy - nonweight bearing RLE, CKS in place keep at all times qday dressing changes with Xeroform, 4 x 4's, ABDs and [place] wrap dc sutures and apply steris ok to dc per ortho standpoint f/u Dr Smith upon DC Rx, F2F in chart Nic Ritter Jr., MD Jul 29, 2017 20:35
[2017-07-29] MEDS: DOXAZOSIN MESYLATE 2 MG TAB PO SCH (21:35)
[2017-07-30] VITALS (8 sets, daily range): BP systolic 129–225; BP diastolic 63–113; PULSE 70–82; RESP 17–20; TEMP 97.1–97.9; O2SAT 95–99
[2017-07-30] MEDS: ZOLPIDEM TARTRATE 5 MG TAB PO PRN (00:50)
[2017-07-30] MEDS: ACETAMINOPHEN/HYDROcodone 325 MG/5 MG TAB PO PRN ×5 (04:12→21:02)
[2017-07-30] MEDS: METOPROLOL TARTRATE 25 MG TAB PO SCH ×3 (05:17→21:01)
[2017-07-30] MEDS: ENALAPRILAT 2.5 MG/2 ML VIAL IV PUSH PRN ×2 (06:30→16:58)
[2017-07-30] MEDS: DOXAZOSIN MESYLATE 2 MG TAB PO SCH ×2 (08:58→21:01)
[2017-07-30] MEDS: HYDROCHLOROTHIAZIDE 50 MG TAB PO SCH (08:58)
[2017-07-30] MEDS: DOCUSATE SODIUM 50 MG/SENNA 8.6 MG TAB PO SCH ×2 (08:58→21:04)
[2017-07-30] MEDS: RIVAROXABAN 10 MG TAB PO SCH (08:58)
[2017-07-30] MEDS: VALSARTAN 160 MG TAB PO SCH (08:58)
[2017-07-30] MEDS: cloNIDine HCL 0.1 MG TAB PO SCH ×2 (08:58→21:01)
[2017-07-30] MEDS: MINOXIDIL 2.5 MG TAB PO SCH ×2 (08:58→21:01)
[2017-07-30] MEDS: ceFAZolin 2 GM/DEX PREMIX 50 ML IV SCH ×2 (08:59→16:58)
[2017-07-30] MEDS: SODIUM CHLORIDE 0.9% FLUSH 10 ML FLUSH IV FLUSH SCH ×2 (08:59→21:00)
[2017-07-30] MEDS: NIFEdipine 60 MG SUSTAINED RELEASE TAB PO SCH (08:59)
[2017-07-30] MEDS: RIFAMPIN 150 MG CAP PO SCH ×2 (08:59→21:01)
--- NOTE | 2017-07-30 10:33 | HHI.NPPN ---
Subjective General Problems: Hypertension Additional Remarks Patient is alert and oriented. He is frustrated that his blood pressure is still so elevated at times. This morning at 225/113 the nurse rechecked after morning medications given and SBP at 120. No headache or dizziness. (Clrae Sosa) Review of Systems Gastrointestinal GI Remarks cramping (Clare Sosa) Objective Data Data Vital Signs Date Time Temp Pulse Resp B/P (MAP) Pulse Ox O2 Delivery O2 Flow Rate FiO2 07/30/17 08:00 97.6 82 17 225/113 (150) 99 07/30/17 06:25 209/110 (143) 07/30/17 05:20 80 20 207/88 (127) 98 07/30/17 00:00 97.1 74 19 192/90 (124) 95 07/29/17 20:00 97.7 70 21 194/87 (122) 95 07/29/17 16:00 97.5 73 17 188/74 (112) 98 07/29/17 12:00 97.7 65 17 174/73 (106) 95 (Clare Sosa) Imaging Last Impressions Abdomen Magnetic Resonance Angio 07/23/17 0000 Signed Impressions: Service Date/Time: Sunday, July 23, 2017 13:25 - CONCLUSION: Left main renal artery is previously stented. Neointimal hyperplasia within the stent cannot be excluded. Catheter arteriography suggested for definitive evaluation if clinically appropriate. Hany Kaiser MD Tumor Localization 07/04/17 0000 Signed Impressions: Service Date/Time: Tuesday, July 04, 2017 14:31 - CONCLUSION: Mild tracer accumulation in the soft tissues directly adjacent to the hardware along the top of the right tibia. Emiliano Oshea MD Lower Extremity CT 07/04/17 0000 Signed Impressions: Service Date/Time: Tuesday, July 04, 2017 09:42 - CONCLUSION: 1. Small joint effusion and lateral knee soft tissue swelling. 2. Status post ORIF of a comminuted lateral tibial plateau fracture 3. No evidence of destructive bone lesions or extra articular fluid collections. 4. Postop wound infection and hardware infection cannot be excluded based on the above findings. Mina Dockery MD Knee X-Ray 06/29/17 9994 Signed Impressions: Service Date/Time: June 23:12 - CONCLUSION: Stable appearance status post open rigid internal fixation. Rivas Ledesma MD (Clare Sosa) Physical Exam General Appearance: Well Developed, No Acute Distress, Comfortable (Clare Sosa) Ears & Nose Ears & Nose Exam: Nasal Mucosa [place] (Clare SosaP) Pulmonary Resp Exam: Clear Bilaterally, Breath Sounds Equal (Clare Sosa) Cardiology CV Exam: Regular, Normal Sinus Rhythm (Clare Sosa) Gastrointestinal/Abdomen GI Exam: Soft, Non-Tender, Bowel Sounds Present (Clare Sosa) Musculoskeletal MS Exam: Normal Gait, Normal Tone (Clare Sosa) Integumentary Skin Exam: Warm, Dry, Intact (Clare Sosa) Extremeties Extremities Exam: No Edema, Pedal Pulses Palpable (Clare Sosa) Neurologic Neuro Exam: Alert, Awake, Oriented, Speech Clear, Moving All Extremities (Clare Sosa) Psychiatric Psych Exam: Appropriate Responses (Clare Sosa) Assessment/Plan Discussed Condition With: Patient Assessment Summary: Hypertension Problem List: (1) Hypertension ICD Codes: I10 - Essential (primary) hypertension Status: Chronic Plan: BP is off and on elevated. Aldosterone level is low. Plasma metanephrine is not high. ON: - clonidine 0.2 BID -Diovan 320 mg daily -Metoprolol 50 mg TID -Nifedipine 60 mg daily -HCTZ 50 mg daily - Minoxidil 5 mg BID. Blood pressure elevated at 225/113 this morning. Cardura has also been added BID as well as HCTZ being increased. MRI of abdomen: Left main renal artery is previously stented. Neointimal hyperplasia within the stent cannot be excluded. Catheter arteriography suggested for definitive evaluation if clinically appropriate. May need catheter arteriography Will continue to monitor and titrate blood pressure medication Low salt diet encouraged and advised to avoid caffeine Avoid IVF administration. (2) History of renal artery stenosis ICD Codes: Z86.79 - Personal history of other diseases of the circulatory system Status: Acute Plan: See above. (3) CAD (coronary artery disease) ICD Codes: I25.10 - Atherosclerotic heart disease of [place] coronary artery without angina pectoris Status: Acute Plan: s/p CABG. Continue risk factor modifications. (4) Peripheral vascular disease ICD Codes: I73.9 - Peripheral vascular disease, unspecified Status: Acute Plan: s/p peripheral revascularization. (Clare Sosa) Problem List: (1) Hypertension ICD Codes: I10 - Essential (primary) hypertension Status: Chronic Plan: BP is off and on elevated. Aldosterone level is low. Plasma metanephrine is not high. ON: - clonidine 0.2 BID -Diovan 320 mg daily -Metoprolol 50 mg TID -Nifedipine 60 mg daily -HCTZ 50 mg daily - Minoxidil 5 mg BID. Blood pressure elevated at 225/113 this morning. Cardura has also been added BID as well as HCTZ being increased. MRI of abdomen: Left main renal artery is previously stented. Neointimal hyperplasia within the stent cannot be excluded. Catheter arteriography suggested for definitive evaluation if clinically appropriate. May need catheter arteriography Will continue to monitor and titrate blood pressure medication Low salt diet encouraged and advised to avoid caffeine Avoid IVF administration. Patient seen and examined, agree with above. Consider angiogram of renal arteries. (2) History of renal artery stenosis ICD Codes: Z86.79 - Personal history of other diseases of the circulatory system Status: Acute Plan: See above. (3) CAD (coronary artery disease) ICD Codes: I25.10 - Atherosclerotic heart disease of [place] coronary artery without angina pectoris Status: Acute Plan: s/p CABG. Continue risk factor modifications. (4) Peripheral vascular disease ICD Codes: I73.9 - Peripheral vascular disease, unspecified Status: Acute Plan: s/p peripheral revascularization. (Chrissie Angulo MD) Clare Sosa Jul 30, 2017 10:33 Chrissie Angulo MD Jul 30, 2017 14:52
--- NOTE | 2017-07-30 11:39 | HHI.PR ---
Subjective Remarks Follow-up hypertension. Patient has no complaints at this time. He is frustrated that his blood pressure control has not really improved. Objective Vitals Vital Signs Date Time Temp Pulse Resp B/P (MAP) Pulse Ox O2 Delivery O2 Flow Rate FiO2 07/30/17 10:30 129/81 (97) 07/30/17 08:00 97.6 82 17 225/113 (150) 99 07/30/17 06:25 209/110 (143) 07/30/17 05:20 80 20 207/88 (127) 98 07/30/17 00:00 97.1 74 19 192/90 (124) 95 07/29/17 20:00 97.7 70 21 194/87 (122) 95 07/29/17 16:00 97.5 73 17 188/74 (112) 98 07/29/17 12:00 97.7 65 17 174/73 (106) 95 I/O 07/29/17 07/29/17 07/29/17 07/30/17 07/30/17 07/30/17 07:00 15:00 23:00 07:00 15:00 23:00 Intake Total 240 ml 50 ml 950 ml 1250 ml Output Total 500 ml 1000 ml Balance -260 ml 50 ml -50 ml 1250 ml Intake Oral 240 ml 900 ml 1200 ml IV Total 50 ml 50 ml 50 ml Output Urine Total 500 ml 1000 ml # Voids 2 5 # Bowel Movements 0 2 Imaging Last Impressions Abdomen Magnetic Resonance Angio 07/23/17 0000 Signed Impressions: Service Date/Time: Sunday, July 23, 2017 13:25 - CONCLUSION: Left main renal artery is previously stented. Neointimal hyperplasia within the stent cannot be excluded. Catheter arteriography suggested for definitive evaluation if clinically appropriate. Hany Kaiser MD Tumor Localization 07/04/17 0000 Signed Impressions: Service Date/Time: Tuesday, July 04, 2017 14:31 - CONCLUSION: Mild tracer accumulation in the soft tissues directly adjacent to the hardware along the top of the right tibia. Emiliano Oshea MD Lower Extremity CT 07/04/17 0000 Signed Impressions: Service Date/Time: Tuesday, July 04, 2017 09:42 - CONCLUSION: 1. Small joint effusion and lateral knee soft tissue swelling. 2. Status post ORIF of a comminuted lateral tibial plateau fracture 3. No evidence of destructive bone lesions or extra articular fluid collections. 4. Postop wound infection and hardware infection cannot be excluded based on the above findings. Mina Dockery MD Knee X-Ray 06/29/17 0640 Signed Impressions: Service Date/Time: June 23:12 - CONCLUSION: Stable appearance status post open rigid internal fixation. Rivas Ledesma MD Objective Remarks General: No acute distress. Heart: Regular rate and rhythm. No murmur. Lungs: Clear to auscultation bilaterally. No wheezes, rales, or rhonchi. Breathing is nonlabored. Abdomen: Soft, nontender, nondistended. Extremities: No lower extremity edema. Right lower extremity in a splint. Psych: Alert and oriented. Neuro: Normal speech. No focal deficits noted. Procedures Right proximal tibia wound infection s/p Irrigation and debridement of right proximal tibia, placement of antibiotic beads, application wound VAC dressing on 07/07/[address] Smith Urinary Catheter: No Vascular Central Line Catheter: No A/P Problem List: (1) Status post fracture of right tibia ICD Code: Z87.81 - Personal history of (healed) traumatic fracture Status: Acute (2) History of renal artery stenosis ICD Code: Z86.79 - Personal history of other diseases of the circulatory system Status: Acute (3) Hypertension ICD Code: I10 - Essential (primary) hypertension Status: Chronic (4) Hypertensive urgency ICD Code: I10 - Essential (primary) hypertension Status: Acute Assessment and Plan 1. Cellulitis of the right lower extremity: Status post fracture right tibia. Right proximal tibia wound infection. Status post irrigation and debridement of right proximal tibia with placement of antibiotic beads. Wound VAC applied , has since been removed. Continue antibiotics per infectious disease recommendations. Rifampin and cefazolin are to be continued until the patient is readmitted for hardware removal and then another 4-6 weeks of antibiotics postoperatively. 2. Bacteremia: Appreciate infectious disease recommendations. Continue antibiotics. 3. Hypertension: Appreciate nephrology recommendations. Patient has history of renal artery stenosis and has a stent in the left renal artery. MRA report noted. May need renal angiogram. Continue clonidine, Cardura, HCTZ, metoprolol , Procardia XL, valsartan, Minoxidil. BP remains elevated. Will request cardiology evaluation recommendations regarding blood pressure control. 4. Coronary artery disease: Asymptomatic. 5. DVT prophylaxis: Xarelto. Discharge Planning Pending improved blood pressure control. Luciano Crystal MD Jul 30, 2017 11:38
--- NOTE | 2017-07-30 14:44 | MB ---
cc: Juan Carlos Saravia MD DATE: 07/30/2017 REASON FOR CONSULTATION: Uncompensated blood pressure. HISTORY OF PRESENT ILLNESS: Mr. Carbajal is a 62-year-old gentleman with history of coronary artery disease, coronary artery bypass grafting, previous right renal artery stenosis, that was in 2000 when blood pressure could not be controlled. He referred blood pressure was controlled for a month and then back again, very difficult to control. He used to smoke at least 2 packs of cigarettes a day, currently smokes cigar. He was admitted due to traumatic right tibia fracture. During hospitalization, blood pressure very difficult to control, and I was consulted for further evaluation and management. The chart was reviewed. The patient was evaluated. ALLERGIES: None. SOCIAL HISTORY: As mentioned before, he smokes cigar. FAMILY HISTORY: Noncontributory to his current medical condition. MEDICATIONS: He is currently on Ancef 2 grams every 8 hours. He is on Catapres 0.2 mg twice a day. He is on Cardura 4 mg twice a day. He is on hydrochlorothiazide 50 mg a day. He is on metoprolol 50 mg q. 8 hours. He is on minoxidil 5 mg twice a day, nifedipine 60 mg twice a day, rifampin 300 mg every 12 hours, Xarelto 10 mg a day, Diovan 300 mg a day and Ambien 5 mg a day. REVIEW OF SYSTEMS: Currently, the patient with no chest pain, no chest discomfort, no headache, no vomiting, no fever. PHYSICAL EXAMINATION: GENERAL: Alert, fully oriented. VITAL SIGNS: Blood pressure at 8 a.m. was 225/113. Currently, blood pressure is 129/81. Previous pattern indicates a fairly large variation in the blood pressure. LUNGS: Good air entry bilaterally. CARDIOVASCULAR: S1, S2. Regular. ABDOMEN: Soft, no mass or bruit. EXTREMITIES: With right leg immobilization. DIAGNOSTIC DATA: Electrocardiogram from 07/06/2017, indicates sinus rhythm, no acute ST and T-wave changes. LABORATORY DATA: Hemoglobin 12.1, white blood cell 7.8. Potassium 4.5, creatinine 0.63. TSH 2.62. ASSESSMENT AND RECOMMENDATIONS: Mr. Carbajal is on a lot of blood pressure medication. Despite that, blood pressure cannot be controlled. There is fairly large variation. Renal sonogram and MRI would be necessary. I am going to discontinue the nifedipine SR and replace it by amlodipine 10 mg twice a day. The case extensively discussed with the patient. Further renal and endocrinologic evaluation will be necessary. I will monitor him during hospitalization. MD JANAY Gallo/PRAMOD , 02:21 PM , 02:44 PM
[2017-07-31] VITALS: BP 149/99; PULSE 71; RESP 17; TEMP 97.8; O2SAT 99
[2017-07-31] MEDS: ceFAZolin 2 GM/DEX PREMIX 50 ML IV SCH ×3 (00:45→15:45)
[2017-07-31] MEDS: ACETAMINOPHEN/HYDROcodone 325 MG/5 MG TAB PO PRN ×5 (00:46→20:08)
[2017-07-31] MEDS: ZOLPIDEM TARTRATE 5 MG TAB PO PRN (01:24)
[2017-07-31 05:34] VITALS: BP 190/94; PULSE 83; RESP 18; O2SAT 98
[2017-07-31] MEDS: METOPROLOL TARTRATE 25 MG TAB PO SCH ×3 (05:36→21:15)
[2017-07-31 06:34] LABS: CALCIUM 9.3 MG/DL (8.5-10.1); CREATININE 0.67 MG/DL (0.60-1.30)
[2017-07-31 08:00] VITALS: BP 212/116; PULSE 77; RESP 17; TEMP 97.1; O2SAT 97
[2017-07-31] MEDS: VALSARTAN 160 MG TAB PO SCH (11:08)
[2017-07-31] MEDS: SODIUM CHLORIDE 0.9% FLUSH 10 ML FLUSH IV FLUSH SCH ×2 (11:08→20:10)
[2017-07-31] MEDS: DOXAZOSIN MESYLATE 2 MG TAB PO SCH ×2 (11:08→20:07)
[2017-07-31] MEDS: RIFAMPIN 150 MG CAP PO SCH ×2 (11:09→20:07)
[2017-07-31] MEDS: MINOXIDIL 2.5 MG TAB PO SCH ×2 (11:09→20:07)
[2017-07-31] MEDS: DOCUSATE SODIUM 50 MG/SENNA 8.6 MG TAB PO SCH ×2 (11:09→20:07)
[2017-07-31] MEDS: HYDROCHLOROTHIAZIDE 50 MG TAB PO SCH (11:09)
[2017-07-31] MEDS: RIVAROXABAN 10 MG TAB PO SCH (11:10)
--- NOTE | 2017-07-31 11:49 | HHI.NPPN ---
Subjective General Problems: Hypertension Interval History His blood pressure is very high today. Medications were adjusted. Having some pain right leg. (Angela Cruz) Review of Systems Gastrointestinal GI Remarks cramping (Angela Cruz) Objective Data Data Vital Signs Date Time Temp Pulse Resp B/P (MAP) Pulse Ox O2 Delivery O2 Flow Rate FiO2 07/31/17 08:00 97.1 77 17 212/116 (148) 97 07/31/17 05:34 83 18 190/94 (126) 98 07/31/17 00:00 97.8 71 17 149/99 (116) 99 07/30/17 20:00 97.7 74 19 183/110 (134) 98 07/30/17 16:00 97.6 76 18 192/74 (113) 98 07/30/17 12:00 97.9 70 18 134/63 (86) 96 (Angela Cruz) -: 07/31/17 0539 Physical Exam General Appearance: Well Developed, No Acute Distress, Comfortable (Angela Cruz) Ears & Nose Ears & Nose Exam: Nasal Mucosa [place] (Angela Cruz) Pulmonary Resp Exam: Clear Bilaterally, Breath Sounds Equal (Angela Cruz) Cardiology CV Exam: Regular, Normal Sinus Rhythm (Angela Cruz) Gastrointestinal/Abdomen GI Exam: Soft, Non-Tender, Bowel Sounds Present (Angela Cruz) Musculoskeletal MS Exam: Normal Gait, Normal Tone MS Remarks left leg immobilized (Angela Cruz) Integumentary Skin Exam: Warm, Dry, Intact (Angela Cruz) Extremeties Extremities Exam: No Edema, Pedal Pulses Palpable (Angela Cruz) Neurologic Neuro Exam: Alert, Awake, Oriented, Speech Clear, Moving All Extremities (Angela Cruz) Psychiatric Psych Exam: Appropriate Responses (Angela Cruz) Assessment/Plan Discussed Condition With: Patient Assessment Summary: Hypertension Problem List: (1) Hypertension ICD Codes: I10 - Essential (primary) hypertension Status: Chronic Plan: BP is off and on elevated. Aldosterone level is low. Plasma metanephrine is not high. ON: - clonidine 0.2, increased to TID -Metoprolol 50 mg TID -HCTZ 50 mg daily - Minoxidil 5 mg BID. -Amlodipine 10 mg BID added -Diovan 320 mg daily (stopped) -Nifedipine 60 mg daily (stopped) Blood pressure remains Cardiology has been consulted to assist MRI of abdomen: Left main renal artery is previously stented. Neointimal hyperplasia within the stent cannot be excluded. Catheter arteriography suggested for definitive evaluation if clinically appropriate. CT angio of abdomen ordered to evaluate patency of stent. Will continue to monitor and titrate blood pressure medication Low salt diet encouraged and advised to avoid caffeine. Continue pain control as it may explain elevations in blood pressure. Avoid IVF administration. (2) History of renal artery stenosis ICD Codes: Z86.79 - Personal history of other diseases of the circulatory system Status: Acute Plan: See above. (3) CAD (coronary artery disease) ICD Codes: I25.10 - Atherosclerotic heart disease of [place] coronary artery without angina pectoris Status: Acute Plan: s/p CABG. Continue risk factor modifications. (4) Peripheral vascular disease ICD Codes: I73.9 - Peripheral vascular disease, unspecified Status: Acute Plan: s/p peripheral revascularization. (Angela Cruz) Plan patient was seen and examined. BP is still high. CT angiogram ordered, patent renal artery stent. BP could be high due to pain. Continue to adjust his medications. (Camilo Santiago MD) Angela Cruz Jul 31, 2017 11:49 Camilo Santiago MD Aug 01, 2017 10:20
[2017-07-31 12:00] VITALS: BP 182/80; PULSE 79; RESP 17; TEMP 97.1; O2SAT 96
[2017-07-31] MEDS ORDERED: IOHEXOL 350 MG/ML 10 ML VIAL (for RAD DIAG) IVCONTRAST ONE (13:01)
--- NOTE | 2017-07-31 14:22 | RADRPT ---
EXAM DATE/TIME: 07/31/2017 12:51 [facility] COMPARISON: CTA ABDOMEN & PELVIS W 3D RECON, June 17, 2015, 15:59. INDICATIONS : Establish patency of renal artery stent. IV CONTRAST: 96 cc Omnipaque 350 (iohexol) IV ORAL CONTRAST: No oral contrast ingested. RADIATION DOSE: 14.44 CTDIvol (mGy) MEDICAL HISTORY : Hypertension. Cardiovascular disease Deep venous thrombosis. SURGICAL HISTORY : renal artery stent ENCOUNTER: Initial ACUITY: 1 day PAIN SCALE: 0/10 LOCATION: abdomen TECHNIQUE: Volumetric scanning was performed using a multi-row detector CT scanner. The data was post processed with a variety of visualization algorithms including full volume maximum intensity projection, multi -planar sliding thin slab reformation, curved planar reformation, and surface rendering techniques. Using automated exposure control and adjustment of the mA and/or kV according to patient size, radiat ion dose was kept as low as reasonably achievable to obtain optimal diagnostic quality images. DICOM format image data is available electronically for review and comparison. FINDINGS: ABDOMINAL AORTA: Scattered atherosclerotic calcification throughout the abdominal aorta without aneurysmal disease. Ce liac and SMA are patent despite regional calcification. Right renal artery is widely patent. There is a stent in the ostium of the left renal artery which remains widely patent. End this side aortobifem bypass graft with occlusion of the [place] iliac arteries. PELVIS: And the side aortobifem bypass graft is widely patent. Both distal anastomoses are widely patent. The re is approximate 50% stenosis in the proximal SFA with a small ulcerated plaque. Otherwise, the prof unda and SFA are patent proximally. MISCELLANEOUS: Bibasilar atelectatic changes. Stool throughout the descending and sigmoid colon. The disease in the sigmoid without diverticulitis. Benign-appearing stable cortical cyst posteriorly in the upper pole t he right kidney measuring 2.2 cm in diameter. CONCLUSION: 1. Stent in the ostium of the left renal artery. The stent remains widely patent. The right renal art shantel and mesenteric vessels are also patent. 2. End to side aortobifem bypass graft is widely patent bilaterally. 3. 50% stenosis in the proximal SFA on the right due to the small ulcerated plaque. Proximal SFA and profundal vessels are otherwise patent bilaterally. 4. 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 5. Bibasilar atelectatic changes. Carlos Masters MD on July 31, 2017 at 14:12 Board Certified Radiologist. This report was verified electronically.
--- NOTE | 2017-07-31 15:25 | HHI.PR ---
Subjective Remarks Follow-up hypertension. Patient just returned from CT. Still having pain in the right leg, 10/17. No chest pain or dyspnea. Objective Vitals Vital Signs Date Time Temp Pulse Resp B/P (MAP) Pulse Ox O2 Delivery O2 Flow Rate FiO2 07/31/17 12:00 97.1 79 17 182/80 (114) 96 07/31/17 08:00 97.1 77 17 212/116 (148) 97 07/31/17 05:34 83 18 190/94 (126) 98 07/31/17 00:00 97.8 71 17 149/99 (116) 99 07/30/17 20:00 97.7 74 19 183/110 (134) 98 07/30/17 16:00 97.6 76 18 192/74 (113) 98 I/O 07/30/17 07/30/17 07/30/17 07/31/17 07/31/17 07/31/17 07:00 15:00 23:00 07:00 15:00 23:00 Intake Total 1250 ml 1010 ml Balance 1250 ml 1010 ml Intake Oral 1200 ml 960 ml IV Total 50 ml 50 ml # Voids 5 4 # Bowel Movements 1 Result Diagram: 07/31/17 0539 Imaging Last Impressions Abdomen/Pelvis CT 07/31/17 0000 Signed Impressions: Service Date/Time: Monday, July 31, 2017 12:51 - CONCLUSION: 1. Stent in the ostium of the left renal artery. The stent remains widely patent. The right renal artery and mesenteric vessels are also patent. 2. End to side aortobifem bypass graft is widely patent bilaterally. 3. 50%% stenosis in the proximal SFA on the right due to the small ulcerated plaque. Proximal SFA and profundal vessels are otherwise patent bilaterally. 4. 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 5. Bibasilar atelectatic changes. Carlos Masters MD Abdomen Magnetic Resonance Angio 07/23/17 0000 Signed Impressions: Service Date/Time: Sunday, July 23, 2017 13:25 - CONCLUSION: Left main renal artery is previously stented. Neointimal hyperplasia within the stent cannot be excluded. Catheter arteriography suggested for definitive evaluation if clinically appropriate. Hany Kaiser MD Tumor Localization 07/04/17 0000 Signed Impressions: Service Date/Time: Tuesday, July 04, 2017 14:31 - CONCLUSION: Mild tracer accumulation in the soft tissues directly adjacent to the hardware along the top of the right tibia. Emiliano Oshea MD Lower Extremity CT 07/04/17 0000 Signed Impressions: Service Date/Time: Tuesday, July 04, 2017 09:42 - CONCLUSION: 1. Small joint effusion and lateral knee soft tissue swelling. 2. Status post ORIF of a comminuted lateral tibial plateau fracture 3. No evidence of destructive bone lesions or extra articular fluid collections. 4. Postop wound infection and hardware infection cannot be excluded based on the above findings. Mina Dockery MD Knee X-Ray 06/29/17 2302 Signed Impressions: Service Date/Time: June 23:12 - CONCLUSION: Stable appearance status post open rigid internal fixation. Rivas Ledesma MD Objective Remarks General: No acute distress. Heart: Regular rate and rhythm. No murmur. Lungs: Clear to auscultation bilaterally. No wheezes, rales, or rhonchi. Breathing is nonlabored. Abdomen: Soft, nontender, nondistended. Extremities: No lower extremity edema. Right lower extremity in a splint. Psych: Alert and oriented. Neuro: Normal speech. No focal deficits noted. Procedures Right proximal tibia wound infection s/p Irrigation and debridement of right proximal tibia, placement of antibiotic beads, application wound VAC dressing on 07/07/[address] Smith Urinary Catheter: No Vascular Central Line Catheter: No A/P Problem List: (1) Status post fracture of right tibia ICD Code: Z87.81 - Personal history of (healed) traumatic fracture Status: Acute (2) History of renal artery stenosis ICD Code: Z86.79 - Personal history of other diseases of the circulatory system Status: Acute (3) Hypertension ICD Code: I10 - Essential (primary) hypertension Status: Chronic (4) Hypertensive urgency ICD Code: I10 - Essential (primary) hypertension Status: Acute Assessment and Plan 1. Cellulitis of the right lower extremity: Status post fracture right tibia. Right proximal tibia wound infection. Status post irrigation and debridement of right proximal tibia with placement of antibiotic beads. Wound VAC applied , has since been removed. Continue antibiotics per infectious disease recommendations. Rifampin and cefazolin are to be continued until the patient is readmitted for hardware removal and then another 4-6 weeks of antibiotics postoperatively. 2. Bacteremia: Appreciate infectious disease recommendations. Continue antibiotics. 3. Hypertension: Appreciate nephrology recommendations. Patient has history of renal artery stenosis and has a stent in the left renal artery. MRA report noted. May need renal angiogram. Continue clonidine (dose increased today by nephrology), Cardura, HCTZ, metoprolol, amlodipine, valsartan, Minoxidil. BP remains elevated. Appreciate cardiology recommendations. CT angiogram shows patent left renal artery stent. Right renal artery and mesenteric vessels are also patent. 4. Coronary artery disease: Asymptomatic. 5. DVT prophylaxis: Xarelto. Discharge Planning Pending improved blood pressure control. Luciano Crystal MD Jul 31, 2017 15:25
[2017-07-31] MEDS: cloNIDine HCL 0.1 MG TAB PO SCH ×2 (15:45→17:18)
[2017-07-31 16:00] VITALS: BP 179/90; PULSE 84; RESP 17; TEMP 97.2; O2SAT 96
[2017-07-31 20:00] VITALS: BP 200/93; PULSE 75; RESP 17; TEMP 97.8; O2SAT 97
[2017-07-31] MEDS: ENALAPRILAT 2.5 MG/2 ML VIAL IV PUSH PRN (22:00)
--- NOTE | 2017-07-31 22:28 | HHI.PR ---
Subjective Remarks Tired Objective Vital Signs Date Time Temp Pulse Resp B/P (MAP) Pulse Ox O2 Delivery O2 Flow Rate FiO2 07/31/17 21:08 18 07/31/17 20:00 97.8 75 17 200/93 (128) 97 07/31/17 16:00 97.2 84 17 179/90 (119) 96 07/31/17 12:00 97.1 79 17 182/80 (114) 96 07/31/17 08:00 97.1 77 17 212/116 (148) 97 07/31/17 05:34 83 18 190/94 (126) 98 07/31/17 00:00 97.8 71 17 149/99 (116) 99 I/O 07/30/17 07/30/17 07/30/17 07/31/17 07/31/17 07/31/17 07:00 15:00 23:00 07:00 15:00 23:00 Intake Total 1250 ml 1010 ml 860 ml Balance 1250 ml 1010 ml 860 ml Intake Oral 1200 ml 960 ml 760 ml IV Total 50 ml 50 ml 100 ml # Voids 5 4 5 # Bowel Movements 1 0 Result Diagram: 07/31/17 0539 Imaging Alert, fully oriented Lungs: ventilated Heart: S1, S2 regular, no gallop Abdomen: soft, no mass Ext: no edema, right leg immobilization Current Medications Medications (Trade) Dose Ordered Sig/Barbra Route Start Time Stop Time Status Last Admin (NS Flush) 2 ml UNSCH PRN IV FLUSH 06/30/17 01:00 07/21/17 01:15 (NS Flush) 2 ml BID IV FLUSH 06/30/17 09:00 07/31/17 20:10 (Narcan Inj) 0.4 mg UNSCH PRN IV PUSH 06/30/17 01:00 (Xarelto) 10 mg DAILY PO 06/30/17 16:15 Future hold 07/31/17 11:10 (Rifampin) 300 mg Q12HR PO 07/08/17 21:00 07/31/17 20:07 ([place] 5-325 Mg) 1 tab Q4H PRN PO 07/11/17 13:00 ([place] 5-325 Mg) 2 tab Q4H PRN PO 07/11/17 13:00 4/23/18 20:08 (Ambien) 5 mg HS PRN PO 07/16/17 18:00 07/31/17 01:24 (Vasotec Inj) 2.5 mg Q6H PRN IV PUSH 07/21/17 15:00 07/30/17 16:58 (Diovan) 320 mg DAILY PO 07/23/17 09:00 07/31/17 11:08 Cefazolin Sodium/ Dextrose 50 ml @ 100 mls/hr Q8H IV 07/23/17 09:00 07/31/17 15:45 (Roxicodone) 5 mg Q4H PRN PO 07/23/17 11:15 07/31/17 21:16 (Lopressor) 50 mg Q8HR PO 07/25/17 14:00 07/31/17 21:15 (Loniten) 5 mg BID PO 07/27/17 09:00 07/31/17 20:07 (Vi-Colace) 1 tab BID PO 07/27/17 13:45 07/31/17 20:07 (Milk Of Magnesia Liq) 30 ml Q12H PRN PO 07/27/17 13:45 (Senokot) 17.2 mg Q12H PRN PO 07/27/17 13:45 (Dulcolax Supp) 10 mg DAILY PRN RECTAL 07/27/17 13:45 (Lactulose Liq) 30 ml DAILY PRN PO 07/27/17 13:45 (Hydrodiuril) 50 mg DAILY PO 07/30/17 09:00 07/31/17 11:09 (Cardura) 4 mg BID PO 07/29/17 21:00 07/31/17 20:07 (Norvasc) 10 mg BID PO 07/30/17 21:00 07/31/17 20:07 (Catapres) 0.2 mg TID PO 07/31/17 13:00 07/31/17 17:18 Assessment and Plan Problem List: (1) Hypertension ICD Codes: I10 - Essential (primary) hypertension Status: Chronic Plan: BP still high but better Meds will be reassessed tomorrow (2) History of renal artery stenosis ICD Codes: Z86.79 - Personal history of other diseases of the circulatory system Status: Acute Plan: Left renal stent patent Juan Carlos Saravia MD Jul 31, 2017 22:28
[2017-08-01] VITALS: BP 173/72; PULSE 76; RESP 17; TEMP 98.1; O2SAT 95
[2017-08-01] MEDS: ceFAZolin 2 GM/DEX PREMIX 50 ML IV SCH ×3 (00:33→16:24)
[2017-08-01] MEDS: ACETAMINOPHEN/HYDROcodone 325 MG/5 MG TAB PO PRN ×3 (00:34→09:01)
[2017-08-01] MEDS: ZOLPIDEM TARTRATE 5 MG TAB PO PRN (00:38)
[2017-08-01 04:00] VITALS: BP 170/69; PULSE 74; RESP 17; TEMP 98.1; O2SAT 99
[2017-08-01] MEDS: METOPROLOL TARTRATE 25 MG TAB PO SCH ×3 (06:14→21:23)
[2017-08-01 08:00] VITALS: BP 217/100; PULSE 83; RESP 18; TEMP 97.6; O2SAT 96
[2017-08-01] MEDS: SODIUM CHLORIDE 0.9% FLUSH 10 ML FLUSH IV FLUSH SCH ×2 (08:59→20:00)
[2017-08-01] MEDS: DOCUSATE SODIUM 50 MG/SENNA 8.6 MG TAB PO SCH ×2 (08:59→20:00)
[2017-08-01] MEDS: RIFAMPIN 150 MG CAP PO SCH ×2 (08:59→19:59)
[2017-08-01] MEDS: DOXAZOSIN MESYLATE 2 MG TAB PO SCH ×2 (09:00→20:00)
[2017-08-01] MEDS: cloNIDine HCL 0.1 MG TAB PO SCH ×3 (09:00→16:25)
[2017-08-01] MEDS: HYDROCHLOROTHIAZIDE 50 MG TAB PO SCH (09:00)
[2017-08-01] MEDS: MINOXIDIL 2.5 MG TAB PO SCH ×2 (09:01→20:00)
[2017-08-01] MEDS: VALSARTAN 160 MG TAB PO SCH (09:02)
--- NOTE | 2017-08-01 11:03 | HHI.NPPN ---
Subjective General Problems: Hypertension Interval History Blood pressure control is better. No new issues. (Angela Cruz) Review of Systems Gastrointestinal GI Remarks cramping (Angela Cruz) Objective Data Data Vital Signs Date Time Temp Pulse Resp B/P (MAP) Pulse Ox O2 Delivery O2 Flow Rate FiO2 08/01/17 05:44 16 08/01/17 04:47 18 08/01/17 04:00 98.1 74 17 170/69 (102) 99 08/01/17 00:00 98.1 76 17 173/72 (105) 95 07/31/17 20:00 97.8 75 17 200/93 (128) 97 07/31/17 16:00 97.2 84 17 179/90 (119) 96 07/31/17 12:00 97.1 79 17 182/80 (114) 96 (Angela Cruz) -: 07/31/17 0539 Imaging Last 72 hours Impressions Abdomen/Pelvis CT 07/31/17 0000 Signed Impressions: Service Date/Time: Monday, July 31, 2017 12:51 - CONCLUSION: 1. Stent in the ostium of the left renal artery. The stent remains widely patent. The right renal artery and mesenteric vessels are also patent. 2. End to side aortobifem bypass graft is widely patent bilaterally. 3. 50%% stenosis in the proximal SFA on the right due to the small ulcerated plaque. Proximal SFA and profundal vessels are otherwise patent bilaterally. 4. 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 5. Bibasilar atelectatic changes. Carlos Masters MD (Angela Cruz) Physical Exam General Appearance: Well Developed, No Acute Distress, Comfortable (Angela Cruz) Ears & Nose Ears & Nose Exam: Nasal Mucosa [place] (Angela Cruz) Pulmonary Resp Exam: Clear Bilaterally, Breath Sounds Equal (Angela Cruz) Cardiology CV Exam: Regular, Normal Sinus Rhythm (Angela Cruz) Gastrointestinal/Abdomen GI Exam: Soft, Non-Tender, Bowel Sounds Present (Angela Cruz) Musculoskeletal MS Exam: Normal Gait, Normal Tone MS Remarks left leg immobilized (Angela Cruz) Integumentary Skin Exam: Warm, Dry, Intact (Angela Cruz) Extremeties Extremities Exam: No Edema, Pedal Pulses Palpable (Angela Cruz) Neurologic Neuro Exam: Alert, Awake, Oriented, Speech Clear, Moving All Extremities (Angela Cruz) Psychiatric Psych Exam: Appropriate Responses (Angela Cruz) Assessment/Plan Discussed Condition With: Patient Assessment Summary: Hypertension Problem List: (1) Hypertension ICD Codes: I10 - Essential (primary) hypertension Status: Chronic Plan: BP control has improved. Secondary causes of HTN have been ruled out. needs medication titration, currently on - clonidine 0.2 TID -Metoprolol 50 mg TID -HCTZ 50 mg daily - Minoxidil 5 mg BID. -Amlodipine 10 mg BID -Diovan 320 mg daily -Cardura 4 mg po BID Needs pain control Avoid IVF, caffeine, follow low Na diet May need dose reduction in upcoming days/weeks to prevent hypotension (2) History of renal artery stenosis ICD Codes: Z86.79 - Personal history of other diseases of the circulatory system Status: Acute Plan: CTA showed patency of left renal artery stent (3) CAD (coronary artery disease) ICD Codes: I25.10 - Atherosclerotic heart disease of [place] coronary artery without angina pectoris Status: Acute Plan: s/p CABG. Continue risk factor modifications. (4) Peripheral vascular disease ICD Codes: I73.9 - Peripheral vascular disease, unspecified Status: Acute Plan: s/p peripheral revascularization. Plan cleared/Stable for discharge. We will sign off at this time. (Angela Cruz) Plan patient was seen and examined. Agree with above assessment and plan. (Camilo Santiago MD) Angela Cruz Aug 01, 2017 11:03 Camilo Santiago MD Aug 01, 2017 14:44
--- NOTE | 2017-08-01 11:25 | HHI.PR ---
Subjective Remarks Follow-up hypertension, right leg pain. The patient is still having pain in his right leg at the surgical site. No chest pain or dyspnea. Objective Vitals Vital Signs Date Time Temp Pulse Resp B/P (MAP) Pulse Ox O2 Delivery O2 Flow Rate FiO2 08/01/17 05:44 16 08/01/17 04:47 18 08/01/17 04:00 98.1 74 17 170/69 (102) 99 08/01/17 00:00 98.1 76 17 173/72 (105) 95 07/31/17 20:00 97.8 75 17 200/93 (128) 97 07/31/17 16:00 97.2 84 17 179/90 (119) 96 07/31/17 12:00 97.1 79 17 182/80 (114) 96 I/O 07/31/17 07/31/17 07/31/17 08/01/17 08/01/17 08/01/17 07:00 15:00 23:00 07:00 15:00 23:00 Intake Total 860 ml 480 ml Balance 860 ml 480 ml Intake Oral 760 ml 480 ml IV Total 100 ml # Voids 5 2 # Bowel Movements 0 0 Result Diagram: 07/31/17 0539 Imaging Last Impressions Abdomen/Pelvis CT 07/31/17 0000 Signed Impressions: Service Date/Time: Monday, July 31, 2017 12:51 - CONCLUSION: 1. Stent in the ostium of the left renal artery. The stent remains widely patent. The right renal artery and mesenteric vessels are also patent. 2. End to side aortobifem bypass graft is widely patent bilaterally. 3. 50%% stenosis in the proximal SFA on the right due to the small ulcerated plaque. Proximal SFA and profundal vessels are otherwise patent bilaterally. 4. 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 5. Bibasilar atelectatic changes. Carlos Masters MD Abdomen Magnetic Resonance Angio 07/23/17 0000 Signed Impressions: Service Date/Time: Sunday, July 23, 2017 13:25 - CONCLUSION: Left main renal artery is previously stented. Neointimal hyperplasia within the stent cannot be excluded. Catheter arteriography suggested for definitive evaluation if clinically appropriate. Hany Kaiser MD Tumor Localization 07/04/17 0000 Signed Impressions: Service Date/Time: Tuesday, July 04, 2017 14:31 - CONCLUSION: Mild tracer accumulation in the soft tissues directly adjacent to the hardware along the top of the right tibia. Emiliano Oshea MD Lower Extremity CT 07/04/17 0000 Signed Impressions: Service Date/Time: Tuesday, July 04, 2017 09:42 - CONCLUSION: 1. Small joint effusion and lateral knee soft tissue swelling. 2. Status post ORIF of a comminuted lateral tibial plateau fracture 3. No evidence of destructive bone lesions or extra articular fluid collections. 4. Postop wound infection and hardware infection cannot be excluded based on the above findings. Mina Dockery MD Knee X-Ray 06/29/17 2302 Signed Impressions: Service Date/Time: June 23:12 - CONCLUSION: Stable appearance status post open rigid internal fixation. Rivas Ledesma MD Objective Remarks General: No acute distress. Heart: Regular rate and rhythm. No murmur. Lungs: Clear to auscultation bilaterally. No wheezes, rales, or rhonchi. Breathing is nonlabored. Abdomen: Soft, nontender, nondistended. Extremities: No lower extremity edema. Right lower extremity in a splint. Psych: Alert and oriented. Neuro: Normal speech. No focal deficits noted. Procedures Right proximal tibia wound infection s/p Irrigation and debridement of right proximal tibia, placement of antibiotic beads, application wound VAC dressing on 07/07/[address] Smith Urinary Catheter: No Vascular Central Line Catheter: No A/P Problem List: (1) Status post fracture of right tibia ICD Code: Z87.81 - Personal history of (healed) traumatic fracture Status: Acute (2) History of renal artery stenosis ICD Code: Z86.79 - Personal history of other diseases of the circulatory system Status: Acute (3) Hypertension ICD Code: I10 - Essential (primary) hypertension Status: Chronic (4) Hypertensive urgency ICD Code: I10 - Essential (primary) hypertension Status: Acute Assessment and Plan 1. Cellulitis of the right lower extremity: Status post fracture right tibia. Right proximal tibia wound infection. Status post irrigation and debridement of right proximal tibia with placement of antibiotic beads. Wound VAC applied , has since been removed. Continue antibiotics per infectious disease recommendations. Rifampin and cefazolin are to be continued until the patient is readmitted for hardware removal and then another 4-6 weeks of antibiotics postoperatively. 2. Bacteremia: Blood culture grew Staphylococcus epidermidis. Appreciate infectious disease recommendations. Continue antibiotics. 3. Hypertension: Appreciate nephrology recommendations. Patient has history of renal artery stenosis and has a stent in the left renal artery. MRA report noted. May need renal angiogram. Continue clonidine (dose increased today by nephrology), Cardura, HCTZ, metoprolol, amlodipine, valsartan, Minoxidil. BP remains elevated. Appreciate cardiology recommendations. CT angiogram shows patent left renal artery stent. Right renal artery and mesenteric vessels are also patent. Discussed with Dr. Santiago. Blood pressure elevation is likely attributed to pain. Will work to improve pain control and continue on multiple antihypertensive medications. 4. Coronary artery disease: Asymptomatic. 5. DVT prophylaxis: Xarelto. Discharge Planning Patient is clear for discharge by nephrology. Plan for discharge home when patient has outpatient follow-up and can obtain his medications. Case management to assist with discharge planning. Luciano Crystal MD Aug 01, 2017 11:25
[2017-08-01 12:00] VITALS: BP 174/100; PULSE 75; RESP 17; TEMP 97.6; O2SAT 95
[2017-08-01] MEDS: RIVAROXABAN 10 MG TAB PO SCH (12:31)
[2017-08-01] MEDS: oxyCODONE/ACETAMINOPHEN 10 MG/325 MG TAB PO PRN ×3 (13:18→21:30)
[2017-08-01 16:00] VITALS: BP 133/65; PULSE 63; RESP 19; TEMP 97.5; O2SAT 97
--- NOTE | 2017-08-01 18:24 | HHI.PR ---
Subjective Remarks Feeling better Objective Vital Signs Date Time Temp Pulse Resp B/P (MAP) Pulse Ox O2 Delivery O2 Flow Rate FiO2 08/01/17 16:00 97.5 63 19 133/65 (87) 97 08/01/17 12:00 97.6 75 17 174/100 (124) 95 08/01/17 08:00 97.6 83 18 217/100 (139) 96 08/01/17 05:44 16 08/01/17 04:47 18 08/01/17 04:00 98.1 74 17 170/69 (102) 99 08/01/17 00:00 98.1 76 17 173/72 (105) 95 07/31/17 20:00 97.8 75 17 200/93 (128) 97 I/O 07/31/17 07/31/17 07/31/17 08/01/17 08/01/17 08/01/17 07:00 15:00 23:00 07:00 15:00 23:00 Intake Total 860 ml 480 ml 990 ml Balance 860 ml 480 ml 990 ml Intake Oral 760 ml 480 ml 890 ml IV Total 100 ml 100 ml # Voids 5 2 7 # Bowel Movements 0 0 2 Result Diagram: 07/31/17 0539 Imaging Alert, fully oriented Lungs: ventilated Heart: S1, S2 regular Abdomen: soft, no mass Ext: no edema, right leg immobilized Last Impressions Abdomen/Pelvis CT 07/31/17 0000 Signed Impressions: Service Date/Time: Monday, July 31, 2017 12:51 - CONCLUSION: 1. Stent in the ostium of the left renal artery. The stent remains widely patent. The right renal artery and mesenteric vessels are also patent. 2. End to side aortobifem bypass graft is widely patent bilaterally. 3. 50%% stenosis in the proximal SFA on the right due to the small ulcerated plaque. Proximal SFA and profundal vessels are otherwise patent bilaterally. 4. 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 5. Bibasilar atelectatic changes. Carlos Masters MD Abdomen Magnetic Resonance Angio 07/23/17 0000 Signed Impressions: Service Date/Time: Sunday, July 23, 2017 13:25 - CONCLUSION: Left main renal artery is previously stented. Neointimal hyperplasia within the stent cannot be excluded. Catheter arteriography suggested for definitive evaluation if clinically appropriate. Hany Kaiser MD Tumor Localization 07/04/17 0000 Signed Impressions: Service Date/Time: Tuesday, July 04, 2017 14:31 - CONCLUSION: Mild tracer accumulation in the soft tissues directly adjacent to the hardware along the top of the right tibia. Emiliano Oshea MD Lower Extremity CT 07/04/17 0000 Signed Impressions: Service Date/Time: Tuesday, July 04, 2017 09:42 - CONCLUSION: 1. Small joint effusion and lateral knee soft tissue swelling. 2. Status post ORIF of a comminuted lateral tibial plateau fracture 3. No evidence of destructive bone lesions or extra articular fluid collections. 4. Postop wound infection and hardware infection cannot be excluded based on the above findings. Mina Dockery MD Knee X-Ray 06/29/172301 Signed Impressions: Service Date/Time: June 23:12 - CONCLUSION: Stable appearance status post open rigid internal fixation. Rivas Ledesma MD Assessment and Plan Problem List: (1) Hypertension ICD Codes: I10 - Essential (primary) hypertension Status: Chronic Plan: Stent at left renal artery patent BP high but better Amlodipine and diovan will be administered at 0630 AM because BP peak around 0700 [place]ila the nurse was instructed to do the changes Case discussed with patient (2) History of renal artery stenosis ICD Codes: Z86.79 - Personal history of other diseases of the circulatory system Status: Acute Plan: Left renal stent patent Juan Carlos Saravia MD Aug 01, 2017 18:24
[2017-08-01 20:00] VITALS: BP 171/81; PULSE 74; RESP 18; TEMP 97.3; O2SAT 96
[2017-08-02] VITALS: BP 169/116; PULSE 75; RESP 18; TEMP 97.9; O2SAT 96
[2017-08-02] MEDS: ceFAZolin 2 GM/DEX PREMIX 50 ML IV SCH ×3 (01:25→17:16)
[2017-08-02] MEDS: oxyCODONE/ACETAMINOPHEN 10 MG/325 MG TAB PO PRN ×6 (01:25→23:07)
[2017-08-02] MEDS: ZOLPIDEM TARTRATE 5 MG TAB PO PRN (01:30)
[2017-08-02 03:47] LABS: BICARBONATE 29.7 MEQ/L (21.0-32.0); CALCIUM 8.7 MG/DL (8.5-10.1); CREATININE 0.74 MG/DL (0.60-1.30)
[2017-08-02 04:00] VITALS: BP 191/92; PULSE 74; RESP 18; TEMP 98.6; O2SAT 95
[2017-08-02] MEDS: ENALAPRILAT 2.5 MG/2 ML VIAL IV PUSH PRN ×2 (05:25→11:24)
[2017-08-02] MEDS: METOPROLOL TARTRATE 25 MG TAB PO SCH ×3 (05:25→23:07)
[2017-08-02 08:00] VITALS: BP 190/82; PULSE 82; RESP 18; TEMP 97.9; O2SAT 97
[2017-08-02] MEDS: RIVAROXABAN 10 MG TAB PO SCH (08:30)
[2017-08-02] MEDS: cloNIDine HCL 0.1 MG TAB PO SCH ×3 (08:30→17:17)
[2017-08-02] MEDS: RIFAMPIN 150 MG CAP PO SCH ×2 (08:30→20:29)
[2017-08-02] MEDS: DOCUSATE SODIUM 50 MG/SENNA 8.6 MG TAB PO SCH ×2 (08:31→20:29)
[2017-08-02] MEDS: HYDROCHLOROTHIAZIDE 50 MG TAB PO SCH (08:31)
[2017-08-02] MEDS: DOXAZOSIN MESYLATE 2 MG TAB PO SCH ×2 (08:31→20:28)
[2017-08-02] MEDS: MINOXIDIL 2.5 MG TAB PO SCH ×2 (08:31→20:29)
[2017-08-02] MEDS: SODIUM CHLORIDE 0.9% FLUSH 10 ML FLUSH IV FLUSH SCH ×2 (08:34→20:31)
[2017-08-02] MEDS ORDERED: VALSARTAN 160 MG TAB PO SCH (09:00)
[2017-08-02] MEDS: SODIUM CHLORIDE 0.9% FLUSH 10 ML FLUSH IV FLUSH PRN (11:24)
[2017-08-02 12:13] VITALS: BP_SYST 142; BP_SYST 152; BP_DIAS 107; BP_DIAS 82; PULSE 82; RESP 16; O2SAT 97
[2017-08-02] MEDS ORDERED: SPIRONOLACTONE 25 MG TAB PO ONE (13:00)
[2017-08-02 16:00] VITALS: BP 116/62; PULSE 77; RESP 17; TEMP 97.5; O2SAT 98
[2017-08-02 20:09] VITALS: BP 132/69; PULSE 63; RESP 17; TEMP 97.9; O2SAT 98
--- NOTE | 2017-08-02 23:46 | HHI.PR ---
Subjective Remarks Patient seen this morning around 9:30 AM. Says he is feeling all right. Reports pain is under control. Denies any chest pain or shortness of breath. Objective Vital Signs Date Time Temp Pulse Resp B/P (MAP) Pulse Ox O2 Delivery O2 Flow Rate FiO2 08/02/17 20:09 97.9 63 17 132/69 (90) 98 08/02/17 16:09 16 08/02/17 16:00 97.5 77 17 116/62 (80) 98 08/02/17 12:13 82 16 152/82 (105) 97 142/107 (119) Manual Cuff/Palpation 08/02/17 08:00 97.9 82 18 190/82 (118) 97 08/02/17 04:16 18 08/02/17 04:00 98.6 74 18 191/92 (125) 95 08/02/17 00:00 97.9 75 18 169/116 (133) 96 I/O 08/02/17 08/02/17 08/02/17 08/03/17 08/03/17 08/03/17 07:00 15:00 23:00 07:00 15:00 23:00 Intake Total 530 ml 1320 ml Balance 530 ml 1320 ml Intake Oral 480 ml 1320 ml IV Total 50 ml # Voids 3 5 # Bowel Movements 0 0 Result Diagram: 08/02/17 0320 Objective Remarks GENERAL: patient lying in bed. Appears comfortable. SKIN: Warm and dry. HEAD: Normocephalic. EYES: No scleral icterus. No injection or drainage. NECK: Supple, trachea midline. No JVD or lymphadenopathy. CARDIOVASCULAR: Regular rate and rhythm without murmurs, gallops, or rubs. RESPIRATORY: Breath sounds equal bilaterally. No accessory muscle use. GASTROINTESTINAL: Abdomen soft, non-tender, nondistended. MUSCULOSKELETAL: No cyanosis, or edema. right leg in brace. BACK: Nontender without obvious deformity. No CVA tenderness. A/P Assessment and Plan //Cellulitis of the right lower extremity: Status post fracture right tibia. Right proximal tibia wound infection. Status post irrigation and debridement of right proximal tibia with placement of antibiotic beads. Wound VAC applied , has since been removed. Continue antibiotics per infectious disease recommendations. Rifampin and cefazolin are to be continued until the patient is readmitted for hardware removal and then another 4-6 weeks of antibiotics postoperatively. //Bacteremia: Blood culture grew Staphylococcus epidermidis. Appreciate infectious disease recommendations. Continue antibiotics as per ID.. //Hypertension: Appreciate nephrology recommendations. Patient has history of renal artery stenosis and has a stent in the left renal artery. MRA report noted. May need renal angiogram. Continue clonidine (dose increased today by nephrology), Cardura, HCTZ, metoprolol, amlodipine, valsartan, Minoxidil. BP remains elevated. Appreciate cardiology recommendations. CT angiogram shows patent left renal artery stent. Right renal artery and mesenteric vessels are also patent. Discussed with Dr. Santiago. Blood pressure elevation is likely attributed to pain. Will work to improve pain control and continue on multiple antihypertensive medications. = 08/02. Blood pressure elevated. Add low-dose spironolactone. Decrease losartan. Appreciate nephrology assistance for //Coronary artery disease: Asymptomatic. //DVT prophylaxis: Xarelto. Discharge Planning Patient is clear for discharge by nephrology. Plan for discharge home when patient has outpatient follow-up and can obtain his medications. Case management to assist with discharge planning. = Likely discharge tomorrow if blood pressure stable. Riaz Costa MD Aug 02, 2017 23:45
[2017-08-03] VITALS: BP 142/63; PULSE 68; RESP 20; TEMP 97.6; O2SAT 94
[2017-08-03] MEDS: ceFAZolin 2 GM/DEX PREMIX 50 ML IV SCH ×3 (00:35→13:38)
[2017-08-03] MEDS: ZOLPIDEM TARTRATE 5 MG TAB PO PRN (01:11)
[2017-08-03 05:31] VITALS: BP 180/71; PULSE 76; RESP 18; TEMP 97.4; O2SAT 96
[2017-08-03] MEDS: METOPROLOL TARTRATE 25 MG TAB PO SCH ×2 (05:32→13:38)
[2017-08-03] MEDS: oxyCODONE/ACETAMINOPHEN 10 MG/325 MG TAB PO PRN (05:33)
[2017-08-03 06:04] LABS: AUTOMATED NEUTROPHIL # 3.2 TH/MM3 (1.8-7.7); BASOPHIL % 0.8 % (0.0-2.0); EOSINOPHIL # 0.2 TH/MM3 (0-0.4); EOSINOPHIL % 3.6 % (0.0-4.0); HEMATOCRIT 31.2 % (39.0-51.0); HEMOGLOBIN 11.1 GM/DL (13.0-17.0); LYMPH % 29.4 % (9.0-44.0); LYMPHOCYTE # 1.8 TH/MM3 (1.0-4.8); MEAN CELL VOLUME 100.4 FL (80.0-100.0); MEAN CORPUSCULAR HEMOGLOBIN 35.6 PG (27.0-34.0); MEAN CORPUSCULAR HGB CONC 35.5 % (32.0-36.0); MEAN PLATELET VOLUME 7.7 FL (7.0-11.0); MONO % 13.1 % (0.0-8.0); MONOCYTE # 0.8 TH/MM3 (0-0.9); NEUT % 53.1 % (16.0-70.0); PLATELET COUNT 164 TH/MM3 (150-450); RED BLOOD COUNT 3.11 MIL/MM3 (4.50-5.90); RED CELL DISTRIBUTION WIDTH 12.8 % (11.6-17.2)
[2017-08-03 06:29] LABS: ALBUMIN 2.9 GM/DL (3.4-5.0); BICARBONATE 28.1 MEQ/L (21.0-32.0); CALCIUM 8.7 MG/DL (8.5-10.1); CREATININE 0.68 MG/DL (0.60-1.30); PHOSPHORUS 3.9 MG/DL (2.5-4.9)
[2017-08-03] MEDS ORDERED: VALSARTAN 160 MG TAB PO SCH (06:30)
[2017-08-03 08:16] VITALS: BP 124/74; PULSE 71; RESP 18; TEMP 97.8; O2SAT 98
[2017-08-03] MEDS: DOCUSATE SODIUM 50 MG/SENNA 8.6 MG TAB PO SCH (08:28)
[2017-08-03] MEDS: RIVAROXABAN 10 MG TAB PO SCH (08:29)
[2017-08-03] MEDS: RIFAMPIN 150 MG CAP PO SCH (08:29)
[2017-08-03] MEDS: HYDROCHLOROTHIAZIDE 50 MG TAB PO SCH (08:30)
[2017-08-03] MEDS: SODIUM CHLORIDE 0.9% FLUSH 10 ML FLUSH IV FLUSH SCH (08:30)
[2017-08-03] MEDS: DOXAZOSIN MESYLATE 2 MG TAB PO SCH (08:30)
[2017-08-03] MEDS: cloNIDine HCL 0.1 MG TAB PO SCH ×3 (08:30→17:19)
[2017-08-03] MEDS: MINOXIDIL 2.5 MG TAB PO SCH (08:40)
[2017-08-03] MEDS ORDERED: SPIRONOLACTONE 25 MG TAB PO SCH (09:00)
[2017-08-03] MEDS ORDERED: METO25TA3 PO (09:32)
[2017-08-03] MEDS ORDERED: HYDR50TA3 PO (09:32)
[2017-08-03] MEDS ORDERED: CARD2TAB PO (09:32)
[2017-08-03] MEDS ORDERED: DIOV160T6 PO (09:32)
[2017-08-03] MEDS ORDERED: XARE10TA PO (09:32)
[2017-08-03] MEDS ORDERED: CLON.1 PO (09:32)
[2017-08-03] MEDS ORDERED: AMLO10 PO (09:32)
[2017-08-03] MEDS ORDERED: SPIR25 PO (09:32)
[2017-08-03] MEDS ORDERED: PERI PO (09:32)
[2017-08-03] MEDS ORDERED: MINO2.5T PO (09:32)
[2017-08-03] MEDS ORDERED: RIFA150C2 PO (09:35)
[2017-08-03] MEDS: oxyCODONE/ACETAMINOPHEN 7.5 MG/325 MG TAB PO PRN ×2 (10:11→15:10)
[2017-08-03 11:15] VITALS: BP 162/71; PULSE 75; RESP 18; TEMP 97.9
--- NOTE | 2017-08-03 13:27 | HHI.FF ---
Face to Face Verification Diagnosis: (1) Status post fracture of right tibia Home Health Nursing Order: Wound care and dressing changes Nursing assessment with vital signs IV medication administration Instructions: Daily dressing change, 4 x 4's, gauze, Xeroform IV antibiotic drug administration. Please see infectious disease documentation. Patient will also need weekly CBCs with differential, creatinine, LFTs, CRP, sedimentation rate to be drawn and forwarded to the infectious disease doctor or primary care doctor I have seen patient Aubrey Carbajal on 08/03/17. My clinical findings support the need for the requested home health care services because: Ltd mobility - disease progression I certify that my clinical findings support that this patient is homebound because: Unsteady gait/balance [id number] bed/chair Riaz Costa MD Aug 03, 2017 13:27
--- NOTE | 2017-08-03 23:01 | HHI.DS ---
Discharge Summary Admission Date Jul 03, 2017 at 10:13 Discharge Date: Aug 03, 2017 Admitting Diagnosis Right leg cellulitis. Status post open reduction internal fixation (1) Status post fracture of right tibia ICD Code: Z87.81 - Personal history of (healed) traumatic fracture Status: Acute (2) History of renal artery stenosis ICD Code: Z86.79 - Personal history of other diseases of the circulatory system Status: Acute (3) Hypertension ICD Code: I10 - Essential (primary) hypertension Status: Chronic (4) Hypertensive urgency ICD Code: I10 - Essential (primary) hypertension Status: Acute Procedures Right proximal tibia wound infection s/p Irrigation and debridement of right proximal tibia, placement of antibiotic beads, application wound VAC dressing on 07/07/[address] Smith Brief History - From Admission Written by Leann Fink, acting as scribe for Dr. Sun on 06/30/17 at 13:50. This is a 61-year-old male patient with a known medical history of PAD, CAD and tobacco abuse who presented to the ED with complaints of right lower extremity pain and possible infection. He states he broke his right knee on June 08 and underwent left open rigid internal fixation on June 11 and then injured it and states it "got infected" shortly after. Does admit to unbearable right knee pain for roughly the past week. Denies any fever or chills. Denies any recent chest pain, shortness of breath, headache, abdominal pain, nausea, vomiting, diarrhea or dysuria. Does admit to good appetite. Denies following with a PCP. Leukocytosis upon presentation. Wound growing Staphylococcus aureus. Blood cultures ordered. Knee x-ray showing stable appearance. CBC/BMP: 08/03/17 0525 08/03/17 0525 Significant Findings Laboratory Tests Test 08/02/17 03:20 08/03/17 05:25 Blood Urea Nitrogen 6 MG/DL (7-18) Sodium Level 135 MEQ/L (136-145) 135 MEQ/L (136-145) Chloride Level 97 MEQ/L (98-107) Red Blood Count 3.11 MIL/MM3 (4.50-5.90) Hemoglobin 11.1 GM/DL (13.0-17.0) Hematocrit 31.2 % (39.0-51.0) Mean Corpuscular Volume 100.4 FL (80.0-100.0) Mean Corpuscular Hemoglobin 35.6 PG (27.0-34.0) Monocytes (%) (Auto) 13.1 % (0.0-8.0) Albumin 2.9 GM/DL (3.4-5.0) Imaging Last Impressions Abdomen/Pelvis CT 07/31/17 0000 Signed Impressions: Service Date/Time: Monday, July 31, 2017 12:51 - CONCLUSION: 1. Stent in the ostium of the left renal artery. The stent remains widely patent. The right renal artery and mesenteric vessels are also patent. 2. End to side aortobifem bypass graft is widely patent bilaterally. 3. 50%% stenosis in the proximal SFA on the right due to the small ulcerated plaque. Proximal SFA and profundal vessels are otherwise patent bilaterally. 4. 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 5. Bibasilar atelectatic changes. Carlos Masters MD Abdomen Magnetic Resonance Angio 07/23/17 0000 Signed Impressions: Service Date/Time: Sunday, July 23, 2017 13:25 - CONCLUSION: Left main renal artery is previously stented. Neointimal hyperplasia within the stent cannot be excluded. Catheter arteriography suggested for definitive evaluation if clinically appropriate. Hany Kaiser MD Tumor Localization 07/04/17 0000 Signed Impressions: Service Date/Time: Tuesday, July 04, 2017 14:31 - CONCLUSION: Mild tracer accumulation in the soft tissues directly adjacent to the hardware along the top of the right tibia. Emiliano Oshea MD Lower Extremity CT 07/04/17 0000 Signed Impressions: Service Date/Time: Tuesday, July 04, 2017 09:42 - CONCLUSION: 1. Small joint effusion and lateral knee soft tissue swelling. 2. Status post ORIF of a comminuted lateral tibial plateau fracture 3. No evidence of destructive bone lesions or extra articular fluid collections. 4. Postop wound infection and hardware infection cannot be excluded based on the above findings. Mina Dockery MD Knee X-Ray 06/29/17 390 Signed Impressions: Service Date/Time: June 23:12 - CONCLUSION: Stable appearance status post open rigid internal fixation. Rivas Ledesma MD PE at Discharge General: No acute distress. Heart: Regular rate and rhythm. No murmur. Lungs: Clear to auscultation bilaterally. No wheezes, rales, or rhonchi. Breathing is nonlabored. Abdomen: Soft, nontender, nondistended. Extremities: No lower extremity edema. Right lower extremity in a splint. Psych: Alert and oriented. Neuro: Normal speech. No focal deficits noted. Pt update on day of discharge Patient seen this morning around 9 AM. Says he is feeling all right. Hospital Course //Cellulitis of the right lower extremity: Status post fracture right tibia. Right proximal tibia wound infection. Status post irrigation and debridement of right proximal tibia with placement of antibiotic beads. Wound VAC applied , has since been removed. Continue antibiotics per infectious disease recommendations. Rifampin and cefazolin are to be continued until the patient is readmitted for hardware removal and then another 4-6 weeks of antibiotics postoperatively. //Bacteremia: Blood culture grew Staphylococcus epidermidis. Appreciate infectious disease recommendations. Continue antibiotics as per ID.. //Hypertension: Appreciate nephrology recommendations. Patient has history of renal artery stenosis and has a stent in the left renal artery. MRA report noted. May need renal angiogram. Continue clonidine (dose increased today by nephrology), Cardura, HCTZ, metoprolol, amlodipine, valsartan, Minoxidil. BP remains elevated. Appreciate cardiology recommendations. CT angiogram shows patent left renal artery stent. Right renal artery and mesenteric vessels are also patent. Discussed with Dr. Santiago. Blood pressure elevation is likely attributed to pain. Will work to improve pain control and continue on multiple antihypertensive medications. = 08/02. Blood pressure elevated. Add low-dose spironolactone. Decrease losartan. Appreciate nephrology assistance for //Coronary artery disease: Asymptomatic. //DVT prophylaxis: Xarelto. Discharge Planning Patient is clear for discharge by nephrology. Plan for discharge home when patient has outpatient follow-up and can obtain his medications. Case management to assist with discharge planning. = Likely discharge tomorrow if blood pressure stable. Pt Condition on Discharge: Good Discharge Disposition: Discharge Home Discharge Time: > 30 minutes Discharge Instructions DIET: Follow Instructions for: Heart Healthy Diet Activities you can perform: Toe Touch Weight Bearing Follow up Referrals: Nephrology - 1 Week with Camiol Santiago MD with Dr. Santiago office does not accept self pay patients, discussed with [employer] caseworker. Orthopedics - 2 Weeks @ [facility] with Nic Ritter Jr., MD with Dr. Ritter office will contact the patient for follow up appointment, after she contacts Dr. Ritter. PCP Follow-up - 1 Week with [facility] Provided patient with address and phone number, Informed patient to call and schedule appointment in 1 week. [facility] Offers same day appointment. New Medications: Oxycodone-Acetaminophen (Percocet) 5-325 mg Tab 1 TAB PO Q4H PRN for PAIN, #90 TAB 0 Refills Walker with Front Wheels (Walker with Front Wheels) 1 Mis Mis EA .XX DIRECTED, #1 0 Refills Amlodipine (Norvasc) 10 Mg Tab 10 MG PO BID@0630,2100 for Blood Pressure Management for 30 Days, TAB Clonidine (Catapres) 0.1 Mg Tab 0.2 MG PO TID for Infection for 30 Days, TAB Doxazosin (Cardura) 2 Mg Tab 4 MG PO BID for Blood Pressure Management for 30 Days, #120 TAB Hydrochlorothiazide (Hydrochlorothiazide) 50 Mg Tab 50 MG PO DAILY for Blood Pressure Management for 30 Days, #30 TAB Metoprolol Tartrate (Metoprolol Tartrate) 25 Mg Tab 50 MG PO Q8HR for Blood Pressure Management for 30 Days, TAB Minoxidil (Minoxidil) 2.5 Mg Tab 5 MG PO BID for Blood Pressure Management for 30 Days, #120 TAB Rifampin (Rifampin) 150 Mg Cap 300 MG PO Q12HR for Infection for 25 Days, CAP Sennosides-Docusate Sodium (Gnp Senna Plus 8.6-50 mg) 8.6 Mg-50 Mg Tab 1 TAB PO BID for Constipation for 30 Days, #60 TAB Spironolactone (Aldactone) 25 Mg Tab 12.5 MG PO DAILY for Blood Pressure Management for 30 Days, #15 TAB Valsartan (Diovan) 160 Mg Tab 160 MG PO DAILY@0630 for Blood Pressure Management for 30 Days, TAB Continued Medications: Rivaroxaban (Xarelto) 10 Mg Tab 10 MG PO DAILY for Blood Clot Prevention for 30 Days, #30 TAB 0 Refills (This prescription has been renewed) Discontinued Medications: Amlodipine (Norvasc) 10 Mg Tab 10 MG PO DAILY for HTN for 30 Days, #30 TAB Doxazosin (Cardura) 2 Mg Tab 2 MG PO DAILY for HTN for 30 Days, #30 TAB Enalapril (Enalapril) 5 Mg Tab 5 MG PO DAILY for HTN for 30 Days, #30 TAB Metoprolol Tartrate (Metoprolol Tartrate) 25 Mg Tab 25 MG PO Q8HR for HTN for 30 Days, TAB Riaz Costa MD Aug 03, 2017 23:01
[2017-08-04 07:52] VITALS: BP 111/63; PULSE 83; RESP 18; TEMP 98; O2SAT 98
== END 2017-08-03 18:01 | disposition home health service (06) | DRG 857 ==
LOC: PHED 17:42 → PHEDA 06-30 01:00 → PHEDH 06-30 05:00 → PHICU 06-30 11:08 → PH3A 06-30 17:15 → OBSVTOIN 07-03 10:13 → HSDI 07-06 11:44 → HOCB 07-06 21:50 → N07B 07-07 11:06 → N07A 07-07 12:52
PROVIDERS: ADMIT Internal Medicine; ATTEND Internal Medicine
PROC: 0JDN0ZZ Extraction of Right Lower Leg Subcutaneous Tissue and Fascia, Open Approach (ICD-10-PCS; 2017-07-07)
PROC: 3E0V329 Introduction of Other Anti-infective into Bones, Percutaneous Approach (ICD-10-PCS; 2017-07-07)
PROC: 0QBG0ZZ Excision of Right Tibia, Open Approach (ICD-10-PCS; principal; 2017-07-07 09:24)
DX: T81.4XXA Infection following a procedure, initial encounter (principal); L03.115 Cellulitis of right lower limb; I50.9 Heart failure, unspecified; S82.141D Displaced bicondylar fracture of right tibia, subsequent encounter for closed fracture with routine healing; M19.90 Unspecified osteoarthritis, unspecified site; E78.00 Pure hypercholesterolemia, unspecified; I25.10 Atherosclerotic heart disease of native coronary artery without angina pectoris; J44.9 Chronic obstructive pulmonary disease, unspecified; F17.290 Nicotine dependence, other tobacco product, uncomplicated; B95.61 Methicillin susceptible Staphylococcus aureus infection as the cause of diseases classified elsewhere; I73.9 Peripheral vascular disease, unspecified; Z59.0 Homelessness; Z86.79 Personal history of other diseases of the circulatory system; Z91.19 Patient's noncompliance with other medical treatment and regimen; I16.0 Hypertensive urgency; Z86.73 Personal history of transient ischemic attack (TIA), and cerebral infarction without residual deficits; Z95.1 Presence of aortocoronary bypass graft; Z95.820 Peripheral vascular angioplasty status with implants and grafts; Z87.442 Personal history of urinary calculi; Z82.0 Family history of epilepsy and other diseases of the nervous system
CPT/HCPCS: 36569; 73560; 73701; 74174; 76937; 78806; 78807; 78999; 80048; 80053; 80069; 80202; 82088; 83735; 83835; 84244; 84443; 85025; 85027; 85610; 85652; 85730; 86140; 86403; 87015; 87040; 87070; 87077; 87102; 87116; 87147; 87176; 87186; 87205; 87206; 93005; 94150; 99211; A9569; A9579; C8900; G0463; J0690; J1100; J1580; J2250; J2270; J2405; J2543; J3010; J3370; J7050; J7120; L1830; Q9967

== ENCOUNTER → 2017-08-09 | Day surgery (SDC) | payer SELFPAY ==
[~2017-08-09] VITALS: Ht 180.3 cm; Wt 66.0 kg
[~2017-08-09] MED LIST changes: +*HYDROmorphone PF 0.5 MG/0.5 ML PERIprocedure ONLY ONE; +*morphine SULFATE 4 MG/ML PERIprocedure ONLY ONE; +ACETAMINOPHEN/HYDROcodone 325 MG/7.5 MG TAB PO PRN; +CHLORHEXIDINE GLUCONATE 2 % 1 PACK (2 CLOTHS) TOPICAL PRN; +CHLORHEXIDINE GLUCONATE 4% SOLN 120 ML BTL TOPICAL SCH; +CLON.1 PO; +DIOV160T6 PO; +DO NOT ADM ANY ANTICOAGULANT DRUGS PRN; +DOXAZOSIN MESYLATE 4 MG TAB PO SCH; -ENAL5TAB PO; +GENTAMICIN SULFATE 80 MG/2 ML VIAL ONE; +HYDR50TA3 PO; +HYDROCHLOROTHIAZIDE 50 MG TAB PO SCH; +LACTATED RINGER'S 1000 ML IV PRN; +LIDOCAINE HCL 1% PF 5 ML SYRINGE OTHER ONE; +METOPROLOL TARTRATE 25 MG TAB PO PRN; +METOPROLOL TARTRATE 50 MG TAB PO SCH; +MINO2.5T PO; +MINOXIDIL 2.5 MG TAB PO SCH; +MORPHINE SULFATE 4 MG/ML INJ IV PUSH PRN; +ONDANSETRON HCL 4 MG/2 ML VIAL IV PUSH PRN; +PERI PO; +PILL SPLITTER OTHER PRN; +POVIDONE IODINE 5% (ANTISEPSIS KIT) 4 APPLICATIONS EACH NARE PRN; +PROPOFOL 200 MG/20 ML AMP IV ONE; +RIFA150C2 PO; +RIFAMPIN 150 MG CAP PO SCH; +SODIUM CHLOR 0.9% 250 ML INJ 250 ML ONE; +SODIUM CHLORID 0.9% 500 ML IV PRN; +SODIUM CHLORIDE 0.9% 10 ML VIAL IV ONE; +SODIUM CHLORIDE 0.9% FLUSH 10 ML FLUSH IV FLUSH SCH; +SPIR25 PO; +SPIRONOLACTONE 25 MG TAB PO SCH; +VALSARTAN 160 MG TAB PO SCH; +VANCOMYCIN HCL 1000 MG VIAL ONE; +WALKER WHEELS/F1 MIS; +ceFAZolin INJ 1,000 MG VIAL ONE; +cloNIDine HCL 0.2 MG TAB PO SCH; +ePHEDrine/NS 25 MG/5 ML SYRINGE IV ONE; +oxyCODONE/ACETAMINOPHEN 5 MG/325 MG TAB PO PRN
--- NOTE | 2017-08-09 09:14 | PD.OP ---
cc: Jordan Talbot MD Operative Report Date of Surgery: August 09, 2017 Preoperative Diagnosis: Right proximal tibia infection with open wound Postoperative Diagnosis: Procedure: Irrigation debridement of right proximal tibia, wound closure Anesthesia: General Surgeon: Jordan Talbot Silk Screen Layout Drafter(s): KOURTNEY Teixeira PA-C The surgical procedure was assisted by my physician assistant art director. My P.A. presence was necessary throughout this case for the manipulation and positioning of the surgical extremity. My P.A. was assisting me throughout the duration of this procedure. The skill set of a physician assistant art director was medically necessary to complete this procedure. During the surgical case the surgical attendant was working at the back table and the physician assistant art director was directly assisting me. Operation and Findings: Aubrey previously had a right tibial plateau fracture treated with open reduction internal fixation. He subsequently developed wound infection and open wound. Informed consent was obtained and operative site was marked. He has brought the operating room. He was given IV sedation and general anesthesia. Right leg was prepped with alcohol followed Hibiclens and draped in usual sterile fashion. Timeout procedure was performed. Procedure began with debridement of the wound. Skin subcutaneous tissue and fascia were sharply debrided with scalpel. Curettes were used to debride the proximal tibia. There was some antibiotic beads that were still remaining. These beads were removed with curette.. After excisional debridement was completed the wound was thoroughly irrigated with sterile saline. Next attention was turned to wound closure. Skin edges were mobilized using a scalpel. Skin edges were now reapproximated using 3-0 nylon and 2-0 nylon. A combination of vertical mattress suture and retention suture were utilized. Skin edges were completely closed. Sterile dressings were applied. Patient was placed back into a knee immobilizer. He was awakened and transferred to recovery room in stable condition. Jordan Talbot MD August 09, 2017 09:14
[2017-08-09 10:15] VITALS: TEMP 98.3
[2017-08-09 13:30] VITALS: BP 123/76; PULSE 80; RESP 18; O2SAT 100
== END | disposition home or self-care (01) ==
LOC: HSDC 06:03
PROVIDERS: ATTEND Orthopaedic Surgery Orthopaedic Trauma
DX: T81.4XXA Infection following a procedure, initial encounter (principal); T81.30XA Disruption of wound, unspecified, initial encounter
CPT/HCPCS: 00400; 11043; 12020; J0690; J1170; J1580; J2270; J3010; J3370; J7050; J7120

== ENCOUNTER 2017-09-19 06:39 | Observation (INO) | payer SELFPAY ==
[~2017-09-19] VITALS: Ht 180.3 cm; Wt 72.7 kg
[~2017-09-19 06:39] MED LIST changes: -*HYDROmorphone PF 0.5 MG/0.5 ML PERIprocedure ONLY ONE; -*morphine SULFATE 4 MG/ML PERIprocedure ONLY ONE; -ACETAMINOPHEN/HYDROcodone 325 MG/7.5 MG TAB PO PRN; -CHLORHEXIDINE GLUCONATE 2 % 1 PACK (2 CLOTHS) TOPICAL PRN; -CHLORHEXIDINE GLUCONATE 4% SOLN 120 ML BTL TOPICAL SCH; -DO NOT ADM ANY ANTICOAGULANT DRUGS PRN; -DOXAZOSIN MESYLATE 4 MG TAB PO SCH; -GENTAMICIN SULFATE 80 MG/2 ML VIAL ONE; -HYDROCHLOROTHIAZIDE 50 MG TAB PO SCH; -LACTATED RINGER'S 1000 ML IV PRN; -LIDOCAINE HCL 1% PF 5 ML SYRINGE OTHER ONE; -METOPROLOL TARTRATE 25 MG TAB PO PRN; -METOPROLOL TARTRATE 50 MG TAB PO SCH; -MINOXIDIL 2.5 MG TAB PO SCH; -MORPHINE SULFATE 4 MG/ML INJ IV PUSH PRN; -ONDANSETRON HCL 4 MG/2 ML VIAL IV PUSH PRN; -PILL SPLITTER OTHER PRN; -POVIDONE IODINE 5% (ANTISEPSIS KIT) 4 APPLICATIONS EACH NARE PRN; -PROPOFOL 200 MG/20 ML AMP IV ONE; -RIFAMPIN 150 MG CAP PO SCH; -SODIUM CHLOR 0.9% 250 ML INJ 250 ML ONE; -SODIUM CHLORID 0.9% 500 ML IV PRN; -SODIUM CHLORIDE 0.9% 10 ML VIAL IV ONE; -SODIUM CHLORIDE 0.9% FLUSH 10 ML FLUSH IV FLUSH SCH; -SPIRONOLACTONE 25 MG TAB PO SCH; -VALSARTAN 160 MG TAB PO SCH; -VANCOMYCIN HCL 1000 MG VIAL ONE; -ceFAZolin INJ 1,000 MG VIAL ONE; -cloNIDine HCL 0.2 MG TAB PO SCH; -ePHEDrine/NS 25 MG/5 ML SYRINGE IV ONE; -oxyCODONE/ACETAMINOPHEN 5 MG/325 MG TAB PO PRN
[2017-09-19] MEDS ORDERED: CHLORHEXIDINE GLUCONATE 2 % 1 PACK (2 CLOTHS) TOPICAL PRN (07:15)
[2017-09-19] MEDS ORDERED: METOPROLOL TARTRATE 25 MG TAB PO PRN (07:15)
[2017-09-19] MEDS ORDERED: POVIDONE IODINE 5% (ANTISEPSIS KIT) 4 APPLICATIONS EACH NARE PRN (07:15)
[2017-09-19] MEDS ORDERED: LACTATED RINGER'S 1000 ML IV PRN (07:15)
[2017-09-19] MEDS ORDERED: SODIUM CHLORID 0.9% 500 ML IV PRN (07:15)
[2017-09-19] MEDS ORDERED: CHLORHEXIDINE GLUCONATE 4% SOLN 120 ML BTL TOPICAL SCH (07:15)
[2017-09-19] MEDS ORDERED: SODIUM CHLOR 0.9% 250 ML INJ 250 ML ONE (11:35)
[2017-09-19] MEDS ORDERED: GENTAMICIN SULFATE 80 MG/2 ML VIAL ONE (11:35)
[2017-09-19] MEDS ORDERED: ceFAZolin INJ 1,000 MG VIAL ONE (11:35)
[2017-09-19] MEDS ORDERED: VANCOMYCIN HCL 1000 MG VIAL ONE (11:35)
[2017-09-19] MEDS ORDERED: PROPOFOL 200 MG/20 ML AMP IV ONE (12:00)
[2017-09-19] MEDS ORDERED: LIDOCAINE HCL 1% PF 5 ML SYRINGE OTHER ONE (12:00)
[2017-09-19] MEDS ORDERED: ONDANSETRON HCL 4 MG/2 ML VIAL IV ONE (12:00)
[2017-09-19] MEDS ORDERED: ePHEDrine/NS 25 MG/5 ML SYRINGE IV ONE (12:00)
[2017-09-19] MEDS ORDERED: ACETAMINOPHEN 1000 MG/100 ML 100 ML IV ONE (12:44)
[2017-09-19] MEDS: LACTATED RINGER'S 1000 ML INJ 1,000 ML IV SCH (14:01)
--- NOTE | 2017-09-19 14:07 | PD.OP ---
cc: Jordan Talbot MD Operative Report Date of Surgery: Sep 19, 2017 Preoperative Diagnosis: Infected right proximal tibia Postoperative Diagnosis: Procedure: Removal of deep hardware, irrigation and debridement of right tibia Anesthesia: General Surgeon: Jordan Talbot Teletype Mechanic(s): Aaron Harrison PA-C The surgical procedure was assisted by my physician orthodontic technician assistant. My P.A. presence was necessary throughout this case for the manipulation and positioning of the surgical extremity. My P.A. was assisting me throughout the duration of this procedure. The skill set of a physician orthodontic technician assistant was medically necessary to complete this procedure. During the surgical case the operating room surgical technologist was working at the back table and the physician orthodontic technician assistant was directly assisting me. Operation and Findings: Aubrey is a 62-year-old male who previously had a right tibial plateau fracture treated with open reduction internal fixation by Dr. Ritter. He separately developed wound dehiscence and infection. He has a chronic smoker and has refused to stop smoking. He has been counseled on the need to stop smoking multiple times. Informed consent was obtained and operative site was marked. He is brought operating. Is given IV sedation and general anesthesia. He has been on IV antibiotics. Right leg was prepped with alcohol followed Hibiclens and draped in usual sterile fashion. Timeout procedure was performed. Procedure began with extension of the opening proximally distally. The traumatic wound was partially excised. Full-thickness flaps were carefully elevated. The plate was no exposed. Screws were loosened. Screws were now removed. The plate was elevated and removed. Fluoroscopy confirmed removal of appropriate hardware. At this point attention was turned towards debridement of the tibia. Curettes and rongeurs were used to debride the proximal tibia. Soft tissue and bone were thoroughly debrided. An excisional debridement was performed. Tissue cultures were sent were sent. The wound was now thoroughly irrigated with pulsatile lavage. At this point the wound appeared to be clean. Subcutaneous tissues closed with 3-0 PDS. Skin was closed with 3-0 nylon. Sterile dressings were applied. Patient was awakened and transferred to recovery in stable condition. Needle and sponge counts were correct. Jordan Talbot MD Sep 19, 2017 14:07
[2017-09-19] MEDS ORDERED: NALOXONE HCL 0.4 MG/ML AMP IV PUSH PRN (14:15)
[2017-09-19] MEDS ORDERED: Post-op Orders (for Pharmacy) XX ONE (14:15)
[2017-09-19] MEDS ORDERED: ERGOCALCIFEROL (VIT D2) 50,000 UNIT CAP PO SCH (14:15)
[2017-09-19] MEDS ORDERED: diphenhydrAMINE HCL 25 MG CAP PO PRN (14:15)
[2017-09-19] MEDS ORDERED: ONDANSETRON ODT 4 MG TAB PO PRN (14:15)
[2017-09-19] MEDS ORDERED: *morphine SULFATE 10 MG/ML PERIprocedure ONLY ONE (14:29)
[2017-09-19] MEDS ORDERED: DO NOT ADM ANY ANTICOAGULANT DRUGS PRN (14:30)
[2017-09-19] MEDS ORDERED: MIDAZOLAM HCL 2 MG/2 ML VIAL ONE (14:36)
[2017-09-19] MEDS ORDERED: PICC PRN Heparin 100 units/ml Lock Flush IV FLUSH ×2 (14:45→16:00)
[2017-09-19] MEDS ORDERED: SODIUM CHLORIDE 0.9% FLUSH 10 ML FLUSH IV FLUSH PRN (14:45)
[2017-09-19] MEDS ORDERED: PICC PRN After Blood Draw NS Lock Flush IV FLUSH (14:45)
[2017-09-19] MEDS ORDERED: HYDROmorphone HCL PF 2 MG/ML VIAL ONE (15:03)
[2017-09-19] MEDS ORDERED: *LABETALOL HCL 100 MG/20 ML VIAL PERIprocedural Use ONLY ONE (15:19)
[2017-09-19] MEDS ORDERED: *ENALAPRILAT 1.25 MG/ML VIAL PERIprocedural Use ONLY ONE (15:38)
--- NOTE | 2017-09-19 16:35 | RADRPT ---
EXAM DATE: 09/19/2017 2:06 PM EDT AGE/SEX: 62 years / Male INDICATIONS: Hardware removal of right tibial plateau. CLINICAL DATA: This is the patient's initial encounter. Patient reports that signs and symptoms have been present for 1 day and indicates a pain score of Nonresponsive. MEDICAL/SURGICAL HISTORY: Non-responsive. Non-responsive. COMPARISON: No prior exams available for comparison. FINDINGS: 2 views of the right tibia stress postsurgical changes following hardware removal. CONCLUSION: Status post hardware removal. Electronically signed by: Mina Dockery MD 09/19/2017 4:33 PM EDT
[2017-09-19 17:12] VITALS: BP 157/73; PULSE 58; RESP 18; TEMP 97.2; O2SAT 99
[2017-09-19] MEDS: ACETAMINOPHEN/HYDROcodone 325 MG/7.5 MG TAB PO PRN ×2 (17:19→22:40)
[2017-09-19 20:00] VITALS: BP 108/56; PULSE 67; RESP 16; TEMP 97.2; O2SAT 96
[2017-09-19] MEDS: ceFAZolin 2 GM PREMIX 50 ML IV SCH (20:23)
[2017-09-19] MEDS: MORPHINE SULFATE 4 MG/ML INJ IV PUSH PRN (20:24)
[2017-09-19] MEDS: DOCUSATE SODIUM 50 MG/SENNA 8.6 MG TAB PO SCH (20:25)
[2017-09-20] VITALS: BP 118/58; PULSE 78; RESP 18; TEMP 97.7; O2SAT 96
[2017-09-20] MEDS: ACETAMINOPHEN/HYDROcodone 325 MG/7.5 MG TAB PO PRN ×4 (01:13→16:06)
[2017-09-20] MEDS: LACTATED RINGER'S 1000 ML INJ 1,000 ML IV SCH (01:26)
[2017-09-20] MEDS: ceFAZolin 2 GM PREMIX 50 ML IV SCH ×2 (04:32→14:12)
[2017-09-20] MEDS: MORPHINE SULFATE 4 MG/ML INJ IV PUSH PRN (04:33)
[2017-09-20] MEDS ORDERED: HYDR-3288 PO (07:00)
--- NOTE | 2017-09-20 07:02 | PD.ORT.PN ---
Subjective Subjective Remarks Postop day #1 status post removal of hardware with irrigation and debridement of right tibial plateau. Complains of pain. Objective Vitals Vital Signs Date Time Temp Pulse Resp B/P (MAP) Pulse Ox O2 Delivery O2 Flow Rate FiO2 09/20/17 00:00 97.7 78 18 118/58 (78) 96 09/19/17 20:00 97.2 67 16 108/56 (73) 96 09/19/17 17:12 97.2 58 18 157/73 (101) 99 09/19/17 16:05 97.2 61 12 151/71 (97) 94 Room Air 09/19/17 15:45 59 12 166/68 (100) 94 Room Air 09/19/17 15:30 68 23 198/84 (122) 100 Room Air 09/19/17 15:15 72 24 176/88 (117) 95 Room Air 09/19/17 15:00 71 12 185/84 (117) 93 Room Air 09/19/17 14:45 82 23 154/67 (96) 97 Room Air 09/19/17 14:25 96.9 79 14 190/86 (120) 98 Room Air 09/19/17 08:13 97.4 74 18 142/82 (102) 100 I/O 09/19/17 09/19/17 09/19/17 09/20/17 09/20/17 09/20/17 07:00 15:00 23:00 07:00 15:00 23:00 Intake Total 700 ml 235 ml Output Total 20 ml 900 ml Balance 680 ml 235 ml -900 ml Intake IV Total 235 ml Other 700 ml Output Urine Total 900 ml Estimated Blood Loss 20 ml Objective Remarks Patient is awake and alert. Clean dry dressings right leg. Knee immobilizer in place. Sensation intact right foot. Assessment & Plan Assessment and Plan Will discuss with Dr. Urias of infectious disease--extend IV antibiotics at home Case management--possible discharge home today if antibiotics arranged Strict nonweightbearing right leg Follow-up with orthopedics in 2 weeks Knee immobilizer Jordan Smith MD Sep 20, 2017 07:02
[2017-09-20] MEDS: DOCUSATE SODIUM 50 MG/SENNA 8.6 MG TAB PO SCH (07:45)
[2017-09-20 08:00] VITALS: BP 185/94; PULSE 77; RESP 17; TEMP 97.4; O2SAT 98
[2017-09-20] MEDS ORDERED: PICC Daily Heparin 100 unit/mL Lock Flush IV FLUSH SCH (09:00)
[2017-09-20] MEDS ORDERED: CHOLECALCIFEROL (VIT D3) 1000 UNIT TAB PO SCH (09:00)
[2017-09-20] MEDS ORDERED: PILL SPLITTER OTHER PRN (11:00)
[2017-09-20] MEDS ORDERED: MINOXIDIL 2.5 MG TAB PO SCH (11:00)
[2017-09-20] MEDS ORDERED: HYDROCHLOROTHIAZIDE 50 MG TAB PO SCH (11:00)
[2017-09-20] MEDS ORDERED: DOXAZOSIN MESYLATE 4 MG TAB PO SCH (11:00)
[2017-09-20] MEDS ORDERED: SPIRONOLACTONE 25 MG TAB PO SCH (11:00)
[2017-09-20 12:00] VITALS: BP 179/83; PULSE 79; RESP 17; TEMP 97.8; O2SAT 97
[2017-09-20] MEDS ORDERED: RIFAMPIN 150 MG CAP PO SCH (12:00)
[2017-09-20] MEDS ORDERED: cloNIDine HCL 0.2 MG TAB PO SCH (13:00)
--- NOTE | 2017-09-20 13:00 | HHI.FF ---
Face to Face Verification Diagnosis: (1) Wound dehiscence, surgical (2) Status post fracture of right tibia Physical Therapy Right LE Weight Bearing: Non WB Nursing Nursing: Dressing changes Dressing Changes: Daily dressing change, Bay wrap, 4x4s, Xeroform I have seen patient Aubrey Carbajal on 09/20/17. My clinical findings support the need for the requested home health care services because: Ltd mobility - disease progression I certify that my clinical findings support that this patient is homebound because: Post-op weakness Aaron Harrison/First [facility] JJ Sep 20, 2017 13:00
--- NOTE | 2017-09-20 13:03 | HHI.DS ---
Discharge Summary Admission Date Sep 19, 2017 at 14:44 Discharge Date: Sep 20, 2017 Admitting Diagnosis wound dehiscence with hardware infection right knee Diagnosis: (1) Wound dehiscence, surgical Diagnosis: Principal ICD Codes: T81.31XA - Disruption of external operation (surgical) wound, not elsewhere classified, initial encounter Status: Acute (2) Status post fracture of right tibia Diagnosis: Principal ICD Codes: Z87.81 - Personal history of (healed) traumatic fracture Status: Acute Procedures irrigation and debridement with removal of hardware right tibial plateau PE at Discharge Patient is awake and alert. Clean dry dressings right leg. Knee immobilizer in place. Sensation intact right foot. Hospital Course patient admitted from outpatient basis for removal of hardware right tibial plateau. He presented when a tibial plateau ORIF by Dr. Ritter 3 months ago. He's had multiple infection and wound complications since that time. Most really, his wound has dehisced the hardware was visible. The decision was made to move forward with removal of hardware. He has also been on IV antibiotics for the past 6 weeks. He tolerated the procedure well and was admitted 7N. his pain was well controlled on postoperative day 1. Daily dressing changes were initiated. He was placed in a knee immobilizer. He'll avoid any motion of knee and remain nonweightbearing. He'll be discharged home health care for daily dressing changes as well as PICC line management and we will extend his IV antibiotics. He will follow up with Dr. Talbot or his PA in 2-3 weeks. Pt Condition on Discharge: Fair Discharge Disposition: Disch w/ Home Health Serv Discharge Instructions Diet Instructions: As Tolerated, No Restrictions Activities You Can Perform: Non Weight Bearing Follow up Referrals: SNF/JACK/ with [facility] New Medications: Hydrocodone-Acetaminophen ([place]) 7.5-325 mg Tab 1 TAB PO Q4H PRN for PAIN, #40 TAB 0 Refills Aaron Harrison/Internal Recruiter PA Sep 20, 2017 13:03
[2017-09-20] MEDS ORDERED: ENOXAPARIN SODIUM 30 MG/0.3 ML SYRINGE SQ SCH (13:19)
--- NOTE | 2017-09-20 13:51 | PD.ID.CON ---
History of Present Illness Service ID Consult Requested By Dr Talbot Reason for Consult Infected [place] Primary Care Physician No Primary Care Physician Diagnoses: History of Present Illness Pt is known to me from previous admission 61 yo male sp ORIF R tib/fib fx on june 11 presented with worseing swelling redness pain and drainage ans separation of incision back in the end of June His culture showed MSSA from R LE wound He was discharged with retained hardware to allow healing on cefazolin + po rifampin to He came back for removal of hardware He has no complaints and his hardware is out Pt is afebrile, WBC is normal Review of Systems Except as stated in HPI: all other systems reviewed are Neg Past Family Social History Allergies: Coded Allergies: No Known Allergies (Verified Adverse Reaction, Unknown, 09/19/17) Past Medical History CAD Past Surgical History CABG ORIF RLE Active Ordered Medications Medications where reviewed in EMR Antibiotics Include: cefazoline rifampin Family History reviewed NC to current ID issue Social History tobacco + 1ppd + ETOH no IVDU Physical Exam Vital Signs Vital Signs Date Time Temp Pulse Resp B/P (MAP) Pulse Ox O2 Delivery O2 Flow Rate FiO2 09/20/17 12:00 97.8 79 17 179/83 (115) 97 09/20/17 08:00 97.4 77 17 185/94 (124) 98 09/20/17 00:00 97.7 78 18 118/58 (78) 96 09/19/17 20:00 97.2 67 16 108/56 (73) 96 09/19/17 17:12 97.2 58 18 157/73 (101) 99 09/19/17 16:05 97.2 61 12 151/71 (97) 94 Room Air 09/19/17 15:45 59 12 166/68 (100) 94 Room Air 09/19/17 15:30 68 23 198/84 (122) 100 Room Air 09/19/17 15:15 72 24 176/88 (117) 95 Room Air 09/19/17 15:00 71 12 185/84 (117) 93 Room Air 09/19/17 14:45 82 23 154/67 (96) 97 Room Air 09/19/17 14:25 96.9 79 14 190/86 (120) 98 Room Air Physical Exam CONSTITUTIONAL/GENERAL: This is an adequately nourished patient, in no apparent distress. TUBES/LINES/DRAINS: SKIN: No jaundice, rashes, or lesions. . Skin temperature appropriate. Not diaphoretic. HEAD: Atraumatic. Normocephalic. EYES: Pupils equal and round and reactive. Extraocular motions intact. No scleral icterus. No injection or drainage. Fundi not examined. ENT: Hearing grossly normal. Nose without bleeding or purulent drainage. Throat without visible erythema, exudates, masses, or lesions. CARDIOVASCULAR: Regular rate and rhythm without murmurs, gallops, or rubs. No JVD. Peripheral pulses symmetric. RESPIRATORY/CHEST: Symmetric, unlabored respirations. Clear to auscultation. Breath sounds equal bilaterally. No wheezes, rales, or rhonchi. GASTROINTESTINAL: Abdomen soft, non-tender, nondistended. No hepato-splenomegaly , or palpable masses. No guarding. Bowel sounds present. MUSCULOSKELETAL: Extremities without clubbing, cyanosis, or edema. RLE with dressing and brace in place NEUROLOGICAL: Awake and alert. Motor and sensory grossly within normal limits. Follows commands. Cognitively sharp. Moves all extremities. PSYCHIATRIC: No obvious anxiety/depression. no apparent hallucinations or other psychotic thought process. Laboratory Date/Time Source Procedure Growth Status 09/19/17 13:40 Wound Leg Fungal Smear - Final NO FUNGAL ELEMENTS SEEN. Resulted 09/19/17 13:40 Wound Leg Fungal Culture Pending Resulted Imaging Last Impressions Knee X-Ray 09/19/17 0000 Signed Impressions: CONCLUSION: Status post hardware removal. Assessment and Plan Assessment and Plan Infected Hardware sp R tib/fib ORIF, MSSA sp IV cefaozlin + po rifampoin treatment sp hardware removal cont cefazoline x 6 wks post op No need for Rifampin since harware is out fu CBC CMP, ESR CRP i Discussed Condition With Diane Delaney MD Sep 20, 2017 13:51
[2017-09-20] MEDS ORDERED: EPIN1INJ21 SQ (13:52)
[2017-09-20] MEDS ORDERED: EPIN1INJ21 IV PUSH (13:52)
[2017-09-20] MEDS ORDERED: SOLU250I IV PUSH (13:52)
[2017-09-20] MEDS ORDERED: CEFA2SOL IV (13:52)
--- NOTE | 2017-09-20 13:52 | HHI.FF ---
Infusion Therapy Location of Infusion Therapy: [facility] IV Infusion Order Patient Information Patient Weight 72.7 kg Diagnosis: Coded Allergies: No Known Allergies (Verified Adverse Reaction, Unknown, 09/19/17) Administer Medication Cefazolin 2 grams IV q 8 hours Start Treatment: Sep 20, 2017 Stop Treatment: Oct 31, 2017 Additional Information Venous access: PICC Line Additional Instructions [x] Peripheral flush and dressing changes per protocol [x] Implanted port and central [employer] counter agent: * Implanted port: 10 ml Normal Saline followed by 5 ml Heparin 100 units/ml Heparin flush after each use and monthly to maintain. [] May leave port accessed during therapy. [] May leave peripheral site accessed for duration of therapy. [x] If patient has SOB or respiratory distress, check oxygen saturation. If less than 90% or clinical signs of respiratory distress, administer oxygen at 2 L/min. via nasal cannula and notify physician. [x] Anaphylaxis/Reaction orders: * Stop infusion. * Keep IV line open with saline flush. * Notify physician. * Monitor vital signs every 15 minutes until symptoms resolve. * Check Oxygen saturation; Oxygen at 2 L/min. via nasal cannula if less than 90% or clinical signs of respiratory distress. * Administer diphenhydramine (Benadryl) 25 mg IV STAT, (unless patient has received as pre-med). May repeat once, if necessary. * Solu-Cortef 250 mg IVP over 30-60 seconds, use 100 mg vials for each dissolution. * Epinephrine (1mg/1 ml) 0.3 mg subcutaneously or IVP now with any signs of respiratory distress. * Check with physician for new additional pre-med orders if patient is re- challenged or re-treated. [x] May remove PICC line when treatment complete, after confirming with Physician. [x] If the patient is admitted to the hospital, the ED, or transferred via [facility] , complete transfer form including medication reconciliation order sheet. Laboratory Tests Weekly Labs: CBC w/diff, Creatinine, CRP, SED Rate Diane Urias MD Sep 20, 2017 13:52
[2017-09-20] MEDS ORDERED: METOPROLOL TARTRATE 50 MG TAB PO SCH (14:00)
[2017-09-21] MEDS ORDERED: VALSARTAN 160 MG TAB PO SCH (06:30)
== END 2017-09-20 16:26 | disposition home or self-care (01) ==
LOC: HSDC 06:39 → N07A 14:44 → HSDC 14:44 → N07A 16:20
PROVIDERS: ADMIT Orthopaedic Surgery Orthopaedic Trauma; ATTEND Orthopaedic Surgery Orthopaedic Trauma
DX: T81.31XA Disruption of external operation (surgical) wound, not elsewhere classified, initial encounter (principal); T84.622A Infection and inflammatory reaction due to internal fixation device of right tibia, initial encounter; F17.200 Nicotine dependence, unspecified, uncomplicated; I10 Essential (primary) hypertension; I25.10 Atherosclerotic heart disease of native coronary artery without angina pectoris; Z95.1 Presence of aortocoronary bypass graft; S82.101D Unspecified fracture of upper end of right tibia, subsequent encounter for closed fracture with routine healing
CPT/HCPCS: 01392; 20680; 73560; 76000; 87015; 87070; 87102; 87116; 87176; 87205; 87206; 94150; 97161; G0378; G8987; G8988; J0131; J0690; J1170; J1580; J1650; J2250; J2270; J2405; J3010; J3370; J7050; J7120